=== PATIENT | female | born 1950 | race African-American/Black ===

== ENCOUNTER 2017-06-25 21:14 | Emergency (ER) | payer MEDICARE, MEDICAID ==
[~2017-06-25] VITALS: Ht 167.6 cm; Wt 72.6 kg
[~2017-06-25 21:14] MED LIST: ASPI-247 GT; BACL10TA OR; CELE200C OR; EZET10TA38 OR; FER325T OR; HYDR-1421 OR; LANS30CA63 OR; SERT-274 OR; TRAM50TA2 OR; TRIA25CA OR; ZOLP10TA6 OR
[2017-06-25] MEDS ORDERED: cloNIDine HCL 0.1 MG TAB PO ONE (21:30)
[2017-06-26] MEDS ORDERED: SODIUM CHLORIDE 0.9% 1,000 ML IV ONE (08:34)
[2017-06-26 09:45] LABS: Basophils # (auto) 0.1 uL; Basophils % (auto) 1.5 % (0.0-2.0); Eosinophils # (auto) 0.3 uL; Eosinophils % (auto) 6.4 % (0.0-7.0); Hematocrit 31.9 % (36.0-46.0); Hemoglobin 10.7 g/dL (12.2-16.2); Lymphocytes # (auto) 1.7 uL; Lymphocytes % (auto) 34.3 % (10.0-50.0); Mean Corpuscular Hemoglobin 27.4 pg (28.0-32.0); Mean Corpuscular Hgb Conc. 33.4 g/dL (32.0-36.0); Mean Corpuscular Volume 81.9 fL (80.0-100.0); Monocytes # (auto) 0.4 uL; Monocytes % (auto) 7.5 % (0.0-12.0); Neutrophils # (auto) 2.4 uL; Neutrophils % (auto) 50.3 % (37.0-80.0); Platelet Count (auto) 274 10^3/uL (140-450); Red Blood Cells 3.89 10^6/uL (4.0-5.20); Red Cell Distribution Width 14.5 % (11.8-14.3); White Blood Cell 4.8 10^3/uL (4.4-10.8)
[2017-06-26 10:04] LABS: Albumin 3.5 g/dL (3.4-5.0); BUN/Creatinine Ratio 14.1; Bilirubin, Total 0.8 mg/dL (0.2-1.0); Calcium 8.7 mg/dL (8.5-10.1); Magnesium 1.9 mg/dL (1.6-2.6); Potassium 4.3 mmol/L (3.5-5.1); Total Protein 6.8 g/dL (6.4-8.2)
[2017-06-26 10:15] VITALS: BP 151/77
[2017-06-26 10:35] LABS: Urine Bacteria FEW /hpf (None Seen); Urine Blood Negative /uL (Negative); Urine Specific Gravity 1.008 (1.001-1.035); Urine WBC <1 /hpf (0 - 5)
== END 2017-06-26 12:08 | disposition home or self-care (01) ==
LOC: EDBD 21:14 → ER 21:14
DX: I12.9 Hypertensive chronic kidney disease with stage 1 through stage 4 chronic kidney disease, or unspecified chronic kidney disease (principal); N18.9 Chronic kidney disease, unspecified; D63.8 Anemia in other chronic diseases classified elsewhere; Z85.038 Personal history of other malignant neoplasm of large intestine; Z79.899 Other long term (current) drug therapy
CPT/HCPCS: 36415; 71046; 80053; 81001; 83735; 84443; 85025; 93005; 99285; J7030

== ENCOUNTER 2024-12-06 23:02 | Inpatient (IN) | payer OTHER, MEDICAID ==
[~2024-12-06] VITALS: Ht 160 cm; Wt 60.0 kg
[~2024-12-06 23:02] MED LIST changes: +EZET10TA24 OR; -EZET10TA38 OR; +LANS30CA57 OR; -LANS30CA63 OR; +SERT-206 OR; -SERT-274 OR
[2024-12-07] VITALS (7 sets, daily range): BP systolic 96–150; BP diastolic 48–102; PULSE 18–99; RESP 16–18; TEMP 98.1–99.4; O2SAT 94–99
[2024-12-07] MEDS: DEXTROSE (50%) 50ML SYRG IV PRN (03:08)
--- NOTE | 2024-12-07 03:34 | DVHHPRES ---
History of Present Illness Resident Creating Document: ANIA FRIAS RESIDENT History of Present Illness This is a 74-year-old female with past medical history of hypertension, atrial fibrillation on Eliquis, ESRD on dialysis, diabetes mellitus, breast cancer, colon cancer, was referred from [facility] for altered mental status, no history could be obtained from patient at this time. According to the documentation from [facility], she was brought to the ER by daughter with 1 day history of altered mental status, daughter also reported abdominal pain, twitching that started with legs, progressively involving the whole-body. She received diphenhydramine, haloperidol, levetiracetam, midazolam in the [facility]. Daughter denied history of seizure in patient. Chest x-ray from outside facility showed cardiomegaly with central pulmonary vascular enlargement & CT head revealed no acute intracranial abnormality. PMHx: Hypertension, atrial fibrillation on Eliquis, ESRD on dialysis, diabetes mellitus, breast and colon cancer (unknown if patient had treatment or if there is recurrence) PSHx: Right knee replacement Social history: No history of smoking, alcohol, drug use. Next of kin daughter Home medication: Acetaminophen, benazepril, cephalexin, clonidine, Prempro, diphenhydramine, ferrous sulfate, folic acid, gabapentin, hydrochlorothiazide, hydroxychloroquine, ibuprofen, lansoprazole, metoprolol, naproxen, omeprazole, pravastatin, prednisolone, sertraline, trazodone Allergic history: No known allergies Patient was examined at bedside today. She is admitted for further evaluation and management. Review of Systems Review of Systems Review of system was not obtained due to altered mental status. Allergies: Coded Allergies: NO KNOWN ALLERGIES (Unverified , 09/25/09) Medications Current Medications Medications Dose Ordered Sig/Duncan Route Start Time Stop Time Status Last Admin Dose Admin Diagnostic Test (Pha) 1 strip ACHS 12/07/24 07:00 Insulin Human Regular ACHS SC 12/07/24 07:00 Dextrose 50 ml UD PRN IV 12/07/24 03:00 12/07/24 03:08 50 ML Exam Exam General: Patient somnolent, does not respond to commands, [place] score 10/15; orientation could not be established at this time Respiratory/pulmonary: Distant breath sounds Cardiovascular: Normal S1, S2. Abdomen: Abdomen nondistended Extremities: No peripheral edema noted Neurological: Altered mental status complete neurological examination could not be obtained at this time. Could not assess orientation. Combative Labs/Xrays Labs Test 12/07/24 02:29 Range/Units POC Glucose 52 L 70-106 mg/dl SEPSIS Sepsis Screen Physician Orders Glucose Blood (Accu-Chek Comfort Curve T (12/07/24 07:00) Insulin R (Human) (Insulin R) (12/07/24 07:00) Dextrose 50% Syringe (12/07/24 03:00) Medications Medications Dose Ordered Sig/Duncan Route Start Time Stop Time Status Last Admin Dose Admin Dextrose 50 ml UD PRN IV 12/07/24 03:00 12/07/24 03:08 50 ML Assessment/Plan Assessment/Plan Metabolic encephalopathy probably secondary to sepsis (UTI) Hypoglycemia on arrival Breakthrough seizure Diabetes mellitus type 2 Dextrose 5% administered, with regular blood glucose checks & sliding scale insulin Monitor blood glucose CBC, CMP, drug screen, urine analysis, A1c ordered Chest x-ray ordered to rule out aspiration pneumonia Patient monitored on telemetry Seizure precaution in place Hypertension Paroxysmal atrial fibrillation Cardiomegaly On Eliquis at home. Started on heparin 5000 units b.i.d. Ordered echocardiogram Probable UTI End-stage kidney disease on dialysis (T, T, S) Dialysis with [facility] Consulted nephrology Currently under empiric IV antibiotic (vancomycin and Zosyn). Patient should receive dose after hemodialysis session. Breast cancer, status unknown Colon cancer, status unknown Questionable brain Mets Continue clinical monitoring If deemed necessary, recommend ordering brain MRI to rule out brain metastasis. DIET: NPO DVT PROPHYLAXIS: Heparin GI PROPHYLAXIS: Protonix CODE STATUS: Documents reviewed and Goals of care discussed with nurses and daughter at bedside for more than 38 minutes. Full code DISPOSITION: Telemetry Patient's status and plan discussed with the patient. Case discussed with Dr. Villegas Plan discussed with: Patient, Other (Nurses) Date of Service: Dec 07, 2024 Billing Provider: CALEB VILLEGAS MD Common Visit Codes: [id number] INP/OBS CARE (HIGH) Secondary Visit Codes: [id number] CARE PLAN 30 MINUTES ANIA FRIAS RESIDENT Dec 07, 2024 03:34 CARMEN BARRETO RESIDENT Dec 07, 2024 06:36
[2024-12-07] MEDS ORDERED: MORPHINE SULFATE INJ 2 MG/ml SYRG IV PRN (04:00)
--- NOTE | 2024-12-07 05:26 | DVH ---
CHEST RADIOGRAPH Indication: Rule out aspiration pneumonia Technique: Single frontal view of the chest was obtained COMPARISON: XR CHEST 1 VIEW on DOS: 12/06/24, XR CHEST 1 VIEW on DOS: 04/22/24, XR CHEST 2 VIEW on DOS: 04/07/24 FINDINGS: Lines and Tubes: None Lungs: Clear Pleura: No effusion. No pneumothorax. Cardiomediastinal contours: Cardiomegaly. Bones: Unremarkable IMPRESSION: 1. Cardiomegaly.
[2024-12-07] MEDS ORDERED: VANCOMYCIN PER PHARMACY 0 MG IV SCH (05:45)
[2024-12-07 06:24] LABS: Albumin 3.7 g/dL (3.2-4.8); Alkaline Phosphatase 87 U/L (46-116); Anion Gap 17 (5-15); BUN/Creatinine Ratio 4.3 (10.0-20.0); Carbon Dioxide 26 mmol/L (20-31); Chloride 99 mmol/L (98-107); Magnesium 2.3 mg/dL (1.6-2.6); Potassium 4.6 mmol/L (3.5-5.1); Sodium 142 mmol/L (136-145); Total Protein 6.2 g/dL (5.7-8.2); Triglycerides 83 mg/dL (< 150)
[2024-12-07 06:25] LABS: Cholesterol 156 mg/dL (< 200)
[2024-12-07 06:26] LABS: Hematocrit 28.2 % (36.0-46.0); Hemoglobin 9.1 g/dL (12.2-16.2); Mean Corpuscular Hemoglobin 28.1 pg (28.0-32.0); Mean Corpuscular Volume 87.1 fL (80.0-100.0); Nucleated Red Blood Cells % 0.2 %
[2024-12-07 06:30] LABS: Alanine Aminotransferase < 9 U/L (7-40); Bilirubin, Total < 0.2 mg/dL (0.2-1.0); Blood Urea Nitrogen 23 mg/dL (9-23); Calcium 8.5 mg/dL (8.7-10.4); Glucose 63 mg/dL (74-106); HDL Cholesterol 91 mg/dL (40-59)
[2024-12-07 06:32] LABS: INR 1.14 (0.9-1.15); Partial Thromboplastin Time 22.7 SEC (24.5-34.5); Prothrombin Time 11.9 sec (9.3-11.8)
[2024-12-07 06:45] LABS: Lipase 20 U/L (12-53)
[2024-12-07] MEDS: InsuLIN REG 1unit/0.01ml Soln (100units/ml) SC SCH (07:00)
[2024-12-07] MEDS: ACCU-CHEK COMFORT CURVE STRIP VI SCH (07:00)
[2024-12-07] MEDS: SEVELAMER 800 MG TAB PO SCH (08:00)
[2024-12-07] MEDS: METOPROLOL TARTRATE 50 MG TAB PO SCH (10:00)
[2024-12-07] MEDS: SERTRALINE HCL 50 MG TAB PO SCH (10:00)
[2024-12-07] MEDS ORDERED: PANTOPRAZOLE 40 MG/10 ML VIAL INJ IV SCH (10:00)
[2024-12-07] MEDS: TRIAMTER PO SCH (10:00)
[2024-12-07] MEDS: HYDROCHLOROTHIAZIDE PO SCH (10:00)
[2024-12-07] MEDS: PIPERACILLIN-TAZOB 2.25GM 50 ML IV SCH (10:34)
[2024-12-07] MEDS: VANCOMYCIN 1.25GM/250ML 250 ML IV ONE (10:34)
[2024-12-07] MEDS: HEPARIN SODIUM (PORCINE) 5000 UNITS/ML 1ML VIAL SC SCH ×2 (10:34→23:28)
[2024-12-07] MEDS ORDERED: APIX5TAB PO (12:24)
[2024-12-07 12:53] LABS: Urine Budding Yeast OCCASIONAL /hpf (None Seen); Urine Protein, UAD 2+ (Negative)
[2024-12-07 13:12] LABS: Amphetamine Screen, Urine Neg (NEGATIVE); Barbiturate Scree,Urine Neg (NEGATIVE); Benzodiazephine Screen, Urine Pos (NEGATIVE); Cannabinoid Screen, Urine Neg (NEGATIVE); Cocaine Screen, Urine Neg (NEGATIVE); Opiate Scree,Urine Neg (NEGATIVE); Phencyclidine Screen, Urine Neg (NEGATIVE)
--- NOTE | 2024-12-07 17:18 | DVHPN2 ---
Subjective 74-year-old female who was transferred from [facility] with altered mental status from ER to ER. Family at bedside was updated regarding current plan of care Changes from previous H/P or p: No Changes Objective Vitals Vital Signs Date Time Temp Pulse Resp B/P (MAP) Pulse Ox O2 Delivery O2 Flow Rate FiO2 12/07/24 13:00 99.4 86 16 104/48 (66) 94 99.4 12/07/24 02:52 Room Air* 0 21 Intake/Output Intake and Output 12/07/24 07:00 Intake Total 0 ml Output Total 50 ml Balance -50 ml Intake Oral 0 ml Output Urine Total 50 ml Exam Patient is very agitated and could not be examined. We will place on aspiration precaution fall precautions and a sitter at bedside. Twelve lead EKG if there was no QT prolongation then we will start Haldol p.r.n.. Medications Current Medications Medications Dose Ordered Sig/Duncan Route Start Time Stop Time Status Last Admin Dose Admin Diagnostic Test (Pha) 1 strip ACHS 12/07/24 07:00 12/07/24 11:31 1 STRIP Insulin Human Regular ACHS SC 12/07/24 07:00 Dextrose 50 ml UD PRN IV 12/07/24 03:00 12/07/24 06:00 50 ML Morphine Sulfate 2 mg Q4HPRN PRN IV 12/07/24 04:00 Sertraline HCl 50 mg DAILY PO 12/07/24 10:00 Tramadol HCl 50 mg QID PO 12/07/24 06:00 12/07/24 12:14 50 MG Patient Own Medication 1 tab HS PO 12/07/24 22:00 Future Hold Patient Own Medication 1 cap DAILY PO 12/07/24 10:00 Heparin Sodium (Porcine) 5,000 units Q12HR SC 12/07/24 10:00 12/07/24 10:34 5,000 UNITS Pantoprazole Sodium 40 mg DAILY IV 12/07/24 10:00 Hold Metoprolol Tartrate 50 mg BID PO 12/07/24 10:00 Clonidine HCl 0.1 mg DAILY PO 12/07/24 10:00 Vancomycin HCl 0 ml @ 0 mls/hr UD IV 12/07/24 05:45 Piperacillin Sod/ Tazobactam Sod 50 ml @ 12.5 mls/hr Q12HR IV 10/9/25 10:00 12/07/24 10:34 12.5 MLS/HR Sevelamer HCl 800 mg TIDWM PO 12/07/24 08:00 Laboratory Results Laboratory Tests 12/07/24 05:48 Chemistry Test 12/07/24 05:48 Albumin 3.7 g/dL (3.2-4.8) Calcium Level 8.5 mg/dL (8.7-10.4) L Magnesium Level 2.3 mg/dL (1.6-2.6) Phosphorus Level 8.0 mg/dL (2.4-5.1) H Total Protein 6.2 g/dL (5.7-8.2) Coagulation Test 12/07/24 05:48 Prothrombin Time 11.9 sec (9.3-11.8) H Prothrombin Time INR 1.14 (0.9-1.15) Activated Partial Thromboplast Time 22.7 SEC (24.5-34.5) L Lipid panel Test 12/07/24 05:48 Cholesterol Level 156 mg/dL (< 200) HDL Cholesterol 91 mg/dL (40-59) H Lipase 20 U/L (12-53) Triglycerides Level 83 mg/dL (< 150) LFT Test 12/07/24 05:48 Alanine Aminotransferase (ALT) < 9 U/L (7-40) Alkaline Phosphatase 87 U/L (46-116) Aspartate Amino Transferase (AST) 13 U/L (13-40) Total Bilirubin < 0.2 mg/dL (0.2-1.0) L HgA1c, TSH Test 12/07/24 05:48 Hemoglobin A1c < 3.8 % A1C (<5.7) Thyroid Stimulating Hormone (TSH) 4.73 uIU/mL (0.55-4.78) Urinalysis Test 12/07/24 11:40 Urine Color Colorless (Yellow) Urine Clarity Turbid (Clear) H Urine pH 8.5 (5.0-9.0) Urine Specific [place] 1.024 (1.001-1.035) Urine Protein 2+ (Negative) H Urine Ketones Trace (Negative) Urine Blood 3+ /uL (Negative) H Urine Nitrite Negative (Negative) Urine Bilirubin Negative (Negative) Urine Urobilinogen Normal mg/dL (Negative) Urine Leukocyte Esterase 2+ /uL (Negative) Urine RBC 2606 /hpf (0 - 4) Urine Microscopic WBC 5 /HPF (0-5) Urine Squamous Epithelial Cells Few /hpf (<5) Urine Bacteria None seen /hpf (None Seen) Urine Yeast (Budding) Occasional /hpf (None Urine Glucose Normal mg/dL (Normal) Microbiology Microbiology Date/Time Source Procedure Growth Status 12/07/24 09:00 Nose MRSA Screen - Final Complete Assessment/Plan Assessment/Plan 74-year-old female with a known history of hypertension, chronic AFib on Eliquis, end-stage renal disease on hemodialysis, diabetes mellitus type 2, history of breast cancer and colon cancer who was transferred from [facility] with altered mental status found to have 1. Acute metabolic encephalopathy 2. End-stage renal disease on hemodialysis 3. Chronic AFib currently on Eliquis 4. Diabetes mellitus type 2 5. History of breast cancer and colon cancer -aspiration precaution, fall precautions, therapeutic Lovenox for chronic AFib for primary prevention of stroke. Sitter at bedside. Plan discussed with: Daughter My Orders Orders - CARLITOS CHACON MD Procedure Category Date Status Time Renal DIET 12/07/24 Transmitted Standard(2gna,3gk,Lopho) Lunch Date of Service: Dec 07, 2024 Billing Provider: CARLITOS CHACON MD Common Visit Codes: [id number] INP/OBS CARE(MOD) CARLITOS CHACON MD Dec 07, 2024 17:18
[2024-12-07] MEDS: D5W 5% 1,000 ML IV SCH (17:37)
[2024-12-07] MEDS ORDERED: EZETIMIBE SIMVASTATIN PO SCH (22:00)
--- NOTE | 2024-12-07 23:09 | DVHINCON2 ---
Date of service: Dec 07, [address] Betancourt Reason for Consultation ESRD and dialysis management History of Present Illness Marisa Nunez is a 74-year-old F with Past Medical History pertinent for Hypertension, Atrial fibrillation on Eliquis, ESRD on dialysis, Diabetes Mellit us, Breast cancer and Colon cancer who was referred from [facility] for altered mental status. [place] [facility] [place] with 1 day history of altered mental status. Patient's daughter also reported abdominal pain, twitching that started with legs, progressively involving the whole-body. Initial Chest x-ray from outside hospital showed card iomegaly with central pulmonary vascular enlargement. CT Head revealed no acute intracranial abnormality. Allergies: Coded Allergies: NO KNOWN ALLERGIES (Unverified , 09/25/09) Home Meds Reported Medications Apixaban Base (ELIQUIS) 5 Mg Tab, 5 MG PO BID, TAB 12/07/24 Hydrochlorothiazide W/Triamter (Hctz/Triamterene) 1 Cap Cap, 1 CAP OR DAILY 09/25/09 Celecoxib (Celebrex) 200 Mg Cap, 200 MG OR DAILY 09/25/09 Baclofen (Baclofen) 10 Mg Tab, 10 MG OR TID 09/25/09 Sertraline Hcl (Sertraline Hcl) 50 Mg Tab, 50 MG OR DAILY 09/25/09 Hydrocodone-Acetaminophen (Vicodin) 1 Tab Tab, 1 TAB OR TID 09/25/09 Aspirin (Asa) 325 Mg Tb, 325 MG GT DAILY 09/25/09 Ezetimibe-Simvastatin (Vytorin) 1 Tab Tab, 1 TAB OR HS 09/25/09 Lansoprazole (Lansoprazole) 30 Mg Cap, 30 MG OR DAILY 09/25/09 Tramadol Hcl (Tramadol Hcl) 50 Mg Tab, 50 MG OR QID 09/25/09 Ferrous Sulfate (Ferrous Sulfate) 325 Mg Tab, 325 MG OR DAILY 09/25/09 Zolpidem Tartrate (Zolpidem Tartrate) 10 Mg Tab, 10 MG OR HS 09/25/09 Current Medications Current Medications Medications (Trade) Dose Ordered Sig/Duncan Route PRN Reason Start Time Stop Time Status Last Admin Enoxaparin Sodium (Lovenox) 60 mg DAILY SC 12/08/24 10:00 Hold Dextrose 1,000 ml @ 50 mls/hr Q20H IV 12/07/24 23:00 12/08/24 19:59 Family History: Cancer of colon G8 MOTHER G8 FATHER Family history: Depression (situation) G8 MOTHER G8 FATHER Family history: Diabetes mellitus G8 MOTHER G8 FATHER Family history: Hypertension G8 MOTHER G8 FATHER Family history: Thyroid disorder G8 MOTHER G8 FATHER Stroke G8 MOTHER G8 FATHER Review of Systems Review of system was not obtained due to altered mental status. H&P Exam Vital Signs/I&O Vital Sign Date Time Temp Pulse Resp B/P (MAP) Pulse Ox O2 Delivery O2 Flow Rate FiO2 12/08/24 22:03 72 141/101 12/08/24 21:00 97.3 16 99 97.3 12/07/24 02:52 Room Air* 0 21 Intake and Output 12/07/24 12/08/24 19:00 07:00 Intake Total 120 ml 50 ml Output Total 171 ml 300 ml Balance -51 ml -250 ml Intake Oral 120 ml 0 ml IV Total 50 ml Output Urine Total 171 ml 300 ml Physical Exam Vitals and nursing notes reviewed. General: Patient somnolent, does not respond to commands. Respiratory/pulmonary: Distant breath sounds Cardiovascular: Normal S1, S2. Abdomen:Abdomen nondistended Extremities: No peripheral edema noted Neurological: Altered mental status complete neurological examination could not be obtained at this time. Labs/Diagnostic Data Labs/Diagnostic Data Laboratory Tests Test 12/08/24 16:43 12/08/24 11:31 12/08/24 05:49 12/08/24 05:15 Range/Units POC Glucose 91 82 61 L 70-106 mg/dl White Blood Count 6.5 4.4-10.8 10^3/uL Red Blood Count 2.85 L 4.0-5.20 10^6/uL Hemoglobin 8.0 L 12.2-16.2 g/dL Hematocrit 24.7 #L 36.0-46.0 % Mean Corpuscular Volume 86.7 80.0-100.0 fL Mean Corpuscular Hemoglobin 28.2 28.0-32.0 pg Mean Corpuscular Hemoglobin Concent 32.5 32.0-36.0 g/dL Red Cell Distribution Width 16.7 H 11.8-14.3 % Platelet Count 196 140-450 10^3/uL Mean Platelet Volume 6.2 L 6.9-10.8 fL Neutrophils (%) (Auto) 59.0 37.0-80.0 % Lymphocytes (%) (Auto) 31.3 10.0-50.0 % Monocytes (%) (Auto) 8.0 0.0-12.0 % Eosinophils (%) (Auto) 0.9 0.0-7.0 % Basophils (%) (Auto) 0.8 0.0-2.0 % Neutrophils # (Auto) 3.9 1.6-8.6 10 ^3/uL Lymphocytes # (Auto) 2.0 0.4-5.4 10 ^3/uL Monocytes # (Auto) 0.5 0-1.3 10 ^3/uL Eosinophils # (Auto) 0.1 0-0.8 10 ^3/uL Basophils # (Auto) 0.1 0-0.2 10 ^3/uL Nucleated Red Blood Cells 0.3 % Sodium Level 138 136-145 mmol/L Potassium Level 4.6 3.5-5.1 mmol/L Chloride Level 97 L 98-107 mmol/L Carbon Dioxide Level 25 20-31 mmol/L Anion Gap 16 H 5-15 Blood Urea Nitrogen 30 H 9-23 mg/dL Creatinine 6.66 H 0.550-1.02 mg/dL Glomerular Filtration Rate Calc 6 >90 mL/min BUN/Creatinine Ratio 4.5 L 10.0-20.0 Serum Glucose 101 74-106 mg/dL Calcium Level 8.5 L 8.7-10.4 mg/dL Total Bilirubin < 0.2 L 0.2-1.0 mg/dL Aspartate Amino Transferase (AST) 43 H 13-40 U/L Alanine Aminotransferase (ALT) 17 7-40 U/L Alkaline Phosphatase 81 46-116 U/L Total Protein 5.7 5.7-8.2 g/dL Albumin 3.3 3.2-4.8 g/dL Random Vancomycin Level 15.8 H 5-10 ug/mL Hepatitis B Surface Antigen Negative Negative Test 12/08/24 02:28 12/08/24 02:26 12/07/24 21:51 12/07/24 17:35 Range/Units POC Glucose 43 *L 42 *L 48 *L 61 L 70-106 mg/dl Test 12/07/24 11:40 12/07/24 11:30 12/07/24 11:29 12/07/24 07:21 Range/Units Urine Color Colorless Yellow Urine Clarity Turbid H Clear Urine pH 8.5 5.0-9.0 Urine Specific [place] 1.024 1.001-1.035 Urine Protein 2+ H Negative Urine Ketones Trace Negative Urine Blood 3+ H Negative /uL Urine Nitrite Negative Negative Urine Bilirubin Negative Negative Urine Urobilinogen Normal Negative mg/dL Urine Leukocyte Esterase 2+ Negative /uL Urine RBC 2606 0 - 4 /hpf Urine Microscopic WBC 5 0-5 /HPF Urine Squamous Epithelial Cells Few <5 /hpf Urine Bacteria None seen None Seen /hpf Urine Yeast (Budding) Occasional None Seen /hpf Urine Glucose Normal Normal mg/dL Urine Opiates Screen Neg NEGATIVE Urine Fentanyl Screen Neg NEGATIVE Urine Barbiturates Screen Neg NEGATIVE Urine Phencyclidine Screen Neg NEGATIVE Urine Amphetamines Screen Neg NEGATIVE Urine Benzodiazepines Screen Pos NEGATIVE Urine Cocaine Screen Neg NEGATIVE Urine Cannabinoids Screen Neg NEGATIVE POC Glucose 62 L 52 L 104 70-106 mg/dl Test 12/07/24 05:48 12/07/24 05:24 12/07/24 05:08 12/07/24 02:29 Range/Units White Blood Count 5.8 4.4-10.8 10^3/uL Red Blood Count 3.23 L 4.0-5.20 10^6/uL Hemoglobin 9.1 L 12.2-16.2 g/dL Hematocrit 28.2 L 36.0-46.0 % Mean Corpuscular Volume 87.1 80.0-100.0 fL Mean Corpuscular Hemoglobin 28.1 28.0-32.0 pg Mean Corpuscular Hemoglobin Concent 32.3 32.0-36.0 g/dL Red Cell Distribution Width 16.8 H 11.8-14.3 % Platelet Count 218 140-450 10^3/uL Mean Platelet Volume 6.1 L 6.9-10.8 fL Neutrophils (%) (Auto) 48.0 37.0-80.0 % Lymphocytes (%) (Auto) 37.4 10.0-50.0 % Monocytes (%) (Auto) 12.5 H 0.0-12.0 % Eosinophils (%) (Auto) 1.3 0.0-7.0 % Basophils (%) (Auto) 0.8 0.0-2.0 % Neutrophils # (Auto) 2.8 1.6-8.6 10 ^3/uL Lymphocytes # (Auto) 2.2 0.4-5.4 10 ^3/uL Monocytes # (Auto) 0.7 0-1.3 10 ^3/uL Eosinophils # (Auto) 0.1 0-0.8 10 ^3/uL Basophils # (Auto) 0 0-0.2 10 ^3/uL Nucleated Red Blood Cells 0.2 % Prothrombin Time 11.9 H 9.3-11.8 sec Prothrombin Time INR 1.14 0.9-1.15 Activated Partial Thromboplast Time 22.7 L 24.5-34.5 SEC Sodium Level 142 136-145 mmol/L Potassium Level 4.6 3.5-5.1 mmol/L Chloride Level 99 98-107 mmol/L Carbon Dioxide Level 26 20-31 mmol/L Anion Gap 17 H 5-15 Blood Urea Nitrogen 23 9-23 mg/dL Creatinine 5.31 H 0.550-1.02 mg/dL Glomerular Filtration Rate Calc 8 >90 mL/min BUN/Creatinine Ratio 4.3 L 10.0-20.0 Serum Glucose 63 L 74-106 mg/dL Hemoglobin A1c < 3.8 <5.7 % A1C Lactic Acid Level 0.9 0.4-2.0 mmol/L Calcium Level 8.5 L 8.7-10.4 mg/dL Phosphorus Level 8.0 H 2.4-5.1 mg/dL Magnesium Level 2.3 1.6-2.6 mg/dL Total Bilirubin < 0.2 L 0.2-1.0 mg/dL Aspartate Amino Transferase (AST) 13 13-40 U/L Alanine Aminotransferase (ALT) < 9 7-40 U/L Alkaline Phosphatase 87 46-116 U/L Ammonia < 10 L 11-32 umol/L C-Reactive Protein High Sensitivity 0.34 <1.0 mg/dL Total Protein 6.2 5.7-8.2 g/dL Albumin 3.7 3.2-4.8 g/dL Triglycerides Level 83 < 150 mg/dL Cholesterol Level 156 < 200 mg/dL LDL Cholesterol 51 < 100 mg/dL HDL Cholesterol 91 H 40-59 mg/dL Lipase 20 12-53 U/L Vitamin B12 Level 855 211-911 pg/mL Vitamin D 25-Hydroxy 75.6 30.0-100 ng/mL Thyroid Stimulating Hormone (TSH) 4.73 0.55-4.78 uIU/mL Plasma/Serum Blood Alcohol < 3.0 <10 mg/dL POC Glucose 68 L 52 L 70-106 mg/dl Influenza Type A Antigen Negative Negative Influenza Type B Antigen Negative Negative SARS-CoV-2 Antigen (Rapid) Negative NEGATIVE Microbiology Date/Time Source Procedure Growth Status 12/07/24 09:00 Nose MRSA Screen - Final Complete Assessment Acute metabolic encephalopathy End-stage renal disease on hemodialysis Chronic AFib currently on Eliquis Diabetes mellitus type 2 History of breast cancer and colon cancer Plan/Recommendation Agreement with your ongoing assessment and plan of care. Sitter 1:1 at bedside. Aspiration precaution, fall precautions. Neurology consulted. Schedule HD 12/08. Empiric IV antibiotics with Vancomycin and Zosyn. Heparin 5000 units b.i.d. Regular blood glucose checks & sliding scale insulin. Additional plan as per the hospital course. Plan discussed with: Other (RN) TATYANA CHARLES DO Dec 07, 2024 23:09
[2024-12-07] MEDS: DEXTROSE 10% 1,000 ML IV SCH (23:29)
[2024-12-08] VITALS (7 sets, daily range): BP systolic 127–162; BP diastolic 68–109; PULSE 67–77; RESP 16–18; TEMP 97.3–97.8; O2SAT 96–100
[2024-12-08 06:12] LABS: COVID19 ANTIGEN SOFIA FIA NEGATIVE (NEGATIVE)
[2024-12-08 06:23] LABS: Hematocrit 24.7 % (36.0-46.0); Mean Corpuscular Hemoglobin 28.2 pg (28.0-32.0); Mean Corpuscular Volume 86.7 fL (80.0-100.0)
[2024-12-08 06:26] LABS: Hemoglobin 8.0 g/dL (12.2-16.2); Nucleated Red Blood Cells % 0.3 %
[2024-12-08 06:42] LABS: Alanine Aminotransferase 17 U/L (7-40); Albumin 3.3 g/dL (3.2-4.8); Alkaline Phosphatase 81 U/L (46-116); Anion Gap 16 (5-15); BUN/Creatinine Ratio 4.5 (10.0-20.0); Carbon Dioxide 25 mmol/L (20-31); Glucose 101 mg/dL (74-106); Potassium 4.6 mmol/L (3.5-5.1); Sodium 138 mmol/L (136-145)
[2024-12-08 06:46] LABS: Bilirubin, Total < 0.2 mg/dL (0.2-1.0); Blood Urea Nitrogen 30 mg/dL (9-23); Calcium 8.5 mg/dL (8.7-10.4); Chloride 97 mmol/L (98-107); Total Protein 5.7 g/dL (5.7-8.2)
[2024-12-08] MEDS ORDERED: ENOXAPARIN SOD 60 MG/0.6 ML SYRINGE SC SCH (10:00)
[2024-12-08] MEDS: VANCOMYCIN 500mg/100mL 100 ML IV ONE (15:51)
--- NOTE | 2024-12-08 17:03 | DVHPN2 ---
Subjective Patient is less agitated today, tele neuro consult has been pending. Changes from previous H/P or p: No Changes Objective Vitals Vital Signs Date Time Temp Pulse Resp B/P (MAP) Pulse Ox O2 Delivery O2 Flow Rate FiO2 12/08/24 12:30 97.8 76 16 162/82 (108) 98 97.8 12/07/24 02:52 Room Air* 0 21 Intake/Output Intake and Output 12/08/24 07:00 Intake Total 170 ml Output Total 471 ml Balance -301 ml Intake Oral 120 ml IV Total 50 ml Output Urine Total 471 ml Exam Patient is more calm today no abuse motor deficit. Medications Current Medications Medications Dose Ordered Sig/Duncan Route Start Time Stop Time Status Last Admin Dose Admin Diagnostic Test (Pha) 1 strip ACHS 12/07/24 07:00 12/08/24 16:47 1 STRIP Insulin Human Regular ACHS SC 12/07/24 07:00 Dextrose 50 ml UD PRN IV 12/07/24 03:00 12/08/24 02:30 50 ML Morphine Sulfate 2 mg Q4HPRN PRN IV 12/07/24 04:00 Sertraline HCl 50 mg DAILY PO 12/07/24 10:00 Tramadol HCl 50 mg QID PO 12/07/24 06:00 12/07/24 12:14 50 MG Patient Own Medication 1 tab HS PO 12/07/24 22:00 Hold Patient Own Medication 1 cap DAILY PO 12/07/24 10:00 Pantoprazole Sodium 40 mg DAILY IV 12/07/24 10:00 Hold Metoprolol Tartrate 50 mg BID PO 12/07/24 10:00 Clonidine HCl 0.1 mg DAILY PO 12/07/24 10:00 Vancomycin HCl 0 ml @ 0 mls/hr UD IV 12/07/24 05:45 Piperacillin Sod/ Tazobactam Sod 50 ml @ 12.5 mls/hr Q12HR IV 12/07/24 10:00 12/07/24 23:28 12.5 MLS/HR Sevelamer HCl 800 mg TIDWM PO 12/07/24 08:00 Enoxaparin Sodium 60 mg DAILY SC 12/08/24 10:00 Hold Heparin Sodium (Porcine) 5,000 units Q12HR SC 12/07/24 22:00 12/08/24 15:55 5,000 UNITS Dextrose 1,000 ml @ 50 mls/hr Q20H IV 12/07/24 23:00 12/07/24 23:29 50 MLS/HR Laboratory Results Laboratory Tests 12/08/24 05:49 Chemistry Test 12/08/24 05:49 Albumin 3.3 g/dL (3.2-4.8) Calcium Level 8.5 mg/dL (8.7-10.4) L Total Protein 5.7 g/dL (5.7-8.2) LFT Test 12/08/24 05:49 Alanine Aminotransferase (ALT) 17 U/L (7-40) Alkaline Phosphatase 81 U/L (46-116) Aspartate Amino Transferase (AST) 43 U/L (13-40) H Total Bilirubin < 0.2 mg/dL (0.2-1.0) L Urinalysis Test 12/07/24 11:40 Urine Color Colorless (Yellow) Urine Clarity Turbid (Clear) H Urine pH 8.5 (5.0-9.0) Urine Specific [place] 1.024 (1.001-1.035) Urine Protein 2+ (Negative) H Urine Ketones Trace (Negative) Urine Blood 3+ /uL (Negative) H Urine Nitrite Negative (Negative) Urine Bilirubin Negative (Negative) Urine Urobilinogen Normal mg/dL (Negative) Urine Leukocyte Esterase 2+ /uL (Negative) Urine RBC 2606 /hpf (0 - 4) Urine Microscopic WBC 5 /HPF (0-5) Urine Squamous Epithelial Cells Few /hpf (<5) Urine Bacteria None seen /hpf (None Seen) Urine Yeast (Budding) Occasional /hpf (None Urine Glucose Normal mg/dL (Normal) Microbiology Microbiology Date/Time Source Procedure Growth Status 12/07/24 11:40 Voided Urine Urine Culture - Preliminary Resulted 12/07/24 09:00 Nose MRSA Screen - Final Complete 12/07/24 05:48 Blood Blood Culture - Preliminary NO GROWTH AFTER 24 HOURS OF INCUBATION. Resulted Assessment/Plan Assessment/Plan 74-year-old female with a known history of hypertension, chronic AFib on Eliquis, end-stage renal disease on hemodialysis, diabetes mellitus type 2, history of breast cancer and colon cancer who was transferred from [facility] with altered mental status found to have 1. Acute metabolic encephalopathy, CT head noncontrast from [facility] shows no evidence of acute infarct 2. End-stage renal disease on hemodialysis 3. Chronic AFib currently on Eliquis 4. Diabetes mellitus type 2 5. History of breast cancer and colon cancer -aspiration precaution, fall precautions, -pressure is a precautions Discontinue therapeutic Lovenox as patient is currently now eating, resume Eliquis Plan discussed with: Other My Orders Orders - CARLITOS CHACON MD Procedure Category Date Status Time Enoxaparin Sodium PHA 12/08/24 In Process (Lovenox) 10:00 Date of Service: Dec 09, 2024 Billing Provider: CARLITOS CHACON MD Common Visit Codes: [id number] INP/OBS CARE(HIGH) CARLITOS CHACON MD Dec 08, 2024 17:03
--- NOTE | 2024-12-08 21:46 | DVHPN2 ---
Progress Note - Dictate Date Seen: Dec 08, 2024 Has the PT tested + for MRSA If YES, has PT been informed?: No Medical Necessity Reason Pt with a Central, PICC or Fol: No Subjective Patient was seen and evaluated in follow up. No acute events overnight. Patient is awake and alert to self. Sitter at bedside. No pain or distress. Scheduled for dialysis. vital signs Vital Sign Date Time Temp Pulse Resp B/P (MAP) Pulse Ox O2 Delivery O2 Flow Rate FiO2 12/08/24 16:30 97.6 71 17 145/77 (99) 96 97.6 12/07/24 02:52 Room Air* 0 21 Total Intake and Output 12/07/24 12/07/24 12/08/24 15:00 23:00 07:00 Intake Total 0 ml 120 ml 50 ml Output Total 171 ml 300 ml Balance 0 ml -51 ml -250 ml medications Current Medications Medications Dose Ordered Sig/Duncan Route Start Time Stop Time Status Last Admin Dose Admin Diagnostic Test (Pha) 1 strip ACHS 12/07/24 07:00 12/08/24 16:47 1 STRIP Insulin Human Regular ACHS SC 12/07/24 07:00 Dextrose 50 ml UD PRN IV 12/07/24 03:00 12/08/24 02:30 50 ML Morphine Sulfate 2 mg Q4HPRN PRN IV 12/07/24 04:00 Sertraline HCl 50 mg DAILY PO 12/07/24 10:00 Tramadol HCl 50 mg QID PO 12/07/24 06:00 12/08/24 19:00 50 MG Patient Own Medication 1 tab HS PO 12/07/24 22:00 Hold Patient Own Medication 1 cap DAILY PO 12/07/24 10:00 Pantoprazole Sodium 40 mg DAILY IV 12/07/24 10:00 Hold Metoprolol Tartrate 50 mg BID PO 12/07/24 10:00 Clonidine HCl 0.1 mg DAILY PO 12/07/24 10:00 Vancomycin HCl 0 ml @ 0 mls/hr UD IV 12/07/24 05:45 Piperacillin Sod/ Tazobactam Sod 50 ml @ 12.5 mls/hr Q12HR IV 12/07/24 10:00 12/07/24 23:28 12.5 MLS/HR Sevelamer HCl 800 mg TIDWM PO 12/07/24 08:00 12/08/24 19:00 800 MG Enoxaparin Sodium 60 mg DAILY SC 12/08/24 10:00 Hold Heparin Sodium (Porcine) 5,000 units Q12HR SC 12/07/24 22:00 12/08/24 15:55 5,000 UNITS Dextrose 1,000 ml @ 50 mls/hr Q20H IV 12/07/24 23:00 12/08/24 19:59 50 MLS/HR objective Vitals and nursing notes reviewed. General: Patient somnolent, does not respond to commands. HENT: NC/AT. Respiratory/pulmonary: Distant breath sounds Cardiovascular: Normal S1, S2. Abdomen:Abdomen nondistended Extremities: No peripheral edema noted Neurological: Disoriented. A&Ox1. laboratory and microbiology Laboratory Tests 12/08/24 05:49 Test 12/08/24 05:49 Range/Units Serum Glucose 101 74-106 mg/dL Problem List Acute metabolic encephalopathy End-stage renal disease on hemodialysis Chronic AFib currently on Eliquis Diabetes mellitus type 2 History of breast cancer and colon cancer Assessment/Plan Agree with current supportive medical care. Sitter 1:1 at bedside. Aspiration precaution, seizure and fall precautions. HD- 12/08- UF 2-3L as tolerated. Empiric IV antibiotics with Vancomycin and Zosyn. Monitor cultures. Heparin 5000 units b.i.d. Regular blood glucose checks & sliding scale insulin. Nutritional support. Additional plan as per the hospital course. Plan discussed with: Patient, Other (RN) TATYANA CHARLES DO Dec 08, 2024 21:46
[2024-12-08] MEDS: EPOETIN ALFA-EPBX 10,000 UNIT/1ML VIAL SC ONE (21:51)
--- NOTE | 2024-12-09 00:54 | DVHSR ---
APPROVED REPORT EXAM: Two-dimensional and M-mode echocardiogram with Doppler and color Doppler. Blood Pressure: 133/68 mmHg INDICATION cardiomgaly RISK FACTORS Height: 5'3, Weight: 125 DIMENSIONS LVDd3.9 (3.8-5.7cm)LA (2D)4.0 (1.9-4.0cm)Aortic Root2.8 (2.0-3.7cm) LVDs2.8 (2.5-4.0cm)LA (MM) (1.9-4.0cm)Aortic Cusp Exc1.6 (1.5-2.0cm) EF (%) 60.0 (55-70%)Rt. Atrium3.2 (1.9-4.0cm)Asc. Aorta cm IVSd0.9 (0.7-1.1cm)RV (D) (1.8-2.4cm) PWd0.7 (0.7-1.1cm) Mitral Valve MitralMitral Stenosis E wave0.77m/sMV Mean GR.mmHg A wave1.03m/sMV Peak GR.67mmHg E/A ratio0.72D MVAcm2 DECEL [id number] 1/2 Timems Aortic Valve Aortic ValveAortic Stenosis V11.53m/Frances Mean GR.6mmHg V21.76m/Frances Peak GR.12mmHg LVOT Diameter2.0 (1.8-2.4cm)Doppler AVA2.73cm2 Pulmonic Valve V21.30m/s Tricuspid Valve TR Velocity2.85m/s [id number] Other Information Quality : Technically LimitedRhythm : Technically limited study due to pt aloc, laying flat Conclusion LV EF IS 70% AND IS NORMAL NORMAL VALVES NORMAL RV FUNCTION AND SIZE RVSP IS 36 MM OF HG AND IS BORDERLINE ELEVATED NO EFFUSION
[2024-12-09 05:00] VITALS: BP 134/93; PULSE 58; RESP 18; TEMP 97.4; O2SAT 99
[2024-12-09 08:00] VITALS: PULSE 53
[2024-12-09 09:00] VITALS: BP 114/66; PULSE 53; RESP 15; TEMP 97.3; O2SAT 95
[2024-12-09 16:49] VITALS: BP 168/88; PULSE 53; TEMP 97.5; O2SAT 96
--- NOTE | 2024-12-09 18:21 | DVHPN2 ---
Progress Note - Dictate Date Seen: Dec 09, 2024 Has the PT tested + for MRSA If YES, has PT been informed?: No Medical Necessity Reason Pt with a Central, PICC or Fol: No Subjective Patient was seen and evaluated in follow up. No acute events overnight. Patient is resting. Sitter at bedside. Dialyzed yesterday. vital signs Vital Sign Date Time Temp Pulse Resp B/P (MAP) Pulse Ox O2 Delivery O2 Flow Rate FiO2 12/09/24 16:49 97.5 53 168/88 (114) 96 97.5 12/09/24 09:00 15 12/08/24 20:00 Room Air* 0 21 Total Intake and Output 12/08/24 12/08/24 12/09/24 15:00 23:00 07:00 Intake Total 400 ml 600 ml 100 ml Output Total 200 ml 75 ml Balance 400 ml 400 ml 25 ml medications Current Medications Medications Dose Ordered Sig/Duncan Route Start Time Stop Time Status Last Admin Dose Admin Diagnostic Test (Pha) 1 strip ACHS 12/07/24 07:00 12/09/24 17:00 1 STRIP Insulin Human Regular ACHS SC 12/07/24 07:00 Dextrose 50 ml UD PRN IV 12/07/24 03:00 12/08/24 02:30 50 ML Morphine Sulfate 2 mg Q4HPRN PRN IV 12/07/24 04:00 Sertraline HCl 50 mg DAILY PO 12/07/24 10:00 12/09/24 08:49 50 MG Tramadol HCl 50 mg QID PO 12/07/24 06:00 12/09/24 18:09 50 MG Patient Own Medication 1 tab HS PO 12/07/24 22:00 Hold Patient Own Medication 1 cap DAILY PO 12/07/24 10:00 Pantoprazole Sodium 40 mg DAILY IV 12/07/24 10:00 Hold Metoprolol Tartrate 50 mg BID PO 12/07/24 10:00 12/08/24 22:03 50 MG Clonidine HCl 0.1 mg DAILY PO 12/07/24 10:00 Vancomycin HCl 0 ml @ 0 mls/hr UD IV 12/07/24 05:45 Piperacillin Sod/ Tazobactam Sod 50 ml @ 12.5 mls/hr Q12HR IV 12/07/24 10:00 12/09/24 08:43 12.5 MLS/HR Sevelamer HCl 800 mg TIDWM PO 12/07/24 08:00 12/09/24 18:09 800 MG Enoxaparin Sodium 60 mg DAILY SC 12/08/24 10:00 Hold Heparin Sodium (Porcine) 5,000 units Q12HR SC 12/07/24 22:00 12/08/24 21:40 5,000 UNITS Dextrose 1,000 ml @ 50 mls/hr Q20H IV 12/07/24 23:00 12/08/24 19:59 50 MLS/HR objective Vitals and nursing notes reviewed. General: Patient somnolent, does not respond to commands. HENT: NC/AT. Respiratory/pulmonary: Distant breath sounds Cardiovascular: Normal S1, S2. Abdomen:Abdomen nondistended Extremities: No peripheral edema noted Neurological: Disoriented. A&Ox1. laboratory and microbiology Laboratory Tests 12/09/24 10:35 12/08/24 05:49 Test 12/08/24 05:49 Range/Units Serum Glucose 101 74-106 mg/dL Problem List Acute metabolic encephalopathy End-stage renal disease on hemodialysis Chronic AFib currently on Eliquis Diabetes mellitus type 2 History of breast cancer and colon cancer Assessment/Plan Agree with current supportive medical care. Sitter 1:1 at bedside. Aspiration,seizure and fall precautions. CT Angio Chest ordered/pending. Dialyzed yesterday. No HD today. Empiric IV antibiotics with Vancomycin and Zosyn. Monitor cultures. Heparin 5000 units b.i.d. Regular blood glucose checks & sliding scale insulin. Nutritional support. Additional plan as per the hospital course. Plan discussed with: Other (RN) TATYANA CHARLES DO Dec 09, 2024 18:21
[2024-12-09] MEDS: APIXABAN 5 MG TAB PO SCH (18:39)
--- NOTE | 2024-12-09 19:08 | BSKYNEURO ---
[place] Neuro Note # Demographics Consult Type: General Neurology Patient Location: Inpatient First Name: Marisa Last Name: Enrique Date of : 1950 Age: 74 Gender: Female Facility: [facility] Time of Initial Page (): 12/09/2024 15:55 First Contact with Site (): 12/09/2024 15:55 # HPI History: LKN- 2 days ago (maybe longer) Patient is currently transferred from OSH for a fall; she was admitted at OSH for AMS after fall and was transferred to this facility for insurance reasons and was still having AMS. H/O HTN, DM, A-fib- on apixiban, ESRD on HD, h/o breast cancer and colon cancer. # Scores Time of exam and NIHSS (): 12/09/2024 16:08 Level of Consciousness 1a: [1] = Not alert; but arousable by minor stim LOC Questions 1b: [0] = Answers both questions correctly LOC Commands 1c: [0] = Performs both tasks correctly Best Gaze 2: [0] = Normal Visual 3: [0] = No visual loss Facial Palsy 4: [0] = Normal symmetrical movements Motor Arm Left 5a: [0] = No drift Motor Arm Right 5b: [1] = Drift Motor Leg Left 6a: [0] = No drift Motor Leg Right 6b: [2] = Some effort against gravity Limb Ataxia 7: [0] = Absent Sensory 8: [0] = Normal Best Language 9: [1] = [id number] aphasia Dysarthria 10: [1] = [id number] dysarthria Extinction and Inattention 11: [0] = No abnormality NIHSS Total: 6 # Assessment Impression: - Ischemic Stroke (Acute) Differential Diagnosis: - Seizure-like Activity - Altered Mental Status # Plan Thrombolytic/Intervention: NOT IV Thrombolysis or IA Intervention candidate Thrombolytic Exclusion: > 4.5 hours Intraarterial Exclusion: - other LKN more than 2 days ago Target Blood Pressure: - SBP < 180 - SBP > 140 Labs: - hemoglobin A1c - lipid panel - comprehensive metabolic panel - CBC Imaging: (urgency: STAT): - CT Angiogram Head and CT Angiogram Neck AND call back with results if abnormal Imaging: (urgency: routine): - MRI Brain without contrast Diagnostic Test: - echo without bubble study Therapy/Evaluation: - NPO until swallow evaluation - PT/OT evaluation Medication: - start statin with goal of LDL < 70 - aspirin 325 mg daily Other: - If patient has any neurological deterioration please call me back immediately - permissive hypertension - LDL < 70 - telemetry monitoring - neurology referral as outpatient - I have discussed my recommendations with the referring provider - would not pursue stroke work-up if MRI is negative Disposition: continue admission # Demographics First Name: Marisa Last Name: Enrique Facility: [facility] Yes CATHERINE SAINI MD Dec 09, 2024 19:08
[2024-12-09 20:00] VITALS: PULSE 55
[2024-12-09 21:00] VITALS: BP 153/64; PULSE 60; RESP 17; TEMP 98; O2SAT 100
[2024-12-10] VITALS (9 sets, daily range): BP systolic 114–164; BP diastolic 62–100; PULSE 46–56; RESP 12–18; TEMP 97.5–98; O2SAT 96–100
[2024-12-10] MEDS: METOPROLOL TARTRATE 25 MG TAB PO SCH (08:43)
[2024-12-10] MEDS: PIPERACILLIN-TAZOB 2.25GM 50 ML IV SCH (14:00)
--- NOTE | 2024-12-10 18:05 | DVHPN2 ---
Subjective Patient is less agitated today, tele neuro consult and recommendations appreciated Changes from previous H/P or p: No Changes Objective Vitals Vital Signs Date Time Temp Pulse Resp B/P (MAP) Pulse Ox O2 Delivery O2 Flow Rate FiO2 12/10/24 16:51 97.5 51 14 121/100 (107) 100 97.5 12/10/24 08:00 Nasal Cannula* 1 24 Intake/Output Intake and Output 12/10/24 07:00 Intake Total 250 ml Output Total 50 ml Balance 200 ml Intake Oral 200 ml IV Total 50 ml Output Urine Total 50 ml Exam Patient is following commands, does not appear to have any localizing motor deficit. Medications Current Medications Medications Dose Ordered Sig/Duncan Route Start Time Stop Time Status Last Admin Dose Admin Diagnostic Test (Pha) 1 strip ACHS 12/07/24 07:00 12/10/24 16:40 1 STRIP Insulin Human Regular ACHS SC 12/07/24 07:00 Dextrose 50 ml UD PRN IV 12/07/24 03:00 12/08/24 02:30 50 ML Morphine Sulfate 2 mg Q4HPRN PRN IV 12/07/24 04:00 Sertraline HCl 50 mg DAILY PO 12/07/24 10:00 12/10/24 08:39 50 MG Tramadol HCl 50 mg QID PO 12/07/24 06:00 12/10/24 17:34 50 MG Patient Own Medication 1 tab HS PO 12/07/24 22:00 Hold Patient Own Medication 1 cap DAILY PO 12/07/24 10:00 Pantoprazole Sodium 40 mg DAILY IV 12/07/24 10:00 Hold Clonidine HCl 0.1 mg DAILY PO 12/07/24 10:00 12/10/24 08:39 0.1 MG Vancomycin HCl 0 ml @ 0 mls/hr UD IV 12/07/24 05:45 Sevelamer HCl 800 mg TIDWM PO 12/07/24 08:00 12/10/24 17:34 800 MG Dextrose 1,000 ml @ 50 mls/hr Q20H IV 12/07/24 23:00 12/10/24 11:12 50 MLS/HR Metoprolol Tartrate 25 mg BID PO 12/10/24 10:00 12/10/24 08:43 25 MG Piperacillin Sod/ Tazobactam Sod 50 ml @ 12.5 mls/hr Q8HR IV 12/10/24 14:00 12/10/24 14:00 12.5 MLS/HR Aspirin 325 mg DAILY PO 12/11/24 10:00 Laboratory Results Laboratory Tests 12/08/24 05:49 12/09/24 10:35 12/10/24 06:38 Urinalysis Test 12/07/24 11:40 Urine Color Colorless (Yellow) Urine Clarity Turbid (Clear) H Urine pH 8.5 (5.0-9.0) Urine Specific Chrisman 1.024 (1.001-1.035) Urine Protein 2+ (Negative) H Urine Ketones Trace (Negative) Urine Blood 3+ /uL (Negative) H Urine Nitrite Negative (Negative) Urine Bilirubin Negative (Negative) Urine Urobilinogen Normal mg/dL (Negative) Urine Leukocyte Esterase 2+ /uL (Negative) Urine RBC 2606 /hpf (0 - 4) Urine Microscopic WBC 5 /HPF (0-5) Urine Squamous Epithelial Cells Few /hpf (<5) Urine Bacteria None seen /hpf (None Seen) Urine Yeast (Budding) Occasional /hpf (None Urine Glucose Normal mg/dL (Normal) Microbiology Microbiology Date/Time Source Procedure Growth Status 12/07/24 11:40 Voided Urine Urine Culture - Final Complete 12/07/24 09:00 Nose MRSA Screen - Final Complete 12/07/24 05:48 Blood Blood Culture - Preliminary NO GROWTH AFTER 72 HOURS OF INCUBATION. Resulted Assessment/Plan Assessment/Plan 74-year-old female with a known history of hypertension, chronic AFib on Eliquis, end-stage renal disease on hemodialysis, diabetes mellitus type 2, history of breast cancer and colon cancer who was transferred from [facility] with altered mental status found to have 1. Acute metabolic encephalopathy, slowly improving, CT head noncontrast from [facility] shows no evidence of acute infarct, pending CT angio head and neck 2. End-stage renal disease on hemodialysis 3. Chronic AFib was on Eliquis, once MRI brain is negative for any acute bleed, we will resume 4. Diabetes mellitus type 2 5. History of breast cancer and colon cancer --aspirin 325, we will resume Eliquis once MRI brain is negative, follow up CT angio chest, CT angio head and neck. -blue keisha tele neurologist recommendations appreciated. Plan discussed with: Patient My Orders Orders - CARLITOS CHACON MD Procedure Category Date Status Time * Wound Consult CONS 12/10/24 Transmitted Aspirin Tablet PHA 12/11/24 In Process 10:00 Ct Head Neck With Cont CT 12/11/24 Logged 12:00 Date of Service: Dec 10, 2024 Billing Provider: CARLITOS CHACON MD Common Visit Codes: [id number] INP/OBS CARE(HIGH) CARLITOS CHACON MD Dec 10, 2024 18:05
--- NOTE | 2024-12-10 20:17 | DVHPN2 ---
Progress Note - Dictate Date Seen: Dec 10, 2024 Has the PT tested + for MRSA If YES, has PT been informed?: No Medical Necessity Reason Pt with a Central, PICC or Fol: No Subjective Patient was seen and evaluated in follow up. No acute events overnight. Sitter at bedside. Patient is less agitated today, following commands. CT pending. vital signs Vital Sign Date Time Temp Pulse Resp B/P (MAP) Pulse Ox O2 Delivery O2 Flow Rate FiO2 12/10/24 16:51 97.5 51 14 121/100 (107) 100 97.5 12/10/24 08:00 Nasal Cannula* 1 24 Total Intake and Output 12/09/24 12/09/24 12/10/24 15:00 23:00 07:00 Intake Total 50 ml 100 ml 100 ml Output Total 50 ml Balance 50 ml 100 ml 50 ml medications Current Medications Medications Dose Ordered Sig/Duncan Route Start Time Stop Time Status Last Admin Dose Admin Diagnostic Test (Pha) 1 strip ACHS 12/07/24 07:00 12/10/24 16:40 1 STRIP Insulin Human Regular ACHS SC 12/07/24 07:00 Dextrose 50 ml UD PRN IV 12/07/24 03:00 12/08/24 02:30 50 ML Morphine Sulfate 2 mg Q4HPRN PRN IV 12/07/24 04:00 Sertraline HCl 50 mg DAILY PO 12/07/24 10:00 12/10/24 08:39 50 MG Tramadol HCl 50 mg QID PO 12/07/24 06:00 12/10/24 17:34 50 MG Patient Own Medication 1 tab HS PO 12/07/24 22:00 Hold Patient Own Medication 1 cap DAILY PO 12/07/24 10:00 Pantoprazole Sodium 40 mg DAILY IV 12/07/24 10:00 Hold Clonidine HCl 0.1 mg DAILY PO 12/07/24 10:00 12/10/24 08:39 0.1 MG Vancomycin HCl 0 ml @ 0 mls/hr UD IV 12/07/24 05:45 Sevelamer HCl 800 mg TIDWM PO 12/07/24 08:00 12/10/24 17:34 800 MG Dextrose 1,000 ml @ 50 mls/hr Q20H IV 12/07/24 23:00 12/10/24 11:12 50 MLS/HR Metoprolol Tartrate 25 mg BID PO 12/10/24 10:00 12/10/24 08:43 25 MG Piperacillin Sod/ Tazobactam Sod 50 ml @ 12.5 mls/hr Q8HR IV 12/10/24 14:00 12/10/24 14:00 12.5 MLS/HR Aspirin 325 mg DAILY PO 12/11/24 10:00 objective Vitals and nursing notes reviewed. General: In no acute distress. HENT: NC/AT. Respiratory/pulmonary: Distant breath sounds. Cardiovascular: Normal S1, S2. Abdomen:Abdomen nondistended. Extremities: No peripheral edema noted. No extremity deformity. Neurological: Following commands. Does not appear to have any localizing motor deficit. laboratory and microbiology Laboratory Tests 12/10/24 06:38 12/09/24 10:35 12/08/24 05:49 Test 12/08/24 05:49 Range/Units Serum Glucose 101 74-106 mg/dL Problem List Acute metabolic encephalopathy End-stage renal disease on hemodialysis Chronic AFib currently on Eliquis Diabetes mellitus type 2 History of breast cancer and colon cancer Assessment/Plan Agree with current supportive medical care. Sitter 1:1 at bedside. Aspiration,seizure and fall precautions. Tele-neurologist consulted. CT Head Neck ordered/pending. Started on ASA. Next HD 12/11. Empiric IV antibiotics with Vancomycin and Zosyn. Regular blood glucose checks & sliding scale insulin. Nutritional support. Additional plan as per the hospital course. Plan discussed with: Patient, Other (RN) TATYANA CHARLES DO Dec 10, 2024 20:17
[2024-12-11] VITALS (7 sets, daily range): BP systolic 129–172; BP diastolic 58–79; PULSE 58–93; RESP 18–20; TEMP 97.5–98.5; O2SAT 92–99
[2024-12-11] MEDS: IOHEXOL 350 MG/ML 100ML IJ ONE (11:55)
--- NOTE | 2024-12-11 13:32 | DVH ---
CLINICAL HISTORY: r/o stroke TECHNIQUE: CT angiogram of the head and neck was performed without and with intravenous contrast. 3D MIP reconstructed images were created and archived on the PACS system. This exam was performed accord ing to our departmental dose optimization program. Up-to-date CT equipment and radiation dose reducti on techniques are utilized as appropriate. CTDI 22.3 DLP 1334 COMPARISON: CT BRAIN on DOS: 12/06/24, CT BRAIN on DOS: 12/06/24, CT BRAIN on DOS: 04/21/24, CT MAXFACE on DOS: 05/03/19, CT BRAIN on DOS: 05/03/19 FINDINGS: CT HEAD: There is no evidence for acute intracranial hemorrhage, acute ischemic changes, mass, mass effect, or extra-axial fluid collection. There is no hydrocephalus or midline shift. There is no effacement of the cerebral sulci and basal subarachnoid cisterns. The calle-white matter differentiation is well hannah ntained. There is mild brain volume loss and chronic small vessel ischemic change. There is mild left inferior frontal scalp soft tissue swelling / hematoma formation. No underline fra cture is seen. CTA NECK: The common carotid, internal carotid, and vertebral arteries are patent with no evidence for occlusio n or dissection. There is extensive plaque of the right carotid bulb resulting in severe luminal narrowing with near c omplete occlusion. There is extensive plaque at the left carotid bulb resulting in grossly 50% luminal narrowing per RIKI CET criteria. There is a short segment of beading within the proximal/mid left internal carotid artery, best seen o n images 110 through 118 series 5 CTA HEAD: The anterior and posterior intracranial circulations are intact with no evidence for high grade narro wing, occlusion, or aneurysm. There are extensive atherosclerotic calcifications of the distal bilateral intracranial internal carrasquillo tid arteries which result in moderate luminal narrowing. IMPRESSION: Evaluation quantification of carotid narrowing slight difficult on this exam due to significant calci fications. Extensive right carotid bulb plaque resulting in severe luminal narrowing with near complete occlusio n. Extensive left carotid bulb plaque resulting in grossly 50% luminal narrowing per NASCET criteria. 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 Please note the accurate quantification of stenosis is difficult with CTA. If accurate assessment is warranted, catheter angiography is suggested.
[2024-12-11 14:23] LABS: Hematocrit 29.1 % (36.0-46.0); Hemoglobin 9.4 g/dL (12.2-16.2); Mean Corpuscular Hemoglobin 27.4 pg (28.0-32.0); Mean Corpuscular Volume 84.8 fL (80.0-100.0); Nucleated Red Blood Cells % 0.2 %
--- NOTE | 2024-12-11 14:53 | DVHINCON2 ---
Date of service: Dec 11, [address] Wynn Reason for Consultation ALOC History of Present Illness Ms. Nunez is a 74 years old right-handed female with a history of hypertension, diabetes, AFib on Eliquis 2.5 mg b.i.d., ES RD on hemodialysis, breast cancer, colon cancer, she was brought to the [facility] [place] on 12/07/2024 with a chief company of altered mental status, at this time, she is awake, but is only oriented to person place, the history is obtained from her daughter, chart review She developed confusion, and whole-body jerking movement on 12/06/24, the patient was seen in the [facility] 1st, but was discharged with a diagnosis of s ciatic. Because she is not improving, the family decided to send her to the [facility], but was transferred to [facility] without diagnosis Her daughter related for 2-3 years of time, the patient was occasionally got confused, but there was no muscle jerking/twitching previously [facility] [place] head, 12/06/2024: Unremarkable Blood culture, 12/07/2024 Urine culture, 12/07/2024: Negative UDS, 12/07/2024: Benzo Urinalysis, 12/07/2024: WBC: 5, urine leukocyte esterase: 2+ WBC/HB/PLT/MCV, 12/11/2024: 5.8/9.4/235/84.8 PT/INR/PTT, 12/07/2024: 11.10/1013/22.7 BUN/CR, 12/08/2024: 30/6.66 GFR, 12/08/24: 6 HGB A1c, 12/07/2024: 3.8 Liver function tests, 12/08/2024: Unremarkable TG/HDL/LDL/HDL, 12/07/2024: 83/156/51/91 Vitamin B12, 12/07/2024: 855 TSH, 12/07/24: 4.73 TTE, 12/09/2024: EF: 70% CT head, 12/11/2024: There is no evidence for acute intracranial hemorrhage, acute ischemic changes, mass, mass effect, or extra-axial fluid collection. There is no hydrocephalus or midline shift. There is no effacement of the cerebral sulci and basal subarachnoid cisterns. The calle-white matter differentiation is well maintained. CTA neck, head, 12/11/2024: Evaluation quantification of carotid narrowing slight difficult on this exam due to significant calcifications. Extensive right carotid bulb plaque resulting in severe luminal narrowing with near complete occlusion. Extensive left carotid bulb plaque resulting in grossly 50% luminal narrowing per NASCET criteria. Short segment of fibromuscular dysplasia involving the proximal/mid left extracranial internal carotid artery. Please note the accurate quantification of stenosis is difficult with CTA. If accurate assessment is warranted, catheter angiography is suggested. Past Medical History Hypertension, diabetes, end-stage renal failure on hemodialysis, AFib, breast cancer, colon cancer Past Surgical History Breast cancer removal, closer resection, right knee replacement, tubal ligation Family History: Cancer of colon G8 MOTHER G8 FATHER Family history: Depression (situation) G8 MOTHER G8 FATHER Family history: Diabetes mellitus G8 MOTHER G8 FATHER Family history: Hypertension G8 MOTHER G8 FATHER Family history: Thyroid disorder G8 MOTHER G8 FATHER Stroke G8 MOTHER G8 FATHER Family History Hypertension, diabetes, stroke, mother had brain aneurysm Social History She smokes, he drinks three tall cans of beer daily, denies a history of drug abuse Allergies: Coded Allergies: NO KNOWN ALLERGIES (Unverified , 09/25/09) Home Meds Reported Medications Apixaban Base (ELIQUIS) 5 Mg Tab, 5 MG PO BID, TAB 12/07/24 Hydrochlorothiazide W/Triamter (Hctz/Triamterene) 1 Cap Cap, 1 CAP OR DAILY 09/25/09 Celecoxib (Celebrex) 200 Mg Cap, 200 MG OR DAILY 09/25/09 Baclofen (Baclofen) 10 Mg Tab, 10 MG OR TID 09/25/09 Sertraline Hcl (Sertraline Hcl) 50 Mg Tab, 50 MG OR DAILY 09/25/09 Hydrocodone-Acetaminophen (Vicodin) 1 Tab Tab, 1 TAB OR TID 09/25/09 Aspirin (Asa) 325 Mg Tb, 325 MG GT DAILY 09/25/09 Ezetimibe-Simvastatin (Vytorin) 1 Tab Tab, 1 TAB OR HS 09/25/09 Lansoprazole (Lansoprazole) 30 Mg Cap, 30 MG OR DAILY 09/25/09 Tramadol Hcl (Tramadol Hcl) 50 Mg Tab, 50 MG OR QID 09/25/09 Ferrous Sulfate (Ferrous Sulfate) 325 Mg Tab, 325 MG OR DAILY 09/25/09 Zolpidem Tartrate (Zolpidem Tartrate) 10 Mg Tab, 10 MG OR HS 09/25/09 Current Medications Current Medications Medications (Trade) Dose Ordered Sig/Duncan Route PRN Reason Start Time Stop Time Status Last Admin Aspirin 325 mg DAILY PO 12/11/24 10:00 12/11/24 08:41 Review of Systems As above, the other systems are negative Vital Signs Vital Signs Date Time Temp Pulse Resp B/P (MAP) Pulse Ox O2 Delivery O2 Flow Rate FiO2 12/11/24 10:00 63 172/61 12/11/24 09:00 97.8 18 92 97.8 12/11/24 08:11 Nasal Cannula* 1 24 Physical Exam GENERAL EXAM: General: the patient is well developed and nourished. No acute distress. HEENT: Normocephalic, neck is supple, no carotid bruits. No mass. RESPIRATORY: Normal respiratory effort with symmetrical lung expansion. Lungs clear to auscultation. CARDIOVASCULAR: Regular rate and rhythm with no murmurs. S1, S2. ABDOMEN: Soft, nontender, normal bowel sound MUSCULOSKELETAL EXAM: Tenderness to palpation in the back NEUROLOGICAL: MENTAL STATUS: Awake and alert. Oriented to person, place, good social skills, but poor historian SPEECH, LANGUAGE, HIGHER CORTICAL FUNCTION: no aphasia or dysathria. CRANIAL NERVES: #2: Intact visual de la o to confrontation. The optic discs were sharp. #3,4,6: Pupils are equal, round and reactive. EOMs full and conjugate. No nystagmus. #5: Facial sensation intact in all three divisions bilaterally. Mandibular strength intact. #7: Facial muscles symmetrical and strength intact. #8: Hearing grossly normal to voice. #9,10: Uvula and soft palate rise in the midline. Swallow and voice are normal. #11: Trapezius and sternomastoid strength intact bilaterally. #12: Tongue midline. No fasciculations or atrophy. SENSATION: Sensation to touch and pinprick is normal. MOTOR: Normal tone in the upper and lower extremity. Normal muscle bulk. No fasciculations. Intermittent jerking in the right leg, and to less degree arm. Muscle strength of the major groups in the upper extremities is 4/5 (RN: right arm drift). Muscle strength of the major groups in the lower extremities is 4/5. REFLEXES: Deep tendon reflexes are symmetrical. No pathological reflexes. CEREBELLAR/COORDINATION: Finger to nose is unremarkable GAIT/STATION: deferred. Labs/Diagnostic Data Labs Test 12/11/24 14:02 12/11/24 10:54 12/08/24 05:49 12/07/24 11:40 Range/Units White Blood Count 5.8 4.4-10.8 10^3/uL Red Blood Count 3.43 L 4.0-5.20 10^6/uL Hemoglobin 9.4 #L 12.2-16.2 g/dL Hematocrit 29.1 L 36.0-46.0 % Mean Corpuscular Volume 84.8 80.0-100.0 fL Mean Corpuscular Hemoglobin 27.4 L 28.0-32.0 pg Mean Corpuscular Hemoglobin Concent 32.3 32.0-36.0 g/dL Red Cell Distribution Width 15.8 H 11.8-14.3 % Platelet Count 235 140-450 10^3/uL Mean Platelet Volume 6.8 L 6.9-10.8 fL Neutrophils (%) (Auto) 39.3 37.0-80.0 % Lymphocytes (%) (Auto) 41.9 10.0-50.0 % Monocytes (%) (Auto) 9.9 0.0-12.0 % Eosinophils (%) (Auto) 8.2 H 0.0-7.0 % Basophils (%) (Auto) 0.7 0.0-2.0 % Neutrophils # (Auto) 2.3 1.6-8.6 10 ^3/uL Lymphocytes # (Auto) 2.4 0.4-5.4 10 ^3/uL Monocytes # (Auto) 0.6 0-1.3 10 ^3/uL Eosinophils # (Auto) 0.5 0-0.8 10 ^3/uL Basophils # (Auto) 0 0-0.2 10 ^3/uL Nucleated Red Blood Cells 0.2 % Creatinine 7.28 H 0.550-1.02 mg/dL Glomerular Filtration Rate Calc 5 >90 mL/min Random Vancomycin Level 16.7 H 5-10 ug/mL POC Glucose 106 70-106 mg/dl Sodium Level 138 136-145 mmol/L Potassium Level 4.6 3.5-5.1 mmol/L Chloride Level 97 L 98-107 mmol/L Carbon Dioxide Level 25 20-31 mmol/L Anion Gap 16 H 5-15 Blood Urea Nitrogen 30 H 9-23 mg/dL BUN/Creatinine Ratio 4.5 L 10.0-20.0 Serum Glucose 101 74-106 mg/dL Calcium Level 8.5 L 8.7-10.4 mg/dL Total Bilirubin < 0.2 L 0.2-1.0 mg/dL Aspartate Amino Transferase (AST) 43 H 13-40 U/L Alanine Aminotransferase (ALT) 17 7-40 U/L Alkaline Phosphatase 81 46-116 U/L Total Protein 5.7 5.7-8.2 g/dL Albumin 3.3 3.2-4.8 g/dL Hepatitis B Surface Antigen Negative Negative Urine Color Colorless Yellow Urine Clarity Turbid H Clear Urine pH 8.5 5.0-9.0 Urine Specific [place] 1.024 1.001-1.035 Urine Protein 2+ H Negative Urine Ketones Trace Negative Urine Blood 3+ H Negative /uL Urine Nitrite Negative Negative Urine Bilirubin Negative Negative Urine Urobilinogen Normal Negative mg/dL Urine Leukocyte Esterase 2+ Negative /uL Urine RBC 2606 0 - 4 /hpf Urine Microscopic WBC 5 0-5 /HPF Urine Squamous Epithelial Cells Few <5 /hpf Urine Bacteria None seen None Seen /hpf Urine Yeast (Budding) Occasional None Seen /hpf Urine Glucose Normal Normal mg/dL Urine Opiates Screen Neg NEGATIVE Urine Fentanyl Screen Neg NEGATIVE Urine Barbiturates Screen Neg NEGATIVE Urine Phencyclidine Screen Neg NEGATIVE Urine Amphetamines Screen Neg NEGATIVE Urine Benzodiazepines Screen Pos NEGATIVE Urine Cocaine Screen Neg NEGATIVE Urine Cannabinoids Screen Neg NEGATIVE Test 12/07/24 05:48 12/07/24 05:08 Range/Units Prothrombin Time 11.9 H 9.3-11.8 sec Prothrombin Time INR 1.14 0.9-1.15 Activated Partial Thromboplast Time 22.7 L 24.5-34.5 SEC Hemoglobin A1c < 3.8 <5.7 % A1C Lactic Acid Level 0.9 0.4-2.0 mmol/L Phosphorus Level 8.0 H 2.4-5.1 mg/dL Magnesium Level 2.3 1.6-2.6 mg/dL Ammonia < 10 L 11-32 umol/L C-Reactive Protein High Sensitivity 0.34 <1.0 mg/dL Triglycerides Level 83 < 150 mg/dL Cholesterol Level 156 < 200 mg/dL LDL Cholesterol 51 < 100 mg/dL HDL Cholesterol 91 H 40-59 mg/dL Lipase 20 12-53 U/L Vitamin B12 Level 855 211-911 pg/mL Vitamin D 25-Hydroxy 75.6 30.0-100 ng/mL Thyroid Stimulating Hormone (TSH) 4.73 0.55-4.78 uIU/mL Plasma/Serum Blood Alcohol < 3.0 <10 mg/dL Influenza Type A Antigen Negative Negative Influenza Type B Antigen Negative Negative SARS-CoV-2 Antigen (Rapid) Negative NEGATIVE Microbiology Date/Time Source Procedure Growth Status 12/07/24 11:40 Voided Urine Urine Culture - Final Complete 12/07/24 09:00 Nose MRSA Screen - Final Complete 12/07/24 05:48 Blood Blood Culture - Preliminary NO GROWTH AFTER 72 HOURS OF INCUBATION. Resulted Assessment Altered mental status, myoclonus, likely secondary to metabolic encephalopathy Metabolic encephalopathy secondary to chronic kidney failure, UTI Chronic kidney failure on hemodialysis UTI Right upper extremity drift, to rule out acute stroke AFib Plan/Recommendation Monitoring Supportive treatment Telemetry MR head EEG IV antibiotics Eliquis 2.5 mg b.i.d. GI prophylaxis/Protonix More recommendation per clinical course Progress: Poor This medical document was created using an electronic medical record system with [employer] dictation system. Although this document has been carefully reviewed, there may still be some phonetic and typographical errors. These areas are purely typographical due to imperfections of the software programs, and do not reflect any compromise in the patient's medical care. Plan discussed with: Daughter, Other LOULOU PAGE MD Dec 11, 2024 14:53
--- NOTE | 2024-12-11 16:53 | DVHPN2 ---
Subjective Patient is less agitated today, tele neuro consult and recommendations appreciated Changes from previous H/P or p: No Changes Objective Vitals Vital Signs Date Time Temp Pulse Resp B/P (MAP) Pulse Ox O2 Delivery O2 Flow Rate FiO2 12/11/24 11:00 53 172/61 12/11/24 09:00 97.8 18 92 97.8 12/11/24 08:11 Nasal Cannula* 1 24 Intake/Output Intake and Output 12/11/24 07:00 Intake Total 640 ml Output Total 0 ml Balance 640 ml Intake Oral 640 ml Output Urine Total 0 ml Exam Patient is following commands, does not appear to have any localizing motor deficit. Medications Current Medications Medications Dose Ordered Sig/Duncan Route Start Time Stop Time Status Last Admin Dose Admin Diagnostic Test (Pha) 1 strip ACHS 12/07/24 07:00 12/11/24 11:16 1 STRIP Insulin Human Regular ACHS SC 12/07/24 07:00 Dextrose 50 ml UD PRN IV 12/07/24 03:00 12/08/24 02:30 50 ML Morphine Sulfate 2 mg Q4HPRN PRN IV 12/07/24 04:00 Sertraline HCl 50 mg DAILY PO 12/07/24 10:00 12/11/24 08:41 50 MG Tramadol HCl 50 mg QID PO 12/07/24 06:00 12/11/24 12:00 50 MG Patient Own Medication 1 tab HS PO 12/07/24 22:00 Hold Patient Own Medication 1 cap DAILY PO 12/07/24 10:00 Pantoprazole Sodium 40 mg DAILY IV 12/07/24 10:00 Hold Clonidine HCl 0.1 mg DAILY PO 12/07/24 10:00 12/11/24 10:00 0.1 MG Vancomycin HCl 0 ml @ 0 mls/hr UD IV 12/07/24 05:45 Sevelamer HCl 800 mg TIDWM PO 12/07/24 08:00 12/11/24 12:00 800 MG Dextrose 1,000 ml @ 50 mls/hr Q20H IV 12/07/24 23:00 12/11/24 07:00 50 MLS/HR Metoprolol Tartrate 25 mg BID PO 12/10/24 10:00 12/11/24 10:00 25 MG Piperacillin Sod/ Tazobactam Sod 50 ml @ 12.5 mls/hr Q8HR IV 12/10/24 14:00 12/11/24 13:47 12.5 MLS/HR Aspirin 325 mg DAILY PO 12/11/24 10:00 12/11/24 08:41 325 MG Laboratory Results Laboratory Tests 12/08/24 05:49 12/11/24 14:02 Urinalysis Test 12/07/24 11:40 Urine Color Colorless (Yellow) Urine Clarity Turbid (Clear) H Urine pH 8.5 (5.0-9.0) Urine Specific [place] 1.024 (1.001-1.035) Urine Protein 2+ (Negative) H Urine Ketones Trace (Negative) Urine Blood 3+ /uL (Negative) H Urine Nitrite Negative (Negative) Urine Bilirubin Negative (Negative) Urine Urobilinogen Normal mg/dL (Negative) Urine Leukocyte Esterase 2+ /uL (Negative) Urine RBC 2606 /hpf (0 - 4) Urine Microscopic WBC 5 /HPF (0-5) Urine Squamous Epithelial Cells Few /hpf (<5) Urine Bacteria None seen /hpf (None Seen) Urine Yeast (Budding) Occasional /hpf (None Urine Glucose Normal mg/dL (Normal) Microbiology Microbiology Date/Time Source Procedure Growth Status 12/07/24 11:40 Voided Urine Urine Culture - Final Complete 12/07/24 09:00 Nose MRSA Screen - Final Complete 12/07/24 05:48 Blood Blood Culture - Preliminary NO GROWTH AFTER 72 HOURS OF INCUBATION. Resulted Assessment/Plan Assessment/Plan 74-year-old female with a known history of hypertension, chronic AFib on Eliquis, end-stage renal disease on hemodialysis, diabetes mellitus type 2, history of breast cancer and colon cancer who was transferred from [facility] with altered mental status found to have 1. Acute metabolic encephalopathy, slowly improving, CT head noncontrast from [facility] shows no evidence of acute infarct, MRI brain is pending 2. End-stage renal disease on hemodialysis 3. Chronic AFib was on Eliquis, once MRI brain is negative for any acute bleed, we will resume 4. Diabetes mellitus type 2 5. History of breast cancer and colon cancer --aspirin 325, we will resume Eliquis once MRI brain is negative, -blue keisha tele neurologist recommendations appreciated. Plan discussed with: Patient, Other My Orders Orders - CARLITOS CHACON MD Procedure Category Date Status Time Consult CONS 12/11/24 Transmitted Vascular/Endovascular 15:19 Date of Service: Dec 11, 2024 Billing Provider: CARLITOS CHACON MD Common Visit Codes: [id number] INP/OBS CARE(HIGH) CARLITOS CHACON MD Dec 11, 2024 16:52
--- NOTE | 2024-12-11 19:42 | DVHPN2 ---
Progress Note - Dictate Date Seen: Dec 11, 2024 Has the PT tested + for MRSA If YES, has PT been informed?: No Medical Necessity Reason Pt with a Central, PICC or Fol: No Subjective Patient was seen and evaluated in follow up. No acute events overnight. Sitter at bedside. Awake, alert and oriented to person, place. No pain or distress. MRI Brain pending. Patient is scheduled for dialysis today. CT Head reported no evidence for acute intracranial hemorrhage, acute ischemic changes, mass, mass effect, or extra-axial fluid collection; there is no hydrocephalus or midline shift; there is no effacement of the cerebral sulci and basal subarachnoid cisterns; the calle-white matter differentiation is well maintained; there is mild brain volume loss and chronic small vessel ischemic change; there is mild left inferior frontal scalp soft tissue swelling / hematoma formation; no underline fracture is seen. CTA Head and Neck reported extensive right carotid bulb plaque resulting in severe luminal narrowing with near complete occlusion; extensive left carotid bulb plaque resulting in grossly 50% luminal narrowing per NASCET criteria; short segment of fibromuscular dysplasia involving the proximal/mid left extracranial internal carotid artery. vital signs Vital Sign Date Time Temp Pulse Resp B/P (MAP) Pulse Ox O2 Delivery O2 Flow Rate FiO2 12/11/24 17:00 98.5 78 18 144/79 (100) 98 98.5 12/11/24 08:11 Nasal Cannula* 1 24 Total Intake and Output 12/10/24 12/10/24 12/11/24 15:00 23:00 07:00 Intake Total 400 ml 240 ml Output Total 0 ml Balance 400 ml 240 ml medications Current Medications Medications Dose Ordered Sig/Duncan Route Start Time Stop Time Status Last Admin Dose Admin Diagnostic Test (Pha) 1 strip ACHS 12/07/24 07:00 12/11/24 17:13 1 STRIP Insulin Human Regular ACHS SC 12/07/24 07:00 Dextrose 50 ml UD PRN IV 12/07/24 03:00 12/08/24 02:30 50 ML Morphine Sulfate 2 mg Q4HPRN PRN IV 12/07/24 04:00 Sertraline HCl 50 mg DAILY PO 12/07/24 10:00 12/11/24 08:41 50 MG Tramadol HCl 50 mg QID PO 12/07/24 06:00 12/11/24 17:33 50 MG Patient Own Medication 1 tab HS PO 12/07/24 22:00 Hold Patient Own Medication 1 cap DAILY PO 12/07/24 10:00 Pantoprazole Sodium 40 mg DAILY IV 12/07/24 10:00 Hold Clonidine HCl 0.1 mg DAILY PO 12/07/24 10:00 12/11/24 10:00 0.1 MG Vancomycin HCl 0 ml @ 0 mls/hr UD IV 12/07/24 05:45 Sevelamer HCl 800 mg TIDWM PO 12/07/24 08:00 12/11/24 17:33 800 MG Dextrose 1,000 ml @ 50 mls/hr Q20H IV 12/07/24 23:00 12/11/24 07:00 50 MLS/HR Metoprolol Tartrate 25 mg BID PO 12/10/24 10:00 12/11/24 10:00 25 MG Piperacillin Sod/ Tazobactam Sod 50 ml @ 12.5 mls/hr Q8HR IV 12/10/24 14:00 12/11/24 13:47 12.5 MLS/HR Aspirin 325 mg DAILY PO 12/11/24 10:00 12/11/24 08:41 325 MG objective Vitals and nursing notes reviewed. General: In no acute distress. HENT: NC/AT. Respiratory/pulmonary: Distant breath sounds. Cardiovascular: Normal S1, S2. Abdomen:Abdomen nondistended. Extremities: No peripheral edema noted. No extremity deformity. Neurological: Following commands. Does not appear to have any localizing motor deficit. laboratory and microbiology Laboratory Tests 12/11/24 14:02 12/08/24 05:49 Test 12/08/24 05:49 Range/Units Serum Glucose 101 74-106 mg/dL Problem List Acute metabolic encephalopathy End-stage renal disease on hemodialysis Chronic AFib currently on Eliquis Diabetes mellitus type 2 History of breast cancer and colon cancer Assessment/Plan Agree with current supportive medical care. Sitter 1:1 at bedside. Aspiration,seizure and fall precautions. Neurology following. MRI Brain and EEG ordered/pending. HD 12/11- UF 2-3L as tolerated. Empiric IV antibiotics with Vancomycin and Zosyn. Regular blood glucose checks & sliding scale insulin. Renal diet. Additional plan as per the hospital course. Plan discussed with: Patient, Other (RN) TATYANA CHARLES DO Dec 11, 2024 19:42
[2024-12-12] VITALS (7 sets, daily range): BP systolic 119–176; BP diastolic 53–83; PULSE 43–68; RESP 14–17; TEMP 97.4–98; O2SAT 98–100
[2024-12-12] MEDS: OXYCODONE W/ ACETAMINOPHEN 5/325MG TABLET PO ONE
--- NOTE | 2024-12-12 08:55 | DVHPN2 ---
Progress Note - Dictate Date Seen: Dec 12, 2024 Has the PT tested + for MRSA If YES, has PT been informed?: No Medical Necessity Reason Pt with a Central, PICC or Fol: No Subjective Ms. Nunez is a 74 years old right-handed female with a history of hypertension, diabetes, AFib on Eliquis 2.5 mg b.i.d., ES RD on hemodialysis, breast cancer, colon cancer, she was brought to the [facility] on 12/07/2024 with a chief company of altered mental status I have seen and examined the patient, I have talked to her nurse, she is awake, oriented to person place, she follows verbal commands if she understands, but she is confused, she pulled one IV line out I see jerking movement in the right extremities, with the leg more affected [facility] CT head, 12/06/2024: Unremarkable Blood culture, 12/07/2024: No growth Urine culture, 12/07/2024: Negative UDS, 12/07/2024: Benzo Urinalysis, 12/07/2024: WBC: 5, urine leukocyte esterase: 2+ WBC/HB/PLT/MCV, 12/11/2024: 5.8/9.4/235/84.8 PT/INR/PTT, 12/07/2024: 11.10/1013/22.7 BUN/CR, 12/08/2024: 30/6.66 GFR, 12/08/24: 6 HGB A1c, 12/07/2024: 3.8 Liver function tests, 12/08/2024: Unremarkable TG/HDL/LDL/HDL, 12/07/2024: 83/156/51/91 Vitamin B12, 12/07/2024: 855 TSH, 12/07/24: 4.73 TTE, 12/09/2024: EF: 70% CT head, 12/11/2024: There is no evidence for acute intracranial hemorrhage, acute ischemic changes, mass, mass effect, or extra-axial fluid collection. There is no hydrocephalus or midline shift. There is no effacement of the cerebral sulci and basal subarachnoid cisterns. The calle-white matter differentiation is well maintained. CTA neck, head, 12/11/2024: Evaluation quantification of carotid narrowing slight difficult on this exam due to significant calcifications. Extensive right carotid bulb plaque resulting in severe luminal narrowing with near complete occlusion. Extensive left carotid bulb plaque resulting in grossly 50% luminal narrowing per NASCET criteria. Short segment of fibromuscular dysplasia involving the proximal/mid left extracranial internal carotid artery. Please note the accurate quantification of stenosis is difficult with CTA. If accurate assessment is warranted, catheter angiography is suggested vital signs Vital Sign Date Time Temp Pulse Resp B/P (MAP) Pulse Ox O2 Delivery O2 Flow Rate FiO2 12/12/24 05:00 57 14 148/67 (94) 99 12/11/24 21:00 97.5 97.5 12/11/24 20:00 Nasal Cannula* 1 24 Total Intake and Output 12/11/24 12/11/24 12/12/24 15:00 23:00 07:00 Intake Total 672 ml 850 ml Output Total 150 ml 150 ml Balance 522 ml 700 ml medications Current Medications Medications Dose Ordered Sig/Duncan Route Start Time Stop Time Status Last Admin Dose Admin Diagnostic Test (Pha) 1 strip ACHS 12/07/24 07:00 12/12/24 05:57 Insulin Human Regular ACHS SC 12/07/24 07:00 Dextrose 50 ml UD PRN IV 12/07/24 03:00 12/08/24 02:30 Morphine Sulfate 2 mg Q4HPRN PRN IV 12/07/24 04:00 Sertraline HCl 50 mg DAILY PO 12/07/24 10:00 12/11/24 08:41 Tramadol HCl 50 mg QID PO 12/07/24 06:00 12/12/24 05:58 Patient Own Medication 1 tab HS PO 12/07/24 22:00 Hold Patient Own Medication 1 cap DAILY PO 12/07/24 10:00 Pantoprazole Sodium 40 mg DAILY IV 12/07/24 10:00 Hold Clonidine HCl 0.1 mg DAILY PO 12/07/24 10:00 12/11/24 10:00 Vancomycin HCl 0 ml @ 0 mls/hr UD IV 12/07/24 05:45 Sevelamer HCl 800 mg TIDWM PO 12/07/24 08:00 12/11/24 17:33 Dextrose 1,000 ml @ 50 mls/hr Q20H IV 12/07/24 23:00 12/11/24 07:00 Metoprolol Tartrate 25 mg BID PO 12/10/24 10:00 12/12/24 01:11 Piperacillin Sod/ Tazobactam Sod 50 ml @ 12.5 mls/hr Q8HR IV 12/10/24 14:00 12/12/24 05:58 Aspirin 325 mg DAILY PO 12/11/24 10:00 12/11/24 08:41 objective General: the patient is well developed and nourished. No acute distress. MUSCULOSKELETAL EXAM: Tenderness to palpation in the back MENTAL STATUS: Subjective SPEECH, LANGUAGE, HIGHER CORTICAL FUNCTION: no aphasia or dysathria. CRANIAL NERVES: Pupils are equal, round and reactive. EOMs full and conjugate. No nystagmus. Facial sensation intact in all three divisions bilaterally. Mandibular strength intact. Facial muscles symmetrical and strength intact. Tongue midline. No fasciculations or atrophy. SENSATION: Sensation to touch and pinprick is normal. MOTOR: Normal tone in the upper and lower extremity. Normal muscle bulk. No fasciculations. Intermittent jerking in the right extremities with the leg more affected. Muscle strength of the major groups in the left extremities is 4/5. Muscle strength of the major groups in the right extremities is: arm: 4/5. Le-3/5 REFLEXES: Deep tendon reflexes are symmetrical. No pathological reflexes. CEREBELLAR/COORDINATION: Deferred GAIT/STATION: deferred laboratory and microbiology Laboratory Tests 12/11/24 14:02 12/08/24 05:49 Test 12/08/24 05:49 Range/Units Serum Glucose 101 74-106 mg/dL Problem List Altered mental status, myoclonus, likely secondary to metabolic encephalopathy Metabolic encephalopathy secondary to chronic kidney failure, UTI Chronic kidney failure on hemodialysis UTI Right upper extremity drift, to rule out acute stroke A Fib Assessment/Plan Monitoring Supportive treatment Telemetry MR head EEG IV antibiotics Eliquis 2.5 mg b.i.d. (on hold) GI prophylaxis/Protonix More recommendation per clinical course This medical document was created using an electronic medical record system with [employer] dictation system. Although this document has been carefully reviewed, there may still be some phonetic and typographical errors. These areas are purely typographical due to imperfections of the software programs, and do not reflect any compromise in the patient's medical care. Prognosis poor Plan discussed with: Other LOULOU PAGE MD Dec 12, 2024 08:55
[2024-12-12] MEDS: LORazepam 2MG/ML-1ML VIAL IV ONE (10:37)
[2024-12-12 10:53] LABS: Alanine Aminotransferase 21 U/L (7-40); Albumin 3.5 g/dL (3.2-4.8); Alkaline Phosphatase 78 U/L (46-116); Anion Gap 10 (5-15); BUN/Creatinine Ratio 2.1 (10.0-20.0); Carbon Dioxide 30 mmol/L (20-31); Glucose 85 mg/dL (74-106); Potassium 3.7 mmol/L (3.5-5.1); Total Protein 5.8 g/dL (5.7-8.2)
[2024-12-12 10:58] LABS: Bilirubin, Total 0.3 mg/dL (0.2-1.0); Blood Urea Nitrogen 8 mg/dL (9-23); Calcium 8.1 mg/dL (8.7-10.4); Chloride 95 mmol/L (98-107); Sodium 135 mmol/L (136-145)
--- NOTE | 2024-12-12 11:28 | DVH ---
CLINICAL HISTORY: cva, sTROKE TECHNIQUE: Routine multiplanar imaging of the brain was performed without gadolinium contrast. COMPARISON: CT ANGIO HEAD/NECK on DOS: 12/11/24, CT BRAIN on DOS: 12/06/24, CT BRAIN on DOS: 12/06/24, CT BRAIN on DOS: 04/21/24, CT BRAIN on DOS: 05/03/19 FINDINGS: There is no abnormal restricted diffusion to suggest acute infarction. There is mild brain volume there are scattered T2 hyperintense foci within the white matter both cere bral hemispheres, which are most compatible with a mild burden of nonspecific small-vessel ischemic c hange. There is no evidence for acute ischemic changes, mass, mass effect, or extra-axial fluid collection. There is no hydrocephalus or midline shift. The cerebral sulci and subarachnoid cisterns are not effa elizabeth. The imaged paranasal sinuses are clear. The globes are intact. The midline structures, including the corpus callosum, are unremarkable. The intracranial flow voids are maintained. There is mild left inferior frontal scalp subcutaneous so ft tissue swelling / hematoma IMPRESSION: No acute intracranial abnormality seen. No evidence for acute infarct. Mild brain volume loss and chronic small vessel ischemic change. Small left inferior frontal scalp soft tissue swelling/hematoma formation
--- NOTE | 2024-12-12 12:58 | DVH ---
CLINICAL INDICATION: Right thigh cellulitis. TECHNIQUE: Noncontrast CT of the right thigh was performed. Sagittal and coronal reformatted images a re provided. COMPARISON: CR HIP RIGHT 2-3 VIEW on DOS: 04/07/24 CT Dose: CTDI volume is 9.13 mGy. Dose-length product is 682.5 mGy*cm FINDINGS: No fracture or dislocation. No cortical erosion. There is right hip joint space narrowing. Medial an d lateral compartment narrowing and osteophytes. There are vascular calcifications. There soft tissue swelling in the right thigh. There is a fatty mass in the right quadriceps muscle consistent with a lipoma. IMPRESSION: 1. No acute osseous abnormality. 2. Soft tissue swelling in the right thigh which may represent cellulitis. No drainable fluid collect ion. All CT scans at this medical facility are performed using dose modulation techniques as appropriate t o a performed exam including the following: Automated exposure control was utilized; adjustment of th e MA and/or KV according to patient size; and use of iterative reconstruction technique.
[2024-12-12] MEDS: FLUMAZENIL 0.1 MG/ML INJ 10ML MDV IV ONE (16:32)
--- NOTE | 2024-12-12 18:58 | DVHPN2 ---
Subjective Patient is more awake alert and oriented today, MRI brain is negative we will resume Eliquis. 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 Medications Current Medications Medications Dose Ordered Sig/Duncan Route Start Time Stop Time Status Last Admin Dose Admin Diagnostic Test (Pha) 1 strip ACHS 12/07/24 07:00 12/12/24 17:00 1 STRIP Insulin Human Regular ACHS SC 12/07/24 07:00 Dextrose 50 ml UD PRN IV 12/07/24 03:00 12/08/24 02:30 50 ML Morphine Sulfate 2 mg Q4HPRN PRN IV 12/07/24 04:00 Sertraline HCl 50 mg DAILY PO 12/07/24 10:00 12/12/24 10:05 50 MG Tramadol HCl 50 mg QID PO 12/07/24 06:00 12/12/24 05:58 50 MG Patient Own Medication 1 tab HS PO 12/07/24 22:00 Hold Patient Own Medication 1 cap DAILY PO 12/07/24 10:00 Pantoprazole Sodium 40 mg DAILY IV 12/07/24 10:00 Hold Clonidine HCl 0.1 mg DAILY PO 12/07/24 10:00 12/12/24 10:04 0.1 MG Vancomycin HCl 0 ml @ 0 mls/hr UD IV 12/07/24 05:45 Sevelamer HCl 800 mg TIDWM PO 12/07/24 08:00 12/12/24 10:02 800 MG Dextrose 1,000 ml @ 50 mls/hr Q20H IV 12/07/24 23:00 12/11/24 07:00 50 MLS/HR Metoprolol Tartrate 25 mg BID PO 12/10/24 10:00 12/12/24 10:05 25 MG Piperacillin Sod/ Tazobactam Sod 50 ml @ 12.5 mls/hr Q8HR IV 12/10/24 14:00 12/12/24 05:58 12.5 MLS/HR Aspirin 325 mg DAILY PO 12/11/24 10:00 12/12/24 10:02 325 MG Laboratory Results Laboratory Tests 12/11/24 14:02 12/12/24 10:03 Chemistry Test 12/12/24 10:03 Albumin 3.5 g/dL (3.2-4.8) Calcium Level 8.1 mg/dL (8.7-10.4) L Total Protein 5.8 g/dL (5.7-8.2) LFT Test 12/12/24 10:03 Alanine Aminotransferase (ALT) 21 U/L (7-40) Alkaline Phosphatase 78 U/L (46-116) Aspartate Amino Transferase (AST) 19 U/L (13-40) Total Bilirubin 0.3 mg/dL (0.2-1.0) Urinalysis Test 12/07/24 11:40 Urine Color Colorless (Yellow) Urine Clarity Turbid (Clear) H Urine pH 8.5 (5.0-9.0) Urine Specific [place] 1.024 (1.001-1.035) Urine Protein 2+ (Negative) H Urine Ketones Trace (Negative) Urine Blood 3+ /uL (Negative) H Urine Nitrite Negative (Negative) Urine Bilirubin Negative (Negative) Urine Urobilinogen Normal mg/dL (Negative) Urine Leukocyte Esterase 2+ /uL (Negative) Urine RBC 2606 /hpf (0 - 4) Urine Microscopic WBC 5 /HPF (0-5) Urine Squamous Epithelial Cells Few /hpf (<5) Urine Bacteria None seen /hpf (None Seen) Urine Yeast (Budding) Occasional /hpf (None Urine Glucose Normal mg/dL (Normal) Microbiology Microbiology Date/Time Source Procedure Growth Status 12/07/24 11:40 Voided Urine Urine Culture - Final Complete 12/07/24 09:00 Nose MRSA Screen - Final Complete 12/07/24 05:48 Blood Blood Culture - Final NO GROWTH AFTER 5 DAYS OF INCUBATION. Complete Assessment/Plan Assessment/Plan 74-year-old female with a known history of hypertension, chronic AFib on Eliquis, end-stage renal disease on hemodialysis, diabetes mellitus type 2, history of breast cancer and colon cancer who was transferred from [facility] with altered mental status found to have 1. Acute metabolic encephalopathy, slowly improving, CT head noncontrast from [facility] shows no evidence of acute infarct, MRI brain is negative 2. End-stage renal disease on hemodialysis 3. Chronic AFib was on Eliquis, once MRI brain is negative for any acute bleed, we will resume 4. Diabetes mellitus type 2 5. History of breast cancer and colon cancer 6. Hypoglycemia, monitor closely -DC aspirin, start Eliquis as MRI brain is negative -blue keisha tele neurologist recommendations appreciated. -follow up Dr. Hill is recommendations -physical therapy evaluation and treatment Plan discussed with: Patient, Other My Orders Orders - CARLITOS CHACON MD Procedure Category Date Status Time (Nf) Amina [facility] 12/12/24 Logged 19:00 Date of Service: Dec 12, 2024 Billing Provider: CARLITOS CHACON MD Common Visit Codes: [id number] INP/OBS CARE(HIGH) CARLITOS CHACON MD Dec 12, 2024 18:58
--- NOTE | 2024-12-12 19:06 | DVHPN2 ---
Progress Note - Dictate Date Seen: Dec 12, 2024 Has the PT tested + for MRSA If YES, has PT been informed?: No Medical Necessity Reason Pt with a Central, PICC or Fol: No Subjective Patient was seen and evaluated in follow up. No acute events overnight. Patient is more awake, alert and oriented today. Dialyzed yesterday. MRI Brain was negative. Underwent dialysis again today with 2L removed. Noted with decreased HR to 42 during dialysis treatment. Asymptomatic. vital signs Vital Sign Date Time Temp Pulse Resp B/P (MAP) Pulse Ox O2 Delivery O2 Flow Rate FiO2 12/12/24 16:22 43 15 119/56 (77) 98 12/12/24 13:00 97.4 97.4 12/12/24 08:00 Nasal Cannula* 1 24 Total Intake and Output 12/11/24 12/11/24 12/12/24 15:00 23:00 07:00 Intake Total 672 ml 850 ml Output Total 150 ml 150 ml Balance 522 ml 700 ml medications Current Medications Medications Dose Ordered Sig/Duncan Route Start Time Stop Time Status Last Admin Dose Admin Diagnostic Test (Pha) 1 strip ACHS 12/07/24 07:00 12/12/24 17:00 1 STRIP Insulin Human Regular ACHS SC 12/07/24 07:00 Dextrose 50 ml UD PRN IV 12/07/24 03:00 12/08/24 02:30 50 ML Morphine Sulfate 2 mg Q4HPRN PRN IV 12/07/24 04:00 Sertraline HCl 50 mg DAILY PO 12/07/24 10:00 12/12/24 10:05 50 MG Tramadol HCl 50 mg QID PO 12/07/24 06:00 12/12/24 05:58 50 MG Patient Own Medication 1 tab HS PO 12/07/24 22:00 Hold Patient Own Medication 1 cap DAILY PO 12/07/24 10:00 Pantoprazole Sodium 40 mg DAILY IV 12/07/24 10:00 Hold Clonidine HCl 0.1 mg DAILY PO 12/07/24 10:00 12/12/24 10:04 0.1 MG Vancomycin HCl 0 ml @ 0 mls/hr UD IV 12/07/24 05:45 Sevelamer HCl 800 mg TIDWM PO 12/07/24 08:00 12/12/24 10:02 800 MG Dextrose 1,000 ml @ 50 mls/hr Q20H IV 12/07/24 23:00 12/11/24 07:00 50 MLS/HR Metoprolol Tartrate 25 mg BID PO 12/10/24 10:00 12/12/24 10:05 25 MG Piperacillin Sod/ Tazobactam Sod 50 ml @ 12.5 mls/hr Q8HR IV 12/10/24 14:00 12/12/24 05:58 12.5 MLS/HR Patient Own Medication 5 mg BIDPC PO 12/12/24 19:00 UNV objective Vitals and nursing notes reviewed. General: In no acute distress. HENT: NC/AT. Respiratory/pulmonary: Distant breath sounds. Cardiovascular: Normal S1, S2. Abdomen:Abdomen nondistended. Extremities: No peripheral edema noted. No extremity deformity. Neurological: No focal deficits. laboratory and microbiology Laboratory Tests 12/12/24 10:03 12/11/24 14:02 Test 12/12/24 10:03 Range/Units Serum Glucose 85 74-106 mg/dL Problem List Acute metabolic encephalopathy End-stage renal disease on hemodialysis Chronic AFib currently on Eliquis Diabetes mellitus type 2 History of breast cancer and colon cancer Assessment/Plan Agree with current supportive medical care. Cardiology consulted for bradycardia. Neurology following. Eliquis resumed. HD 12/12- UF 2L. Empiric IV antibiotics with Vancomycin and Zosyn. Regular blood glucose checks & sliding scale insulin. Renal diet. Home medications as ordered. Additional plan as per the hospital course. Dietary Evaluation Review Comments: Nutrition Recommendation 1) Nepro Carbsteady 240ml BID 2) Monitor PO intake, lab values, weight trend, and I/O Expected Outcomes/Goals: Intake to meet >75% estimated needs Lab values to improve Fu 3-5 days Plan discussed with: Patient, Other TATYANA CHARLES DO Dec 12, 2024 19:06
[2024-12-12] MEDS: VANCOMYCIN 500mg/100mL 100 ML IV ONE (19:55)
[2024-12-13] VITALS (7 sets, daily range): BP systolic 127–163; BP diastolic 48–81; PULSE 48–54; RESP 16–18; TEMP 97.8–98.6; O2SAT 96–100
--- NOTE | 2024-12-13 07:39 | ECG ---
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
[2024-12-13] MEDS: APIXABAN 5 MG TAB PO SCH (09:08)
--- NOTE | 2024-12-13 09:18 | DVHPN2 ---
Progress Note - Dictate Date Seen: Dec 13, 2024 Has the PT tested + for MRSA If YES, has PT been informed?: No Medical Necessity Reason Pt with a Central, PICC or Fol: No Subjective Ms. Nunez is a 74 years old right-handed female with a history of hypertension, diabetes, AFib on Eliquis 2.5 mg b.i.d., ES RD on hemodialysis, breast cancer, colon cancer, she was brought to the [facility] on 12/07/2024 with a chief company of altered mental status I have seen and examined the patient, I have talked to her nurse, she is awake, oriented to person , place she knows year, she follows verbal commands, better verbal communication, overall she is mentally and physically better I see jerking movement in the right extremities, with the leg more affected, obvious as yesterday CT dated 12/12/2024 showed evidence of right-sided cellulitis, but she reports no pain and there was no obvious tenderness to palpation VVC CT head, 12/06/2024: Unremarkable Blood culture, 12/07/2024: No growth Urine culture, 12/07/2024: Negative UDS, 12/07/2024: Benzo Urinalysis, 12/07/2024: WBC: 5, urine leukocyte esterase: 2+ WBC/HB/PLT/MCV, 12/11/2024: 5.8/9.4/235/84.8 PT/INR/PTT, 12/07/2024: 11.10/1013/22.7 BUN/CR, 12/08/2024: 30/6.66 GFR, 12/08/24: 6 Glucose, 12/07/2024: 52, 68, 104, 61, 48, 12/08/2024: 42, 43, 12/12/24: 80, 10, < 10, 74, 12/13/2024: 90 HGB A1c, 12/07/2024: 3.8 Liver function tests, 12/08/2024: Unremarkable TG/HDL/LDL/HDL, 12/07/2024: 83/156/51/91 Vitamin B12, 12/07/2024: 855 TSH, 12/07/24: 4.73 TTE, 12/09/2024: EF: 70% CT head, 12/11/2024: There is no evidence for acute intracranial hemorrhage, acute ischemic changes, mass, mass effect, or extra-axial fluid collection. There is no hydrocephalus or midline shift. There is no effacement of the cerebral sulci and basal subarachnoid cisterns. The calle-white matter differentiation is well maintained. CT, right thigh, 12/12/2024: 1. No acute osseous abnormality. 2. Soft tissue swelling in the right thigh which may represent cellulitis. No drainable fluid collection CTA neck, head, 12/11/2024: Evaluation quantification of carotid narrowing slight difficult on this exam due to significant calcifications. Extensive right carotid bulb plaque resulting in severe luminal narrowing with near complete occlusion. Extensive left carotid bulb plaque resulting in grossly 50% luminal narrowing per NASCET criteria. Short segment of fibromuscular dysplasia involving the proximal/mid left extracranial internal carotid artery. Please note the accurate quantification of stenosis is difficult with CTA. If accurate assessment is warranted, catheter angiography is suggested MR head, 12/12/2024: No acute intracranial abnormality seen. No evidence for acute infarct. Mild brain volume loss and chronic small vessel ischemic change. Small left inferior frontal scalp soft tissue swelling/hematoma formation vital signs Vital Sign Date Time Temp Pulse Resp B/P (MAP) Pulse Ox O2 Delivery O2 Flow Rate FiO2 12/13/24 05:00 53 17 134/48 (76) 100 12/12/24 20:00 Nasal Cannula* 1 24 12/12/24 13:00 97.4 97.4 Total Intake and Output 12/12/24 12/12/24 12/13/24 15:00 23:00 07:00 Intake Total 650 ml 600 ml 800 ml Output Total 380 ml 100 ml Balance 650 ml 220 ml 700 ml medications Current Medications Medications Dose Ordered Sig/Duncan Route Start Time Stop Time Status Last Admin Dose Admin Diagnostic Test (Pha) 1 strip ACHS 12/07/24 07:00 12/13/24 06:22 1 STRIP Insulin Human Regular ACHS SC 12/07/24 07:00 Dextrose 50 ml UD PRN IV 12/07/24 03:00 12/08/24 02:30 50 ML Morphine Sulfate 2 mg Q4HPRN PRN IV 12/07/24 04:00 Sertraline HCl 50 mg DAILY PO 12/07/24 10:00 12/13/24 09:08 50 MG Tramadol HCl 50 mg QID PO 12/07/24 06:00 12/13/24 06:21 50 MG Patient Own Medication 1 tab HS PO 12/07/24 22:00 Hold Patient Own Medication 1 cap DAILY PO 12/07/24 10:00 Pantoprazole Sodium 40 mg DAILY IV 12/07/24 10:00 Hold Clonidine HCl 0.1 mg DAILY PO 12/07/24 10:00 12/12/24 10:04 0.1 MG Vancomycin HCl 0 ml @ 0 mls/hr UD IV 12/07/24 05:45 Sevelamer HCl 800 mg TIDWM PO 12/07/24 08:00 12/13/24 08:00 800 MG Dextrose 1,000 ml @ 50 mls/hr Q20H IV 12/07/24 23:00 12/12/24 23:00 50 MLS/HR Metoprolol Tartrate 25 mg BID PO 12/10/24 10:00 12/12/24 21:21 25 MG Piperacillin Sod/ Tazobactam Sod 50 ml @ 12.5 mls/hr Q8HR IV 12/10/24 14:00 12/13/24 06:22 12.5 MLS/HR Apixaban 5 mg BIDPC PO 12/13/24 09:00 12/13/24 09:08 5 MG objective General: the patient is well developed and nourished. No acute distress. MUSCULOSKELETAL EXAM: Tenderness to palpation in the back MENTAL STATUS: Subjective SPEECH, LANGUAGE, HIGHER CORTICAL FUNCTION: no aphasia or dysathria. CRANIAL NERVES: Pupils are equal, round and reactive. EOMs full and conjugate. No nystagmus. Facial sensation intact in all three divisions bilaterally. Mandibular strength intact. Facial muscles symmetrical and strength intact. Tongue midline. No fasciculations or atrophy. SENSATION: Sensation to touch and pinprick is normal. MOTOR: Normal tone in the upper and lower extremity. Normal muscle bulk. No fasciculations. Intermittent jerking in the right extremities with the leg more affected. Muscle strength of the major groups in the extremities is 4/5. Muscle strength of the major groups in the right extremities is: arm: 4/5. Le-3/5 REFLEXES: Deep tendon reflexes are symmetrical. No pathological reflexes. CEREBELLAR/COORDINATION: Deferred GAIT/STATION: deferred laboratory and microbiology Laboratory Tests 12/12/24 10:03 12/11/24 14:02 Test 12/12/24 10:03 Range/Units Serum Glucose 85 74-106 mg/dL Problem List Altered mental status, myoclonus, likely secondary to metabolic encephalopathy Metabolic encephalopathy secondary to chronic kidney failure, UTI Chronic kidney failure on hemodialysis UTI Right leg weakness, A Fib Right thigh cellulitis per CT scan Assessment/Plan Monitoring Supportive treatment Telemetry EEG IV antibiotics Eliquis 2.5 mg b.i.d. GI prophylaxis/Protonix More recommendation per clinical course This medical document was created using an electronic medical record system with [employer] dictation system. Although this document has been carefully reviewed, there may still be some phonetic and typographical errors. These areas are purely typographical due to imperfections of the software programs, and do not reflect any compromise in the patient's medical care. Prognosis poor Dietary Evaluation Review Comments: Nutrition Recommendation 1) Nepro Carbsteady 240ml BID 2) Monitor PO intake, lab values, weight trend, and I/O Expected Outcomes/Goals: Intake to meet >75% estimated needs Lab values to improve Fu 3-5 days Plan discussed with: Other LOULOU PAGE MD Dec 13, 2024 09:18
--- NOTE | 2024-12-13 15:17 | DVH ---
CLINICAL INFORMATION: Right hip pain. TECHNIQUE: Axial CT images of the right hip were obtained without IV contrast. Coronal and sagittal r eformatted images were obtained, reviewed, and stored. All CT scans at this medical facility are per formed using dose modulation techniques as appropriate to a performed exam including the following: A utomated exposure control was utilized; adjustment of the MA and/or KV according to patient size; and use of iterative reconstruction technique. CTDIvol = 9.13 mGy DLP = 251.42 mGy-cm COMPARISON: CT CT R FEMUR WO CONTRAST on DOS: 12/12/24, CR HIP RIGHT 2-3 VIEW on DOS: 04/07/24 FINDINGS: No evidence of acute fracture. Moderate joint space narrowing in the right hip with associa víctor mild subchondral cystic change. No acute soft tissue abnormality identified. Fatty mass in the ri ght vastus lateralis muscle measures up to 14.6 cm in greatest dimension. Dense arterial calcificatio n. Moderate fatty changes within the visualized right hip and proximal thigh musculature. Galindo liset ter extends into the bladder. Calcifications in the uterus, likely associated with fibroids. IMPRESSION: 1. No evidence of acute bony abnormality. 2. Arthritic changes in the right hip as described above. 3. Fatty mass in the right hip / proximal thigh consistent with a benign lipoma.
--- NOTE | 2024-12-13 16:20 | DVHINCON2 ---
Date of service: Dec 13, [address] Chacon Reason for Consultation leg cellulitis History of Present Illness Patient is a 74-year-old female with past medical history of hypertension, atrial fibrillation on Eliquis, ESRD on dialysis, diabetes mellitus, breast cancer, colon cancer, was referred from [facility] for altered mental status, no history could be obtained from patient at this time. According to the documentation from [facility], she was brought to the ER by daughter with 1 day history of altered mental status, daughter also reported abdominal pain, twitching that started with legs, progre ssively involving the whole-body. She received diphenhydramine, haloperidol, levetiracetam, midazolam in the [facility]. Daughter denied history of seizure in patient. Chest x-ray from outside facility showed cardiomegaly with central pulmonary vascular enlargement & CT head revealed no acute intracranial abnormality. Today patient is awake, oriented to person/place/year. With better verbal communication. Denies any pain. Discharge planning in progress for home with home health. Past Medical History Patient's Past Medical history is significant for Hypertension, atrial fibrillation on Eliquis, ESRD on dialysis, diabetes mellitus, breast and colon cancer (unknown if patient had treatment or if there is recurrence) Past Surgical History PSHx: Right knee replacement Family History: Cancer of colon G8 MOTHER G8 FATHER Family history: Depression (situation) G8 MOTHER G8 FATHER Family history: Diabetes mellitus G8 MOTHER G8 FATHER Family history: Hypertension G8 MOTHER G8 FATHER Family history: Thyroid disorder G8 MOTHER G8 FATHER Stroke G8 MOTHER G8 FATHER Social History Social history: No history of smoking, alcohol, drug use. Allergies: Coded Allergies: NO KNOWN ALLERGIES (Unverified , 09/25/09) Home Meds Active Scripts Metoprolol Tartrate (Lopressor) 25 Mg Tb, 25 MG PO BID for 30 Days, #60 TAB Prov:CARLITOS CHACON MD 12/13/24 Apixaban Base (ELIQUIS) 2.5 Mg Tab, 2.5 MG PO BIDPC for 30 Days, #60 TAB Prov:CARLITOS CHACON MD 12/13/24 Reported Medications Hydrochlorothiazide W/Triamter (Hctz/Triamterene) 1 Cap Cap, 1 CAP OR DAILY 09/25/09 Celecoxib (Celebrex) 200 Mg Cap, 200 MG OR DAILY 09/25/09 Baclofen (Baclofen) 10 Mg Tab, 10 MG OR TID 09/25/09 Sertraline Hcl (Sertraline Hcl) 50 Mg Tab, 50 MG OR DAILY 09/25/09 Hydrocodone-Acetaminophen (Vicodin) 1 Tab Tab, 1 TAB OR TID 09/25/09 Ezetimibe-Simvastatin (Vytorin) 1 Tab Tab, 1 TAB OR HS 09/25/09 Lansoprazole (Lansoprazole) 30 Mg Cap, 30 MG OR DAILY 09/25/09 Tramadol Hcl (Tramadol Hcl) 50 Mg Tab, 50 MG OR QID 09/25/09 Ferrous Sulfate (Ferrous Sulfate) 325 Mg Tab, 325 MG OR DAILY 09/25/09 Zolpidem Tartrate (Zolpidem Tartrate) 10 Mg Tab, 10 MG OR HS 09/25/09 Discontinued Reported Medications Apixaban Base (ELIQUIS) 5 Mg Tab, 5 MG PO BID, TAB 12/07/24 Aspirin (Asa) 325 Mg Tb, 325 MG GT DAILY 09/25/09 Current Medications Current Medications Medications (Trade) Dose Ordered Sig/Duncan Route PRN Reason Start Time Stop Time Status Last Admin Apixaban (Eliquis) 5 mg BIDPC PO 12/13/24 09:00 12/13/24 11:53 DC 12/13/24 09:08 Apixaban (Eliquis) 2.5 mg BIDPC PO 12/13/24 19:00 Review of Systems Review of system was not obtained due to altered mental status. Vital Signs Vital Signs Date Time Temp Pulse Resp B/P (MAP) Pulse Ox O2 Delivery O2 Flow Rate FiO2 12/13/24 13:00 97.8 53 18 158/70 (99) 96 97.8 12/13/24 08:00 Nasal Cannula* 1 24 Physical Exam Vitals and nursing notes reviewed. General: In no acute distress. HENT: NC/AT. Respiratory/pulmonary: Clear breath sounds. Normal effort. Cardiovascular: Normal S1, S2. Abdomen:Abdomen non-distended. Extremities: No peripheral edema noted. No extremity deformity. Neurological: A&Ox3. No focal deficits. Jerking movement in the right extremities Labs/Diagnostic Data Labs Test 12/13/24 10:55 12/12/24 10:03 12/11/24 14:02 12/08/24 05:49 Range/Units POC Glucose 91 70-106 mg/dl Sodium Level 135 L 136-145 mmol/L Potassium Level 3.7 3.5-5.1 mmol/L Chloride Level 95 L 98-107 mmol/L Carbon Dioxide Level 30 20-31 mmol/L Anion Gap 10 5-15 Blood Urea Nitrogen 8 L 9-23 mg/dL Creatinine 3.80 #H 0.550-1.02 mg/dL Glomerular Filtration Rate Calc 12 >90 mL/min BUN/Creatinine Ratio 2.1 L 10.0-20.0 Serum Glucose 85 74-106 mg/dL Calcium Level 8.1 L 8.7-10.4 mg/dL Total Bilirubin 0.3 0.2-1.0 mg/dL Aspartate Amino Transferase (AST) 19 13-40 U/L Alanine Aminotransferase (ALT) 21 7-40 U/L Alkaline Phosphatase 78 46-116 U/L Total Protein 5.8 5.7-8.2 g/dL Albumin 3.5 3.2-4.8 g/dL White Blood Count 5.8 4.4-10.8 10^3/uL Red Blood Count 3.43 L 4.0-5.20 10^6/uL Hemoglobin 9.4 #L 12.2-16.2 g/dL Hematocrit 29.1 L 36.0-46.0 % Mean Corpuscular Volume 84.8 80.0-100.0 fL Mean Corpuscular Hemoglobin 27.4 L 28.0-32.0 pg Mean Corpuscular Hemoglobin Concent 32.3 32.0-36.0 g/dL Red Cell Distribution Width 15.8 H 11.8-14.3 % Platelet Count 235 140-450 10^3/uL Mean Platelet Volume 6.8 L 6.9-10.8 fL Neutrophils (%) (Auto) 39.3 37.0-80.0 % Lymphocytes (%) (Auto) 41.9 10.0-50.0 % Monocytes (%) (Auto) 9.9 0.0-12.0 % Eosinophils (%) (Auto) 8.2 H 0.0-7.0 % Basophils (%) (Auto) 0.7 0.0-2.0 % Neutrophils # (Auto) 2.3 1.6-8.6 10 ^3/uL Lymphocytes # (Auto) 2.4 0.4-5.4 10 ^3/uL Monocytes # (Auto) 0.6 0-1.3 10 ^3/uL Eosinophils # (Auto) 0.5 0-0.8 10 ^3/uL Basophils # (Auto) 0 0-0.2 10 ^3/uL Nucleated Red Blood Cells 0.2 % Random Vancomycin Level 16.7 H 5-10 ug/mL Hepatitis B Surface Antigen Negative Negative Test 12/07/24 11:40 12/07/24 05:48 12/07/24 05:08 Range/Units Urine Color Colorless Yellow Urine Clarity Turbid H Clear Urine pH 8.5 5.0-9.0 Urine Specific [place] 1.024 1.001-1.035 Urine Protein 2+ H Negative Urine Ketones Trace Negative Urine Blood 3+ H Negative /uL Urine Nitrite Negative Negative Urine Bilirubin Negative Negative Urine Urobilinogen Normal Negative mg/dL Urine Leukocyte Esterase 2+ Negative /uL Urine RBC 2606 0 - 4 /hpf Urine Microscopic WBC 5 0-5 /HPF Urine Squamous Epithelial Cells Few <5 /hpf Urine Bacteria None seen None Seen /hpf Urine Yeast (Budding) Occasional None Seen /hpf Urine Glucose Normal Normal mg/dL Urine Opiates Screen Neg NEGATIVE Urine Fentanyl Screen Neg NEGATIVE Urine Barbiturates Screen Neg NEGATIVE Urine Phencyclidine Screen Neg NEGATIVE Urine Amphetamines Screen Neg NEGATIVE Urine Benzodiazepines Screen Pos NEGATIVE Urine Cocaine Screen Neg NEGATIVE Urine Cannabinoids Screen Neg NEGATIVE Prothrombin Time 11.9 H 9.3-11.8 sec Prothrombin Time INR 1.14 0.9-1.15 Activated Partial Thromboplast Time 22.7 L 24.5-34.5 SEC Hemoglobin A1c < 3.8 <5.7 % A1C Lactic Acid Level 0.9 0.4-2.0 mmol/L Phosphorus Level 8.0 H 2.4-5.1 mg/dL Magnesium Level 2.3 1.6-2.6 mg/dL Ammonia < 10 L 11-32 umol/L C-Reactive Protein High Sensitivity 0.34 <1.0 mg/dL Triglycerides Level 83 < 150 mg/dL Cholesterol Level 156 < 200 mg/dL LDL Cholesterol 51 < 100 mg/dL HDL Cholesterol 91 H 40-59 mg/dL Lipase 20 12-53 U/L Vitamin B12 Level 855 211-911 pg/mL Vitamin D 25-Hydroxy 75.6 30.0-100 ng/mL Thyroid Stimulating Hormone (TSH) 4.73 0.55-4.78 uIU/mL Plasma/Serum Blood Alcohol < 3.0 <10 mg/dL Influenza Type A Antigen Negative Negative Influenza Type B Antigen Negative Negative SARS-CoV-2 Antigen (Rapid) Negative NEGATIVE Microbiology Date/Time Source Procedure Growth Status 12/07/24 11:40 Voided Urine Urine Culture - Final Complete 12/07/24 09:00 Nose MRSA Screen - Final Complete 12/07/24 05:48 Blood Blood Culture - Final NO GROWTH AFTER 5 DAYS OF INCUBATION. Complete Assessment Patient is a 74-year-old female presents to the hospital with: Leg cellulitis Metabolic encephalopathy probably secondary to sepsis (UTI) End-stage renal disease on hemodialysis Chronic AFib Diabetes mellitus type 2 Hypoglycemia on arrival Breakthrough seizure Recommendations: Discharge planning in progress for home with home health. Antibiotic status: Zosyn IV [12/10 - 12/13] Vancomycin IV [12/10 - 12/13] Review of culture: 12/07, Blood culture showed no growth 12/07, MRSA screening negative 12/07, Urine culture showed <10,000 CFU/mL Hip CT showed No evidence of acute bony abnormality. Arthritic changes in the right hip as described above. Fatty mass in the right hip / proximal thigh consistent with a benign lipoma. Brain MRI showed No acute intracranial abnormality seen. No evidence for acute infarct. Mild brain volume loss and chronic small vessel ischemic change. Small left inferior frontal scalp soft tissue swelling/hematoma formation. Thank you for consult. GABINO WOODRUFF MD Dec 13, 2024 16:20
[2024-12-13] MEDS ORDERED: APIX2.5T PO (16:30)
[2024-12-13] MEDS ORDERED: MET25T PO (16:30)
--- NOTE | 2024-12-13 16:33 | DVHDS2 ---
Discharge Summary Date of Admission Dec 07, 2024 at 01:30 Date of Discharge: Dec 13, 2024 Labs/Diagnostic Data: Laboratory Results Test 12/13/24 10:55 12/12/24 10:03 12/11/24 14:02 12/08/24 05:49 POC Glucose 91 mg/dl (70-106) Sodium Level 135 mmol/L (136-145) Potassium Level 3.7 mmol/L (3.5-5.1) Chloride Level 95 mmol/L (98-107) Carbon Dioxide Level 30 mmol/L (20-31) Anion Gap 10 (5-15) Blood Urea Nitrogen 8 mg/dL (9-23) Creatinine 3.80 mg/dL (0.550-1.02) Glomerular Filtration Rate Calc 12 mL/min (>90) BUN/Creatinine Ratio 2.1 (10.0-20.0) Serum Glucose 85 mg/dL (74-106) Calcium Level 8.1 mg/dL (8.7-10.4) Total Bilirubin 0.3 mg/dL (0.2-1.0) Aspartate Amino Transferase (AST) 19 U/L (13-40) Alanine Aminotransferase (ALT) 21 U/L (7-40) Alkaline Phosphatase 78 U/L (46-116) Total Protein 5.8 g/dL (5.7-8.2) Albumin 3.5 g/dL (3.2-4.8) White Blood Count 5.8 10^3/uL (4.4-10.8) Red Blood Count 3.43 10^6/uL (4.0-5.20) Hemoglobin 9.4 g/dL (12.2-16.2) Hematocrit 29.1 % (36.0-46.0) Mean Corpuscular Volume 84.8 fL (80.0-100.0) Mean Corpuscular Hemoglobin 27.4 pg (28.0-32.0) Mean Corpuscular Hemoglobin Concent 32.3 g/dL (32.0-36.0) Red Cell Distribution Width 15.8 % (11.8-14.3) Platelet Count 235 10^3/uL (140-450) Mean Platelet Volume 6.8 fL (6.9-10.8) Neutrophils (%) (Auto) 39.3 % (37.0-80.0) Lymphocytes (%) (Auto) 41.9 % (10.0-50.0) Monocytes (%) (Auto) 9.9 % (0.0-12.0) Eosinophils (%) (Auto) 8.2 % (0.0-7.0) Basophils (%) (Auto) 0.7 % (0.0-2.0) Neutrophils # (Auto) 2.3 10 ^3/uL (1.6-8.6) Lymphocytes # (Auto) 2.4 10 ^3/uL (0.4-5.4) Monocytes # (Auto) 0.6 10 ^3/uL (0-1.3) Eosinophils # (Auto) 0.5 10 ^3/uL (0-0.8) Basophils # (Auto) 0 10 ^3/uL (0-0.2) Nucleated Red Blood Cells 0.2 % Random Vancomycin Level 16.7 ug/mL (5-10) Hepatitis B Surface Antigen Negative (Negative) Test 12/07/24 11:40 12/07/24 05:48 12/07/24 05:08 Urine Color Colorless (Yellow) Urine Clarity Turbid (Clear) Urine pH 8.5 (5.0-9.0) Urine Specific [place] 1.024 (1.001-1.035) Urine Protein 2+ (Negative) Urine Ketones Trace (Negative) Urine Blood 3+ /uL (Negative) Urine Nitrite Negative (Negative) Urine Bilirubin Negative (Negative) Urine Urobilinogen Normal mg/dL (Negative) Urine Leukocyte Esterase 2+ /uL (Negative) Urine RBC 2606 /hpf (0 - 4) Urine Microscopic WBC 5 /HPF (0-5) Urine Squamous Epithelial Cells Few /hpf (<5) Urine Bacteria None seen /hpf (None Seen) Urine Yeast (Budding) Occasional /hpf (None Urine Glucose Normal mg/dL (Normal) Urine Opiates Screen Neg (NEGATIVE) Urine Fentanyl Screen Neg (NEGATIVE) Urine Barbiturates Screen Neg (NEGATIVE) Urine Phencyclidine Screen Neg (NEGATIVE) Urine Amphetamines Screen Neg (NEGATIVE) Urine Benzodiazepines Screen Pos (NEGATIVE) Urine Cocaine Screen Neg (NEGATIVE) Urine Cannabinoids Screen Neg (NEGATIVE) Prothrombin Time 11.9 sec (9.3-11.8) Prothrombin Time INR 1.14 (0.9-1.15) Activated Partial Thromboplast Time 22.7 SEC (24.5-34.5) Hemoglobin A1c < 3.8 % A1C (<5.7) Lactic Acid Level 0.9 mmol/L (0.4-2.0) Phosphorus Level 8.0 mg/dL (2.4-5.1) Magnesium Level 2.3 mg/dL (1.6-2.6) Ammonia < 10 umol/L (11-32) C-Reactive Protein High Sensitivity 0.34 mg/dL (<1.0) Triglycerides Level 83 mg/dL (< 150) Cholesterol Level 156 mg/dL (< 200) LDL Cholesterol 51 mg/dL (< 100) HDL Cholesterol 91 mg/dL (40-59) Lipase 20 U/L (12-53) Vitamin B12 Level 855 pg/mL (211-911) Vitamin D 25-Hydroxy 75.6 ng/mL (30.0-100) Thyroid Stimulating Hormone (TSH) 4.73 uIU/mL (0.55-4.78) Plasma/Serum Blood Alcohol < 3.0 mg/dL (<10) Influenza Type A Antigen Negative (Negative) Influenza Type B Antigen Negative (Negative) SARS-CoV-2 Antigen (Rapid) Negative (NEGATIVE) Other Laboratory Tests 12/12/24 10:03 12/11/24 14:02 Brief Hx & Hospital Course: 74-year-old female with a known history of hypertension, chronic AFib on Eliquis, end-stage renal disease on hemodialysis, diabetes mellitus type 2, history of breast cancer and colon cancer who was transferred from [facility] with altered mental status found to have acute metabolic encephalopathy. Patient was eventually admitted. Neurology was consulted. Patient's CT head shows no evidence of acute infarct from [facility] MRI brain is negative. Patient was resumed on Eliquis. Patient also complaining of right hip pain CT of the right hip was done which shows no evidence of acute fracture. Patient does have known history of end-stage renal disease on hemodialysis also chronic AFib currently on Eliquis 2.5 mg p.o. twice a day. Patient is being discharged under stable condition with the home health home safety evaluation and home PT and outpatient follow up with the PCP as well as Nephrology. Condition at Discharge: Stable Final Diagnosis/Problems List 74-year-old female with a known history of hypertension, chronic AFib on Eliquis, end-stage renal disease on hemodialysis, diabetes mellitus type 2, history of breast cancer and colon cancer who was transferred from [facility] with altered mental status found to have 1. Acute metabolic encephalopathy, slowly improving, CT head noncontrast from [facility] shows no evidence of acute infarct, MRI brain is negative 2. End-stage renal disease on hemodialysis 3. Chronic AFib was on Eliquis, once MRI brain is negative for any acute bleed, we will resume 4. Diabetes mellitus type 2 5. History of breast cancer and colon cancer 6. Hypoglycemia, monitor closely -DC aspirin, start Eliquis as MRI brain is negative Discharge Disposition: Home with Health Services SNF Discharge Will this Physician continue t: No Discharge Instruct/Medications Diet: Cardiac 2g Na,low cholest Activity: See Comment Activity comment: No driving, no signing of legal documents, no planning on machinery while on narcotics Follow Up/Referral: Please follow up with the PCP in 1-2 weeks Medications: As prescribed and reconciled. Please do not take any oral hypoglycemic medications including glyburide glimepiride and glipizide. New Medications: Apixaban Base (Eliquis) 2.5 Mg Tab 2.5 MG PO BIDPC for 30 Days, #60 TAB Metoprolol Tartrate (Lopressor) 25 Mg Tb 25 MG PO BID for 30 Days, #60 TAB Continued Medications: Baclofen (Baclofen) 10 Mg Tab 10 MG OR TID Celecoxib (Celebrex) 200 Mg Cap 200 MG OR DAILY Ezetimibe-Simvastatin (Vytorin) 1 Tab Tab 1 TAB OR HS Ferrous Sulfate (Ferrous Sulfate) 325 Mg Tab 325 MG OR DAILY Hydrochlorothiazide W/Triamter (Hctz/Triamterene) 1 Cap Cap 1 CAP OR DAILY Hydrocodone-Acetaminophen (Vicodin) 1 Tab Tab 1 TAB OR TID Lansoprazole (Lansoprazole) 30 Mg Cap 30 MG OR DAILY Sertraline Hcl (Sertraline Hcl) 50 Mg Tab 50 MG OR DAILY Tramadol Hcl (Tramadol Hcl) 50 Mg Tab 50 MG OR QID Zolpidem Tartrate (Zolpidem Tartrate) 10 Mg Tab 10 MG OR HS Discontinued Medications: Apixaban Base (Eliquis) 5 Mg Tab 5 MG PO BID, TAB Aspirin (Asa) 325 Mg Tb 325 MG GT DAILY Scheduled Apixaban Base (Eliquis), 2.5 MG PO BIDPC Baclofen (Baclofen), 10 MG OR TID, (Reported) Celecoxib (Celebrex), 200 MG OR DAILY, (Reported) Ezetimibe-Simvastatin (Vytorin), 1 TAB OR HS, (Reported) Ferrous Sulfate (Ferrous Sulfate), 325 MG OR DAILY, (Reported) Hydrochlorothiazide W/Triamter (Hctz/Triamterene), 1 CAP OR DAILY, (Reported) Hydrocodone-Acetaminophen (Vicodin), 1 TAB OR TID, (Reported) Lansoprazole (Lansoprazole), 30 MG OR DAILY, (Reported) Metoprolol Tartrate (Lopressor), 25 MG PO BID Sertraline Hcl (Sertraline Hcl), 50 MG OR DAILY, (Reported) Tramadol Hcl (Tramadol Hcl), 50 MG OR QID, (Reported) Zolpidem Tartrate (Zolpidem Tartrate), 10 MG OR HS, (Reported) Discontinued Medications Apixaban Base (Eliquis), 5 MG PO BID, (Reported) Aspirin (Asa), 325 MG GT DAILY, (Reported) Discharge Statement: "Patient was advised to return to the ER or call 911 if any headaches, dizziness, shortness of breath, chest pain, abdominal pain, bleeding, fevers, or worsening of medical condition. Patient was counseled about treatment plan, medications, possible side effects, patientverbalized understanding. All questions were answered to the best of my ability. This discharge took greater then 30 minutes in planning, reviewing documentation, counseling the patient, and discussing with other team members." ASSESSMENT ASSESSMENT Assessment 74-year-old female with a known history of hypertension, chronic AFib on Eliquis, end-stage renal disease on hemodialysis, diabetes mellitus type 2, history of breast cancer and colon cancer who was transferred from [facility] with altered mental status found to have 1. Acute metabolic encephalopathy, slowly improving, CT head noncontrast from [facility] shows no evidence of acute infarct, MRI brain is negative 2. End-stage renal disease on hemodialysis 3. Chronic AFib was on Eliquis, once MRI brain is negative for any acute bleed, we will resume 4. Diabetes mellitus type 2 5. History of breast cancer and colon cancer 6. Hypoglycemia, monitor closely -DC aspirin, start Eliquis as MRI brain is negative Date of Service: Dec 13, 2024 Billing Provider: CARLITOS CHACON MD Common Visit Codes: 06214-VIL/OBS DISCH DAY >30min CARLITOS CHACON MD Dec 13, 2024 16:33
[2024-12-13] MEDS: APIXABAN 2.5 MG TAB PO SCH (17:45)
--- NOTE | 2024-12-13 19:16 | DVHPN2 ---
Progress Note - Dictate Date Seen: Dec 13, 2024 Has the PT tested + for MRSA If YES, has PT been informed?: No Medical Necessity Reason Pt with a Central, PICC or Fol: No Subjective Patient was seen and evaluated in follow up. No acute events overnight. Patient is awake, oriented to person/place/year. With better verbal communication. Denies any pain. Discharge planning in progress for home with home health. vital signs Vital Sign Date Time Temp Pulse Resp B/P (MAP) Pulse Ox O2 Delivery O2 Flow Rate FiO2 12/13/24 18:19 98.6 54 16 98 12/13/24 17:00 163/81 12/13/24 08:00 Nasal Cannula* 1 24 Total Intake and Output 12/12/24 12/12/24 12/13/24 15:00 23:00 07:00 Intake Total 650 ml 600 ml 800 ml Output Total 380 ml 100 ml Balance 650 ml 220 ml 700 ml medications Current Medications Medications Dose Ordered Sig/Duncan Route Start Time Stop Time Status Last Admin Dose Admin Diagnostic Test (Pha) 1 strip ACHS 12/07/24 07:00 12/13/24 17:00 1 STRIP Insulin Human Regular ACHS SC 12/07/24 07:00 Dextrose 50 ml UD PRN IV 12/07/24 03:00 12/08/24 02:30 50 ML Morphine Sulfate 2 mg Q4HPRN PRN IV 12/07/24 04:00 Sertraline HCl 50 mg DAILY PO 12/07/24 10:00 12/13/24 09:08 50 MG Tramadol HCl 50 mg QID PO 12/07/24 06:00 12/13/24 17:45 50 MG Patient Own Medication 1 tab HS PO 12/07/24 22:00 Hold Patient Own Medication 1 cap DAILY PO 12/07/24 10:00 Pantoprazole Sodium 40 mg DAILY IV 12/07/24 10:00 Hold Clonidine HCl 0.1 mg DAILY PO 12/07/24 10:00 12/13/24 10:01 0.1 MG Vancomycin HCl 0 ml @ 0 mls/hr UD IV 12/07/24 05:45 Sevelamer HCl 800 mg TIDWM PO 12/07/24 08:00 12/13/24 17:45 800 MG Dextrose 1,000 ml @ 50 mls/hr Q20H IV 12/07/24 23:00 12/12/24 23:00 50 MLS/HR Metoprolol Tartrate 25 mg BID PO 12/10/24 10:00 12/12/24 21:21 25 MG Piperacillin Sod/ Tazobactam Sod 50 ml @ 12.5 mls/hr Q8HR IV 12/10/24 14:00 12/13/24 14:16 12.5 MLS/HR Apixaban 2.5 mg BIDPC PO 12/13/24 19:00 12/13/24 17:45 2.5 MG objective Vitals and nursing notes reviewed. General: In no acute distress. HENT: NC/AT. Respiratory/pulmonary: Clear breath sounds. Normal effort. Cardiovascular: Normal S1, S2. Abdomen:Abdomen non-distended. Extremities: No peripheral edema noted. No extremity deformity. Neurological: A&Ox3. No focal deficits. Jerking movement in the right extremities laboratory and microbiology Laboratory Tests 12/12/24 10:03 12/11/24 14:02 Test 12/12/24 10:03 Range/Units Serum Glucose 85 74-106 mg/dL Problem List Acute metabolic encephalopathy End-stage renal disease on hemodialysis Chronic AFib currently on Eliquis Diabetes mellitus type 2 History of breast cancer and colon cancer Assessment/Plan Agree with current supportive medical care. DC planning. Home with [facility]. Neurology following. MRI Brain negative. Eliquis resumed. Dialyzed yesterday. Next HD 12/14 if still admitted. Empiric IV antibiotics with Vancomycin and Zosyn. Regular blood glucose checks & sliding scale insulin. Renal diet. Home medications as ordered. Additional plan as per the hospital course. Dietary Evaluation Review Comments: Nutrition Recommendation 1) Nepro Carbsteady 240ml BID 2) Monitor PO intake, lab values, weight trend, and I/O Expected Outcomes/Goals: Intake to meet >75% estimated needs Lab values to improve Fu 3-5 days Plan discussed with: Patient, Other (RN) TATYANA CHARLES DO Dec 13, 2024 19:16
== END 2024-12-13 21:51 | disposition home health service (06) | DRG 682 ==
LOC: TELE-EAST 12-07 01:30
PROVIDERS: ADMIT Internal Medicine; ATTEND Internal Medicine
PROC: 5A1D70Z Performance of Urinary Filtration, Intermittent, Less than 6 Hours Per Day (ICD-10-PCS; principal; 2024-12-08)
PROC: 5A1D70Z Performance of Urinary Filtration, Intermittent, Less than 6 Hours Per Day (ICD-10-PCS; 2024-12-11)
PROC: 5A1D70Z Performance of Urinary Filtration, Intermittent, Less than 6 Hours Per Day (ICD-10-PCS; 2024-12-12)
DX: I12.0 Hypertensive chronic kidney disease with stage 5 chronic kidney disease or end stage renal disease (principal); G93.41 Metabolic encephalopathy; N18.6 End stage renal disease; I48.20 Chronic atrial fibrillation, unspecified; N39.0 Urinary tract infection, site not specified; L03.115 Cellulitis of right lower limb; Z20.822 Contact with and (suspected) exposure to COVID-19; E11.22 Type 2 diabetes mellitus with diabetic chronic kidney disease; I48.0 Paroxysmal atrial fibrillation; F17.200 Nicotine dependence, unspecified, uncomplicated; E11.649 Type 2 diabetes mellitus with hypoglycemia without coma; G40.909 Epilepsy, unspecified, not intractable, without status epilepticus; Z85.038 Personal history of other malignant neoplasm of large intestine; Z85.3 Personal history of malignant neoplasm of breast; Z96.651 Presence of right artificial knee joint; Z99.2 Dependence on renal dialysis; Z83.3 Family history of diabetes mellitus; Z82.49 Family history of ischemic heart disease and other diseases of the circulatory system; Z82.3 Family history of stroke; Z81.8 Family history of other mental and behavioral disorders; Z80.0 Family history of malignant neoplasm of digestive organs; Z79.01 Long term (current) use of anticoagulants
CPT/HCPCS: 36415; 70496; 70498; 70551; 71045; 73700; 80053; 80061; 80202; 80307; 80320; 81001; 82140; 82306; 82565; 82607; 82962; 83036; 83605; 83690; 83735; 84100; 84443; 85014; 85025; 85610; 85730; 86141; 87040; 87081; 87086; 87340; 87426; 87804; 90935; 93005; 93306; 97163; A4565; G0378; J2543

== ENCOUNTER 2024-12-15 13:44 | Inpatient (IN) | payer OTHER, MEDICAID ==
[~2024-12-15] VITALS: Ht 162.6 cm; Wt 74.6 kg
[~2024-12-15 13:44] MED LIST changes: +APIX2.5T PO; -ASPI-247 GT; +MET25T PO
[2024-12-15 16:58] VITALS: BP 169/65; PULSE 89; PULSE 96; RESP 16; RESP 18; TEMP 97.7; O2SAT 94; O2SAT 96
[2024-12-15] MEDS ORDERED: NITROGLYCERIN 0.4 MG SL TAB SL PRN (17:00)
[2024-12-15] MEDS ORDERED: MORPHINE SULFATE INJ 2 MG/ml SYRG IV PRN (17:00)
[2024-12-15] MEDS ORDERED: DOCUSATE SOD 100 MG CAP PO PRN (17:00)
[2024-12-15] MEDS ORDERED: ONDANSETRON HCL 4 MG/2 ML VIAL IV PRN (17:00)
[2024-12-15 17:23] VITALS: BP 169/65; PULSE 89; RESP 16; TEMP 97.7; O2SAT 94
--- NOTE | 2024-12-15 17:46 | DVHHP2 ---
History of Present Illness Reason for Visit: Generalized weakness History of Present Illness Marisa Nunez is a 74-year-old female with past medical history of hypertension, atrial fibrillation on Eliquis, ESRD on HD T,,WED, breast cancer, and colon cancer, who was transferred from [facility] due to ALOC, and needing dialysis. Patient went to the hospital yesterday due to not being able to stand of walk. Patient was recently admitted here and worked up for a stroke due to new onset right sided weakness and difficulty walking. She states she usually uses a walker to ambulate, but has not been able to ambulate since yesterday. Cardiovascular: AFIB, HTN Heme/Onc: Cancer (breast and colon) Renal/: Chronic renal failure (ESRD on HD) Past Surgical History: (x 2), Other (right mastectomy), Total knee replacement (left) Smoke: <1 pack per day ALCOHOL: heavy (1-2 beer/day) Lives: with Family Domestic Violence: Neg Review of Systems Constitutional: Yes: Weakness, Malaise; No: Fever, Chills, Sweats, Other Eyes: No: Pain, Vision change, Conjunctivae inflammation, Eyelid inflammation, Other, Redness ENT: No: Ear pain, Ear discharge, Nose pain, Nose discharge, Nose congestion, Mouth pain, Mouth swelling, Throat pain, Throat swelling, Other Respiratory: No: Cough, Dry, Shortness of breath, SOB with excertion, Wheezing, Hemoptysis, Pleuritic Pain, Sputum, Wheezing, Other Cardiovascular: No: Chest Pain, Palpitations, Orthopnea, Paroxysmal Noc. Dyspnea, Edema, Lt Headedness, Other Gastrointestinal: No: Nausea, Vomiting, Abdominal Pain, Diarrhea, Constipation, Melena, Hematochezia, Other Genitourinary: No Dysuria, No Frequency, No Incontinence, No Hematuria, No Retention, No Other Musculoskeletal: No: other, neck pain, shoulder pain, arm pain, back pain, hand pain, leg pain, foot pain Skin: No: Rash, Lesions, Jaundice, Bruising, Other Neurological: Weakness, Confusion; No: Numbness, Incoordination, Change in speech, Seizures, Other Allergies: Coded Allergies: NO KNOWN ALLERGIES (Unverified , 09/25/09) Medications Current Medications Medications Dose Ordered Sig/Duncan Route Start Time Stop Time Status Last Admin Dose Admin Sodium Chloride 10 ml Q8HR IV 12/15/24 22:00 UNV Acetaminophen/ Hydrocodone Bitart 1 tab Q4HP PRN PO 12/15/24 17:00 UNV Ondansetron HCl 4 mg Q4HP PRN IV 12/15/24 17:00 UNV Docusate Sodium 100 mg BIDPRN PRN PO 12/15/24 17:00 UNV Acetaminophen 650 mg Q6HP PRN PO 12/15/24 17:00 UNV Nitroglycerin 0.4 mg Q5MINP PRN SL 12/15/24 17:00 UNV Morphine Sulfate 2 mg Q30M PRN IV 12/15/24 17:00 UNV Baclofen 10 mg TID PO 12/15/24 22:00 UNV Ferrous Sulfate 325 mg DAILY PO 12/16/24 10:00 UNV Sertraline HCl 50 mg DAILY PO 12/16/24 10:00 UNV Patient Own Medication 200 mg DAILY OR 12/16/24 10:00 UNV Patient Own Medication 1 tab HS OR 12/15/24 22:00 UNV Patient Own Medication 1 cap DAILY OR 12/16/24 10:00 UNV Patient Own Medication 30 mg DAILY OR 12/16/24 10:00 UNV Patient Own Medication 10 mg HS OR 12/15/24 22:00 UNV Apixaban 2.5 mg BIDPC PO 12/15/24 19:00 UNV Exam Vital Signs Vital Signs Date Time Temp Pulse Resp B/P (MAP) Pulse Ox O2 Delivery O2 Flow Rate FiO2 12/15/24 17:23 97.7 89 16 169/65 (99 94 97.7 General Appearance: Alert, Oriented X3, mild distress, Other (forgetful and easily agitated) HEENT: Atraumatic, PERRLA, Mucous membr. moist/pink Respiratory: Clear to auscultation, Normal air movement Cardiovascular: Normal S1, Normal S2, No murmurs Abdominal: Normal bowel sounds, Soft, No tenderness, No hepatospenomegaly Extremities: No clubbing, No cyanosis Skin: No rashes, No breakdown Neuro: Other (Patient unable to stand of walk. States it started yesterday and the reason she came to the hospital) Psych/Mental Status: Mental status NL, Mood NL Labs/Xrays CBC and BMP ordered and pending, Chest X-ray ordered and pending, EKG ordered and pending, SEPSIS Sepsis Screen Physician Orders Admit (12/15/24 16:58) Code Status (12/15/24 16:58) Renal Standard(2gna,3gk,Lopho) (12/15/24 Dinner) Sodium Chloride Lock (Saline Lock Ns) (12/15/24 22:00) Hydrocodone-Acet 5/325mg Tab ([place] 5/32 (12/15/24 17:00) Ondansetron Hcl (Zofran) (12/15/24 17:00) Docusate Sodium Capsule (Colace Capsule) (12/15/24 17:00) Complete Blood Count (12/16/24 04:00) Comprehensive Metabolic Panel (12/16/24 04:00) Pt Request For Service (12/15/24 16:58) Condition: Serious (12/15/24 16:58) Acetaminophen Tablet (Tylenol Tablet) (12/15/24 17:00) Nitroglycerin Sublingual (Ntrostat Subli (12/15/24 17:00) Morphine Sulfate Injection (12/15/24 17:00) Stat Ekg For Chest Pain (12/15/24 16:58) Notify Md Of Changes From Base (12/15/24 16:58) Cigarette Tester For 24 Hours (12/15/24 16:58) Emergency Dysrhythmia Protocol (12/15/24 16:58) Rhythm Strips Once Every Shift (12/15/24 16:58) Oxygen By Nasal Cannula (12/15/24 16:58) Complete Blood Count (12/15/24 16:58) Basic Metabolic Panel (12/15/24 16:58) Chest Portable (12/15/24 17:01) Electrocardigram (12/15/24 17:01) Daily Weight (12/15/24 17:01) Strict I&O (12/15/24 ) Baclofen Tablet (Liorisal Tablet) (12/15/24 22:00) Ferrous Sulfate Tablet (12/16/24 10:00) (Nf) Celecoxib (Celebrex) (12/16/24 10:00) (Nf) Ezetimibe-Simvastatin (Vytorin) (12/15/24 22:00) (Nf) Hydrochlorothiazide W/Triamter (Hct (12/16/24 10:00) (Nf) Lansoprazole (12/16/24 10:00) (Nf) Zolpidem Tartrate (12/15/24 22:00) Sertraline Hcl (Zoloft) (12/16/24 10:00) *Dr. Joan Wynn (12/15/24 17:05) Apixaban (Eliquis) (12/15/24 19:00) Vital Signs Date Time Temp Pulse Resp B/P (MAP) Pulse Ox O2 Delivery O2 Flow Rate FiO2 12/15/24 17:23 97.7 89 16 169/65 (99) 94 97.7 12/15/24 16:58 97.7 89 16 169/65 (99) 94 97.7 Assessment/Plan Assessment/Plan Assessment: Metabolic encephalopathy, ESRD on HD, Hypertension, Atrial fibrillation, Right hemiparalysis, Plan: Admit to Tele, Nephrology consult, Strict I&O's, Daily weight, Fluid restriction, Consider CT of head, Fall risk, Physical therapy evaluation, Plan discussed with: Patient My Orders Orders - STEWART [employer]EN [employer] Procedure Category Date Status Time Admit ADMIT 12/15/24 Transmitted 16:58 Code Status CODE 12/15/24 Transmitted 16:58 Renal DIET 12/15/24 Transmitted Standard(2gna,3gk,Lopho) Dinner Sodium Chloride Lock PHA 12/15/24 Logged (Saline Lock Ns) 22:00 Hydrocodone-Acet PHA 12/15/24 Logged 5/325mg Tab ([place] 17:00 Ondansetron Hcl PHA 12/15/24 Logged (Zofran) 17:00 Docusate Sodium PHA 12/15/24 Logged Capsule (Colace 17:00 Complete Blood Count LAB 12/16/24 Verified 04:00 Comprehensive LAB 12/16/24 Verified Metabolic Panel 04:00 Pt Request For Service PT 12/15/24 Logged 16:58 Condition: Serious ALAN 12/15/24 In Process 16:58 Acetaminophen Tablet PHA 12/15/24 Logged (Tylenol Tablet) 17:00 Nitroglycerin PHA 12/15/24 Logged Sublingual (Ntrostat 17:00 Morphine Sulfate PHA 12/15/24 Logged Injection 17:00 Stat Ekg For Chest ALAN 12/15/24 In Process Pain 16:58 Notify Md Of Changes ALAN 12/15/24 In Process From Base 16:58 Cigarette Tester For ALAN 12/15/24 In Process 24 Hours 16:58 Emergency Dysrhythmia ALAN 12/15/24 In Process Protocol 16:58 Rhythm Strips Once ALAN 12/15/24 In Process Every Shift 16:58 Oxygen By Nasal RT 12/15/24 Transmitted Cannula 16:58 Complete Blood Count LAB 12/15/24 Logged 16:58 Basic Metabolic Panel LAB 12/15/24 Logged 16:58 Chest Portable XY 12/15/24 Logged 17:01 Electrocardigram EKG 12/15/24 Logged 17:01 Daily Weight ALAN 12/15/24 In Process 17:01 Strict I&O ED NURSING 12/15/24 Transmitted Baclofen Tablet PHA 12/15/24 Logged (Liorisal Tablet) 22:00 Ferrous Sulfate Tablet PHA 12/16/24 Logged 10:00 (Nf) Celecoxib PHA 12/16/24 Logged (Celebrex) 10:00 (NF) PHA 12/15/24 Logged Ezetimibe-Simvastatin 22:00 (NF) PHA 12/16/24 Logged Hydrochlorothiazide 10:00 (Nf) Lansoprazole PHA 12/16/24 Logged 10:00 (Nf) Zolpidem Tartrate PHA 12/15/24 Logged 22:00 Sertraline Hcl PHA 12/16/24 Logged (Zoloft) 10:00 *Dr. Joan Wynn CONS 12/15/24 Transmitted 17:05 Apixaban (Eliquis) PHA 12/15/24 Logged 19:00 Date of Service: Dec 15, 2024 Billing Provider: STEWART HARDEN Common Visit Codes: [id number] INP/OBS CARE (HIGH) STEWART HARDEN Dec 15, 2024 17:46
[2024-12-15 18:55] LABS: Anion Gap 13 (5-15); Carbon Dioxide 24 mmol/L (20-31); Hemoglobin 10.4 g/dL (12.2-16.2); Potassium 4.7 mmol/L (3.5-5.1)
[2024-12-15 18:56] LABS: Calcium 9.3 mg/dL (8.7-10.4); Hematocrit 32.2 % (36.0-46.0); Mean Corpuscular Hemoglobin 27.1 pg (28.0-32.0); Mean Corpuscular Volume 83.9 fL (80.0-100.0); Nucleated Red Blood Cells % 0.1 %
[2024-12-15 19:01] LABS: BUN/Creatinine Ratio 3.6 (10.0-20.0); Blood Urea Nitrogen 21 mg/dL (9-23); Glucose 90 mg/dL (74-106)
[2024-12-15 19:19] LABS: Chloride 95 mmol/L (98-107); Sodium 132 mmol/L (136-145)
[2024-12-15 20:00] VITALS: PULSE 86
[2024-12-15] MEDS: BACLOFEN 10 MG TAB PO SCH (20:57)
[2024-12-15] MEDS: APIXABAN 2.5 MG TAB PO SCH (20:58)
[2024-12-15] MEDS: ZOLPIDEM TARTRATE 5 MG TAB PO SCH (20:58)
[2024-12-15] MEDS: SODIUM CHLOR 0.9% PF (SALINE LOCK) 10ML VIAL/SYR IV SCH (20:58)
[2024-12-15] MEDS: HYDROcodone-ACET 5/325MG TAB PO PRN (20:59)
[2024-12-15 21:00] VITALS: BP 126/59; PULSE 84; RESP 17; TEMP 98.7; O2SAT 96
[2024-12-15] MEDS: EZETIMIBE SIMVASTATIN PO SCH (22:00)
[2024-12-16] VITALS (8 sets, daily range): BP systolic 115–179; BP diastolic 55–99; PULSE 66–109; RESP 17–19; TEMP 97.4–98.7; O2SAT 94–99
--- NOTE | 2024-12-16 05:57 | DVH ---
CHEST RADIOGRAPH Indication: SOB Technique: Single frontal view of the chest was obtained COMPARISON: XY CHEST XRAY 1 VIEW on DOS: 12/07/24, XR CHEST 1 VIEW on DOS: 12/06/24, XR CHEST 1 VIEW on DOS: 04/22/24, XR CHEST 2 VIEW on DOS: 04/07/24 FINDINGS: Lines and Tubes: None Lungs: Clear Pleura: No effusion. No pneumothorax. Cardiomediastinal contours: Cardiomegaly. Bones: Unremarkable IMPRESSION: 1. Cardiomegaly.
[2024-12-16 06:01] LABS: Alanine Aminotransferase 13 U/L (7-40); Alkaline Phosphatase 71 U/L (46-116); Anion Gap 8 (5-15); BUN/Creatinine Ratio 5.0 (10.0-20.0); Carbon Dioxide 27 mmol/L (20-31); Glucose 86 mg/dL (74-106); Potassium 4.8 mmol/L (3.5-5.1)
[2024-12-16 06:03] LABS: Albumin 3.2 g/dL (3.2-4.8); Bilirubin, Total 0.2 mg/dL (0.2-1.0); Blood Urea Nitrogen 32 mg/dL (9-23); Calcium 8.6 mg/dL (8.7-10.4); Chloride 97 mmol/L (98-107); Sodium 132 mmol/L (136-145); Total Protein 5.6 g/dL (5.7-8.2)
[2024-12-16 07:42] LABS: Hematocrit 28.7 % (36.0-46.0); Hemoglobin 9.5 g/dL (12.2-16.2); Mean Corpuscular Hemoglobin 27.3 pg (28.0-32.0); Mean Corpuscular Volume 82.5 fL (80.0-100.0); Nucleated Red Blood Cells % 0.4 %
[2024-12-16 08:04] LABS: RBC Morphology Normal
--- NOTE | 2024-12-16 09:21 | DVHINCON2 ---
Date of service: Dec 16, [address] Khanna Reason for Consultation ESRD and dialysis management. History of Present Illness Marisa Nunez is a 74-year-old F with a Past Medical History pertinent for Hypertension, Atrial fibrillation on Eliquis, ESRD on HD (), Breast cancer and Colon cancer who was transferred from [facility] due to ALOC and needing dialysis. Patient initially went to the hospital due to not being able to stand or walk. She was recently admitted here and worked up for a stroke due to new onset right sided weakness and difficulty walking. Patient usually uses a walker to ambulate, but has not been able to ambulate. Chest x- ray showed Cardiomegaly. Allergies: Coded Allergies: NO KNOWN ALLERGIES (Unverified , 09/25/09) Home Meds Active Scripts Apixaban Base (ELIQUIS) 2.5 Mg Tab, 2.5 MG PO BIDPC for 30 Days, #60 TAB Prov:CARLITOS CHACON MD 12/13/24 Reported Medications Sertraline Hcl (Sertraline Hcl) 50 Mg Tab, 50 MG OR DAILY 09/25/09 Ezetimibe-Simvastatin (Vytorin) 1 Tab Tab, 1 TAB OR HS 09/25/09 Lansoprazole (Lansoprazole) 30 Mg Cap, 30 MG OR DAILY 09/25/09 Ferrous Sulfate (Ferrous Sulfate) 325 Mg Tab, 325 MG OR DAILY 09/25/09 Discontinued Reported Medications Hydrochlorothiazide W/Triamter (Hctz/Triamterene) 1 Cap Cap, 1 CAP OR DAILY 09/25/09 Celecoxib (Celebrex) 200 Mg Cap, 200 MG OR DAILY 09/25/09 Baclofen (Baclofen) 10 Mg Tab, 10 MG OR TID 09/25/09 Hydrocodone-Acetaminophen (Vicodin) 1 Tab Tab, 1 TAB OR TID 09/25/09 Tramadol Hcl (Tramadol Hcl) 50 Mg Tab, 50 MG OR QID 09/25/09 Zolpidem Tartrate (Zolpidem Tartrate) 10 Mg Tab, 10 MG OR HS 09/25/09 Apixaban Base (ELIQUIS) 5 Mg Tab, 5 MG PO BID, TAB 12/07/24 Aspirin (Asa) 325 Mg Tb, 325 MG GT DAILY 09/25/09 Discontinued Scripts Metoprolol Tartrate (Lopressor) 25 Mg Tb, 25 MG PO BID for 30 Days, #60 TAB Prov:CARLITOS CHACON MD 12/13/24 Current Medications Current Medications Medications (Trade) Dose Ordered Sig/Duncan Route PRN Reason Start Time Stop Time Status Last Admin Metoprolol Tartrate (Lopressor Tablet) 25 mg BID PO 12/16/24 22:00 12/17/24 09:49 DC 12/16/24 21:18 Amlodipine Besylate (Norvasc Tablet) 10 mg DAILY PO 12/16/24 20:45 12/16/24 21:23 Clonidine HCl (Catapres Tablet) 0.2 mg Q6HP PRN PO SBP>160 12/16/24 20:45 Enteral Nutritional Formula (Nepro With Carb Steady) 1,000 ml 40ML/HR NG 12/17/24 13:45 Family History: Cancer of colon G8 MOTHER, G8 FATHER, Family history: Depression (situation) G8 MOTHER, G8 FATHER, Family history: Diabetes mellitus G8 MOTHER, G8 FATHER, Family history: Hypertension G8 MOTHER, G8 FATHER, Family history: Thyroid disorder G8 MOTHER, G8 FATHER, Stroke G8 MOTHER, G8 FATHER, Review of Systems Constitutional: Yes: Weakness, Malaise; No: Fever, Chills, Sweats, Other Eyes: No: Pain, Vision change, Conjunctivae inflammation, Eyelid inflammation, Other, Redness Respiratory: No: Cough, Dry, Shortness of breath, SOB with exertion, Wheezing, Hemoptysis, Pleuritic Pain, Sputum, Wheezing, Other Cardiovascular: No: Chest Pain, Palpitations, Orthopnea, Paroxysmal Noc. Dyspnea, Edema, Lt Headedness, Other Gastrointestinal: No: Nausea, Vomiting, Abdominal Pain, Diarrhea, Constipation, Melena, Hematochezia, Other Musculoskeletal: No: other, neck pain, shoulder pain, arm pain, back pain, hand pain, leg pain, foot pain Skin: No: Rash, Lesions, Jaundice, Bruising, Other Neurological: Weakness, Confusion; No: Numbness, Incoordination, Change in speech, Seizures, Other All other systems reviewed and negative unless otherwise noted in HPI. H&P Exam Vital Signs/I&O Vital Sign Date Time Temp Pulse Resp B/P (MAP) Pulse Ox O2 Delivery O2 Flow Rate FiO2 12/17/24 14:13 97.9 55 18 120/57 (78) 100 97.9 12/17/24 08:00 Room Air* 0 21 Intake and Output 12/16/24 12/17/24 18:59 06:59 Intake Total 325 ml 200 ml Balance 325 ml 200 ml Intake Oral 325 ml 200 ml # Voids 1 Physical Exam Vitals and nursing notes reviewed General Appearance: In no acute distress. HEENT: Atraumatic, PERRLA, Mucous membr. moist/pink Respiratory: Clear to auscultation, Normal air movement Cardiovascular: Normal S1, Normal S2, No murmurs Abdominal: Normal bowel sounds, Soft, No tenderness, No hepatospenomegaly Extremities: No clubbing, No cyanosis Skin: No rashes, No breakdown Neuro: Patient unable to stand of walk. Alert, Oriented X3, mild distress, Other (forgetful and easily agitated) Psych/Mental Status: Mental status NL, Mood NL Labs/Diagnostic Data Labs/Diagnostic Data Laboratory Tests Test 12/17/24 08:45 12/17/24 08:42 12/17/24 08:38 12/17/24 07:32 Range/Units White Blood Count 5.1 # 4.4-10.8 10^3/uL Red Blood Count 3.16 L 4.0-5.20 10^6/uL Hemoglobin 8.6 L 12.2-16.2 g/dL Hematocrit 26.4 L 36.0-46.0 % Mean Corpuscular Volume 83.5 80.0-100.0 fL Mean Corpuscular Hemoglobin 27.1 L 28.0-32.0 pg Mean Corpuscular Hemoglobin Concent 32.5 32.0-36.0 g/dL Red Cell Distribution Width 15.9 H 11.8-14.3 % Platelet Count 233 140-450 10^3/uL Mean Platelet Volume 7.1 6.9-10.8 fL Neutrophils (%) (Auto) 32.6 L 37.0-80.0 % Lymphocytes (%) (Auto) 49.3 10.0-50.0 % Monocytes (%) (Auto) 13.3 H 0.0-12.0 % Eosinophils (%) (Auto) 3.5 0.0-7.0 % Basophils (%) (Auto) 1.3 0.0-2.0 % Neutrophils # (Auto) 1.7 1.6-8.6 10 ^3/uL Lymphocytes # (Auto) 2.5 0.4-5.4 10 ^3/uL Monocytes # (Auto) 0.7 0-1.3 10 ^3/uL Eosinophils # (Auto) 0.2 0-0.8 10 ^3/uL Basophils # (Auto) 0.1 0-0.2 10 ^3/uL Nucleated Red Blood Cells 0.1 % Sodium Level 137 136-145 mmol/L Potassium Level 3.9 3.5-5.1 mmol/L Chloride Level 97 L 98-107 mmol/L Carbon Dioxide Level 28 20-31 mmol/L Anion Gap 12 5-15 Blood Urea Nitrogen 13 9-23 mg/dL Creatinine 4.38 H 0.550-1.02 mg/dL Glomerular Filtration Rate Calc 10 >90 mL/min BUN/Creatinine Ratio 3.0 L 10.0-20.0 Serum Glucose 111 H 74-106 mg/dL Lactic Acid Level 1.3 0.4-2.0 mmol/L Calcium Level 8.9 8.7-10.4 mg/dL Magnesium Level 2.2 1.6-2.6 mg/dL Total Bilirubin 0.3 0.2-1.0 mg/dL Aspartate Amino Transferase (AST) 13 13-40 U/L Alanine Aminotransferase (ALT) 12 7-40 U/L Alkaline Phosphatase 70 46-116 U/L Ammonia < 10 L 11-32 umol/L Total Protein 5.7 5.7-8.2 g/dL Albumin 3.4 3.2-4.8 g/dL Blood Gas Specimen Type Venous Blood Gas Sample Site Vbg - n/a Blood Gas Patient Temperature 37.0 Arterial Blood Date Drawn [id number] Manuel Test N/a Venous Blood pH 7.412 7.320-7.430 Venous Blood pCO2 at Patient Temp 42.1 38.0-54.0 mmHg Venous Blood pO2 at Patient Temp 61.4 H 23.0-48.0 mmHg Venous Blood HCO3 26.2 22.0-29.0 mmol/L Venous Blood Base Excess 1.4 -2.0-3.0 mmol/L Blood Gas Modality Vbg - n/a FiO2 % 28.0 Specimen Drawn By andres Hitchcock lab POC Glucose 119 H 102 70-106 mg/dl Test 12/17/24 05:05 12/17/24 03:30 12/16/24 05:15 12/15/24 18:31 Range/Units White Blood Count 3.6 L 4.6 # 6.7 4.4-10.8 10^3/uL Red Blood Count 3.12 L 3.48 L 3.83 L 4.0-5.20 10^6/uL Hemoglobin 8.3 L 9.5 L 10.4 L 12.2-16.2 g/dL Hematocrit 25.5 #L 28.7 #L 32.2 #L 36.0-46.0 % Mean Corpuscular Volume 82.0 82.5 83.9 80.0-100.0 fL Mean Corpuscular Hemoglobin 26.8 L 27.3 L 27.1 L 28.0-32.0 pg Mean Corpuscular Hemoglobin Concent 32.7 33.1 32.3 32.0-36.0 g/dL Red Cell Distribution Width 15.8 H 15.7 H 16.2 H 11.8-14.3 % Platelet Count 197 201 283 140-450 10^3/uL Mean Platelet Volume 7.1 7.4 6.9 6.9-10.8 fL Neutrophils (%) (Auto) 44.1 60.8 37.0-80.0 % Lymphocytes (%) (Auto) 35.7 23.8 10.0-50.0 % Monocytes (%) (Auto) 13.7 H 11.1 0.0-12.0 % Basophils (%) (Auto) 0.8 0.6 0.0-2.0 % Neutrophils # (Auto) 2.0 4.1 1.6-8.6 10 ^3/uL Lymphocytes # (Auto) 1.6 1.6 0.4-5.4 10 ^3/uL Monocytes # (Auto) 0.6 0.7 0-1.3 10 ^3/uL Differential Total Cells Counted 100.0 100 Neutrophils % (Manual) 33 L 37.0-80.0 Band Neutrophils % (Manual) 1 Lymphocytes % (Manual) 44 10.0-50.0 Monocytes % (Manual) 16 H 0-12 Eosinophils % (Manual) 6 0-7 Basophils % (Manual) 0 0.0-2.0 Metamyelocytes % (manual) 0 Myelocytes % (Manual) 0 Promyelocytes % (Manual) 0 Blast Cells % (Manual) 0 Reactive Lymphocytes 0 Platelet Estimate Adequate Adequate Sodium Level 136 132 L 132 L 136-145 mmol/L Potassium Level 3.7 4.8 4.7 3.5-5.1 mmol/L Chloride Level 96 L 97 L 95 L 98-107 mmol/L Carbon Dioxide Level 28 27 24 20-31 mmol/L Anion Gap 12 8 13 5-15 Blood Urea Nitrogen 12 # 32 #H 21 9-23 mg/dL Creatinine 4.09 #H 6.35 H 5.82 #H 0.550-1.02 mg/dL Glomerular Filtration Rate Calc 11 6 7 >90 mL/min BUN/Creatinine Ratio 2.9 L 5.0 L 3.6 L 10.0-20.0 Serum Glucose 80 86 90 74-106 mg/dL Calcium Level 9.2 8.6 L 9.3 8.7-10.4 mg/dL POC Glucose 96 70-106 mg/dl Eosinophils (%) (Auto) 5.7 3.7 0.0-7.0 % Eosinophils # (Auto) 0.3 0.2 0-0.8 10 ^3/uL Basophils # (Auto) 0 0 0-0.2 10 ^3/uL Nucleated Red Blood Cells 0.4 0.1 % Red Blood Cell Morphology Normal Total Bilirubin 0.2 0.2-1.0 mg/dL Aspartate Amino Transferase (AST) 13 13-40 U/L Alanine Aminotransferase (ALT) 13 7-40 U/L Alkaline Phosphatase 71 46-116 U/L Total Protein 5.6 L 5.7-8.2 g/dL Albumin 3.2 3.2-4.8 g/dL Assessment Metabolic encephalopathy ESRD on HD Hypertension Atrial fibrillation Right hemiparalysis Plan/Recommendation Agreement with your ongoing assessment and plan of care. Schedule HD today. UF 1.5L. Strict Intake/Output monitoring. Daily weight. Fluid restriction. Physical therapy evaluation. Home medications resumed as tolerated. Renal diet. Additional plan as per the hospital course. Plan discussed with: Patient, Other (RN) TATYANA CHARLES DO Dec 16, 2024 09:21
[2024-12-16] MEDS: ALBUMIN 25% 100 ML IV STA (09:40)
--- NOTE | 2024-12-16 09:49 | ECG ---
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
[2024-12-16] MEDS: CELECOXIB 100 MG CAP PO SCH (12:27)
[2024-12-16] MEDS: PANTOPRAZOLE 40 MG TAB PO SCH (12:28)
[2024-12-16] MEDS: FERROUS SULFATE 325mg EC TAB PO SCH (12:28)
[2024-12-16] MEDS: SERTRALINE HCL 50 MG TAB PO SCH (12:28)
[2024-12-16] MEDS: ALBUMIN 25% 100 ML IV ONE (12:40)
[2024-12-16] MEDS: TRIAMTERENE/HCTZ 37.5/25 MG CAP/TAB PO SCH (13:00)
[2024-12-16] MEDS: SODIUM CHL 0.9% 1000 ML BAG XX ONE (13:01)
--- NOTE | 2024-12-16 18:51 | DVHPN2 ---
Subjective rested/but confused-per nursing she saw her last week and this is her baseline status./cannot remember her date of /home address-answers simple questions- recent mri head no new changes Changes from previous H/P or p: No Changes Eyes: No Pain, No Vision change, No Conjunctivae inflammation, No Eyelid inflammation, No Other, No Redness ENT: No Ear pain, No Ear discharge, No Nose pain, No Nose discharge, No Nose congestion, No Mouth pain, No Mouth swelling, No Throat pain, No Throat swelling, No Other Cardiovascular: No Chest Pain, No Palpitations, No Orthopnea, No Paroxysmal Noc. Dyspnea, No Edema, No Lt Headedness, No Other Respiratory: No Cough, No Dry, No Shortness of breath, No SOB with excertion, No Wheezing, No Hemoptysis, No Pleuritic Pain, No Sputum, No Other Gastrointestinal: No Nausea, No Vomiting, No Abdominal Pain, No Diarrhea, No Constipation, No Melena, No Hematochezia, No Other Genitourinary: No Dysuria, No Frequency, No Incontinence, No Hematuria, No Retention, No Other Musculoskeletal: No other, No neck pain, No shoulder pain, No arm pain, No back pain, No hand pain, No leg pain, No foot pain Skin: No Rash, No Lesions, No Jaundice, No Bruising, No Other Objective Vitals Vital Signs Date Time Temp Pulse Resp B/P (MAP) Pulse Ox O2 Delivery O2 Flow Rate FiO2 12/16/24 17:14 97.5 75 19 169/78 (108) 99 97.5 12/16/24 08:15 Room Air* 0 21 Intake/Output Intake and Output 12/16/24 07:00 Intake Total 100 ml Balance 100 ml Intake Oral 100 ml # Voids 1 # Bowel Movements 2 General Appearance: Alert, Cooperative, No acute distress, Other (oriented times one) HEENT: Other (bruising around left eye- chronic since last admission) Lungs: Clear to auscultation Cardiovascular: Regular rate, Normal S1, Normal S2 Abdomen: Normal bowel sounds, Soft, No tenderness, No hepatospenomegaly Musculoskeletal: Normal sensory function, Normal motor function Extremities: No edema Neuro: Normal speech (but confused), Strength at 5/5 X4 ext, Normal tone, S ensation intact, Cranial nerves 3-12 NL, Other Psych/Mental Status: Mood NL, Other (alert but confused) Medications Current Medications Medications Dose Ordered Sig/Duncan Route Start Time Stop Time Status Last Admin Dose Admin Sodium Chloride 10 ml Q8HR IV 12/15/24 22:00 12/15/24 20:58 10 ML Acetaminophen/ Hydrocodone Bitart 1 tab Q4HP PRN PO 12/15/24 17:00 12/15/24 20:59 1 TAB Ondansetron HCl 4 mg Q4HP PRN IV 12/15/24 17:00 Docusate Sodium 100 mg BIDPRN PRN PO 12/15/24 17:00 Acetaminophen 650 mg Q6HP PRN PO 12/15/24 17:00 Nitroglycerin 0.4 mg Q5MINP PRN SL 12/15/24 17:00 Morphine Sulfate 2 mg Q30M PRN IV 12/15/24 17:00 Baclofen 10 mg TID PO 12/15/24 22:00 12/16/24 14:00 10 MG Ferrous Sulfate 325 mg DAILY PO 12/16/24 10:00 12/16/24 12:28 325 MG Sertraline HCl 50 mg DAILY PO 12/16/24 10:00 12/16/24 12:28 50 MG Celecoxib 200 mg DAILY PO 12/16/24 10:00 12/16/24 12:27 200 MG Patient Own Medication 1 tab HS PO 12/15/24 22:00 Triamterene/HCTZ 1 cap DAILY PO 12/16/24 10:00 Pantoprazole Sodium 40 mg DAILY PO 12/16/24 10:00 12/16/24 12:28 40 MG Zolpidem Tartrate 10 mg HS PO 12/15/24 22:00 12/15/24 20:58 10 MG Apixaban 2.5 mg BIDPC PO 12/15/24 19:00 12/16/24 18:37 2.5 MG Laboratory Results Laboratory Tests 12/16/24 05:15 Chemistry Test 12/16/24 05:15 Albumin 3.2 g/dL (3.2-4.8) Calcium Level 8.6 mg/dL (8.7-10.4) L Total Protein 5.6 g/dL (5.7-8.2) L LFT Test 12/16/24 05:15 Alanine Aminotransferase (ALT) 13 U/L (7-40) Alkaline Phosphatase 71 U/L (46-116) Aspartate Amino Transferase (AST) 13 U/L (13-40) Total Bilirubin 0.2 mg/dL (0.2-1.0) Assessment/Plan Assessment/Plan dialysis delirium- /doubt this is accute- this is chronic/looked at old records and d/w nursing esrd- on dialysis atrial fibrillation- stable/will d/w daughter in am about risks/benefits given recent fall before last admission h/o breast and colon cancer htn stable Plan discussed with: Other (RN PT PRIMARY BEDSIDE NURSE) Date of Service: Dec 16, 2024 Billing Provider: SHERLEY CHI MD Common Visit Codes: [id number] INP/OBS CARE(MOD) SHERLEY CHI MD Dec 16, 2024 18:51
[2024-12-16] MEDS: METOPROLOL TARTRATE 25 MG TAB PO SCH (21:18)
[2024-12-16] MEDS: EPOETIN ALFA-EPBX 4,000 UNIT/ML VIAL SC ONE (21:24)
[2024-12-17] VITALS (8 sets, daily range): BP systolic 120–151; BP diastolic 56–81; PULSE 51–70; RESP 16–19; TEMP 97.4–98.9; O2SAT 94–100
[2024-12-17 05:42] LABS: Hemoglobin 8.3 g/dL (12.2-16.2); Mean Corpuscular Hemoglobin 26.8 pg (28.0-32.0); Mean Corpuscular Volume 82.0 fL (80.0-100.0)
[2024-12-17 05:45] LABS: Hematocrit 25.5 % (36.0-46.0)
[2024-12-17 05:54] LABS: Anion Gap 12 (5-15); Carbon Dioxide 28 mmol/L (20-31); Potassium 3.7 mmol/L (3.5-5.1); Sodium 136 mmol/L (136-145)
[2024-12-17 05:55] LABS: Calcium 9.2 mg/dL (8.7-10.4)
[2024-12-17 05:58] LABS: Chloride 96 mmol/L (98-107)
[2024-12-17 06:00] LABS: BUN/Creatinine Ratio 2.9 (10.0-20.0); Blood Urea Nitrogen 12 mg/dL (9-23); Glucose 80 mg/dL (74-106)
[2024-12-17 08:10] LABS: Total Cells Counted 100.0 (100)
[2024-12-17] MEDS: hydrALAZINE HCL 20 MG/ML VL IV ONE (08:45)
[2024-12-17] MEDS: hydrALAZINE HCL 20 MG/ML VL ONE (08:47)
--- NOTE | 2024-12-17 08:57 | ECG ---
[facility] Test Date: 2024-12-17 Test Time: 08:55:31 Pat Name: RON PATTERSON Department: Room: 0217T A Gender: F Inspector Technician: mohan rankin : 1950 Requested By: ELVIN BALLESTEROS Order Number: [id number] Reading MD: Alfonso Mcintyre Measurements Intervals [place] Rate: 54 P: 47 [place]: 190 QRS: 18 QRSD: 106 T: 69 QT: 465 QTc: 441 Interpretive Statements Sinus rhythm Left ventricular hypertrophy Electronically Signed On 12-17-2024 17:00:24 PDT by Alfonso Mcintyre Please click the below link to view image of tracing.
[2024-12-17 09:23] LABS: Hematocrit 26.4 % (36.0-46.0); Hemoglobin 8.6 g/dL (12.2-16.2); Mean Corpuscular Hemoglobin 27.1 pg (28.0-32.0); Mean Corpuscular Volume 83.5 fL (80.0-100.0); Nucleated Red Blood Cells % 0.1 %
--- NOTE | 2024-12-17 09:34 | DVH ---
CT STROKE CTH INDICATION: Stroke EXAM DATE: 12/17/2024 08:59 AM COMPARISON: MRI BRAIN HEAD WO CONTRAST on DOS: 12/12/24, CT ANGIO HEAD/NECK on DOS: 12/11/24, CT BRAI N on DOS: 12/06/24 RADIATION DOSE: CTDIvol: 55 mGy, DLP: 1084 mGy*cm PROCEDURE: CT scans of the head were obtained from the vertex to the skull base. Sagittal and coronal reconstructions were provided. All CT scans at this medical facility are performed using dose modulation techniques as appropriate t o a performed exam including the following: Automated exposure control was utilized; adjustment of th e MA and/or KV according to patient size; and use of iterative reconstruction technique. FINDINGS: There is sulcal and ventricular prominence. The brainshows normal morphology and calle-whi te matter differentiation, without intracranial hemorrhage, extra-axial fluid collection, mass effect or acute large vessel infarct. The ventricles are normal in size. The basal cisterns are patent. The skull and visible facial bones are intact. The paranasal sinuses, mastoid air cells and middle ear c avities are well-aerated. Small left frontal scalp hematoma. IMPRESSION: No acute intracranial abnormality.
--- NOTE | 2024-12-17 09:39 | RESUS ---
CODE ASSIST ASSESSSMENT Initial Information Code Assist Date: Dec 17, 2024 Code Assist Time: 08:33 Location of Arrest: [facility] Room # 217A Provider Name DR BALLESTEROS Time Notified: 08:33 Crash Cart Opened and Supplies: Yes Situation Staff concerned/worried, speci: HR <40, Change LOC Situation comment: PER PRIMARY RN, PATIENT HAD SUDDEN ONSET ALOC. BILATERAL EYES OPEN, NO TRACKING WITH VERBAL STIMULI. DOES NOT FOLLOW SIMPLE COMMANDS. PER PRIMARY RN, PATIENT WAS ALSO NOTED TO BE HYPOTENSIVE WITH SYSTOLIC BP IN 200S, AND BRADYCARDIC WITH HR LOW 32. Background Background: ADMITTED TO [facility] FOR STROKE R/U RECENT FALLS PRIOR TO ADMISSION DIALYSIS PATIENT Assessment Temperature (Fahrenheit): 98.8 Blood Pressure Systolic: 173 Blood Pressure Diastolic: 87 Respiratory Rate: 14 O2 Sat by Pulse Oximetry: 100 Bedside Blood Glucose: 119 Assessment comment: UPON CODE ASSIST TEAM ARRIVAL, PATIENT APPEARED ALTERED, NOT FOLLOWING SIMPLE COMMANDS. INITIAL VITALS: 206/104, HR 71, SPO2 100% 2LPM NC,RR 14. PATIENT DIAPHORETIC. AFTER APPROXIMATELY 5 MINUTES PATIENT BEGAN TO BECOME MORE ALERT. SPEECH REMAINED DELAYED. FOLLOWING SIMPLE COMMANDS SUCH ANSWERING TO HER NAME APPROPRIATELY. UPDATED VITALS: 173/87, RR 14, SPO2 100% 2LPM NC, HR 71 Recommendations/Interventions Procedures: Accu check, ABG, CXR Portable, CMP, CBC, EKG, Cardiac Monitoring Other Interventions HEAD CT CONTINUED MONITORING Outcome Outcome: Andie Webber Dec 17, 2024 09:39
[2024-12-17 09:45] LABS: Alanine Aminotransferase 12 U/L (7-40); Alkaline Phosphatase 70 U/L (46-116); Calcium 8.9 mg/dL (8.7-10.4)
[2024-12-17 09:46] LABS: Albumin 3.4 g/dL (3.2-4.8); Anion Gap 12 (5-15); BUN/Creatinine Ratio 3.0 (10.0-20.0); Bilirubin, Total 0.3 mg/dL (0.2-1.0); Blood Urea Nitrogen 13 mg/dL (9-23); Carbon Dioxide 28 mmol/L (20-31); Magnesium 2.2 mg/dL (1.6-2.6); Potassium 3.9 mmol/L (3.5-5.1); Sodium 137 mmol/L (136-145); Total Protein 5.7 g/dL (5.7-8.2)
[2024-12-17 09:49] LABS: Chloride 97 mmol/L (98-107); Glucose 111 mg/dL (74-106)
--- NOTE | 2024-12-17 09:58 | DVH ---
CHEST RADIOGRAPH Indication: sob Technique: Single frontal view of the chest was obtained Comparison: XY CHEST PORTABLE on DOS: 12/16/24, XY CHEST XRAY 1 VIEW on DOS: 12/07/24, XR CHEST 1 VIEW on DOS: 12/06/24 FINDINGS: Lines and Tubes: AED pad over the left lower lobe. External cardiac monitoring leads of the anterior chest. Lungs: No focal consolidation. Pleura: No effusion. No pneumothorax. Cardiomediastinal contours: Unremarkable Bones: No acute osseous abnormality. IMPRESSION: 1. No acute cardiopulmonary disease. 2. No significant change in the cardiopulmonary findings compared 2024.
--- NOTE | 2024-12-17 10:31 | DVHPN2 ---
Subjective WAS deep asleep/then woke up and moved both upper extremities/does not move rt lower extremity since old stroke- per daughter/ per daughter last time patient was alert and oriented was 12/07/24-has been incoherent since then- no falls after recent dc on 12/13/24 was taken to er- at her md [facility] instructions [facility] for 24 hrs and transferred here- last MRI 12/12/[address] HEAD THIS MORNING ALSO NORMAL//was seen and cleared by neuro last admission-reconsult Changes from previous H/P or p: No Changes Eyes: No Pain, No Vision change, No Conjunctivae inflammation, No Eyelid inflammation, No Other, No Redness ENT: No Ear pain, No Ear discharge, No Nose pain, No Nose discharge, No Nose congestion, No Mouth pain, No Mouth swelling, No Throat pain, No Throat swelling, No Other Cardiovascular: No Chest Pain, No Palpitations, No Orthopnea, No Paroxysmal Noc. Dyspnea, No Edema, No Lt Headedness, No Other Respiratory: No Cough, No Dry, No Shortness of breath, No SOB with excertion, No Wheezing, No Hemoptysis, No Pleuritic Pain, No Sputum, No Other Gastrointestinal: No Nausea, No Vomiting, No Abdominal Pain, No Diarrhea, No Constipation, No Melena, No Hematochezia, No Other Genitourinary: No Dysuria, No Frequency, No Incontinence, No Hematuria, No Retention, No Other Musculoskeletal: No other, No neck pain, No shoulder pain, No arm pain, No back pain, No hand pain, No leg pain, No foot pain Skin: No Rash, No Lesions, No Jaundice, No Bruising, No Other Objective Vitals Vital Signs Date Time Temp Pulse Resp B/P (MAP) Pulse Ox O2 Delivery O2 Flow Rate FiO2 12/17/24 09:39 14 12/17/24 05:00 98.8 70 142/81 (101) 100 98.8 12/16/24 20:00 Room Air* 0 21 Intake/Output Intake and Output 12/17/24 07:00 Intake Total 525 ml Balance 525 ml Intake Oral 525 ml # Voids 1 General Appearance: Alert, Cooperative, No acute distress, Other (oriented times one/ ) HEENT: Other (bruising around left eye- chronic since last admission) Neck: Other (no neck stiffness/pupils pin point lt > rt) Lungs: Clear to auscultation Cardiovascular: Regular rate, Normal S1, Normal S2 Abdomen: Normal bowel sounds, Soft, No tenderness, No hepatospenomegaly Musculoskeletal: Normal sensory function, Other (power rt ue 5/5/lt ue3-4/5/le unable to asses does not comprehend) Extremities: No edema Neuro: Normal tone, Sensation intact, Cranial nerves 3-12 NL, Other (strength rt ue5/5/lt ue 3/5/lower extremities unable to asses le-is not comprehending//talks but not coherent) Psych/Mental Status: Mood NL, Other (alert but confused) Medications Current Medications Medications Dose Ordered Sig/Duncan Route Start Time Stop Time Status Last Admin Dose Admin Sodium Chloride 10 ml Q8HR IV 12/15/24 22:00 12/17/24 00:43 10 ML Acetaminophen/ Hydrocodone Bitart 1 tab Q4HP PRN PO 12/15/24 17:00 12/15/24 20:59 1 TAB Ondansetron HCl 4 mg Q4HP PRN IV 12/15/24 17:00 Docusate Sodium 100 mg BIDPRN PRN PO 12/15/24 17:00 Acetaminophen 650 mg Q6HP PRN PO 12/15/24 17:00 Nitroglycerin 0.4 mg Q5MINP PRN SL 12/15/24 17:00 Morphine Sulfate 2 mg Q30M PRN IV 12/15/24 17:00 Baclofen 10 mg TID PO 12/15/24 22:00 12/16/24 21:19 10 MG Ferrous Sulfate 325 mg DAILY PO 12/16/24 10:00 12/16/24 12:28 325 MG Sertraline HCl 50 mg DAILY PO 12/16/24 10:00 12/16/24 12:28 50 MG Celecoxib 200 mg DAILY PO 12/16/24 10:00 12/16/24 12:27 200 MG Patient Own Medication 1 tab HS PO 12/15/24 22:00 Triamterene/HCTZ 1 cap DAILY PO 12/16/24 10:00 Pantoprazole Sodium 40 mg DAILY PO 12/16/24 10:00 12/16/24 12:28 40 MG Zolpidem Tartrate 10 mg HS PO 12/15/24 22:00 12/15/24 20:58 10 MG Apixaban 2.5 mg BIDPC PO 12/15/24 19:00 12/16/24 21:20 2.5 MG Metoprolol Tartrate 25 mg BID PO 12/16/24 22:00 12/16/24 21:18 25 MG Amlodipine Besylate 10 mg DAILY PO 12/16/24 20:45 12/16/24 21:23 10 MG Clonidine HCl 0.2 mg Q6HP PRN PO 12/16/24 20:45 Laboratory Results Laboratory Tests 12/17/24 08:45 Chemistry Test 12/17/24 05:05 12/17/24 08:45 Calcium Level 9.2 mg/dL (8.7-10.4) Pending Albumin Pending Magnesium Level Pending Total Protein Pending LFT Test 12/17/24 08:45 Alanine Aminotransferase (ALT) Pending Alkaline Phosphatase Pending Aspartate Amino Transferase (AST) Pending Total Bilirubin Pending Blood Gas Results Test 12/17/24 08:42 FiO2 % 28.0 Labs and/or images reviewed: Labs reviewed by me, Image(s) reviewed by me Assessment/Plan Assessment/Plan dialysis delirium- /doubt this is acute- this is chronic/looked at old records and d/w nursing/AGAIN LAST MRI 12/12/[address] NORMAL- REPEAT MRI-r/o brain stem cva/bleed CONSULT NEURO/ esrd- on dialysis atrial fibrillation- stable/will d/w daughter in am about risks/benefits given recent fall before last admission-hold eliquis untill repeat mri h/o breast and colon cancer htn stable-now sinus bradycardia- hold betablocker meds rereviwed- - daughter states did not give any meds from recent dc instructions//all sedatives pain meds dc- both from in pt and reconcile list- d/w nurse last night also about this per daughter full code tube feeds gi prophylaxis prognosis- poor both short and intermediate Plan discussed with: Daughter My Orders Orders - SHERLEY CHI MD Procedure Category Date Status Time Ok For Iv In Lower ORDERS 12/16/24 Transmitted Extremity 18:59 Date of Service: Dec 17, 2024 Billing Provider: SHERLEY CHI MD Common Visit Codes: [id number] INP/OBS CARE(HIGH) SHERLEY CHI MD Dec 17, 2024 10:31
--- NOTE | 2024-12-17 13:05 | DVHINCON2 ---
Date Seen: Dec 17, 2024 Referring Physician Khang Reason for Consultation Bradycardia History of Present Illness 74-year-old female with PMH for HTN, ESRD on HD, DVT, HLD, PAF, on Eliquis presents to the hospital due to altered mental status. Patient was recently worked up for right-sided weakness possible rule out stroke at [facility] [place] with negative CT head though CT angio showing 50% diameter stenosis of the origin of right internal carotid in 26% diameter stenosis of left internal carotid. Patient admitted for further evaluation and treatment. Early this morning patient ended up being more unresponsive apparently responding to pain stimuli mainly, change in mental status rapid response was called. Patient found to have episode of AFib with RVR then has significant bradycardia possible pause on tele, cardiology consulted. Of note patient had coronary angiogram 09/14/2024 due to abnormal dobutamine stress test at [place] for workup for possible transplant showing no significant coronary artery stenosis disease. Past Medical History As stated above Past Surgical History Coronary angiogram 09/14/2024 at [facility] negative for significant angiographic evidence of CAD. Family History: Cancer of colon G8 MOTHER, G8 FATHER, Family history: Depression (situation) G8 MOTHER, G8 FATHER, Family history: Diabetes mellitus G8 MOTHER, G8 FATHER, Family history: Hypertension G8 MOTHER, G8 FATHER, Family history: Thyroid disorder G8 MOTHER, G8 FATHER, Stroke G8 MOTHER, G8 FATHER, Allergies: Coded Allergies: NO KNOWN ALLERGIES (Unverified , 09/25/09) Home Meds Active Scripts Apixaban Base (ELIQUIS) 2.5 Mg Tab, 2.5 MG PO BIDPC for 30 Days, #60 TAB Prov:CARLITOS CHACON MD 12/13/24 Reported Medications Sertraline Hcl (Sertraline Hcl) 50 Mg Tab, 50 MG OR DAILY 09/25/09 Ezetimibe-Simvastatin (Vytorin) 1 Tab Tab, 1 TAB OR HS 09/25/09 Lansoprazole (Lansoprazole) 30 Mg Cap, 30 MG OR DAILY 09/25/09 Ferrous Sulfate (Ferrous Sulfate) 325 Mg Tab, 325 MG OR DAILY 09/25/09 Discontinued Reported Medications Hydrochlorothiazide W/Triamter (Hctz/Triamterene) 1 Cap Cap, 1 CAP OR DAILY 09/25/09 Celecoxib (Celebrex) 200 Mg Cap, 200 MG OR DAILY 09/25/09 Baclofen (Baclofen) 10 Mg Tab, 10 MG OR TID 09/25/09 Hydrocodone-Acetaminophen (Vicodin) 1 Tab Tab, 1 TAB OR TID 09/25/09 Tramadol Hcl (Tramadol Hcl) 50 Mg Tab, 50 MG OR QID 09/25/09 Zolpidem Tartrate (Zolpidem Tartrate) 10 Mg Tab, 10 MG OR HS 09/25/09 Apixaban Base (ELIQUIS) 5 Mg Tab, 5 MG PO BID, TAB 12/07/24 Aspirin (Asa) 325 Mg Tb, 325 MG GT DAILY 09/25/09 Discontinued Scripts Metoprolol Tartrate (Lopressor) 25 Mg Tb, 25 MG PO BID for 30 Days, #60 TAB Prov:CARLITOS CHACON MD 12/13/24 Current Medications Current Medications Medications (Trade) Dose Ordered Sig/Duncan Route PRN Reason Start Time Stop Time Status Last Admin Metoprolol Tartrate (Lopressor Tablet) 25 mg BID PO 12/16/24 22:00 12/17/24 09:49 DC 12/16/24 21:18 Amlodipine Besylate (Norvasc Tablet) 10 mg DAILY PO 12/16/24 20:45 12/16/24 21:23 Clonidine HCl (Catapres Tablet) 0.2 mg Q6HP PRN PO SBP>160 12/16/24 20:45 Review of Systems Deferred, altered Vital Signs Vital Signs Date Time Temp Pulse Resp B/P (MAP) Pulse Ox O2 Delivery O2 Flow Rate FiO2 12/17/24 09:49 97.4 61 19 139/63 (88) 99 97.4 12/17/24 08:00 Room Air* 0 21 Physical Exam General appearance: Ill-appearing, in no acute distress. HEENT: Exam shows: Normocephalic, atraumatic, PERRLA, EOMI Neck: Supple, no bruits Chest: Equal chest excursion bilaterally. Breath sounds coarse rhonchi. Heart: Rhythm: Regular, irregular rate; no murmur or gallop Abdomen: Exam shows: Soft, nontender, nondistended Musculoskeletal: No clubbing, no cyanosis, no lower extremity edema Dermatology: Skin warm, moist. Neurological: Exam shows: Lethargic/obtunded Available prior records, labs, EKG, rhythm strips reviewed and interpreted Labs/Diagnostic Data Labs Test 12/17/24 08:45 12/17/24 08:42 12/17/24 08:38 12/17/24 05:05 Range/Units White Blood Count 5.1 # 4.4-10.8 10^3/uL Red Blood Count 3.16 L 4.0-5.20 10^6/uL Hemoglobin 8.6 L 12.2-16.2 g/dL Hematocrit 26.4 L 36.0-46.0 % Mean Corpuscular Volume 83.5 80.0-100.0 fL Mean Corpuscular Hemoglobin 27.1 L 28.0-32.0 pg Mean Corpuscular Hemoglobin Concent 32.5 32.0-36.0 g/dL Red Cell Distribution Width 15.9 H 11.8-14.3 % Platelet Count 233 140-450 10^3/uL Mean Platelet Volume 7.1 6.9-10.8 fL Neutrophils (%) (Auto) 32.6 L 37.0-80.0 % Lymphocytes (%) (Auto) 49.3 10.0-50.0 % Monocytes (%) (Auto) 13.3 H 0.0-12.0 % Eosinophils (%) (Auto) 3.5 0.0-7.0 % Basophils (%) (Auto) 1.3 0.0-2.0 % Neutrophils # (Auto) 1.7 1.6-8.6 10 ^3/uL Lymphocytes # (Auto) 2.5 0.4-5.4 10 ^3/uL Monocytes # (Auto) 0.7 0-1.3 10 ^3/uL Eosinophils # (Auto) 0.2 0-0.8 10 ^3/uL Basophils # (Auto) 0.1 0-0.2 10 ^3/uL Nucleated Red Blood Cells 0.1 % Sodium Level 137 136-145 mmol/L Potassium Level 3.9 3.5-5.1 mmol/L Chloride Level 97 L 98-107 mmol/L Carbon Dioxide Level 28 20-31 mmol/L Anion Gap 12 5-15 Blood Urea Nitrogen 13 9-23 mg/dL Creatinine 4.38 H 0.550-1.02 mg/dL Glomerular Filtration Rate Calc 10 >90 mL/min BUN/Creatinine Ratio 3.0 L 10.0-20.0 Serum Glucose 111 H 74-106 mg/dL Lactic Acid Level 1.3 0.4-2.0 mmol/L Calcium Level 8.9 8.7-10.4 mg/dL Magnesium Level 2.2 1.6-2.6 mg/dL Total Bilirubin 0.3 0.2-1.0 mg/dL Aspartate Amino Transferase (AST) 13 13-40 U/L Alanine Aminotransferase (ALT) 12 7-40 U/L Alkaline Phosphatase 70 46-116 U/L Ammonia < 10 L 11-32 umol/L Total Protein 5.7 5.7-8.2 g/dL Albumin 3.4 3.2-4.8 g/dL Blood Gas Specimen Type Venous Blood Gas Sample Site Vbg - n/a Blood Gas Patient Temperature 37.0 Arterial Blood Date Drawn [id number] Manuel Test N/a Venous Blood pH 7.412 7.320-7.430 Venous Blood pCO2 at Patient Temp 42.1 38.0-54.0 mmHg Venous Blood pO2 at Patient Temp 61.4 H 23.0-48.0 mmHg Venous Blood HCO3 26.2 22.0-29.0 mmol/L Venous Blood Base Excess 1.4 -2.0-3.0 mmol/L Blood Gas Modality Vbg - n/a FiO2 % 28.0 Specimen Drawn By andres Hitchcock lab POC Glucose 119 H 70-106 mg/dl Differential Total Cells Counted 100.0 100 Neutrophils % (Manual) 33 L 37.0-80.0 Band Neutrophils % (Manual) 1 Lymphocytes % (Manual) 44 10.0-50.0 Monocytes % (Manual) 16 H 0-12 Eosinophils % (Manual) 6 0-7 Basophils % (Manual) 0 0.0-2.0 Metamyelocytes % (manual) 0 Myelocytes % (Manual) 0 Promyelocytes % (Manual) 0 Blast Cells % (Manual) 0 Reactive Lymphocytes 0 Platelet Estimate Adequate Test 12/16/24 05:15 Range/Units Red Blood Cell Morphology Normal Assessment * Sinus bradycardia, suspected pauses - during rapid patient had episode of hypertensive urgency and atrial fibrillation with RVR converted back to sinus rhythm on own. Patient with multiple PACs. On tele review pause looks more like nonconducted PAC. Continue telemetry monitoring. Hold AV phuc blockers for now. Recent echo on 12/09/2024 showing normal LVEF 60%, no valvular structural abnormalities. * Altered mental status, suspect this stroke versus encephalopathy - repeat CT head negative for acute pathology. Likely metabolic encephalopathy. Man agement per primary team. * Paroxysmal atrial fibrillation - currently sinus rhythm. Continue Eliquis for stroke prophylaxis. * ESRD on HD- management per primary team. Case Discussed with Dr Mcintyre. Hold AV phuc blockers for now. Continue telemetry monitoring. Critical care, time spent: 40 minutes This medical document was created using an electronic medical record system with voice recognition software and computerized dictation system. Although this document has been carefully reviewed, there might still be some phonetic and typographical errors. Occasional wrong-word or ``sound-alike substitutions may have occurred due to the inherent limitations of voice recognition software. These areas are purely typographical due to imperfections of the software programs and do not reflect any compromise in the patient's medical care. Please read the chart carefully and recognize, using context, where these substitutions have occurred. Thank you for allowing me to participate in the management of this patient. The treatment plan was discussed with and agreed upon by patient/family including requesting consultants and ordering of imaging/procedures. Plan discussed with: Other (Bedside RN) NYHA Physical activity limitations: Class2(Slight)fatigue,sob Date of Service: Dec 17, 2024 Billing Provider: CRYSTAL JOSHI Cardiology Common Codes: [id number] INP/OBS CARE (High), [id number] CARE 30-74 MIN CRYSTAL JOSHI Dec 17, 2024 13:05
[2024-12-17] MEDS ORDERED: Nepro With Carb Steady 1 Liter Bottle NG SCH (13:45)
--- NOTE | 2024-12-17 14:46 | DVHPN2 ---
Progress Note - Dictate Date Seen: Dec 17, 2024 Has the PT tested + for MRSA If YES, has PT been informed?: No Medical Necessity Reason Pt with a Central, PICC or Fol: No Subjective Patient was seen and evaluated in follow up. Chart/events reviewed. Early this morning, patient was found more unresponsive apparently responding to pain stimuli mainly with change in mental status. Rapid response was called. Patient was also found to have episode of AFib with RVR then had significant bradycardia possible pause on tele, cardiology consulted. vital signs Vital Sign Date Time Temp Pulse Resp B/P (MAP) Pulse Ox O2 Delivery O2 Flow Rate FiO2 12/17/24 14:13 97.9 55 18 120/57 (78) 100 97.9 12/17/24 08:00 Room Air* 0 21 Total Intake and Output 12/16/24 12/16/24 12/17/24 14:59 22:59 06:59 Intake Total 325 ml 200 ml Balance 325 ml 200 ml medications Current Medications Medications Dose Ordered Sig/Duncan Route Start Time Stop Time Status Last Admin Dose Admin Sodium Chloride 10 ml Q8HR IV 12/15/24 22:00 12/17/24 00:43 Docusate Sodium 100 mg BIDPRN PRN PO 12/15/24 17:00 Acetaminophen 650 mg Q6HP PRN PO 12/15/24 17:00 Ferrous Sulfate 325 mg DAILY PO 12/16/24 10:00 12/16/24 12:28 Sertraline HCl 50 mg DAILY PO 12/16/24 10:00 12/16/24 12:28 Patient Own Medication 1 tab HS PO 12/15/24 22:00 Pantoprazole Sodium 40 mg DAILY PO 12/16/24 10:00 12/16/24 12:28 Apixaban 2.5 mg BIDPC PO 12/15/24 19:00 12/16/24 21:20 Amlodipine Besylate 10 mg DAILY PO 12/16/24 20:45 12/16/24 21:23 Clonidine HCl 0.2 mg Q6HP PRN PO 12/16/24 20:45 Enteral Nutritional Formula 1,000 ml 40ML/HR NG 12/17/24 13:45 objective Vitals and nursing notes reviewed General Appearance: In no acute distress. HEENT: Atraumatic, PERRLA, Mucous membr. moist/pink Respiratory: Clear to auscultation, Normal air movement Cardiovascular: Normal S1, Normal S2, No murmurs Abdominal: Normal bowel sounds, Soft, No tenderness, No hepatospenomegaly Extremities: No clubbing, No cyanosis Skin: No rashes, No breakdown Neuro: She does not vocalize. laboratory and microbiology Laboratory Tests 12/17/24 08:45 Test 12/17/24 08:45 Range/Units Serum Glucose 111 H 74-106 mg/dL Problem List Metabolic encephalopathy ESRD on HD Hypertension Atrial fibrillation Right hemiparalysis Assessment/Plan Agree with current supportive medical care. Cardiology and Neurology care management deferred. Dialyzed yesterday. No HD today. Straight cath patient. Strict Intake/Output monitoring. Check UA w/cultures. Daily weight. Fluid restriction. NPO. Additional plan as per the hospital course. Plan discussed with: Patient, Other (RN) TATYANA CHARLES DO Dec 17, 2024 14:46
--- NOTE | 2024-12-17 14:53 | DVH ---
MRI BRAIN HEAD WO CONTRAST INDICATION: intermittent confusion since 12/07/24-subacute EXAM DATE: 12/17/2024 01:48 PM COMPARISON: MRI BRAIN HEAD WO CONTRAST on DOS: 12/12/24, CT ANGIO HEAD/NECK on DOS: 12/11/24, CT BRAI N on DOS: 12/06/24 PROCEDURE: Using a 1.5 Zenobia scanner, multisequence multiplanar imaging of the brain was obtained. FINDINGS: The brainshows normal morphology and signal characteristics. No abnormal T2 hyperintensity, diffusion restriction, or susceptibility hypointensity is present. The ventricles are normal in size . The midline structures are intact. The major intracranial flow voids are present. The aerated space s are normal. The orbital contents appear normal. Similar small left frontal scalp hematoma. IMPRESSION: No acute MRI findings of the brain.
[2024-12-17] MEDS ORDERED: CLINIMIX PER PHARMACY 0 ML IV SCH (15:45)
[2024-12-17] MEDS ORDERED: DEXTROSE (50%) 50ML SYRG IV SCH (16:00)
[2024-12-17 16:30] LABS: Triglycerides 120.0 mg/dL (< 150)
--- NOTE | 2024-12-17 17:31 | DVHINCON2 ---
Date of service: Dec 17, [address] Pringle Reason for Consultation Intermittent confusion/lethargy History of Present Illness Ms. Nunez is a 74 years old right-handed female with a history of hypertension, diabetes, AFib on Eliquis 2.5 mg b.i.d., ESRD on hemodialysis, breast cancer, colon cancer, she was transferred from the [facility] to the [facility] on 12/15/2024 with a chief company of altered mental status, at this time, her eyes are open, but she is nonresponsive to verbal stimuli, she does not track, she has intermittent generalized jerking, but no spontaneous extremity movement The history is obtained from her daughter, I have talked to her nurse, reviewed chart I saw on 12/28/2024 for ALOC (She also had right myoclonus jerk, she was mentally better on discharge) She was of her baseline health status until she developed confusion, and whole- body jerking movement, confusion, nonresponsive to her surroundings on 12/07/24, she was seen in the [facility] ER on 12/07/24, but was discharged hours later with a d iagnosis of sciatic. Because she was not improving, the family decided to send her to the [facility] soon after she was discharged from the [facility], where she was said to have seizure and stroke, ,she was transferred to [facility] late afternoon on 12/07/24. In the [facility], per my observation, the patient was oriented x2, confused, she had myoclonic jerks in the right extremities with the leg more affected, she also had weakness in the right leg. With appropriate treatment, her mental status improved, he was able to talk properly, making phone call, and follow verbal commands though she is only oriented times 2-3, her myoclonus was better but still persisted, she was discharged on 12/13/2024 I have discharging, the patient was doing fine at home, the muscle jerking persisted on the right side, she was able to talk to the family, she had weakness especially the right leg and was not able to walk On 12/14/2024, the patient was admitted to the [facility] by Dr. Fiordaliza Wynn because she needed hemodialysis. On 12/15/2024, she was transferred to [facility]. After he was transferred to the [facility], the patient was able to communicate, she knows her name, date of , she followed verbal commands, able to enjoy TV. But since 12/17/2024, she has been very sleepy, she is nonresponsive to her family on waking up. Her daughter related for 2-3 years of time, the patient was occasionally got confused mildly, but there was no muscle jerking/twitching previously On 12/17/2024, the patient was coded for further change in her mental status and heart rate less than 40 Blood culture, 12/07/2024: No growth Urine culture, 12/07/2024: Negative UDS, 12/07/2024: Benzo Urinalysis, 12/07/2024: WBC: 5, urine leukocyte esterase: 2+ WBC/HB/PLT/MCV, 12/11/2024: 5.8/9.4/235/84.8, 12/17/2024: 5.1/8.6/233/83.5 PT/INR/PTT, 12/07/2024: 11.9/1.14/22.7 BUN/CR, 12/08/2024: 30/6.66, 12/17/2024: 13/4.38 GFR, 12/08/24: 6 Glucose, 12/07/2024: 52, 68, 104, 61, 48, 12/08/2024: 42, 43, 12/12/24: 80, 10, < 10, 74, 12/13/2024: 90 HGB A1c, 12/07/2024: 3.8 Liver function tests, 12/08/2024: Unremarkable TG/HDL/LDL/HDL, 12/07/2024: 83/156/51/91 Vitamin B12, 12/07/2024: 855 TSH, 12/07/24: 4.73 TTE, 12/09/2024: EF: 70% CT head, 12/11/2024: There is no evidence for acute intracranial hemorrhage, acute ischemic changes, mass, mass effect, or extra-axial fluid collection. There is no hydrocephalus or midline shift. There is no effacement of the cerebral sulci and basal subarachnoid cisterns. The calle-white matter differentiation is well maintained. CTA neck, head, 12/11/2024: Evaluation quantification of carotid narrowing slight difficult on this exam due to significant calcifications. Extensive right carotid bulb plaque resulting in severe luminal narrowing with near complete occlusion. Extensive left carotid bulb plaque resulting in grossly 50% luminal narrowing per NASCET criteria. Short segment of fibromuscular dysplasia involving the proximal/mid left extracranial internal carotid artery. Please note the accurate quantification of stenosis is difficult with CTA. If accurate assessment is warranted, catheter angiography is suggested MRI head, 12/12/2024: No acute intracranial abnormality seen. No evidence for acute infarct. Mild brain volume loss and chronic small vessel ischemic change. Small left inferior frontal scalp soft tissue swelling/hematoma formation MRI head, 12/17/2024: No acute MRI findings of the brain Past Medical History Hypertension, diabetes, end-stage renal failure on hemodialysis, A Fib, breast cancer, colon cancer. She has no history of stroke, seizure Past Surgical History Breast cancer removal, closer resection, right knee replacement, tubal ligation Family History: Cancer of colon G8 MOTHER, G8 FATHER, Family history: Depression (situation) G8 MOTHER, G8 FATHER, Family history: Diabetes mellitus G8 MOTHER, G8 FATHER, Family history: Hypertension G8 MOTHER, G8 FATHER, Family history: Thyroid disorder G8 MOTHER, G8 FATHER, Stroke G8 MOTHER, G8 FATHER, Family History Hypertension, diabetes, stroke, mother had brain aneurysm, depression, thyroid disorder Social History She smokes, he drinks three tall cans of beer daily, denies a history of drug abuse Allergies: Coded Allergies: NO KNOWN ALLERGIES (Unverified , 09/25/09) Home Meds Active Scripts Apixaban Base (ELIQUIS) 2.5 Mg Tab, 2.5 MG PO BIDPC for 30 Days, #60 TAB Prov:CARLITOS CHACON MD 12/13/24 Reported Medications Sertraline Hcl (Sertraline Hcl) 50 Mg Tab, 50 MG OR DAILY 09/25/09 Ezetimibe-Simvastatin (Vytorin) 1 Tab Tab, 1 TAB OR HS 09/25/09 Lansoprazole (Lansoprazole) 30 Mg Cap, 30 MG OR DAILY 09/25/09 Ferrous Sulfate (Ferrous Sulfate) 325 Mg Tab, 325 MG OR DAILY 09/25/09 Discontinued Reported Medications Hydrochlorothiazide W/Triamter (Hctz/Triamterene) 1 Cap Cap, 1 CAP OR DAILY 09/25/09 Celecoxib (Celebrex) 200 Mg Cap, 200 MG OR DAILY 09/25/09 Baclofen (Baclofen) 10 Mg Tab, 10 MG OR TID 09/25/09 Hydrocodone-Acetaminophen (Vicodin) 1 Tab Tab, 1 TAB OR TID 09/25/09 Tramadol Hcl (Tramadol Hcl) 50 Mg Tab, 50 MG OR QID 09/25/09 Zolpidem Tartrate (Zolpidem Tartrate) 10 Mg Tab, 10 MG OR HS 09/25/09 Apixaban Base (ELIQUIS) 5 Mg Tab, 5 MG PO BID, TAB 12/07/24 Aspirin (Asa) 325 Mg Tb, 325 MG GT DAILY 09/25/09 Discontinued Scripts Metoprolol Tartrate (Lopressor) 25 Mg Tb, 25 MG PO BID for 30 Days, #60 TAB Prov:CARLITOS CHACON MD 12/13/24 Current Medications Current Medications Medications (Trade) Dose Ordered Sig/Duncan Route PRN Reason Start Time Stop Time Status Last Admin Metoprolol Tartrate (Lopressor Tablet) 25 mg BID PO 12/16/24 22:00 12/17/24 09:49 DC 12/16/24 21:18 Amlodipine Besylate (Norvasc Tablet) 10 mg DAILY PO 12/16/24 20:45 12/16/24 21:23 Clonidine HCl (Catapres Tablet) 0.2 mg Q6HP PRN PO SBP>160 12/16/24 20:45 Enteral Nutritional Formula (Nepro With Carb Steady) 1,000 ml 40ML/HR NG 12/17/24 13:45 Amino Acids 0 ml @ 0 mls/hr PER PHARMACY IV 12/17/24 15:45 Diagnostic Test (Pha) (Accu-Chek Comfort Curve T) 1 strip Q6HR 12/17/24 18:00 Insulin Human Regular (InsuLIN R) FOLLOW SLIDING SCALE Q6HR SC 12/17/24 18:00 Dextrose 50 ml UD IV 12/17/24 16:00 Amino Acids/ Electrolytes/ Dextrose 1,000 ml @ 41 mls/hr DAILY@2200 IV 12/17/24 22:00 Review of Systems As above, the other systems are negative Vital Signs Vital Signs Date Time Temp Pulse Resp B/P (MAP) Pulse Ox O2 Delivery O2 Flow Rate FiO2 12/17/24 17:15 97.8 55 18 124/61 (82) 95 97.8 12/17/24 08:00 Room Air* 0 21 Physical Exam GENERAL EXAM: General: the patient is well developed and nourished. No acute distress. HEENT: Normocephalic, neck is supple, no carotid bruits. No mass. RESPIRATORY: Normal respiratory effort with symmetrical lung expansion. Lungs clear to auscultation. CARDIOVASCULAR: Regular rate and rhythm with no murmurs. S1, S2. ABDOMEN: Soft, nontender, normal bowel sound NEUROLOGICAL: MENTAL STATUS: HPI SPEECH, LANGUAGE, HIGHER CORTICAL FUNCTION: She does not vocalize CRANIAL NERVES: #2: Intact visual de la o to confrontation. #3,4,6: Pupils are equal, round and reactive. EOMs full and conjugate. No nystagmus. #5: Facial sensation intact in all three divisions bilaterally. Mandibular strength intact. #7: Facial muscles symmetrical and strength intact. #8: Hearing grossly normal to voice. #9,10: Uvula and soft palate rise in the midline. Swallow and voice are normal. #11: Trapezius and sternomastoid strength intact bilaterally. #12: Tongue midline. No fasciculations or atrophy. SENSATION: Sensation to touch and pinprick is normal. MOTOR: Normal tone in the upper and lower extremity. Normal muscle bulk. No fasciculations. Intermittent jerking in the specially in all her extremities, torso. No spontaneous extremity movement REFLEXES: Deep tendon reflexes are symmetrical. No pathological reflexes. CEREBELLAR/COORDINATION: Deferred GAIT/STATION: deferred Labs/Diagnostic Data Labs Test 12/17/24 08:45 12/17/24 08:42 12/17/24 08:38 12/17/24 05:05 Range/Units White Blood Count 5.1 # 4.4-10.8 10^3/uL Red Blood Count 3.16 L 4.0-5.20 10^6/uL Hemoglobin 8.6 L 12.2-16.2 g/dL Hematocrit 26.4 L 36.0-46.0 % Mean Corpuscular Volume 83.5 80.0-100.0 fL Mean Corpuscular Hemoglobin 27.1 L 28.0-32.0 pg Mean Corpuscular Hemoglobin Concent 32.5 32.0-36.0 g/dL Red Cell Distribution Width 15.9 H 11.8-14.3 % Platelet Count 233 140-450 10^3/uL Mean Platelet Volume 7.1 6.9-10.8 fL Neutrophils (%) (Auto) 32.6 L 37.0-80.0 % Lymphocytes (%) (Auto) 49.3 10.0-50.0 % Monocytes (%) (Auto) 13.3 H 0.0-12.0 % Eosinophils (%) (Auto) 3.5 0.0-7.0 % Basophils (%) (Auto) 1.3 0.0-2.0 % Neutrophils # (Auto) 1.7 1.6-8.6 10 ^3/uL Lymphocytes # (Auto) 2.5 0.4-5.4 10 ^3/uL Monocytes # (Auto) 0.7 0-1.3 10 ^3/uL Eosinophils # (Auto) 0.2 0-0.8 10 ^3/uL Basophils # (Auto) 0.1 0-0.2 10 ^3/uL Nucleated Red Blood Cells 0.1 % Sodium Level 137 136-145 mmol/L Potassium Level 3.9 3.5-5.1 mmol/L Chloride Level 97 L 98-107 mmol/L Carbon Dioxide Level 28 20-31 mmol/L Anion Gap 12 5-15 Blood Urea Nitrogen 13 9-23 mg/dL Creatinine 4.38 H 0.550-1.02 mg/dL Glomerular Filtration Rate Calc 10 >90 mL/min BUN/Creatinine Ratio 3.0 L 10.0-20.0 Serum Glucose 111 H 74-106 mg/dL Lactic Acid Level 1.3 0.4-2.0 mmol/L Calcium Level 8.9 8.7-10.4 mg/dL Phosphorus Level 3.6 2.4-5.1 mg/dL Magnesium Level 2.2 1.6-2.6 mg/dL Total Bilirubin 0.3 0.2-1.0 mg/dL Aspartate Amino Transferase (AST) 13 13-40 U/L Alanine Aminotransferase (ALT) 12 7-40 U/L Alkaline Phosphatase 70 46-116 U/L Ammonia < 10 L 11-32 umol/L Total Protein 5.7 5.7-8.2 g/dL Albumin 3.4 3.2-4.8 g/dL Triglycerides Level 120 < 150 mg/dL Blood Gas Specimen Type Venous Blood Gas Sample Site Vbg - n/a Blood Gas Patient Temperature 37.0 Arterial Blood Date Drawn [id number] Manuel Test N/a Venous Blood pH 7.412 7.320-7.430 Venous Blood pCO2 at Patient Temp 42.1 38.0-54.0 mmHg Venous Blood pO2 at Patient Temp 61.4 H 23.0-48.0 mmHg Venous Blood HCO3 26.2 22.0-29.0 mmol/L Venous Blood Base Excess 1.4 -2.0-3.0 mmol/L Blood Gas Modality Vbg - n/a FiO2 % 28.0 Specimen Drawn By andres Hitchcock lab POC Glucose 119 H 70-106 mg/dl Differential Total Cells Counted 100.0 100 Neutrophils % (Manual) 33 L 37.0-80.0 Band Neutrophils % (Manual) 1 Lymphocytes % (Manual) 44 10.0-50.0 Monocytes % (Manual) 16 H 0-12 Eosinophils % (Manual) 6 0-7 Basophils % (Manual) 0 0.0-2.0 Metamyelocytes % (manual) 0 Myelocytes % (Manual) 0 Promyelocytes % (Manual) 0 Blast Cells % (Manual) 0 Reactive Lymphocytes 0 Platelet Estimate Adequate Test 12/16/24 05:15 Range/Units Red Blood Cell Morphology Normal Assessment Altered mental status, myoclonus, likely secondary to metabolic encephalopathy Metabolic encephalopathy secondary to chronic kidney failure, UTI Chronic kidney failure on hemodialysis Recently UTI AFib Plan/Recommendation Monitoring Supportive treatment Telemetry EEG Eliquis 2.5 mg b.i.d. GI prophylaxis/Protonix Nephrology/hemodialysis More recommendation per clinical course Progress: Poor This medical document was created using an electronic medical record system with [employer] dictation system. Although this document has been carefully reviewed, there may still be some phonetic and typographical errors. These areas are purely typographical due to imperfections of the software programs, and do not reflect any compromise in the patient's medical care. Plan discussed with: Daughter, Other LOULOU PAGE MD Dec 17, 2024 17:31
[2024-12-17] MEDS: InsuLIN REG 1unit/0.01ml Soln (100units/ml) SC SCH (18:00)
[2024-12-17] MEDS: ACCU-CHEK COMFORT CURVE STRIP VI SCH (18:39)
[2024-12-17] MEDS: AMINO ACID INFUSION IN D10W 1,000 ML IV SCH (22:15)
[2024-12-18] VITALS (28 sets, daily range): BP systolic 72–246; BP diastolic 25–114; PULSE 57–114; RESP 7–21; TEMP 97.7–98.6; O2SAT 93–100
--- NOTE | 2024-12-18 09:07 | DVHPN2 ---
Progress Note - Dictate Date Seen: Dec 18, 2024 Has the PT tested + for MRSA If YES, has PT been informed?: No Medical Necessity Reason Pt with a Central, PICC or Fol: No Subjective Ms. Nunez is a 74 years old right-handed female with a history of hypertension, diabetes, AFib on Eliquis 2.5 mg b.i.d., ESRD on hemodialysis, breast cancer, colon cancer, she was transferred from the [facility] to the [facility] on 12/15/2024 with a chief complaint of altered mental status I saw on 12/28/2024 for ALOC (She also had right myoclonus jerk, she was mentally better on discharge) I have seen and examined the patient, I have talked to her nurse, three nieces are in the room with her She is awake, eyes open looking around, but we nonresponsive to verbal stimuli, she does not move the extremities, I do not see myoclonus today Blood culture, 12/07/2024: No growth Urine culture, 12/07/2024: Negative UDS, 12/07/2024: Benzo Urinalysis, 12/07/2024: WBC: 5, urine leukocyte esterase: 2+ WBC/HB/PLT/MCV, 12/11/2024: 5.8/9.4/235/84.8, 12/17/2024: 5.1/8.6/233/83.5 PT/INR/PTT, 12/07/2024: 11.9/1.14/22.7 BUN/CR, 12/08/2024: 30/6.66, 12/17/2024: 13/4.38 GFR, 12/08/24: 6 Glucose, 12/07/2024: 52, 68, 104, 61, 48, 12/08/2024: 42, 43, 12/12/24: 80, 10, < 10, 74, 12/13/2024: 90 HGB A1c, 12/07/2024: 3.8 Liver function tests, 12/08/2024: Unremarkable NH3 12/17/2024: < 10 TG/HDL/LDL/HDL, 12/07/2024: 83/156/51/91 Vitamin B12, 12/07/2024: 855 TSH, 12/07/24: 4.73 TTE, 12/09/2024: EF: 70% CT head, 12/11/2024: There is no evidence for acute intracranial hemorrhage, acute ischemic changes, mass, mass effect, or extra-axial fluid collection. There is no hydrocephalus or midline shift. There is no effacement of the cerebral sulci and basal subarachnoid cisterns. The calle-white matter differentiation is well maintained. CTA neck, head, 12/11/2024: Evaluation quantification of carotid narrowing slight difficult on this exam due to significant calcifications. Extensive right carotid bulb plaque resulting in severe luminal narrowing with near complete occlusion. Extensive left carotid bulb plaque resulting in grossly 50% luminal narrowing per NASCET criteria. Short segment of fibromuscular dysplasia involving the proximal/mid left extracranial internal carotid artery. Please note the accurate quantification of stenosis is difficult with CTA. If accurate assessment is warranted, catheter angiography is suggested MRI head, 12/12/2024: No acute intracranial abnormality seen. No evidence for acute infarct. Mild brain volume loss and chronic small vessel ischemic change. Small left inferior frontal scalp soft tissue swelling/hematoma formation MRI head, 12/17/2024: No acute MRI findings of the brain vital signs Vital Sign Date Time Temp Pulse Resp B/P (MAP) Pulse Ox O2 Delivery O2 Flow Rate FiO2 12/18/24 08:45 97.7 75 18 164/74 (104) 100 97.7 12/18/24 08:15 Nasal Cannula* 3 32 Total Intake and Output 12/17/24 12/17/24 12/18/24 15:00 23:00 07:00 Intake Total 0 ml 0 ml Balance 0 ml 0 ml medications Current Medications Medications Dose Ordered Sig/Duncan Route Start Time Stop Time Status Last Admin Dose Admin Sodium Chloride 10 ml Q8HR IV 12/15/24 22:00 12/17/24 22:16 10 ML Docusate Sodium 100 mg BIDPRN PRN PO 12/15/24 17:00 Acetaminophen 650 mg Q6HP PRN PO 12/15/24 17:00 Ferrous Sulfate 325 mg DAILY PO 12/16/24 10:00 12/16/24 12:28 325 MG Sertraline HCl 50 mg DAILY PO 12/16/24 10:00 12/16/24 12:28 50 MG Patient Own Medication 1 tab HS PO 12/15/24 22:00 Pantoprazole Sodium 40 mg DAILY PO 12/16/24 10:00 12/16/24 12:28 40 MG Apixaban 2.5 mg BIDPC PO 12/15/24 19:00 12/16/24 21:20 2.5 MG Amlodipine Besylate 10 mg DAILY PO 12/16/24 20:45 12/16/24 21:23 10 MG Clonidine HCl 0.2 mg Q6HP PRN PO 12/16/24 20:45 Enteral Nutritional Formula 1,000 ml 40ML/HR NG 12/17/24 13:45 Amino Acids 0 ml @ 0 mls/hr PER PHARMACY IV 12/17/24 15:45 Diagnostic Test (Pha) 1 strip Q6HR 12/17/24 18:00 12/18/24 05:45 1 STRIP Insulin Human Regular FOLLOW SLIDING SCALE Q6HR SC 12/17/24 18:00 Dextrose 50 ml UD IV 12/17/24 16:00 Amino Acids/ Electrolytes/ Dextrose 1,000 ml @ 41 mls/hr DAILY@2200 IV 12/17/24 22:00 12/17/24 22:15 41 MLS/HR objective General: the patient is well developed and nourished. No acute distress. MENTAL STATUS: Subjective SPEECH, LANGUAGE, HIGHER CORTICAL FUNCTION: She does not vocalize CRANIAL NERVES: Pupils are equal, round and reactive. EOMs full and conjugate. No nystagmus. Facial sensation intact in all three divisions bilaterally. Mandibular strength intact. Facial muscles symmetrical and strength intact. Tongue midline. No fasciculations or atrophy. SENSATION: Sensation to touch and pinprick is normal. MOTOR: Normal tone in the upper and lower extremity. Normal muscle bulk. No fasciculations. No spontaneous extremity movement REFLEXES: Deep tendon reflexes are symmetrical. No pathological reflexes. CEREBELLAR/COORDINATION: Deferred GAIT/STATION: deferred laboratory and microbiology Laboratory Tests 12/17/24 08:45 Test 12/17/24 08:45 Range/Units Serum Glucose 111 H 74-106 mg/dL Problem List Altered mental status, myoclonus, likely secondary to metabolic encephalopathy Metabolic encephalopathy secondary to chronic kidney failure, UTI Chronic kidney failure on hemodialysis Recently UTI A Fib Assessment/Plan Monitoring Supportive treatment Telemetry EEG Eliquis 2.5 mg b.i.d. GI prophylaxis/Protonix Nephrology/hemodialysis More recommendation per clinical course This medical document was created using an electronic medical record system with [employer] dictation system. Although this document has been carefully reviewed, there may still be some phonetic and typographical errors. These areas are purely typographical due to imperfections of the software programs, and do not reflect any compromise in the patient's medical care. Prognosis poor Plan discussed with: Other LOULOU PAGE MD Dec 18, 2024 09:07
[2024-12-18 11:41] LABS: Hematocrit 28.0 % (36.0-46.0); Hemoglobin 9.0 g/dL (12.2-16.2); Mean Corpuscular Hemoglobin 26.8 pg (28.0-32.0); Mean Corpuscular Volume 82.9 fL (80.0-100.0); Nucleated Red Blood Cells % 0.1 %
[2024-12-18 12:13] LABS: Albumin 3.4 g/dL (3.2-4.8); Alkaline Phosphatase 72 U/L (46-116); Anion Gap 10 (5-15); BUN/Creatinine Ratio 4.1 (10.0-20.0); Calcium 9.2 mg/dL (8.7-10.4); Carbon Dioxide 29 mmol/L (20-31); Magnesium 2.0 mg/dL (1.6-2.6); Potassium 3.7 mmol/L (3.5-5.1); Total Protein 5.9 g/dL (5.7-8.2)
[2024-12-18 12:14] LABS: Alanine Aminotransferase < 9 U/L (7-40); Bilirubin, Total 0.3 mg/dL (0.2-1.0); Blood Urea Nitrogen 25 mg/dL (9-23); Chloride 97 mmol/L (98-107); Glucose 147 mg/dL (74-106); Sodium 136 mmol/L (136-145)
--- NOTE | 2024-12-18 15:19 | DVHPN2 ---
Assessment/Plan Assessment/Plan progress note 74 F with afib on Eliquis, HTN, NIDDM, breast cancer and colon cancer, ESRD on HD TTS admitted for ALOC seen today, difficult to arouse, pinpoint pupil, open eyes to sternal rub, follows command, EEG looks normal, seen by neuro physical exam difficult to arouse open eyes to sternal rub pinpoint pupil follows command clear breath sounds s1 s2 humphrey abdomen soft lE edema labs ekg imaging reviewed Assessment and plan acute metabolic encephalopathy UTI? ESRD on HD afib on Eliquis sinus humphrey HD per renal hold all meds clinimix straight cath for UDS hydralazine scheduled for bp if nonresponsive again can give narcan 0.04 once diet NPO on clinimix dvt ppx therapeutic lovenox poor prognosis full code crit care time 35 minutes Plan discussed with: Patient, Other My Orders Orders - CALEB VILLEGAS MD Procedure Category Date Status Time * Swallow Request ST 12/18/24 Transmitted 13:24 Enoxaparin Sodium PHA 12/19/24 Logged (Lovenox) 10:00 Hydralazine Injection PHA 12/18/24 Logged (Apresoline Inject 18:00 Basic Metabolic Panel LAB 12/19/24 Verified 04:00 Complete Blood Count LAB 12/19/24 Verified 04:00 Magnesium LAB 12/19/24 Verified 04:00 Phosphorus LAB 12/19/24 Verified 04:00 Lactic Acid W/ Reflex LAB 12/19/24 Verified Order 04:00 Venous Blood Gas RT 12/19/24 Logged 04:00 Drug Screen LAB 12/18/24 Logged 15:13 Communication Order ORDERS 12/18/24 Transmitted 15:13 Date of Service: Dec 18, 2024 Billing Provider: CALEB VILLEGAS MD Common Visit Codes: 29664-KASSDAFS CARE 30-74 MIN CALEB VILLEGAS MD Dec 18, 2024 15:19
[2024-12-18] MEDS ORDERED: NALOXONE HCL 0.4 MG/ML VIAL IV PRN (15:30)
--- NOTE | 2024-12-18 15:33 | DVHPN2 ---
Consult Progress Note Subjective Other Systems: Patient in sinus bradycardia at time of assessment Objective vital signs Vital Sign Date Time Temp Pulse Resp B/P (MAP) Pulse Ox O2 Delivery O2 Flow Rate FiO2 12/18/24 12:21 98.6 91 18 214/114 (147) 96 98.6 12/18/24 08:15 Nasal Cannula* 3 32 Total Intake and Output 12/17/24 12/17/24 12/18/24 15:00 23:00 07:00 Intake Total 0 ml 0 ml Balance 0 ml 0 ml medications Current Medications Medications Dose Ordered Sig/Duncan Route Start Time Stop Time Status Last Admin Dose Admin Acetaminophen 650 mg Q6HP PRN PO 12/15/24 17:00 Amino Acids 0 ml @ 0 mls/hr PER PHARMACY IV 12/17/24 15:45 Diagnostic Test (Pha) 1 strip Q6HR 12/17/24 18:00 12/18/24 11:40 1 STRIP Insulin Human Regular FOLLOW SLIDING SCALE Q6HR SC 12/17/24 18:00 12/18/24 11:45 2 UNITS Amino Acids/ Electrolytes/ Dextrose 1,000 ml @ 41 mls/hr DAILY@2200 IV 12/17/24 22:00 12/17/24 22:15 41 MLS/HR Enoxaparin Sodium 60 mg DAILY SC 12/19/24 10:00 UNV Hydralazine HCl 10 mg Q6HR IV 12/18/24 18:00 Naloxone HCl 0.04 mg PRN PRN IV 12/18/24 15:30 UNV Examination: GENERAL:Abnormal, LUNGS:Normal, CVS:Normal, NEURO:Abnormal (opens eyes, does not answer questions ) laboratory and microbiology Laboratory Tests 12/18/24 11:22 Test 12/18/24 11:22 Range/Units Serum Glucose 147 H 74-106 mg/dL Problem List/Assessment/Plan Problem List/Assessment/Plan Sinus bradycardia Paroxysmal atrial fibrillation, Stage 3A (on Eliquis) Hypertension Hyperlipidemia Metabolic encephalopathy End-stage renal disease on hemodialysis Plan/recommendations (Dr. Mcintyre): A transthoracic echocardiogram from 12/08/2024 reveals an EF of 70%. The patient was initially seen by Cardiology for bradycardia. satellite project site monitor reviewed, patient is in sinus bradycardia at time of assessment with occasional PACs. No pauses or significant atrioventricular blocks noted. Continue holding all AV phuc blocking agents. Continue with therapeutic Lovenox while inpatient, transition back to DOAC therapy prior to discharge. Continue with close cardiac surveillance. Notify cardiology team immediately for any ECG changes. This medical document was created using an electronic medical record system with voice recognition software and computerized dictation system. Although this document has been carefully reviewed, there might still be some phonetic and typographical errors. Occasional wrong-word or ``sound-alike substitutions may have occurred due to the inherent limitations of voice recognition software. These areas are purely typographical due to imperfections of the software programs and do not reflect any compromise in the patient's medical care. Please read the chart carefully and recognize, using context, where these substitutions have occurred. Plan discussed with: Patient Dietary Evaluation Review Comments: Nutrition Recommendation 1) Advance PN/TPN to meet >75% estimated needs 2) If feeding tube is placed. consider nepro carbstaedy @ 35ml/hr x 24hr. water flush 50ml Q6H. TF at goal volum provides 1512 kcal (100% energy needs), 68gm protein (100% protein needs), and free water 811 ml (including flush) 3) Advance to renal standard diet as medically feasible 4) Monitor NPO status, lab values, weight trend, and I/O Expected Outcomes/Goals: Intake to meet >75% estimated needs Lab values to improve Fu 2-3 days Date of Service: Dec 18, 2024 Billing Provider: REA DUNBAR Common Visit Codes: [id number] INP/OBS CARE(HIGH) REA DUNBAR Dec 18, 2024 15:33
[2024-12-18] MEDS: hydrALAZINE HCL 20 MG/ML VL IV SCH (17:43)
[2024-12-18 18:09] LABS: Base Excess 5.0 mmol/L (-2.0-3.0)
[2024-12-18 18:27] LABS: Potassium 3.9 mmol/L (3.5-5.1)
[2024-12-18 18:28] LABS: Anion Gap 10 (5-15); Calcium 9.8 mg/dL (8.7-10.4); Carbon Dioxide 29 mmol/L (20-31)
[2024-12-18 18:33] LABS: BUN/Creatinine Ratio 4.4 (10.0-20.0); Blood Urea Nitrogen 29 mg/dL (9-23); Chloride 96 mmol/L (98-107); Glucose 148 mg/dL (74-106); Sodium 135 mmol/L (136-145)
[2024-12-18 18:35] LABS: Hematocrit 29.2 % (36.0-46.0); Hemoglobin 9.5 g/dL (12.2-16.2); Mean Corpuscular Hemoglobin 26.5 pg (28.0-32.0); Mean Corpuscular Volume 81.7 fL (80.0-100.0); Nucleated Red Blood Cells % 0.0 %
[2024-12-18] MEDS: LORazepam 2MG/ML-1ML VIAL IV ONE (18:35)
[2024-12-18] MEDS: LORazepam 2MG/ML-1ML VIAL ONE (18:47)
[2024-12-18] MEDS: NOREPINEPHRINE 8 MG/250ML KIT 250 ML IV SCH (19:50)
[2024-12-18] MEDS: NOREPINEPHRINE 8 MG/250ML KIT 250 ML IV ONE (19:53)
[2024-12-18 20:41] LABS: Base Excess 0.4 mmol/L (-2.0-3.0)
[2024-12-18] MEDS: EPOETIN ALFA-EPBX 10,000 UNIT/1ML VIAL SC ONE (21:00)
[2024-12-19] VITALS (97 sets, daily range): BP systolic 83–209; BP diastolic 24–144; PULSE 63–124; RESP 0–25; TEMP 97.5–98.9; O2SAT 96–100
[2024-12-19 03:59] LABS: Hematocrit 29.0 % (36.0-46.0); Hemoglobin 9.3 g/dL (12.2-16.2); Mean Corpuscular Hemoglobin 26.3 pg (28.0-32.0); Mean Corpuscular Volume 82.0 fL (80.0-100.0); Nucleated Red Blood Cells % 0.0 %
[2024-12-19 04:16] LABS: Anion Gap 13 (5-15); Carbon Dioxide 27 mmol/L (20-31); Potassium 3.6 mmol/L (3.5-5.1)
[2024-12-19 04:18] LABS: Calcium 10.0 mg/dL (8.7-10.4)
[2024-12-19 04:22] LABS: BUN/Creatinine Ratio 4.7 (10.0-20.0)
[2024-12-19 04:23] LABS: Magnesium 2.2 mg/dL (1.6-2.6)
[2024-12-19 04:30] LABS: Blood Urea Nitrogen 33 mg/dL (9-23); Chloride 95 mmol/L (98-107); Glucose 153 mg/dL (74-106); Sodium 135 mmol/L (136-145)
[2024-12-19] MEDS: LORazepam 2MG/ML-1ML VIAL IV PRN (06:16)
[2024-12-19] MEDS: ALBUMIN 25% 100 ML IV PRN (07:00)
[2024-12-19] MEDS: SODIUM CHL 0.9% 1000 ML BAG XX ONE ×2 (07:30→11:40)
--- NOTE | 2024-12-19 09:22 | DVHPN2 ---
Progress Note - Dictate Date Seen: Dec 19, 2024 Has the PT tested + for MRSA If YES, has PT been informed?: No Medical Necessity Reason Pt with a Central, PICC or Fol: No Subjective Ms. Nunez is a 74 years old right-handed female with a history of hypertension, diabetes, AFib on Eliquis 2.5 mg b.i.d., ESRD on hemodialysis, breast cancer, colon cancer, she was transferred from the [facility] to the [facility] on 12/15/2024 with a chief complaint of altered mental status I saw on 12/28/2024 for ALOC (She also had right myoclonus jerk, she was mentally better on discharge) She was transferred to the ICU on 12/18/2024 because of altered mental status (nonresponsive) frequent move with arms feeling into the air, meanwhile the patient's pupils were small Per my observation on 12/19/2024, her eyes are closed, nonresponsive to verbal or painful stimuli, but she has intermittent relatively frequent very brief movement with the spine extension, jerking in the arms Blood culture, 12/07/2024: No growth Urine culture, 12/07/2024: Negative UDS, 12/07/2024: Benzo Urinalysis, 12/07/2024: WBC: 5, urine leukocyte esterase: 2+ WBC/HB/PLT/MCV, 12/11/2024: 5.8/9.4/235/84.8, 12/17/2024: 5.1/8.6/233/83.5 PT/INR/PTT, 12/07/2024: 11.9/1.14/22.7 BUN/CR, 12/08/2024: 30/6.66, 12/17/2024: 13/4.38, 12/20/2019 5:30 a.m. 3/6.99 GFR, 12/08/24: 6 Glucose, 12/07/2024: 52, 68, 104, 61, 48, 12/08/2024: 42, 43, 12/12/24: 80, 10, < 10, 74, 12/13/2024: 90 HGB A1c, 12/07/2024: 3.8 Liver function tests, 12/08/2024: Unremarkable NH3 12/17/2024: < 10 ammonia, 12/18/2024: <10 TG/HDL/LDL/HDL, 12/07/2024: 83/156/51/91 Vitamin B12, 12/07/2024: 855 TSH, 12/07/24: 4.73 TTE, 12/09/2024: EF: 70% CT head, 12/11/2024: There is no evidence for acute intracranial hemorrhage, acute ischemic changes, mass, mass effect, or extra-axial fluid collection. There is no hydrocephalus or midline shift. There is no effacement of the cerebral sulci and basal subarachnoid cisterns. The calle-white matter differentiation is well maintained. CTA neck, head, 12/11/2024: Evaluation quantification of carotid narrowing slight difficult on this exam due to significant calcifications. Extensive right carotid bulb plaque resulting in severe luminal narrowing with near complete occlusion. Extensive left carotid bulb plaque resulting in grossly 50% luminal narrowing per NASCET criteria. Short segment of fibromuscular dysplasia involving the proximal/mid left extracranial internal carotid artery. Please note the accurate quantification of stenosis is difficult with CTA. If accurate assessment is warranted, catheter angiography is suggested MRI head, 12/12/2024: No acute intracranial abnormality seen. No evidence for acute infarct. Mild brain volume loss and chronic small vessel ischemic change. Small left inferior frontal scalp soft tissue swelling/hematoma formation MRI head, 12/17/2024: No acute MRI findings of the brain vital signs Vital Sign Date Time Temp Pulse Resp B/P (MAP) Pulse Ox O2 Delivery O2 Flow Rate FiO2 12/19/24 08:54 213/65 12/19/24 08:00 15 100 Nasal Cannula* 3 32 12/19/24 07:45 68 12/19/24 06:00 97.8 97.8 Total Intake and Output 12/18/24 12/18/24 12/19/24 15:00 23:00 07:00 Intake Total 257.25 ml 328 ml Balance 257.25 ml 328 ml medications Current Medications Medications Dose Ordered Sig/Duncan Route Start Time Stop Time Status Last Admin Dose Admin Acetaminophen 650 mg Q6HP PRN PO 12/15/24 17:00 Amino Acids 0 ml @ 0 mls/hr PER PHARMACY IV 12/17/24 15:45 Diagnostic Test (Pha) 1 strip Q6HR 12/17/24 18:00 12/19/24 06:07 1 STRIP Insulin Human Regular FOLLOW SLIDING SCALE Q6HR SC 12/17/24 18:00 12/19/24 06:03 3 UNITS Amino Acids/ Electrolytes/ Dextrose 1,000 ml @ 41 mls/hr DAILY@2200 IV 12/17/24 22:00 12/18/24 22:26 41 MLS/HR Enoxaparin Sodium 60 mg DAILY SC 12/19/24 10:00 Hydralazine HCl 10 mg Q6HR IV 12/18/24 18:00 12/19/24 08:54 10 MG Naloxone HCl 0.04 mg PRN PRN IV 12/18/24 15:30 Norepinephrine Bitartrate 250 ml @ 3.75 mls/hr Q24H IV 12/18/24 20:30 12/18/24 19:50 3.75 MLS/HR Lorazepam 1 mg Q5MINP PRN IV 12/18/24 20:30 12/19/24 06:16 1 MG Albumin Human 100 ml @ 100 mls/hr PRN PRN IV 12/19/24 07:00 objective General: the patient is well developed and nourished. No acute distress. MENTAL STATUS: Subjective SPEECH, LANGUAGE, HIGHER CORTICAL FUNCTION: She does not vocalize CRANIAL NERVES: Pupils are equal, round and with sluggish light reaction, 2 mm. She has corneal reflexes and doll's eye. No son facial weakness. SENSATION: Positive responsive to painful stimuli MOTOR: Normal tone in the upper and lower extremity. Normal muscle bulk. No fasciculations. No spontaneous extremity movement except for above described abnormal movement REFLEXES: Deep tendon reflexes are symmetrical. No pathological reflexes. CEREBELLAR/COORDINATION: Deferred GAIT/STATION: deferred laboratory and microbiology Laboratory Tests 12/19/24 03:00 Test 12/19/24 03:00 Range/Units Serum Glucose 153 H 74-106 mg/dL Problem List Altered mental status, abnormal movement Seizure versus myoclonus Metabolic encephalopathy secondary to chronic kidney failure, UTI Chronic kidney failure on hemodialysis Recently UTI A Fib Assessment/Plan Monitoring Supportive treatment ICU care EEG status Eliquis 2.5 mg b.i.d. Keppra 500 mg IV b.i.d. GI prophylaxis/Protonix Nephrology/hemodialysis More recommendation per clinical course This medical document was created using an electronic medical record system with Dragon computerized dictation system. Although this document has been carefully reviewed, there may still be some phonetic and typographical errors. These areas are purely typographical due to imperfections of the software programs, and do not reflect any compromise in the patient's medical care. Prognosis Guarded Dietary Evaluation Review Comments: Nutrition Recommendation 1) Advance PN/TPN to meet >75% estimated needs 2) If feeding tube is placed. consider nepro carbstaedy @ 35ml/hr x 24hr. water flush 50ml Q6H. TF at goal volum provides 1512 kcal (100% energy needs), 68gm protein (100% protein needs), and free water 811 ml (including flush) 3) Advance to renal standard diet as medically feasible 4) Monitor NPO status, lab values, weight trend, and I/O Expected Outcomes/Goals: Intake to meet >75% estimated needs Lab values to improve Fu 2-3 days Plan discussed with: Other Critical Care Time(min): 40 LOULOU PAGE MD Dec 19, 2024 09:22
[2024-12-19] MEDS: ENOXAPARIN SOD 60 MG/0.6 ML SYRINGE SC SCH (11:41)
[2024-12-19 12:03] LABS: INR 1.05 (0.9-1.15); Partial Thromboplastin Time 27.4 SEC (24.5-34.5); Prothrombin Time 11.1 sec (9.3-11.8)
--- NOTE | 2024-12-19 12:32 | DVHPN2 ---
Consult Progress Note Subjective Other Systems: Patient in normal sinus rhythm on filtering machine tender at time of assessment. No bradycardia events overnight seen on monitor. Patient was upgraded to ICU status yesterday evening after possible seizure-like event Objective vital signs Vital Sign Date Time Temp Pulse Resp B/P (MAP) Pulse Ox O2 Delivery O2 Flow Rate FiO2 12/19/24 10:00 8 100 Nasal Cannula* 3 32 12/19/24 08:54 213/65 12/19/24 08:00 65 12/19/24 06:00 97.8 97.8 Total Intake and Output 12/18/24 12/18/24 12/19/24 15:00 23:00 07:00 Intake Total 257.25 ml 328 ml Balance 257.25 ml 328 ml medications Current Medications Medications Dose Ordered Sig/Duncan Route Start Time Stop Time Status Last Admin Dose Admin Acetaminophen 650 mg Q6HP PRN PO 12/15/24 17:00 Amino Acids 0 ml @ 0 mls/hr PER PHARMACY IV 12/17/24 15:45 Diagnostic Test (Pha) 1 strip Q6HR 12/17/24 18:00 12/19/24 06:07 1 STRIP Insulin Human Regular FOLLOW SLIDING SCALE Q6HR SC 12/17/24 18:00 12/19/24 06:03 3 UNITS Amino Acids/ Electrolytes/ Dextrose 1,000 ml @ 41 mls/hr DAILY@2200 IV 12/17/24 22:00 12/18/24 22:26 41 MLS/HR Enoxaparin Sodium 60 mg DAILY SC 12/19/24 10:00 12/19/24 11:41 60 MG Hydralazine HCl 10 mg Q6HR IV 12/18/24 18:00 12/19/24 08:54 10 MG Naloxone HCl 0.04 mg PRN PRN IV 12/18/24 15:30 Norepinephrine Bitartrate 250 ml @ 3.75 mls/hr Q24H IV 12/18/24 20:30 12/18/24 19:50 3.75 MLS/HR Lorazepam 1 mg Q5MINP PRN IV 12/18/24 20:30 12/19/24 09:24 1 MG Albumin Human 100 ml @ 100 mls/hr PRN PRN IV 12/19/24 07:00 12/19/24 07:00 100 MLS/HR Levetiracetam 200 mg/Sodium Chloride 52 ml @ 208 mls/hr Q12HR IV 12/19/24 22:00 Examination: GENERAL:Abnormal, LUNGS:Normal, CVS:Normal, NEURO:Abnormal laboratory and microbiology Laboratory Tests 12/19/24 03:00 Test 12/19/24 03:00 Range/Units Serum Glucose 153 H 74-106 mg/dL Problem List/Assessment/Plan Problem List/Assessment/Plan Sinus bradycardia, now normal sinus rhythm Paroxysmal atrial fibrillation, Stage 3A (on Eliquis) Hypertension Hyperlipidemia Metabolic encephalopathy ?New onset seizures Acute on chronic anemia End-stage renal disease on hemodialysis History of breast and colon cancer Plan/recommendations (Dr. Mcintyre): A transthoracic echocardiogram from 12/08/2024 reveals an EF of 70%. The patient was initially seen by Cardiology for bradycardia. circulator reviewed, no overnight events of bradycardia noted. No pauses or significant atrioventricular blocks noted. At time of assessment, the patient is in normal sinus rhythm. circulator reveals episodes of sinus tachycardia. No significant arrhythmias noted. Continue with blood pressure control. Continue with therapeutic Lovenox while inpatient, transition back to DOAC therapy prior to discharge. Continue with close cardiac surveillance. Notify cardiology team immediately for any ECG changes. There is no further inpatient cardiac workup indicated at this time. Please reconsult if needed. Critical care time spent: 36 minutes. This medical document was created using an electronic medical record system with voice recognition software and computerized dictation system. Although this document has been carefully reviewed, there might still be some phonetic and typographical errors. Occasional wrong-word or ``sound-alike substitutions may have occurred due to the inherent limitations of voice recognition software. These areas are purely typographical due to imperfections of the software programs and do not reflect any compromise in the patient's medical care. Please read the chart carefully and recognize, using context, where these substitutions have occurred. Plan discussed with: Other (Bedside RN) Dietary Evaluation Review Comments: Nutrition Recommendation 1) Advance PN/TPN to meet >75% estimated needs 2) If feeding tube is placed. consider nepro carbstaedy @ 35ml/hr x 24hr. water flush 50ml Q6H. TF at goal volum provides 1512 kcal (100% energy needs), 68gm protein (100% protein needs), and free water 811 ml (including flush) 3) Advance to renal standard diet as medically feasible 4) Monitor NPO status, lab values, weight trend, and I/O Expected Outcomes/Goals: Intake to meet >75% estimated needs Lab values to improve Fu 2-3 days Date of Service: Dec 19, 2024 Billing Provider: REA DUNBAR Common Visit Codes: [id number] CARE 30-74 MIN REA DUNBAR Dec 19, 2024 12:32
--- NOTE | 2024-12-19 13:14 | DVH ---
INDICATION: CENTRAL LINE PLACEMENT TECHNIQUE: Frontal view of the chest. COMPARISON: XY CHEST PORTABLE on DOS: 12/17/24, XY CHEST PORTABLE on DOS: 12/16/24, XY CHEST XRAY 1 V IEW on DOS: 12/07/24, XR CHEST 1 VIEW on DOS: 12/06/24, XR CHEST 1 VIEW on DOS: 04/22/24 FINDINGS: Right central venous catheter tip in the SVC.. The heart and mediastinal contours are grossly unremar kable. There is no evidence of pleural disease. The lungs are clear. The bony structures of the c hest are intact without fracture. IMPRESSION: 1. No evidence of acute disease.
--- NOTE | 2024-12-19 16:00 | DVHNC2 ---
Central Line Recorder of insertion practice: Beater Machine Operator Occupation of sidehand: Attending Physician Indication: Inability to obtain IV Room prepared for procedure: Yes Beater Machine Operator performed hand hygien: Yes Maximal sterile barrier precau: Mask/Eye shield, Sterile gown, Cap, Sterlie gloves, Large sterlie drape Skin Preparation: Chlorhexidine gluconate Skin preparation completely dr: Yes Insertion site: Right, Internal jugular Central line catheter type: [id number] dialysis Number of lumens: 3 Post Assessment: Chest X-Ray, Proper placement, No Pneumothorax Date of Service: Dec 19, 2024 Billing Provider: CALEB VILLEGAS MD Common Visit Codes: PROCEDURE ONLY Procedure Codes: [id number] NON-TUNNEL CV CATH CALEB VILLEGAS MD Dec 19, 2024 16:00
[2024-12-19] MEDS: HYDROmorphone HCL 2 MG/ML VL/or syr IV ONE (16:30)
--- NOTE | 2024-12-19 17:54 | DVH ---
CHEST RADIOGRAPH Indication: central line placewment Technique: XY CHEST PORTABLE COMPARISON: None FINDINGS: The right IJ catheter tip projects over the peripheral SVC. The cardiac silhouette is borderline enlarged. The lungs demonstrate no airspace consolidation. The p ulmonary vasculature is prominent. There is no pleural effusion. There is no pneumothorax. IMPRESSION: As above
--- NOTE | 2024-12-19 19:14 | DVHPN2 ---
Assessment/Plan Assessment/Plan progress note 74 F with afib on Eliquis, HTN, NIDDM, breast cancer and colon cancer, ESRD on HD TTS admitted for ALOC seen today, still pinpoint pupil, hypotensive, was on pressor, placed TLC. patient was seen with myoclonus. EEG done, plenty of artifact, does not look like seizure activity, pending official read. later was awake, asking for water and shouting in pain. HLOC transfer for cEEG per neuro physical exam difficult to arouse open eyes to sternal rub pinpoint pupil follows command clear breath sounds s1 s2 humphrey abdomen soft lE edema labs ekg imaging reviewed Assessment and plan acute metabolic encephalopathy UTI? ESRD on HD afib on Eliquis sinus humphrey low susp of meningoencephalitis nonepileptic seizure? myoclonus HD per renal hold all meds clinimix blood drug screen hydralazine scheduled for bp if nonresponsive again can give narcan 0.04 once diet NPO on clinimix dvt ppx therapeutic lovenox poor prognosis full code crit care time 75 minutes Plan discussed with: Other My Orders Orders - CALEB VILLEGAS MD Procedure Category Date Status Time Chest Portable XY 12/19/24 Resulted 12:37 Nicardipine 20 Mg/200 PHA 12/19/24 In Process Ml (Cardene Iv) 12:45 Ok To Use Central Line ORDERS 12/19/24 Transmitted 14:00 Chest Portable XY 12/19/24 Resulted 17:09 Date of Service: Dec 19, 2024 Billing Provider: CALEB VILLEGAS MD Common Visit Codes: [id number] CARE 30-74 MIN, 59921-[id number] CARE-EACH +30MIN CALEB VILLEGAS MD Dec 19, 2024 19:14
[2024-12-19] MEDS: EPOETIN ALFA-EPBX 10,000 UNIT/1ML VIAL SC ONE (21:00)
--- NOTE | 2024-12-19 21:04 | DVHPN2 ---
Progress Note - Dictate Date Seen: Dec 18, 2024 Has the PT tested + for MRSA If YES, has PT been informed?: No Medical Necessity Reason Pt with a Central, PICC or Fol: No Subjective Patient was seen and evaluated in follow up. Chart/events reviewed. Patient is difficult to arouse, opens eyes to sternal rub. No distress noted. Scheduled for dialysis. vital signs Vital Sign Date Time Temp Pulse Resp B/P (MAP) Pulse Ox O2 Delivery O2 Flow Rate FiO2 12/19/24 19:30 114 14 174/68 (103) 99 12/19/24 18:00 Room Air* 0 21 12/19/24 16:00 98.0 98.0 Total Intake and Output 12/18/24 12/18/24 12/19/24 15:00 23:00 07:00 Intake Total 257.25 ml 328 ml Balance 257.25 ml 328 ml medications Current Medications Medications Dose Ordered Sig/Duncan Route Start Time Stop Time Status Last Admin Dose Admin Acetaminophen 650 mg Q6HP PRN PO 12/15/24 17:00 Amino Acids 0 ml @ 0 mls/hr PER PHARMACY IV 12/17/24 15:45 Diagnostic Test (Pha) 1 strip Q6HR 12/17/24 18:00 12/19/24 18:26 1 STRIP Insulin Human Regular FOLLOW SLIDING SCALE Q6HR SC 12/17/24 18:00 12/19/24 06:03 3 UNITS Amino Acids/ Electrolytes/ Dextrose 1,000 ml @ 41 mls/hr DAILY@2200 IV 12/17/24 22:00 12/18/24 22:26 41 MLS/HR Enoxaparin Sodium 60 mg DAILY SC 12/19/24 10:00 12/19/24 11:41 60 MG Hydralazine HCl 10 mg Q6HR IV 12/18/24 18:00 12/19/24 13:14 10 MG Naloxone HCl 0.04 mg PRN PRN IV 12/18/24 15:30 Norepinephrine Bitartrate 250 ml @ 3.75 mls/hr Q24H IV 12/18/24 20:30 12/18/24 19:50 3.75 MLS/HR Lorazepam 1 mg Q5MINP PRN IV 12/18/24 20:30 12/19/24 14:07 1 MG Albumin Human 100 ml @ 100 mls/hr PRN PRN IV 12/19/24 07:00 12/19/24 23:59 12/19/24 07:00 100 MLS/HR Levetiracetam 200 mg/Sodium Chloride 52 ml @ 208 mls/hr Q12HR IV 12/19/24 22:00 Nicardipine/ Sodium Chloride 200 ml @ 50 mls/hr Q4H IV 12/19/24 12:45 12/19/24 15:24 50 MLS/HR objective Vitals and nursing notes reviewed General Appearance: In no acute distress. HEENT: Atraumatic,Mucous membr. moist/pink. Pinpoint pupil Respiratory: Clear to auscultation, Normal air movement Cardiovascular: Normal S1, Normal S2, No murmurs Abdominal: Normal bowel sounds, Soft, No tenderness, No hepatospenomegaly Extremities: No clubbing, No cyanosis Skin: No rashes, No breakdown Neuro: She does not vocalize. Opens eyes to sternal rub laboratory and microbiology Laboratory Tests 12/19/24 03:00 Test 12/19/24 03:00 Range/Units Serum Glucose 153 H 74-106 mg/dL Problem List Metabolic encephalopathy ESRD on HD Hypertension Atrial fibrillation Right hemiparalysis Assessment/Plan Agree with current supportive medical care. Cardiology and Neurology care management deferred. HD 12/18- UF 2L as tolerated. Strict Intake/Output monitoring. Daily weight. Fluid restriction. NPO. Nutritional support with Clinimix. DVT prophylaxis with Lovenox. Additional plan as per the hospital course. Dietary Evaluation Review Comments: Nutrition Recommendation 1) Advance PN/TPN to meet >75% estimated needs 2) If feeding tube is placed. consider nepro carbstaedy @ 35ml/hr x 24hr. water flush 50ml Q6H. TF at goal volum provides 1512 kcal (100% energy needs), 68gm protein (100% protein needs), and free water 811 ml (including flush) 3) Advance to renal standard diet as medically feasible 4) Monitor NPO status, lab values, weight trend, and I/O Expected Outcomes/Goals: Intake to meet >75% estimated needs Lab values to improve Fu 2-3 days Plan discussed with: Patient, Other (RN) TATYANA CHARLES DO Dec 19, 2024 21:04
--- NOTE | 2024-12-19 21:11 | DVHPN2 ---
Progress Note - Dictate Date Seen: Dec 19, 2024 Has the PT tested + for MRSA If YES, has PT been informed?: No Medical Necessity Reason Pt with a Central, PICC or Fol: No Subjective Patient was seen and evaluated in follow up in ICU. Chart/events reviewed. Patient is on pressor support. TLC placed. No pain or distress. Still noted with pinpoint pupils. She has been recommended for higher level of care transfer for continuous EEG per neurologist. Accepted to [facility]. vital signs Vital Sign Date Time Temp Pulse Resp B/P (MAP) Pulse Ox O2 Delivery O2 Flow Rate FiO2 12/19/24 19:30 114 14 174/68 (103) 99 12/19/24 18:00 Room Air* 0 21 12/19/24 16:00 98.0 98.0 Total Intake and Output 12/18/24 12/18/24 12/19/24 15:00 23:00 07:00 Intake Total 257.25 ml 328 ml Balance 257.25 ml 328 ml medications Current Medications Medications Dose Ordered Sig/Duncan Route Start Time Stop Time Status Last Admin Dose Admin Acetaminophen 650 mg Q6HP PRN PO 12/15/24 17:00 Amino Acids 0 ml @ 0 mls/hr PER PHARMACY IV 12/17/24 15:45 Diagnostic Test (Pha) 1 strip Q6HR 12/17/24 18:00 12/19/24 18:26 1 STRIP Insulin Human Regular FOLLOW SLIDING SCALE Q6HR SC 12/17/24 18:00 12/19/24 06:03 3 UNITS Amino Acids/ Electrolytes/ Dextrose 1,000 ml @ 41 mls/hr DAILY@2200 IV 12/17/24 22:00 12/18/24 22:26 41 MLS/HR Enoxaparin Sodium 60 mg DAILY SC 12/19/24 10:00 12/19/24 11:41 60 MG Hydralazine HCl 10 mg Q6HR IV 12/18/24 18:00 12/19/24 13:14 10 MG Naloxone HCl 0.04 mg PRN PRN IV 12/18/24 15:30 Norepinephrine Bitartrate 250 ml @ 3.75 mls/hr Q24H IV 12/18/24 20:30 12/18/24 19:50 3.75 MLS/HR Lorazepam 1 mg Q5MINP PRN IV 12/18/24 20:30 12/19/24 14:07 1 MG Albumin Human 100 ml @ 100 mls/hr PRN PRN IV 12/19/24 07:00 12/19/24 23:59 12/19/24 07:00 100 MLS/HR Levetiracetam 200 mg/Sodium Chloride 52 ml @ 208 mls/hr Q12HR IV 12/19/24 22:00 Nicardipine/ Sodium Chloride 200 ml @ 50 mls/hr Q4H IV 12/19/24 12:45 12/19/24 15:24 50 MLS/HR objective Vitals and nursing notes reviewed General Appearance: In no acute distress. HEENT: Atraumatic,Mucous membr. moist/pink. Pinpoint pupil Respiratory: Clear to auscultation, Normal air movement Cardiovascular: Normal S1, Normal S2, No murmurs Abdominal: Normal bowel sounds, Soft, No tenderness, No hepatospenomegaly Extremities: No clubbing, No cyanosis Skin: No rashes, No breakdown Neuro: She does not vocalize. Opens eyes to sternal rub laboratory and microbiology Laboratory Tests 12/19/24 03:00 Test 12/19/24 03:00 Range/Units Serum Glucose 153 H 74-106 mg/dL Problem List Metabolic encephalopathy ESRD on HD Hypertension Atrial fibrillation Right hemiparalysis Assessment/Plan Agree with current supportive medical care. Cardiology and Neurology following. Pending transfer for higher level of care for neuro ICU/continuous EEG. Continued on Keppra 500 mg IV b.i.d. HD 12/19- no UF. Strict Intake/Output monitoring. Daily weight. Fluid restriction. NPO. Nutritional support with Clinimix. DVT prophylaxis with Lovenox. Additional plan as per the hospital course. Dietary Evaluation Review Comments: Nutrition Recommendation 1) Advance PN/TPN to meet >75% estimated needs 2) If feeding tube is placed. consider nepro carbstaedy @ 35ml/hr x 24hr. water flush 50ml Q6H. TF at goal volum provides 1512 kcal (100% energy needs), 68gm protein (100% protein needs), and free water 811 ml (including flush) 3) Advance to renal standard diet as medically feasible 4) Monitor NPO status, lab values, weight trend, and I/O Expected Outcomes/Goals: Intake to meet >75% estimated needs Lab values to improve Fu 2-3 days Plan discussed with: Patient, Other (RN) TATYANA CHARLES DO Dec 19, 2024 21:11
--- NOTE | 2024-12-19 21:24 | DVH ---
CHEST RADIOGRAPH Indication: CENTRAL LINE INSERTION Technique: Single frontal view of the chest was obtained Comparison: XY CHEST PORTABLE on DOS: 12/19/24, XY CHEST PORTABLE on DOS: 12/19/24, XY CHEST PORTABLE on DOS: 12/17/24 FINDINGS: Lines and Tubes: Right internal jugular catheter in place with the tip in the superior vena cava. Lungs: No focal consolidation. Pleura: No effusion. No pneumothorax. No pneumothorax on the right Cardiomediastinal contours: Unremarkable Bones: No acute osseous abnormality. IMPRESSION: 1. No acute cardiopulmonary disease. 2. Right internal jugular catheter in place with the tip in the superior vena cava above the right at rium. 3. There is no pneumothorax on the right.
[2024-12-20] VITALS (90 sets, daily range): BP systolic 90–243; BP diastolic 39–124; PULSE 75–161; RESP 10–32; TEMP 97.7–98.6; O2SAT 97–100
[2024-12-20] MEDS: AMIODARONE BOLUS KIT 100 ML IV ONE ×2 (01:15→01:19)
[2024-12-20] MEDS ORDERED: AMIODARONE 360mg/200mL PREMIX 200 ML IV ONE (01:15)
[2024-12-20] MEDS: D5W 5% IV ONE (03:45)
[2024-12-20] MEDS: AMIODARONE HCL IV ONE (03:45)
[2024-12-20 04:05] LABS: Alanine Aminotransferase 10 U/L (7-40); Albumin 3.7 g/dL (3.2-4.8); Alkaline Phosphatase 72 U/L (46-116); Anion Gap 11 (5-15); BUN/Creatinine Ratio 4.7 (10.0-20.0); Blood Urea Nitrogen 19 mg/dL (9-23); Calcium 9.9 mg/dL (8.7-10.4); Carbon Dioxide 30 mmol/L (20-31); Chloride 102 mmol/L (98-107); Glucose 90 mg/dL (74-106); Magnesium 2.0 mg/dL (1.6-2.6); Potassium 3.6 mmol/L (3.5-5.1); Sodium 143 mmol/L (136-145); Total Protein 6.1 g/dL (5.7-8.2)
[2024-12-20 04:08] LABS: Bilirubin, Total 0.3 mg/dL (0.2-1.0)
[2024-12-20] MEDS: AMIODARONE 360mg/200mL PREMIX 200 ML IV ONE (05:43)
[2024-12-20] MEDS ORDERED: AMIODARONE 360mg/200mL PREMIX 200 ML IV SCH (07:15)
--- NOTE | 2024-12-20 09:46 | DVHPN2 ---
Progress Note - Dictate Date Seen: Dec 20, 2024 Has the PT tested + for MRSA If YES, has PT been informed?: No Medical Necessity Reason Pt with a Central, PICC or Fol: No Subjective Ms. Nunez is a 74 years old right-handed female with a history of hypertension, diabetes, AFib on Eliquis 2.5 mg b.i.d., ESRD on hemodialysis, breast cancer, colon cancer, she was transferred from the [facility] to the [facility] on 12/15/2024 with a chief complaint of altered mental status I saw on 12/28/2024 for ALOC (She also had right myoclonus jerk, she was mentally better on discharge) She was transferred to the ICU on 12/18/2024 because of altered mental status (nonresponsive) frequent move with arms feeling into the air, meanwhile the patient's pupils were small I have seen and examined the patient along with her nurse, she is awake, he keeps moving the arms and legs, questionably weaker in the left arm. She talks, she answer questions, but not always follows verbal commands, she is oriented to herself I do not see myoclonus today Blood culture, 12/07/2024: No growth Urine culture, 12/07/2024: Negative UDS, 12/07/2024: Benzo Blood drug screening, 12/19/2024: Urinalysis, 12/07/2024: WBC: 5, urine leukocyte esterase: 2+ WBC/HB/PLT/MCV, 12/11/2024: 5.8/9.4/235/84.8, 12/17/2024: 5.1/8.6/233/83.5 PT/INR/PTT, 12/07/2024: 11.9/1.14/22.7 BUN/CR, 12/08/2024: 30/6.66, 12/17/2024: 13/4.38, 12/20/2019 5:30 a.m. 3/6.99 GFR, 12/08/24: 6 Glucose, 12/07/2024: 52, 68, 104, 61, 48, 12/08/2024: 42, 43, 12/12/24: 80, 10, < 10, 74, 12/13/2024: 90 HGB A1c, 12/07/2024: 3.8 Liver function tests, 12/08/2024: Unremarkable NH3 12/17/2024: < 10 ammonia, 12/18/2024: <10 TG/HDL/LDL/HDL, 12/07/2024: 83/156/51/91 Vitamin B12, 12/07/2024: 855 TSH, 12/07/24: 4.73 TTE, 12/09/2024: EF: 70% CT head, 12/11/2024: There is no evidence for acute intracranial hemorrhage, acute ischemic changes, mass, mass effect, or extra-axial fluid collection. There is no hydrocephalus or midline shift. There is no effacement of the cerebral sulci and basal subarachnoid cisterns. The calle-white matter differentiation is well maintained. CTA neck, head, 12/11/2024: Evaluation quantification of carotid narrowing slight difficult on this exam due to significant calcifications. Extensive right carotid bulb plaque resulting in severe luminal narrowing with near complete occlusion. Extensive left carotid bulb plaque resulting in grossly 50% luminal narrowing per NASCET criteria. Short segment of fibromuscular dysplasia involving the proximal/mid left extracranial internal carotid artery. Please note the accurate quantification of stenosis is difficult with CTA. If accurate assessment is warranted, catheter angiography is suggested MRI head, 12/12/2024: No acute intracranial abnormality seen. No evidence for acute infarct. Mild brain volume loss and chronic small vessel ischemic change. Small left inferior frontal scalp soft tissue swelling/hematoma formation MRI head, 12/17/2024: No acute MRI findings of the brain vital signs Vital Sign Date Time Temp Pulse Resp B/P (MAP) Pulse Ox O2 Delivery O2 Flow Rate FiO2 12/20/24 09:02 152/47 12/20/24 08:02 102 23 99 12/20/24 06:00 Nasal Cannula* 3 32 12/20/24 04:00 98.6 98.6 Total Intake and Output 12/19/24 12/19/24 12/20/24 15:00 23:00 07:00 Intake Total 328 ml 339 ml 458.66 ml Balance 328 ml 339 ml 458.66 ml medications Current Medications Medications Dose Ordered Sig/Duncan Route Start Time Stop Time Status Last Admin Dose Admin Acetaminophen 650 mg Q6HP PRN PO 12/15/24 17:00 Amino Acids 0 ml @ 0 mls/hr PER PHARMACY IV 12/17/24 15:45 Diagnostic Test (Pha) 1 strip Q6HR 12/17/24 18:00 12/20/24 06:00 1 STRIP Insulin Human Regular FOLLOW SLIDING SCALE Q6HR SC 12/17/24 18:00 12/19/24 06:03 3 UNITS Amino Acids/ Electrolytes/ Dextrose 1,000 ml @ 41 mls/hr DAILY@2200 IV 12/17/24 22:00 12/19/24 23:23 41 MLS/HR Enoxaparin Sodium 60 mg DAILY SC 12/19/24 10:00 12/19/24 11:41 60 MG Hydralazine HCl 10 mg Q6HR IV 12/18/24 18:00 12/19/24 13:14 10 MG Naloxone HCl 0.04 mg PRN PRN IV 12/18/24 15:30 Norepinephrine Bitartrate 250 ml @ 3.75 mls/hr Q24H IV 12/18/24 20:30 12/18/24 19:50 3.75 MLS/HR Lorazepam 1 mg Q5MINP PRN IV 12/18/24 20:30 12/19/24 20:58 1 MG Levetiracetam 200 mg/Sodium Chloride 52 ml @ 208 mls/hr Q12HR IV 12/19/24 22:00 12/19/24 22:30 208 MLS/HR Nicardipine/ Sodium Chloride 200 ml @ 50 mls/hr Q4H IV 12/19/24 12:45 12/20/24 09:02 50 MLS/HR Amiodarone HCl 250 ml @ 16.667 mls/ hr Q12H IV 12/20/24 08:00 12/20/24 09:06 16.667 MLS/HR objective General: the patient is well developed and nourished. No acute distress. MENTAL STATUS: Subjective SPEECH, LANGUAGE, HIGHER CORTICAL FUNCTION: No aphasia dysarthria CRANIAL NERVES: Pupils are equal, round and with sluggish light reaction. She has corneal reflexes and doll's eye. No son facial weakness. SENSATION: Okay to light touch in the pinprick MOTOR: Normal tone in the upper and lower extremity. Normal muscle bulk. No fasciculations. He moves the arms and legs,? Weaker in the left arm REFLEXES: Deep tendon reflexes are symmetrical. No pathological reflexes. CEREBELLAR/COORDINATION: Deferred GAIT/STATION: deferred laboratory and microbiology Laboratory Tests 12/20/24 03:10 12/19/24 03:00 Test 12/20/24 03:10 Range/Units Serum Glucose 90 74-106 mg/dL Problem List Altered mental status, abnormal movement Likely metabolic encephalopathy with myoclonus Rule out seizure Metabolic encephalopathy secondary to chronic kidney failure, UTI Chronic kidney failure on hemodialysis Recently UTI A Fib Assessment/Plan Monitoring Supportive treatment ICU care EEG Eliquis 2.5 mg b.i.d. Keppra 500 mg IV b.i.d. GI prophylaxis/Protonix Nephrology/hemodialysis More recommendation per clinical course This medical document was created using an electronic medical record system with [employer] dictation system. Although this document has been carefully reviewed, there may still be some phonetic and typographical errors. These areas are purely typographical due to imperfections of the software programs, and do not reflect any compromise in the patient's medical care. Prognosis Poor Dietary Evaluation Review Comments: Nutrition Recommendation 1) Advance PN/TPN to meet >75% estimated needs 2) If feeding tube is placed. consider nepro carbstaedy @ 35ml/hr x 24hr. water flush 50ml Q6H. TF at goal volum provides 1512 kcal (100% energy needs), 68gm protein (100% protein needs), and free water 811 ml (including flush) 3) Advance to renal standard diet as medically feasible 4) Monitor NPO status, lab values, weight trend, and I/O Expected Outcomes/Goals: Intake to meet >75% estimated needs Lab values to improve Fu 2-3 days Plan discussed with: Other LOULOU PAGE MD Dec 20, 2024 09:46
[2024-12-20] MEDS: KETOROLAC TROMETH 30 MG/ML 1ML VIAL IV ONE (10:35)
[2024-12-20] MEDS: HEPARIN SODIUM (PORCINE) 5000 UNITS/ML 1ML VIAL SC SCH (10:56)
[2024-12-20] MEDS: LORazepam 2MG/ML-1ML VIAL IV ONE (11:29)
--- NOTE | 2024-12-20 14:27 | DVHPN2 ---
Assessment/Plan Assessment/Plan progress note 74 F with afib on Eliquis, HTN, NIDDM, breast cancer and colon cancer, ESRD on HD TTS admitted for ALOC seen today, 2mm pupil, now aox4, awake, uncomfortable. d/w family bedside, she had similar issue with restless leg in the past. will try ativan. bedside swallow. if passed will start po emds to take off nicardipine physical exam aox3 PERLLA 2mm follows command clear breath sounds s1 s2 humphrey abdomen soft lE edema labs ekg imaging reviewed Assessment and plan acute metabolic encephalopathy UTI? ESRD on HD afib on Eliquis sinus humphrey low susp of meningoencephalitis nonepileptic seizure? myoclonus HD per renal hold all meds clinimix blood drug screen hydralazine scheduled for bp bedside swallow diet NPO on clinimix dvt ppx therapeutic lovenox poor prognosis full code crit care time 35 minutes Plan discussed with: Patient, Daughter My Orders Orders - CALEB VILLEGAS MD Procedure Category Date Status Time Ok To Use Central Line ORDERS 12/19/24 Transmitted 14:00 Chest Portable XY 12/19/24 Resulted 17:09 Drug Screen LAB 12/19/24 Logged 19:09 Drug Profile Blood (6 LAB 12/19/24 In Process Drugs) 19:09 Communication Order ORDERS 12/19/24 Transmitted 19:11 Communication Order ORDERS 12/19/24 Transmitted 19:11 Heparin Sodium PHA 12/20/24 In Process (Porcine) 10:00 Date of Service: Dec 20, 2024 Billing Provider: CALEB VILLEGAS MD Common Visit Codes: [id number] CARE 30-74 MIN CALEB VILLEGAS MD Dec 20, 2024 14:27
--- NOTE | 2024-12-20 18:41 | DVHPN2 ---
Progress Note - Dictate Date Seen: Dec 20, 2024 Has the PT tested + for MRSA If YES, has PT been informed?: No Medical Necessity Reason Pt with a Central, PICC or Fol: No Subjective Patient was seen and evaluated in follow up in ICU. Chart/events reviewed. Patient is awake, uncomfortable. She is oriented to herself. Awaiting swallow eval. vital signs Vital Sign Date Time Temp Pulse Resp B/P (MAP) Pulse Ox O2 Delivery O2 Flow Rate FiO2 12/20/24 18:00 99 12/20/24 18:00 19 164/53 (90) 12/20/24 18:00 99 Nasal Cannula* 3 32 12/20/24 08:15 97.7 97.7 Total Intake and Output 12/19/24 12/19/24 12/20/24 15:00 23:00 07:00 Intake Total 328 ml 339 ml 666.31 ml Balance 328 ml 339 ml 666.31 ml medications Current Medications Medications Dose Ordered Sig/Duncan Route Start Time Stop Time Status Last Admin Dose Admin Acetaminophen 650 mg Q6HP PRN PO 12/15/24 17:00 Amino Acids 0 ml @ 0 mls/hr PER PHARMACY IV 12/17/24 15:45 Diagnostic Test (Pha) 1 strip Q6HR 12/17/24 18:00 12/20/24 17:56 1 STRIP Insulin Human Regular FOLLOW SLIDING SCALE Q6HR SC 12/17/24 18:00 12/19/24 06:03 3 UNITS Amino Acids/ Electrolytes/ Dextrose 1,000 ml @ 41 mls/hr DAILY@2200 IV 12/17/24 22:00 12/19/24 23:23 41 MLS/HR Hydralazine HCl 10 mg Q6HR IV 12/18/24 18:00 12/20/24 17:56 10 MG Levetiracetam 200 mg/Sodium Chloride 52 ml @ 208 mls/hr Q12HR IV 12/19/24 22:00 12/20/24 11:41 208 MLS/HR Nicardipine/ Sodium Chloride 200 ml @ 50 mls/hr Q4H IV 12/19/24 12:45 12/20/24 17:30 50 MLS/HR Amiodarone HCl 250 ml @ 16.667 mls/ hr Q12H IV 12/20/24 08:00 12/20/24 09:06 16.667 MLS/HR Heparin Sodium (Porcine) 5,000 units Q12HR SC 12/20/24 10:00 12/20/24 10:56 5,000 UNITS objective Vitals and nursing notes reviewed General Appearance: In no acute distress. HEENT: Atraumatic,Mucous membr. moist/pink. Respiratory: Clear to auscultation, Normal air movement Cardiovascular: Normal S1, Normal S2, No murmurs Abdominal: Normal bowel sounds, Soft, No tenderness, No hepatospenomegaly Extremities: No clubbing, No cyanosis Skin: No rashes, No breakdown Neuro: Awake. Oriented to self laboratory and microbiology Laboratory Tests 12/20/24 03:10 12/19/24 03:00 Test 12/20/24 03:10 Range/Units Serum Glucose 90 74-106 mg/dL Problem List Metabolic encephalopathy ESRD on HD Hypertension Atrial fibrillation Right hemiparalysis Assessment/Plan Agree with current supportive medical care. Neurology consulted; care management deferred. Dialyzed 12/19. No dialysis today. Strict Intake/Output monitoring. Daily weight. Fluid restriction. Optimization of BP. Nutritional support with Clinimix. Pending swallow eval. DVT prophylaxis with Heparin. Additional plan as per the hospital course. Dietary Evaluation Review Comments: Nutrition Recommendation 1) Advance PN/TPN to meet >75% estimated needs 2) If feeding tube is placed. consider nepro carbstaedy @ 35ml/hr x 24hr. water flush 50ml Q6H. TF at goal volum provides 1512 kcal (100% energy needs), 68gm protein (100% protein needs), and free water 811 ml (including flush) 3) Advance to renal standard diet as medically feasible 4) Monitor NPO status, lab values, weight trend, and I/O Expected Outcomes/Goals: Intake to meet >75% estimated needs Lab values to improve Fu 2-3 days Plan discussed with: Patient, Other (RN) TATYANA CHARLES DO Dec 20, 2024 18:41
[2024-12-20] MEDS: HALOPERIDOL LACTATE 5 MG/ML INJ VIAL IM ONE (21:41)
[2024-12-21] VITALS (62 sets, daily range): BP systolic 126–179; BP diastolic 46–82; PULSE 67–91; RESP 12–22; TEMP 96.7–98.4; O2SAT 97–100
--- NOTE | 2024-12-21 00:51 | DVHEEG2 ---
Neurology EEG Procedural Note Procedural Note EXAM DATE: 12/18/24 REFERRING DOCTOR: Dr. Page TECHNIQUE: Eighteen channels of EEG, 2 channels of EOG, and 1 channel of EKG were recorded using the International 10/20 system. CLINICAL DATA: The patient was referred for an EEG evaluation for the evidence of seizure disorder. MEDICATIONS: See the chart BACKGROUND ACTIVITY: The record showed diffuse low to medium amplitude mixed delta and theta refill over both hemispheres, including frequent triphasic waveforms, that was reactive to external stimuli ACTIVATION: Hyperventilation: Not done Photic Stimulation: Not done Sleep: Unresponsiveness IMPRESSION: This is a remarkably abnormal EEG, this EEG is seen in severe cerebral dysfunction due to metabolic/hypoxic encephalopathy or medication effect, please correlate clinically The EKG channel showed a regular heart rate of 54 per minute [place] [address] LOULOU PAGE MD Dec 21, 2024 00:51
--- NOTE | 2024-12-21 00:54 | DVHEEG2 ---
Neurology EEG Procedural Note Procedural Note EXAM DATE: 12/19/24 REFERRING DOCTOR: Dr. Page TECHNIQUE: Eighteen channels of EEG, 2 channels of EOG, and 1 channel of EKG were recorded using the International 10/20 system. CLINICAL DATA: The patient was referred for an EEG evaluation for the evidence of seizure disorder. MEDICATIONS: See the chart BACKGROUND ACTIVITY: The record showed moderate amount of diffuse low to medium amplitude mixed delta and theta refill over both hemispheres, including infrequent triphasic waveforms, that was reactive to external stimuli ACTIVATION: Hyperventilation: Not done Photic Stimulation: Not done Sleep: Unresponsiveness IMPRESSION: This is a moderately abnormal EEG, this EEG is seen in moderate cerebral dysfunction due to metabolic/hypoxic encephalopathy or medication effect, please correlate clinically Compared to the EEG obtained on 12/18/2024, this is a better EEG with less triphasic waveforms The EKG channel showed a regular heart rate of 78 per minute [place] [address] LOULOU PAGE MD Dec 21, 2024 00:54
[2024-12-21 03:59] LABS: Hemoglobin 7.6 g/dL (12.2-16.2); Nucleated Red Blood Cells % 0.1 %
[2024-12-21 04:01] LABS: Hematocrit 23.2 % (36.0-46.0); Mean Corpuscular Hemoglobin 27.1 pg (28.0-32.0); Mean Corpuscular Volume 82.3 fL (80.0-100.0)
[2024-12-21 04:07] LABS: Alanine Aminotransferase 19 U/L (7-40); Alkaline Phosphatase 72 U/L (46-116); Anion Gap 12 (5-15); BUN/Creatinine Ratio 6.8 (10.0-20.0); Calcium 9.5 mg/dL (8.7-10.4); Carbon Dioxide 25 mmol/L (20-31); Chloride 99 mmol/L (98-107); Glucose 88 mg/dL (74-106); Magnesium 1.9 mg/dL (1.6-2.6); Potassium 3.6 mmol/L (3.5-5.1); Sodium 136 mmol/L (136-145); Total Protein 6.0 g/dL (5.7-8.2)
[2024-12-21 04:08] LABS: Albumin 3.6 g/dL (3.2-4.8); Bilirubin, Total 0.4 mg/dL (0.2-1.0)
[2024-12-21 04:14] LABS: Blood Urea Nitrogen 31 mg/dL (9-23)
[2024-12-21] MEDS: ACETAMINOPHEN 325 MG TAB PO PRN (05:18)
--- NOTE | 2024-12-21 09:25 | DVHPN2 ---
Progress Note - Dictate Date Seen: Dec 21, 2024 Has the PT tested + for MRSA If YES, has PT been informed?: No Medical Necessity Reason Pt with a Central, PICC or Fol: No Subjective Ms. Nunez is a 74 years old right-handed female with a history of hypertension, diabetes, AFib on Eliquis 2.5 mg b.i.d., ESRD on hemodialysis, breast cancer, colon cancer, she was transferred from the [facility] to the [facility] on 12/15/2024 with a chief complaint of altered mental status I saw on 12/28/2024 for ALOC (She also had right myoclonus jerk, she was mentally better on discharge) I have seen and examined the patient, I have talked to her nurse, and other medical staff, she is going through hemodialysis She is awake, oriented to person, place, she knows year, she follows verbal commands, but is confused, she speak with strong voice, I do not see myoclonus today Blood culture, 12/07/2024: No growth Urine culture, 12/07/2024: Negative UDS, 12/07/2024: Benzo Blood drug screening, 12/19/2024: Urinalysis, 12/07/2024: WBC: 5, urine leukocyte esterase: 2+ WBC/HB/PLT/MCV, 12/11/2024: 5.8/9.4/235/84.8, 12/17/2024: 5.1/8.6/233/83.5 PT/INR/PTT, 12/07/2024: 11.9/1.14/22.7 BUN/CR, 12/08/2024: 30/6.66, 12/17/2024: 13/4.38, 12/20/2019 5:30 a.m. 3/6.99 GFR, 12/08/24: 6 Glucose, 12/07/2024: 52, 68, 104, 61, 48, 12/08/2024: 42, 43, 12/12/24: 80, 10, < 10, 74, 12/13/2024: 90 HGB A1c, 12/07/2024: 3.8 Liver function tests, 12/08/2024: Unremarkable NH3 12/17/2024: < 10 ammonia, 12/18/2024: <10 TG/HDL/LDL/HDL, 12/07/2024: 83/156/51/91 Vitamin B12, 12/07/2024: 855 TSH, 12/07/24: 4.73 EEG, 12/18/2024: A remarkably abnormal EEG, with frequent triphasic waveforms EEG, 12/19/2024: A moderately abnormal EEG with her face waveforms. compared to the EEG obtained on 12/18/2024, this is a better EEG with less triphasic waveforms TTE, 12/09/2024: EF: 70% CT head, 12/11/2024: There is no evidence for acute intracranial hemorrhage, acute ischemic changes, mass, mass effect, or extra-axial fluid collection. There is no hydrocephalus or midline shift. There is no effacement of the cerebral sulci and basal subarachnoid cisterns. The calle-white matter differentiation is well maintained. CTA neck, head, 12/11/2024: Evaluation quantification of carotid narrowing slight difficult on this exam due to significant calcifications. Extensive right carotid bulb plaque resulting in severe luminal narrowing with near complete occlusion. Extensive left carotid bulb plaque resulting in grossly 50% luminal narrowing per NASCET criteria. Short segment of fibromuscular dysplasia involving the proximal/mid left extracranial internal carotid artery. Please note the accurate quantification of stenosis is difficult with CTA. If accurate assessment is warranted, catheter angiography is suggested MRI head, 12/12/2024: No acute intracranial abnormality seen. No evidence for acute infarct. Mild brain volume loss and chronic small vessel ischemic change. Small left inferior frontal scalp soft tissue swelling/hematoma formation MRI head, 12/17/2024: No acute MRI findings of the brain vital signs Vital Sign Date Time Temp Pulse Resp B/P (MAP) Pulse Ox O2 Delivery O2 Flow Rate FiO2 12/21/24 08:00 76 15 100 Nasal Cannula* 2 28 12/21/24 07:01 144/55 (84) 12/21/24 04:00 98.0 98.0 Total Intake and Output 12/20/24 12/20/24 12/21/24 15:00 23:00 07:00 Intake Total 611.336 ml 663.336 ml 941.336 ml Output Total 0 ml Balance 611.336 ml 663.336 ml 941.336 ml medications Current Medications Medications Dose Ordered Sig/Duncan Route Start Time Stop Time Status Last Admin Dose Admin Acetaminophen 650 mg Q6HP PRN PO 12/15/24 17:00 12/21/24 05:18 650 MG Diagnostic Test (Pha) 1 strip Q6HR 12/17/24 18:00 12/21/24 05:22 1 STRIP Insulin Human Regular FOLLOW SLIDING SCALE Q6HR SC 12/17/24 18:00 12/19/24 06:03 3 UNITS Amino Acids/ Electrolytes/ Dextrose 1,000 ml @ 41 mls/hr DAILY@2200 IV 12/17/24 22:00 12/20/24 21:49 41 MLS/HR Levetiracetam 200 mg/Sodium Chloride 52 ml @ 208 mls/hr Q12HR IV 12/19/24 22:00 12/20/24 22:05 208 MLS/HR Nicardipine/ Sodium Chloride 200 ml @ 50 mls/hr Q4H IV 12/19/24 12:45 12/20/24 22:54 50 MLS/HR Amiodarone HCl 250 ml @ 16.667 mls/ hr Q12H IV 12/20/24 08:00 12/20/24 22:54 16.667 MLS/HR Heparin Sodium (Porcine) 5,000 units Q12HR SC 12/20/24 10:00 12/20/24 21:40 5,000 UNITS Amiodarone HCl 200 mg Q12HR PO 12/21/24 10:00 UNV Hydralazine HCl 10 mg Q8HR PO 12/21/24 14:00 UNV Isosorbide Dinitrate 10 mg Q8HR PO 12/21/24 14:00 UNV Quetiapine Fumarate 25 mg TID PO 12/21/24 14:00 UNV objective General: the patient is well developed and nourished. No acute distress. MENTAL STATUS: Subjective SPEECH, LANGUAGE, HIGHER CORTICAL FUNCTION: No aphasia dysarthria CRANIAL NERVES: Pupils are equal, round and with sluggish light reaction. She has corneal reflexes and doll's eye. No son facial weakness. SENSATION: Okay to light touch in the pinprick MOTOR: Normal tone in the upper and lower extremity. Normal muscle bulk. No fasciculations. He moves the arms and legs, no obvious [id number] differences REFLEXES: Deep tendon reflexes are symmetrical. No pathological reflexes. CEREBELLAR/COORDINATION: Deferred GAIT/STATION: deferred laboratory and microbiology Laboratory Tests 12/21/24 03:15 Test 12/21/24 03:15 Range/Units Serum Glucose 88 74-106 mg/dL Problem List Altered mental status, abnormal movement Likely metabolic encephalopathy with myoclonus Rule out seizure Metabolic encephalopathy secondary to chronic kidney failure, UTI Chronic kidney failure on hemodialysis Recently UTI A Fib Assessment/Plan Monitoring Supportive treatment ICU care EEG Eliquis 2.5 mg b.i.d. Cut down Keppra to 200 mg IV b.i.d. GI prophylaxis/Protonix Nephrology/hemodialysis More recommendation per clinical course This medical document was created using an electronic medical record system with [employer] dictation system. Although this document has been carefully reviewed, there may still be some phonetic and typographical errors. These areas are purely typographical due to imperfections of the software programs, and do not reflect any compromise in the patient's medical care. Prognosis poor Dietary Evaluation Review Comments: Nutrition Recommendation 1) Advance PN/TPN to meet >75% estimated needs 2) If feeding tube is placed. consider nepro carbstaedy @ 35ml/hr x 24hr. water flush 50ml Q6H. TF at goal volum provides 1512 kcal (100% energy needs), 68gm protein (100% protein needs), and free water 811 ml (including flush) 3) Advance to renal standard diet as medically feasible 4) Monitor NPO status, lab values, weight trend, and I/O Expected Outcomes/Goals: Intake to meet >75% estimated needs Lab values to improve Fu 2-3 days Plan discussed with: Other LOULOU PAGE MD Dec 21, 2024 09:25
[2024-12-21] MEDS: AMIODARONE HCL 200 MG TAB PO SCH (11:04)
--- OUTSIDE RECORDS SUMMARY | 2024-12-21 14:39 | XMS REPORT ---
Author Author Marisa Islas [email or web address] Organization Unknown Address Unknown Phone Unavailable Care Team Providers [facility] [place] Name Role Phone Rome Nath MD Unavailable Unavailable Procedures Procedure Date CRITICAL CARE FIRST HOUR INSERT NON-TUNNEL CV CATH CRITICAL CARE ADDL 30 MIN CRITICAL CARE FIRST HOUR CRITICAL CARE FIRST HOUR SUBSEQUENT HOSPITAL CARE HOSPITAL DISCHARGE DAY SUBSEQUENT HOSPITAL CARE SUBSEQUENT HOSPITAL CARE Shared Visit INITIAL HOSPITAL CARE SUBSEQUENT HOSPITAL CARE PreHyper Hyper BP Rdng & F/u ELECTROCARDIOGRAM REPORT EMERGENCY DEPT VISIT INPATIENT CONSULTATION INITIAL HOSPITAL CARE ELECTROCARDIOGRAM REPORT EMERGENCY DEPT VISIT Advance Directives Directive Yes / No Effective Date File Name No Information Encounters Encounter Description Practice Location Reason(s) For Visit Diagnoses Date Provider Providers Copied on Encounter CRITICAL CARE FIRST HOUR [facility], [address] [facility] [place] [place] [id number] , [place] tel: [phone] [facility] In Patient MyoclonusOther seizuresBacterial meningoencephalitis and meningomyelitis, not elsewhere classifiedBradycardi a, unspecifiedUnspecifi ed atrial fibrillationEnd stage renal diseaseUrinary tract infection, site not specifiedMetabolic encephalopathy 5 Portillo Peter. [address] [facility], [address], [place]. [phone] CRITICAL CARE FIRST HOUR [facility], [address] [facility] [place], [id number] , [place] tel: [phone] [facility] In Patient MyoclonusBacterial meningoencephalitis and meningomyelitis, not elsewhere classifiedOther seizuresBradycardia, unspecifiedUnspecifi ed atrial fibrillationEnd stage renal diseaseUrinary tract infection, site not specifiedMetabolic encephalopathy [address] Port[address]. [address], [place], [address], [place]. tel: [phone] CRITICAL CARE FIRST HOUR [facility], [address], [place], [place], [id number] , [place] tel: [phone] [facility] In Patient Bradycardia, unspecifiedUnspecifi ed atrial fibrillationEnd stage renal diseaseUrinary tract infection, site not specifiedMetabolic encephalopathy 5 Portillo Peter. [address], [place], [address], [place]. tel: [phone] SUBSEQUENT HOSPITAL CARE [facility], [address], [place], [place], [id number] , [place] tel: [phone] [facility] In Patient Type 2 diabetes mellitus without complicationsUnspeci fied atrial fibrillationEnd stage renal diseaseMetabolic encephalopathy 5 Sesar Dominguez. [address], [place], [place], [id number] , [place]. tel: [phone] HOSPITAL DISCHARGE DAY [facility], [address], [place], [place], [id number] , [place] tel: [phone] [facility] In Patient Type 2 diabetes mellitus without complicationsUnspeci fied atrial fibrillationEnd stage renal diseaseMetabolic encephalopathy [address]. [address], [place], [place], [id number] , [place]. tel: [phone] SUBSEQUENT HOSPITAL CARE [facility], [address], [place], [place], [id number] , [place] tel: [phone] [facility] In Patient Type 2 diabetes mellitus without complicationsUnspeci fied atrial fibrillationEnd stage renal diseaseMetabolic encephalopathy [address] Sesar Dominguez. [address], [place], [place], [id number] , [place]. tel: [phone] SUBSEQUENT HOSPITAL CARE [facility], [address], [place], [place], [id number] , [place] tel: [phone] [facility] In Patient Unspecified atrial fibrillationType 2 diabetes mellitus without complicationsEnd stage renal diseaseMetabolic encephalopathy [address] Sesar Dominguez. [address], [place], [place], [id number] , [place]. tel: [phone] Shared Visit [facility], [address], [place], [id number] , [place] tel: [phone] [facility] In Patient Type 2 diabetes mellitus without complicationsUnspeci fied atrial fibrillationEnd stage renal diseaseMetabolic encephalopathy [address] Sesar Dominguez. [address], [place], [place], [id number] , [place]. tel: [phone] SUBSEQUENT HOSPITAL CARE [facility], [address], [place], [id number] , [place] tel: [phone] [facility] In Patient Type 2 diabetes mellitus without complicationsUnspeci fied atrial fibrillationEnd stage renal diseaseMetabolic encephalopathy [address] Sesar Dominguez. [address], [place], [place], [id number] , [place]. tel: [phone] EMERGENCY DEPT VISIT [facility], [address], [place], [place], [id number] , [place] tel: [phone] [facility] ER No Information 8 Boston Cuadra. [address], [place], [id number] , [place]. tel: [phone] Referring Provider: Khalif Mead, [address], [place], [address] . tel:[phone] INPATIENT CONSULTATION [facility], [address], [place], [place], [id number] , [place] [phone] [facility] In Patient No Information 5 Patricia López. [address], [place], [id number] , [place]. [phone] Referring Provider: Alejandro Foreman, [address], [place], [address] . tel:[phone] INITIAL HOSPITAL CARE [facility], [address], [place], [id number] , [place] tel:[phone] [facility] In Patient No Information 5 Brian Alarcon. [address], [place], [place], [id number] , [place]. [phone] EMERGENCY DEPT VISIT [facility], [address], [place], [place], [id number] , [place] tel:[phone] [facility] ER No Information 5 Gabriela Sterling . [address], [place], [place], [id number] , [place]. [phone] Referring Provider: Asher Ochoa, [address], [place], [address] . tel:[phone] Family History Family Member Type Diagnosis Age At Onset No Information Payers Payer name Insurance type Covered alliance party ID Authoriza tijenifer(s) [facility] CI [id number] IE MediCal Direct CI [id number] [employer] [place] [id number] Social History Type Description Quantity Date Captured Comments Sex Female Smoking Status No Information Chief Complaint And Reason For Visit No Information Reason For Referral Reason For Referral Direct Message [employer] History Of Present Illness Encounter Date Complaint History Of Prese nt Illness No Information Functional Status Date Functional Assessmen t No Information Instructions Date Instruction Additional Infor mation No Information Assessments Type Assessment Date No Information Patient Care Teams Name Effective Dates (start - stop) Status Members No Information
--- NOTE | 2024-12-21 14:48 | DVHPN2 ---
Assessment/Plan Assessment/Plan progress note 74 F with afib on Eliquis, HTN, NIDDM, breast cancer and colon cancer, ESRD on HD TTS admitted for ALOC seen today, off nicardipine, fluctuating BP. will start PO meds, bridge with iv hydral, upping dose scheduled. c/w hd per renal. transfer to tele. start po feeding physical exam aox3 PERLLA 2mm follows command clear breath sounds s1 s2 humphrey abdomen soft lE edema labs ekg imaging reviewed Assessment and plan acute metabolic encephalopathy UTI? ESRD on HD afib on Eliquis sinus humphrey low susp of meningoencephalitis nonepileptic seizure? myoclonus HD per renal hold all meds clinimix blood drug screen hydralazine scheduled for bp bedside swallow diet puree dvt ppx therapeutic lovenox poor prognosis full code crit care time 35 minutes Plan discussed with: Patient My Orders Orders - CALEB VILLEGAS MD Procedure Category Date Status Time Amiodarone Tablet PHA 12/21/24 In Process (Cordarone Tablet) 10:00 Isosorbide Dinitrate PHA 12/21/24 In Process Tablet (Isordil Tab 14:00 Pureed DIET 12/21/24 Transmitted Breakfast Quetiapine Fumarate PHA 12/21/24 In Process Tablet (Seroquel Tab 14:00 Basic Metabolic Panel LAB 12/22/24 Verified 04:00 Complete Blood Count LAB 12/22/24 Verified 04:00 Hydralazine Injection PHA 12/21/24 Transmitted (Apresoline Inject 18:00 Transfer Orders XFER 12/21/24 Verified 14:47 Date of Service: Dec 21, 2024 Billing Provider: CALEB VILLEGAS MD Common Visit Codes: [id number] CARE 30-74 MIN CALEB VILLEGAS MD Dec 21, 2024 14:48
[2024-12-21] MEDS: ISOSORBIDE DINITRATE 10 MG TAB PO SCH (15:03)
[2024-12-21] MEDS: hydrALAZINE HCL 20 MG/ML VL IV SCH (17:47)
--- NOTE | 2024-12-21 20:27 | DVHPN2 ---
Progress Note - Dictate Date Seen: Dec 21, 2024 Has the PT tested + for MRSA If YES, has PT been informed?: No Medical Necessity Reason Pt with a Central, PICC or Fol: No Subjective Patient was seen and evaluated in follow up in ICU. Chart/events reviewed.Patient is stable off nicardipine drip. She is oriented to person, place, year. Able to follow verbal commands but is confused. Received dialysis today. vital signs Vital Sign Date Time Temp Pulse Resp B/P (MAP) Pulse Ox O2 Delivery O2 Flow Rate FiO2 12/21/24 17:47 154/60 12/21/24 16:56 Room Air* 0 21 12/21/24 16:30 98.4 77 16 100 98.4 Total Intake and Output 12/20/24 12/20/24 12/21/24 15:00 23:00 07:00 Intake Total 611.336 ml 663.336 ml 941.336 ml Output Total 0 ml Balance 611.336 ml 663.336 ml 941.336 ml medications Current Medications Medications Dose Ordered Sig/Duncan Route Start Time Stop Time Status Last Admin Dose Admin Acetaminophen 650 mg Q6HP PRN PO 12/15/24 17:00 12/21/24 15:00 650 MG Diagnostic Test (Pha) 1 strip Q6HR 12/17/24 18:00 12/21/24 17:50 1 STRIP Insulin Human Regular FOLLOW SLIDING SCALE Q6HR SC 12/17/24 18:00 12/19/24 06:03 3 UNITS Heparin Sodium (Porcine) 5,000 units Q12HR SC 12/20/24 10:00 12/21/24 11:08 5,000 UNITS Amiodarone HCl 200 mg Q12HR PO 12/21/24 10:00 12/21/24 11:04 200 MG Isosorbide Dinitrate 10 mg Q8HR PO 12/21/24 14:00 12/21/24 15:03 10 MG Quetiapine Fumarate 25 mg TID PO 12/21/24 14:00 12/21/24 15:04 25 MG Hydralazine HCl 20 mg Q6HR IV 12/21/24 18:00 12/21/24 17:47 20 MG Levetiracetam 150 mg/Sodium Chloride 51.5 ml @ 206 mls/hr QAM IV 12/22/24 07:00 objective Vitals and nursing notes reviewed General Appearance: In no acute distress. HEENT: Atraumatic,Mucous membr. moist/pink. Respiratory: Clear to auscultation, Normal air movement Cardiovascular: Normal S1, Normal S2, No murmurs Abdominal: Normal bowel sounds, Soft, No tenderness, No hepatospenomegaly Extremities: No clubbing, No cyanosis Skin: No rashes, No breakdown Neuro: Awake, oriented to person, place, year. Able to follow verbal commands, confused. laboratory and microbiology Laboratory Tests 12/21/24 03:15 Test 12/21/24 03:15 Range/Units Serum Glucose 88 74-106 mg/dL Problem List Metabolic encephalopathy ESRD on HD Hypertension Atrial fibrillation Right hemiparalysis Assessment/Plan Agree with current supportive medical care. Awaiting transfer to telemetry floor. Neurology consulted; care management deferred. HD- 12/21- UF 1.5L as tolerated. Epogen 10,000 u IV x once. Strict Intake/Output monitoring. Daily weight. Fluid restriction. Optimization of BP. Off nicardipine drip. Starting PO medications. IV Hydralazine prn. DVT prophylaxis with Heparin. Additional plan as per the hospital course. Dietary Evaluation Review Comments: Nutrition Recommendation 1) Advance PN/TPN to meet >75% estimated needs 2) If feeding tube is placed. consider nepro carbstaedy @ 35ml/hr x 24hr. water flush 50ml Q6H. TF at goal volum provides 1512 kcal (100% energy needs), 68gm protein (100% protein needs), and free water 811 ml (including flush) 3) Advance to renal standard diet as medically feasible 4) Monitor NPO status, lab values, weight trend, and I/O Expected Outcomes/Goals: Intake to meet >75% estimated needs Lab values to improve Fu 2-3 days Plan discussed with: Patient, Other (RN) TATYANA CHARLES DO Dec 21, 2024 20:26
[2024-12-21] MEDS: EPOETIN ALFA-EPBX 10,000 UNIT/1ML VIAL SC ONE (21:12)
[2024-12-22] VITALS (8 sets, daily range): BP systolic 129–147; BP diastolic 56–67; PULSE 68–86; RESP 17–19; TEMP 96.9–98.2; O2SAT 96–100
[2024-12-22 07:02] LABS: Hematocrit 23.1 % (36.0-46.0); Hemoglobin 7.8 g/dL (12.2-16.2); Mean Corpuscular Hemoglobin 27.3 pg (28.0-32.0); Mean Corpuscular Volume 81.3 fL (80.0-100.0); Nucleated Red Blood Cells % 0.1 %
[2024-12-22 07:15] LABS: Anion Gap 9 (5-15); Calcium 8.9 mg/dL (8.7-10.4); Carbon Dioxide 26 mmol/L (20-31); Potassium 4.4 mmol/L (3.5-5.1)
[2024-12-22 07:21] LABS: BUN/Creatinine Ratio 5.4 (10.0-20.0); Blood Urea Nitrogen 21 mg/dL (9-23); Glucose 75 mg/dL (74-106)
[2024-12-22 07:22] LABS: Chloride 93 mmol/L (98-107); Sodium 128 mmol/L (136-145)
[2024-12-22] MEDS: PANTOPRAZOLE 40 MG/10 ML VIAL INJ IV SCH (10:02)
[2024-12-22] MEDS: SODIUM CHL 0.9% IV SCH (10:02)
[2024-12-22] MEDS: LEVETIRACETAM IV SCH (10:02)
[2024-12-22] MEDS: MAALOX PLUS or MAALOX 30 ML PO SCH (12:18)
--- NOTE | 2024-12-22 19:10 | DVHPN2 ---
Progress Note - Dictate Date Seen: Dec 22, 2024 Has the PT tested + for MRSA If YES, has PT been informed?: No Medical Necessity Reason Pt with a Central, PICC or Fol: No Subjective Patient was seen and evaluated in follow up. No acute events overnight. No new complaints. Sitter at bedside. Patient is confused but cooperative with cares. vital signs Vital Sign Date Time Temp Pulse Resp B/P (MAP) Pulse Ox O2 Delivery O2 Flow Rate FiO2 12/22/24 18:14 131/62 12/22/24 16:39 98.2 77 18 99 98.2 12/22/24 08:00 Room Air* 0 21 Total Intake and Output 12/21/24 12/21/24 12/22/24 15:00 23:00 07:00 Intake Total 288.335 ml 1200 ml 705 ml Balance 288.335 ml 1200 ml 705 ml medications Current Medications Medications Dose Ordered Sig/Duncan Route Start Time Stop Time Status Last Admin Dose Admin Acetaminophen 650 mg Q6HP PRN PO 12/15/24 17:00 12/21/24 15:00 650 MG Diagnostic Test (Pha) 1 strip Q6HR 12/17/24 18:00 12/22/24 18:18 1 STRIP Insulin Human Regular FOLLOW SLIDING SCALE Q6HR SC 12/17/24 18:00 12/19/24 06:03 3 UNITS Heparin Sodium (Porcine) 5,000 units Q12HR SC 12/20/24 10:00 12/22/24 10:13 5,000 UNITS Amiodarone HCl 200 mg Q12HR PO 12/21/24 10:00 12/22/24 10:03 200 MG Isosorbide Dinitrate 10 mg Q8HR PO 12/21/24 14:00 12/22/24 06:18 10 MG Quetiapine Fumarate 25 mg TID PO 12/21/24 14:00 12/22/24 14:19 25 MG Hydralazine HCl 20 mg Q6HR IV 12/21/24 18:00 12/22/24 18:14 20 MG Levetiracetam 150 mg/Sodium Chloride 51.5 ml @ 206 mls/hr QAM IV 12/22/24 07:00 12/22/24 10:02 206 MLS/HR Pantoprazole Sodium 40 mg DAILY IV 12/22/24 10:00 12/22/24 10:02 40 MG Al Hydrox/Mg Hydrox/Simethicone 30 ml Q6HR PO 12/22/24 12:00 12/22/24 18:14 30 ML objective Vitals and nursing notes reviewed General Appearance: In no acute distress. HEENT: Atraumatic,Mucous membr. moist/pink. Respiratory: Clear to auscultation, Normal air movement Cardiovascular: Normal S1, Normal S2, No murmurs Abdominal: Normal bowel sounds, Soft, No tenderness, No hepatospenomegaly Extremities: No clubbing, No cyanosis Skin: No rashes, No breakdown Neuro: Awake, oriented to person, place, year. Able to follow verbal commands, confused. laboratory and microbiology Laboratory Tests 12/22/24 06:18 Test 12/22/24 06:18 Range/Units Serum Glucose 75 74-106 mg/dL Problem List Metabolic encephalopathy ESRD on HD Hypertension Atrial fibrillation Right hemiparalysis Assessment/Plan Agree with current supportive medical care. Neurology consulted. Keppra reduced to 150 mg IV qAM. No dialysis today. Next HD 12/23. Strict Intake/Output monitoring. Daily weight. Fluid restriction. Home medications resumed. DVT prophylaxis with Heparin. Additional plan as per the hospital course. Dietary Evaluation Review Comments: Nutrition Recommendation 1) Advance PN/TPN to meet >75% estimated needs 2) If feeding tube is placed. consider nepro carbstaedy @ 35ml/hr x 24hr. water flush 50ml Q6H. TF at goal volum provides 1512 kcal (100% energy needs), 68gm protein (100% protein needs), and free water 811 ml (including flush) 3) Advance to renal standard diet as medically feasible 4) Monitor NPO status, lab values, weight trend, and I/O Expected Outcomes/Goals: Intake to meet >75% estimated needs Lab values to improve Fu 2-3 days Plan discussed with: Patient, Other (RN) TATYANA CHARLES DO Dec 22, 2024 19:10
--- NOTE | 2024-12-22 19:45 | DVHPN2 ---
Assessment/Plan Assessment/Plan progress note 74 F with afib on Eliquis, HTN, NIDDM, breast cancer and colon cancer, ESRD on HD TTS admitted for ALOC. htn on nicardipine, now off nicardipine, fluctuating BP. started on PO meds, bridge with iv hydral, upping dose scheduled. start po feeding seen today, mental status baseline, started on seroquel. titrate antihtn, pt physical exam aox3 PERLLA 2mm follows command clear breath sounds s1 s2 humphrey abdomen soft lE edema labs ekg imaging reviewed Assessment and plan acute metabolic encephalopathy UTI? ESRD on HD afib on Eliquis sinus humphrey low susp of meningoencephalitis nonepileptic seizure? myoclonus HD per renal hold all meds clinimix dc blood drug screen hydralazine scheduled for bp, titrating down titrating up po bp meds bedside swallow diet puree dvt ppx therapeutic lovenox poor prognosis full code Plan discussed with: Patient, Daughter My Orders Orders - CALEB VILLEGAS MD Procedure Category Date Status Time Pantoprazole PHA 12/22/24 In Process (Protonix) 10:00 Alum & Mag PHA 12/22/24 In Process Hydrox-Simethicone 12:00 * Wound Consult CONS 12/22/24 Transmitted * Dietary Consult CONS 12/22/24 Transmitted 13:48 Date of Service: Dec 22, 2024 Billing Provider: CALEB VILLEGAS MD Common Visit Codes: [id number] INP/OBS CARE(HIGH) CALEB VILLEGAS MD Dec 22, 2024 19:45
[2024-12-23] VITALS (8 sets, daily range): BP systolic 128–161; BP diastolic 54–76; PULSE 72–88; RESP 16–18; TEMP 97.9–98.6; O2SAT 96–100
[2024-12-23 07:20] LABS: Hematocrit 23.2 % (36.0-46.0); Hemoglobin 7.5 g/dL (12.2-16.2); Mean Corpuscular Hemoglobin 26.3 pg (28.0-32.0); Mean Corpuscular Volume 81.1 fL (80.0-100.0); Nucleated Red Blood Cells % 0.3 %
[2024-12-23 07:35] LABS: Potassium 4.8 mmol/L (3.5-5.1)
[2024-12-23 07:36] LABS: Anion Gap 9 (5-15); Carbon Dioxide 27 mmol/L (20-31)
[2024-12-23 07:37] LABS: Calcium 8.8 mg/dL (8.7-10.4)
[2024-12-23 07:42] LABS: BUN/Creatinine Ratio 5.5 (10.0-20.0)
[2024-12-23 07:45] LABS: Blood Urea Nitrogen 27 mg/dL (9-23); Chloride 96 mmol/L (98-107); Glucose 71 mg/dL (74-106); Sodium 132 mmol/L (136-145)
--- NOTE | 2024-12-23 12:43 | DVHPN2 ---
Subjective Patient denies any symptoms Reviewed: Care Plan, H&P, Labs Changes from previous H/P or p: No Changes Eyes: No Pain, No Vision change, No Conjunctivae inflammation, No Eyelid inflammation, No Other, No Redness ENT: No Ear pain, No Ear discharge, No Nose pain, No Nose discharge, No Nose congestion, No Mouth pain, No Mouth swelling, No Throat pain, No Throat swelling, No Other Cardiovascular: No Chest Pain, No Palpitations, No Orthopnea, No Paroxysmal Noc. Dyspnea, No Edema, No Lt Headedness, No Other Respiratory: No Cough, No Dry, No Shortness of breath, No SOB with excertion, No Wheezing, No Hemoptysis, No Pleuritic Pain, No Sputum, No Other Gastrointestinal: No Nausea, No Vomiting, No Abdominal Pain, No Diarrhea, No Constipation, No Melena, No Hematochezia, No Other Genitourinary: No Dysuria, No Frequency, No Incontinence, No Hematuria, No Retention, No Other Musculoskeletal: No other, No neck pain, No shoulder pain, No arm pain, No back pain, No hand pain, No leg pain, No foot pain Skin: No Rash, No Lesions, No Jaundice, No Bruising, No Other Objective Vitals Vital Signs Date Time Temp Pulse Resp B/P (MAP) Pulse Ox O2 Delivery O2 Flow Rate FiO2 12/23/24 09:00 97.9 77 18 128/63 (84) 100 97.9 12/23/24 08:00 Room Air* 0 21 Intake/Output Intake and Output 12/23/24 07:00 Intake Total 706.5 ml Output Total 1 ml Balance 705.5 ml Intake Oral 655 ml IV Total 51.5 ml Output Urine Total 1 ml # Voids 1 # Bowel Movements 3 General Appearance: Alert, Oriented X3, Cooperative, No acute distress, Other (oriented times one/ ) HEENT: Other (bruising around left eye- chronic since last admission) Neck: Other (no neck stiffness/pupils pin point lt > rt) Lungs: Clear to auscultation Cardiovascular: Regular rate, Normal S1, Normal S2 Abdomen: Normal bowel sounds, Soft, No tenderness, No hepatospenomegaly Musculoskeletal: Normal sensory function, Other (power rt ue 5/5/lt ue3-4/5/le unable to asses does not comprehend) Extremities: No edema Neuro: Normal tone, Sensation intact, Cranial nerves 3-12 NL, Other (strength rt ue5/5/lt ue 3/5/lower extremities unable to asses le-is not comprehending//talks but not coherent) Skin: Dry, Intact Psych/Mental Status: Mood NL, Other (alert but confused) Medications Current Medications Medications Dose Ordered Sig/Duncan Route Start Time Stop Time Status Last Admin Dose Admin Acetaminophen 650 mg Q6HP PRN PO 12/15/24 17:00 12/23/24 12:10 650 MG Diagnostic Test (Pha) 1 strip Q6HR 12/17/24 18:00 12/23/24 10:50 1 STRIP Insulin Human Regular FOLLOW SLIDING SCALE Q6HR SC 12/17/24 18:00 12/19/24 06:03 3 UNITS Heparin Sodium (Porcine) 5,000 units Q12HR SC 12/20/24 10:00 12/23/24 08:54 5,000 UNITS Amiodarone HCl 200 mg Q12HR PO 12/21/24 10:00 12/23/24 08:51 200 MG Isosorbide Dinitrate 10 mg Q8HR PO 12/21/24 14:00 12/23/24 05:13 10 MG Quetiapine Fumarate 25 mg TID PO 12/21/24 14:00 12/23/24 05:14 25 MG Levetiracetam 150 mg/Sodium Chloride 51.5 ml @ 206 mls/hr QAM IV 12/22/24 07:00 12/23/24 08:36 206 MLS/HR Pantoprazole Sodium 40 mg DAILY IV 12/22/24 10:00 12/23/24 08:49 40 MG Al Hydrox/Mg Hydrox/Simethicone 30 ml Q6HR PO 12/22/24 12:00 12/23/24 11:00 30 ML Hydralazine HCl 25 mg Q8HR PO 12/22/24 22:00 12/23/24 05:14 25 MG Laboratory Results Laboratory Tests 12/23/24 05:45 Chemistry Test 12/23/24 05:45 Calcium Level 8.8 mg/dL (8.7-10.4) Labs and/or images reviewed: Labs reviewed by me, Image(s) reviewed by me Assessment/Plan Assessment/Plan Impression: -acute metabolic encephalopathy -? UTI -ESRD with hemodialysis -atrial fibrillation -? Nonepileptic seizures -myoclonus Plan: -continue hemodialysis -MRI CT of the brain negative -physical therapy -nephrology consultation -social service consultation for DC planning -physical therapy Total time spent with patient discussing and formulating plan of care: 35 minutes. This medical document was created using an electronic medical record system with [employer] dictation system. Although this document has been carefully reviewed, there may still be some phonetic and typographical errors. These areas are purely typographical due to imperfections of the software programs, and do not reflect any compromise in the patient's medical care. Plan discussed with: Patient, Other (RN) Date of Service: Dec 23, 2024 Billing Provider: REX MEIER NP Common Visit Codes: [id number] INP/OBS CARE(HIGH) REX MEIER NP Dec 23, 2024 12:43
--- NOTE | 2024-12-23 16:59 | DVHPN2 ---
Progress Note - Dictate Date Seen: Dec 23, 2024 Has the PT tested + for MRSA If YES, has PT been informed?: No Medical Necessity Reason Pt with a Central, PICC or Fol: No Subjective Patient was seen and evaluated in follow up. No acute events overnight. Patient is A&Ox4. No new complaints. Hemodialysis scheduled. vital signs Vital Sign Date Time Temp Pulse Resp B/P (MAP) Pulse Ox O2 Delivery O2 Flow Rate FiO2 12/23/24 14:00 163/54 12/23/24 13:50 98.0 83 16 100 98.0 12/23/24 08:00 Room Air* 0 21 Total Intake and Output 12/22/24 12/22/24 12/23/24 15:00 23:00 07:00 Intake Total 51.5 ml 505 ml 150 ml Output Total 1 ml Balance 51.5 ml 505 ml 149 ml medications Current Medications Medications Dose Ordered Sig/Duncan Route Start Time Stop Time Status Last Admin Dose Admin Acetaminophen 650 mg Q6HP PRN PO 12/15/24 17:00 12/23/24 12:10 650 MG Diagnostic Test (Pha) 1 strip Q6HR 12/17/24 18:00 12/23/24 10:50 1 STRIP Insulin Human Regular FOLLOW SLIDING SCALE Q6HR SC 12/17/24 18:00 12/19/24 06:03 3 UNITS Heparin Sodium (Porcine) 5,000 units Q12HR SC 12/20/24 10:00 12/23/24 08:54 5,000 UNITS Amiodarone HCl 200 mg Q12HR PO 12/21/24 10:00 12/23/24 08:51 200 MG Isosorbide Dinitrate 10 mg Q8HR PO 12/21/24 14:00 12/23/24 14:00 10 MG Quetiapine Fumarate 25 mg TID PO 12/21/24 14:00 12/23/24 14:00 25 MG Levetiracetam 150 mg/Sodium Chloride 51.5 ml @ 206 mls/hr QAM IV 12/22/24 07:00 12/23/24 08:36 206 MLS/HR Pantoprazole Sodium 40 mg DAILY IV 12/22/24 10:00 12/23/24 08:49 40 MG Al Hydrox/Mg Hydrox/Simethicone 30 ml Q6HR PO 12/22/24 12:00 12/23/24 11:00 30 ML Hydralazine HCl 25 mg Q8HR PO 12/22/24 22:00 12/23/24 14:00 25 MG objective Vitals and nursing notes reviewed General Appearance: In no acute distress. HEENT: Atraumatic,Mucous membr. moist/pink. Respiratory: Clear to auscultation, Normal air movement Cardiovascular: Normal S1, Normal S2, No murmurs Abdominal: Normal bowel sounds, Soft, No tenderness, No hepatospenomegaly Extremities: No clubbing, No cyanosis Skin: No rashes, No breakdown Neuro: A&Ox4. No focal deficits. laboratory and microbiology Laboratory Tests 12/23/24 05:45 Test 12/23/24 05:45 Range/Units Serum Glucose 71 L 74-106 mg/dL Problem List Metabolic encephalopathy ESRD on HD Hypertension Atrial fibrillation Right hemiparalysis Assessment/Plan Agree with all current supportive medical care. Social service consultation for DC planning. Possible SNF placement. PT eval pending. HD- 12/23- UF 1.5L as tolerated. Epogen 10,000 u IV x once. Strict Intake/Output monitoring. Daily weight. Fluid restriction. Home medications resumed. Keppra per Neurology. DVT prophylaxis with Heparin. Additional plan as per the hospital course. Dietary Evaluation Review Comments: Nutrition Recommendation 1) Advance PN/TPN to meet >75% estimated needs 2) If feeding tube is placed. consider nepro carbstaedy @ 35ml/hr x 24hr. water flush 50ml Q6H. TF at goal volum provides 1512 kcal (100% energy needs), 68gm protein (100% protein needs), and free water 811 ml (including flush) 3) Advance to renal standard diet as medically feasible 4) Monitor NPO status, lab values, weight trend, and I/O Expected Outcomes/Goals: Intake to meet >75% estimated needs Lab values to improve Fu 2-3 days Plan discussed with: Patient, Other (RN) TATYANA CHARLES DO Dec 23, 2024 16:59
[2024-12-24] VITALS (7 sets, daily range): BP systolic 157–185; BP diastolic 56–78; PULSE 83–98; RESP 13–18; TEMP 98–98.7; O2SAT 96–100
[2024-12-24] MEDS: LIDOCAINE HCL 5 % TOP OINT 35 GM TOP ONE (08:06)
[2024-12-24] MEDS ORDERED: LABETALOL HCL 20 MG/4 ML VL IV PRN (13:15)
--- NOTE | 2024-12-24 13:37 | DVHPN2 ---
Subjective Patient denies any symptoms Reviewed: Care Plan, H&P, Labs Changes from previous H/P or p: No Changes Eyes: No Pain, No Vision change, No Conjunctivae inflammation, No Eyelid inflammation, No Other, No Redness ENT: No Ear pain, No Ear discharge, No Nose pain, No Nose discharge, No Nose congestion, No Mouth pain, No Mouth swelling, No Throat pain, No Throat swelling, No Other Cardiovascular: No Chest Pain, No Palpitations, No Orthopnea, No Paroxysmal Noc. Dyspnea, No Edema, No Lt Headedness, No Other Respiratory: No Cough, No Dry, No Shortness of breath, No SOB with excertion, No Wheezing, No Hemoptysis, No Pleuritic Pain, No Sputum, No Other Gastrointestinal: No Nausea, No Vomiting, No Abdominal Pain, No Diarrhea, No Constipation, No Melena, No Hematochezia, No Other Genitourinary: No Dysuria, No Frequency, No Incontinence, No Hematuria, No Retention, No Other Musculoskeletal: No other, No neck pain, No shoulder pain, No arm pain, No back pain, No hand pain, No leg pain, No foot pain Skin: No Rash, No Lesions, No Jaundice, No Bruising, No Other Objective Vitals Vital Signs Date Time Temp Pulse Resp B/P (MAP) Pulse Ox O2 Delivery O2 Flow Rate FiO2 12/24/24 08:49 98.0 84 18 157/64 (95) 98 98.0 12/23/24 20:00 Room Air* 0 21 Intake/Output Intake and Output 12/24/24 07:00 Intake Total 851.5 ml Balance 851.5 ml Intake Oral 800 ml IV Total 51.5 ml # Voids 4 # Bowel Movements 2 General Appearance: Alert, Oriented X3, Cooperative, No acute distress, Other (oriented times one/ ) HEENT: Atraumatic, PERRLA, Other (bruising around left eye- chronic since last admission) Neck: Other (no neck stiffness/pupils pin point lt > rt) Lungs: Clear to auscultation Cardiovascular: Regular rate, Normal S1, Normal S2 Abdomen: Normal bowel sounds, Soft, No tenderness, No hepatospenomegaly Musculoskeletal: Normal sensory function, Other (power rt ue 5/5/lt ue3-4/5/le unable to asses does not comprehend) Extremities: No edema Neuro: Normal tone, Sensation intact, Cranial nerves 3-12 NL, Other (strength rt ue5/5/lt ue 3/5/lower extremities unable to asses le-is not comprehending//talks but not coherent) Skin: Dry, Intact Psych/Mental Status: Mental status NL, Mood NL, Other (alert but confused) Medications Current Medications Medications Dose Ordered Sig/Duncan Route Start Time Stop Time Status Last Admin Dose Admin Acetaminophen 650 mg Q6HP PRN PO 12/15/24 17:00 12/23/24 21:20 650 MG Diagnostic Test (Pha) 1 strip Q6HR 12/17/24 18:00 12/24/24 12:00 1 STRIP Insulin Human Regular FOLLOW SLIDING SCALE Q6HR SC 12/17/24 18:00 12/19/24 06:03 3 UNITS Heparin Sodium (Porcine) 5,000 units Q12HR SC 12/20/24 10:00 12/24/24 13:07 5,000 UNITS Amiodarone HCl 200 mg Q12HR PO 12/21/24 10:00 12/24/24 12:43 200 MG Isosorbide Dinitrate 10 mg Q8HR PO 12/21/24 14:00 12/24/24 05:54 10 MG Quetiapine Fumarate 25 mg TID PO 12/21/24 14:00 12/24/24 05:53 25 MG Levetiracetam 150 mg/Sodium Chloride 51.5 ml @ 206 mls/hr QAM IV 12/22/24 07:00 12/23/24 08:36 206 MLS/HR Pantoprazole Sodium 40 mg DAILY IV 12/22/24 10:00 12/24/24 12:43 40 MG Al Hydrox/Mg Hydrox/Simethicone 30 ml Q6HR PO 12/22/24 12:00 12/23/24 23:27 30 ML Hydralazine HCl 50 mg Q8HR PO 12/24/24 14:00 Labetalol HCl 10 mg Q2HPRN PRN IV 12/24/24 13:15 Laboratory Results Laboratory Tests 12/23/24 05:45 Labs and/or images reviewed: Labs reviewed by me, Image(s) reviewed by me Assessment/Plan Assessment/Plan Impression: -acute metabolic encephalopathy -? UTI -ESRD with hemodialysis -atrial fibrillation -? Nonepileptic seizures -myoclonus Plan: -continue hemodialysis -MRI CT of the brain negative -physical therapy -nephrology consultation -social service consultation for DC planning -physical therapy -discharge to nursing home facility. With the patient and daughters are agreeable. Total time spent with patient discussing and formulating plan of care: 35 minutes. This medical document was created using an electronic medical record system with [employer] dictation system. Although this document has been carefully reviewed, there may still be some phonetic and typographical errors. These areas are purely typographical due to imperfections of the software programs, and do not reflect any compromise in the patient's medical care. Plan discussed with: Patient, Other (RN) My Orders Orders - REX MEIER NP Procedure Category Date Status Time Hydralazine Hcl PHA 12/24/24 In Process Tablet (Apresoline 14:00 Labetalol Hcl PHA 12/24/24 In Process (Labetalol Hcl) 13:15 Date of Service: Dec 24, 2024 Billing Provider: REX MEIER NP Common Visit Codes: [id number] INP/OBS CARE(HIGH) REX MEIER NP Dec 24, 2024 13:37
--- NOTE | 2024-12-24 18:44 | DVHPN2 ---
Progress Note - Dictate Date Seen: Dec 24, 2024 Has the PT tested + for MRSA If YES, has PT been informed?: No Medical Necessity Reason Pt with a Central, PICC or Fol: No Subjective Patient was seen and evaluated in follow up. No acute events overnight. Patient is awake, alert. No complaints. Planned for discharge to SNF. vital signs Vital Sign Date Time Temp Pulse Resp B/P (MAP) Pulse Ox O2 Delivery O2 Flow Rate FiO2 12/24/24 17:06 98.7 85 18 160/56 (90) 98 98.7 12/24/24 08:00 Room Air* 0 21 Total Intake and Output 12/23/24 12/23/24 12/24/24 15:00 23:00 07:00 Intake Total 51.5 ml 500 ml 300 ml Balance 51.5 ml 500 ml 300 ml medications Current Medications Medications Dose Ordered Sig/Duncan Route Start Time Stop Time Status Last Admin Dose Admin Acetaminophen 650 mg Q6HP PRN PO 12/15/24 17:00 12/23/24 21:20 650 MG Diagnostic Test (Pha) 1 strip Q6HR 12/17/24 18:00 12/24/24 18:15 1 STRIP Insulin Human Regular FOLLOW SLIDING SCALE Q6HR SC 12/17/24 18:00 12/19/24 06:03 3 UNITS Heparin Sodium (Porcine) 5,000 units Q12HR SC 12/20/24 10:00 12/24/24 13:07 5,000 UNITS Amiodarone HCl 200 mg Q12HR PO 12/21/24 10:00 12/24/24 12:43 200 MG Isosorbide Dinitrate 10 mg Q8HR PO 12/21/24 14:00 12/24/24 15:08 10 MG Quetiapine Fumarate 25 mg TID PO 12/21/24 14:00 12/24/24 15:08 25 MG Levetiracetam 150 mg/Sodium Chloride 51.5 ml @ 206 mls/hr QAM IV 12/22/24 07:00 12/23/24 08:36 206 MLS/HR Pantoprazole Sodium 40 mg DAILY IV 12/22/24 10:00 12/24/24 12:43 40 MG Al Hydrox/Mg Hydrox/Simethicone 30 ml Q6HR PO 12/22/24 12:00 12/24/24 18:15 30 ML Hydralazine HCl 50 mg Q8HR PO 12/24/24 14:00 12/24/24 15:08 50 MG Labetalol HCl 10 mg Q2HPRN PRN IV 12/24/24 13:15 objective Vitals and nursing notes reviewed General Appearance: In no acute distress. HEENT: Atraumatic,Mucous membr. moist/pink. Respiratory: Clear to auscultation, Normal air movement Cardiovascular: Normal S1, Normal S2, No murmurs Abdominal: Normal bowel sounds, Soft, No tenderness, No hepatospenomegaly Extremities: No clubbing, No cyanosis Skin: No rashes, No breakdown Neuro: A&Ox4. No focal deficits. laboratory and microbiology Laboratory Tests 12/23/24 05:45 Test 12/23/24 05:45 Range/Units Serum Glucose 71 L 74-106 mg/dL Problem List Metabolic encephalopathy ESRD on HD Hypertension Atrial fibrillation Right hemiparalysis Assessment/Plan Agree with all current supportive medical care. Awaiting SNF placement. PT as recommended. Dialyzed 12/23. No HD today. Strict Intake/Output monitoring. Daily weight. Fluid restriction. Home medications resumed. Keppra per Neurology. DVT prophylaxis with Heparin. Additional plan as per the hospital course. Dietary Evaluation Review Comments: Nutrition Recommendation 1) Advance PN/TPN to meet >75% estimated needs 2) If feeding tube is placed. consider nepro carbstaedy @ 35ml/hr x 24hr. water flush 50ml Q6H. TF at goal volum provides 1512 kcal (100% energy needs), 68gm protein (100% protein needs), and free water 811 ml (including flush) 3) Advance to renal standard diet as medically feasible 4) Monitor NPO status, lab values, weight trend, and I/O Expected Outcomes/Goals: Intake to meet >75% estimated needs Lab values to improve Fu 2-3 days Plan discussed with: Patient, Other (RN) TATYANA CHARLES DO Dec 24, 2024 18:44
--- NOTE | 2024-12-24 23:44 | DVHPN2 ---
Progress Note - Dictate Date Seen: Dec 24, 2024 Has the PT tested + for MRSA If YES, has PT been informed?: No Medical Necessity Reason Pt with a Central, PICC or Fol: No Subjective Ms. Nunez is a 74 years old right-handed female with a history of hypertension, diabetes, AFib on Eliquis 2.5 mg b.i.d., ESRD on hemodialysis, breast cancer, colon cancer, she was transferred from the [facility] to the [facility] on 12/15/2024 with a chief complaint of altered mental status I saw on 12/28/2024 for ALOC (She also had right myoclonus jerk, she was mentally better on discharge) I have seen and examined the patient, I have talked to her nurse, and sitter, she keeps improving, she is awake, oriented to person, place, she knows year, month, but he is confused from time to time during our conversation Again she company of pain in the right hip, and he said the pain is bad, which caused weakness in the right leg I do not see myoclonus today Blood culture, 12/07/2024: No growth Urine culture, 12/07/2024: Negative UDS, 12/07/2024: Benzo Blood drug screening, 12/19/2024: Urinalysis, 12/07/2024: WBC: 5, urine leukocyte esterase: 2+ WBC/HB/PLT/MCV, 12/11/2024: 5.8/9.4/235/84.8, 12/17/2024: 5.1/8.6/233/83.5 PT/INR/PTT, 12/07/2024: 11.9/1.14/22.7 BUN/CR, 12/08/2024: 30/6.66, 12/17/2024: 13/4.38, 12/20/2019 5:30 a.m. 3/6.99 GFR, 12/08/24: 6 Glucose, 12/07/2024: 52, 68, 104, 61, 48, 12/08/2024: 42, 43, 12/12/24: 80, 10, < 10, 74, 12/13/2024: 90 HGB A1c, 12/07/2024: 3.8 Liver function tests, 12/08/2024: Unremarkable NH3 12/17/2024: < 10 ammonia, 12/18/2024: <10 TG/HDL/LDL/HDL, 12/07/2024: 83/156/51/91 Vitamin B12, 12/07/2024: 855 TSH, 12/07/24: 4.73 EEG, 12/18/2024: A remarkably abnormal EEG, with frequent triphasic waveforms EEG, 12/19/2024: A moderately abnormal EEG with her face waveforms. compared to the EEG obtained on 12/18/2024, this is a better EEG with less triphasic waveforms TTE, 12/09/2024: EF: 70% CT head, 12/11/2024: There is no evidence for acute intracranial hemorrhage, acute ischemic changes, mass, mass effect, or extra-axial fluid collection. There is no hydrocephalus or midline shift. There is no effacement of the cerebral sulci and basal subarachnoid cisterns. The calle-white matter differentiation is well maintained. CT, right hip, 12/13/2024: 1. No evidence of acute bony abnormality. 2. Arthritic changes in the right hip as described above. 3. Fatty mass in the right hip / proximal thigh consistent with a benign lipoma. CTA neck, head, 12/11/2024: Evaluation quantification of carotid narrowing slight difficult on this exam due to significant calcifications. Extensive right carotid bulb plaque resulting in severe luminal narrowing with near complete occlusion. Extensive left carotid bulb plaque resulting in grossly 50% luminal narrowing per NASCET criteria. Short segment of fibromuscular dysplasia involving the proximal/mid left extracranial internal carotid artery. Please note the accurate quantification of stenosis is difficult with CTA. If accurate assessment is warranted, catheter angiography is suggested MRI head, 12/12/2024: No acute intracranial abnormality seen. No evidence for acute infarct. Mild brain volume loss and chronic small vessel ischemic change. Small left inferior frontal scalp soft tissue swelling/hematoma formation MRI head, 12/17/2024: No acute MRI findings of the brain vital signs Vital Sign Date Time Temp Pulse Resp B/P (MAP) Pulse Ox O2 Delivery O2 Flow Rate FiO2 12/24/24 21:40 166/88 12/24/24 21:00 98.5 83 18 98 98.5 12/24/24 20:00 Room Air* 0 21 Total Intake and Output 12/23/24 12/23/24 12/24/24 15:00 23:00 07:00 Intake Total 51.5 ml 500 ml 300 ml Balance 51.5 ml 500 ml 300 ml medications Current Medications Medications Dose Ordered Sig/Duncan Route Start Time Stop Time Status Last Admin Dose Admin Acetaminophen 650 mg Q6HP PRN PO 12/15/24 17:00 12/23/24 21:20 650 MG Diagnostic Test (Pha) 1 strip Q6HR 12/17/24 18:00 12/24/24 18:15 1 STRIP Insulin Human Regular FOLLOW SLIDING SCALE Q6HR SC 12/17/24 18:00 12/19/24 06:03 3 UNITS Heparin Sodium (Porcine) 5,000 units Q12HR SC 12/20/24 10:00 12/24/24 21:39 5,000 UNITS Amiodarone HCl 200 mg Q12HR PO 12/21/24 10:00 12/24/24 21:39 200 MG Isosorbide Dinitrate 10 mg Q8HR PO 12/21/24 14:00 12/24/24 21:40 10 MG Quetiapine Fumarate 25 mg TID PO 12/21/24 14:00 12/24/24 21:39 25 MG Levetiracetam 150 mg/Sodium Chloride 51.5 ml @ 206 mls/hr QAM IV 12/22/24 07:00 12/23/24 08:36 206 MLS/HR Pantoprazole Sodium 40 mg DAILY IV 12/22/24 10:00 12/24/24 12:43 40 MG Al Hydrox/Mg Hydrox/Simethicone 30 ml Q6HR PO 12/22/24 12:00 12/24/24 18:15 30 ML Hydralazine HCl 50 mg Q8HR PO 12/24/24 14:00 12/24/24 21:40 50 MG Labetalol HCl 10 mg Q2HPRN PRN IV 12/24/24 13:15 objective General: the patient is well developed and nourished. No acute distress. MENTAL STATUS: Subjective SPEECH, LANGUAGE, HIGHER CORTICAL FUNCTION: No aphasia dysarthria CRANIAL NERVES: Pupils are equal, round and with sluggish light reaction. She has corneal reflexes and doll's eye. No son facial weakness. SENSATION: Okay to light touch in the pinprick MOTOR: Normal tone in the upper and lower extremity. Normal muscle bulk. No fasciculations. He moves the arms and legs, with the right leg weaker REFLEXES: Deep tendon reflexes are symmetrical. No pathological reflexes. CEREBELLAR/COORDINATION: Deferred GAIT/STATION: deferred laboratory and microbiology Laboratory Tests 12/23/24 05:45 Test 12/23/24 05:45 Range/Units Serum Glucose 71 L 74-106 mg/dL Problem List Altered mental status, abnormal movement Likely metabolic encephalopathy with myoclonus Seizure, less likely Metabolic encephalopathy secondary to chronic kidney failure, UTI Chronic kidney failure on hemodialysis Recently UTI A Fib Right hip pain Assessment/Plan Monitoring Supportive treatment ICU care Eliquis 2.5 mg b.i.d. D/C Keppra to 150 mg IV QAM GI prophylaxis/Protonix Up to chair Physical therapy Nephrology/hemodialysis More recommendation per clinical course This medical document was created using an electronic medical record system with [employer] dictation system. Although this document has been carefully reviewed, there may still be some phonetic and typographical errors. These areas are purely typographical due to imperfections of the software programs, and do not reflect any compromise in the patient's medical care. Prognosis poor Dietary Evaluation Review Comments: Nutrition Recommendation 1) Advance PN/TPN to meet >75% estimated needs 2) If feeding tube is placed. consider nepro carbstaedy @ 35ml/hr x 24hr. water flush 50ml Q6H. TF at goal volum provides 1512 kcal (100% energy needs), 68gm protein (100% protein needs), and free water 811 ml (including flush) 3) Advance to renal standard diet as medically feasible 4) Monitor NPO status, lab values, weight trend, and I/O Expected Outcomes/Goals: Intake to meet >75% estimated needs Lab values to improve Fu 2-3 days Plan discussed with: Other LOULOU PAGE MD Dec 24, 2024 23:44
[2024-12-25] VITALS (7 sets, daily range): BP systolic 138–170; BP diastolic 60–111; PULSE 68–89; RESP 18–19; TEMP 97–99.4; O2SAT 93–100
[2024-12-25] MEDS ORDERED: EPOETIN ALFA-EPBX 10,000 UNIT/1ML VIAL IV ONE ×2 (07:30→21:00)
--- NOTE | 2024-12-25 10:20 | DVHPN2 ---
Progress Note - Dictate Date Seen: Dec 25, 2024 Has the PT tested + for MRSA If YES, has PT been informed?: No Medical Necessity Reason Pt with a Central, PICC or Fol: No Subjective Ms. Nunez is a 74 years old right-handed female with a history of hypertension, diabetes, AFib on Eliquis 2.5 mg b.i.d., ESRD on hemodialysis, breast cancer, colon cancer, she was transferred from the [facility] to the [facility] on 12/15/2024 with a chief complaint of altered mental status I saw on 12/28/2024 for ALOC (She also had right myoclonus jerk, she was mentally better on discharge) I have seen and examined the patient, I have talked to her nurse, and sitter, she keeps improving, she is awake, oriented to person, place, she knows year, month, date, but he is confused from time to time during our conversation I do not see myoclonus today She is going through hemodialysis Blood culture, 12/07/2024: No growth Urine culture, 12/07/2024: Negative UDS, 12/07/2024: Benzo Blood drug screening, 12/19/2024: Urinalysis, 12/07/2024: WBC: 5, urine leukocyte esterase: 2+ WBC/HB/PLT/MCV, 12/11/2024: 5.8/9.4/235/84.8, 12/17/2024: 5.1/8.6/233/83.5 PT/INR/PTT, 12/07/2024: 11.9/1.14/22.7 BUN/CR, 12/08/2024: 30/6.66, 12/17/2024: 13/4.38, 12/20/2019 5:30 a.m. 3/6.99 GFR, 12/08/24: 6 Glucose, 12/07/2024: 52, 68, 104, 61, 48, 12/08/2024: 42, 43, 12/12/24: 80, 10, < 10, 74, 12/13/2024: 90 HGB A1c, 12/07/2024: 3.8 Liver function tests, 12/08/2024: Unremarkable NH3 12/17/2024: < 10 ammonia, 12/18/2024: <10 TG/HDL/LDL/HDL, 12/07/2024: 83/156/51/91 Vitamin B12, 12/07/2024: 855 TSH, 12/07/24: 4.73 EEG, 12/18/2024: A remarkably abnormal EEG, with frequent triphasic waveforms EEG, 12/19/2024: A moderately abnormal EEG with her face waveforms. compared to the EEG obtained on 12/18/2024, this is a better EEG with less triphasic waveforms TTE, 12/09/2024: EF: 70% CT head, 12/11/2024: There is no evidence for acute intracranial hemorrhage, acute ischemic changes, mass, mass effect, or extra-axial fluid collection. There is no hydrocephalus or midline shift. There is no effacement of the cerebral sulci and basal subarachnoid cisterns. The calle-white matter differentiation is well maintained. CT, right hip, 12/13/2024: 1. No evidence of acute bony abnormality. 2. Arthritic changes in the right hip as described above. 3. Fatty mass in the right hip / proximal thigh consistent with a benign lipoma. CTA neck, head, 12/11/2024: Evaluation quantification of carotid narrowing slight difficult on this exam due to significant calcifications. Extensive right carotid bulb plaque resulting in severe luminal narrowing with near complete occlusion. Extensive left carotid bulb plaque resulting in grossly 50% luminal narrowing per NASCET criteria. Short segment of fibromuscular dysplasia involving the proximal/mid left extracranial internal carotid artery. Please note the accurate quantification of stenosis is difficult with CTA. If accurate assessment is warranted, catheter angiography is suggested MRI head, 12/12/2024: No acute intracranial abnormality seen. No evidence for acute infarct. Mild brain volume loss and chronic small vessel ischemic change. Small left inferior frontal scalp soft tissue swelling/hematoma formation MRI head, 12/17/2024: No acute MRI findings of the brain vital signs Vital Sign Date Time Temp Pulse Resp B/P (MAP) Pulse Ox O2 Delivery O2 Flow Rate FiO2 12/25/24 05:11 151/60 12/25/24 05:00 98.6 82 18 96 98.6 12/24/24 20:00 Room Air* 0 21 Total Intake and Output 12/24/24 12/24/24 12/25/24 15:00 23:00 07:00 Intake Total 3560 ml 200 ml Balance 3560 ml 200 ml medications Current Medications Medications Dose Ordered Sig/Duncan Route Start Time Stop Time Status Last Admin Dose Admin Acetaminophen 650 mg Q6HP PRN PO 12/15/24 17:00 12/23/24 21:20 650 MG Diagnostic Test (Pha) 1 strip Q6HR 12/17/24 18:00 12/25/24 00:03 1 STRIP Insulin Human Regular FOLLOW SLIDING SCALE Q6HR SC 12/17/24 18:00 12/19/24 06:03 3 UNITS Heparin Sodium (Porcine) 5,000 units Q12HR SC 12/20/24 10:00 12/24/24 21:39 5,000 UNITS Amiodarone HCl 200 mg Q12HR PO 12/21/24 10:00 12/24/24 21:39 200 MG Isosorbide Dinitrate 10 mg Q8HR PO 12/21/24 14:00 12/25/24 05:11 10 MG Quetiapine Fumarate 25 mg TID PO 12/21/24 14:00 12/25/24 05:11 25 MG Pantoprazole Sodium 40 mg DAILY IV 12/22/24 10:00 12/24/24 12:43 40 MG Al Hydrox/Mg Hydrox/Simethicone 30 ml Q6HR PO 12/22/24 12:00 12/24/24 18:15 30 ML Hydralazine HCl 50 mg Q8HR PO 12/24/24 14:00 12/25/24 05:11 50 MG Labetalol HCl 10 mg Q2HPRN PRN IV 12/24/24 13:15 objective General: the patient is well developed and nourished. No acute distress. MENTAL STATUS: Subjective SPEECH, LANGUAGE, HIGHER CORTICAL FUNCTION: No aphasia dysarthria CRANIAL NERVES: Pupils are equal, round and with sluggish light reaction. She has corneal reflexes and doll's eye. No son facial weakness. SENSATION: Okay to light touch in the pinprick MOTOR: Normal tone in the upper and lower extremity. Normal muscle bulk. No fasciculations. He moves the arms and legs, with the right leg weaker REFLEXES: Deep tendon reflexes are symmetrical. No pathological reflexes. CEREBELLAR/COORDINATION: Deferred GAIT/STATION: deferred laboratory and microbiology Laboratory Tests 12/23/24 05:45 Test 12/23/24 05:45 Range/Units Serum Glucose 71 L 74-106 mg/dL Problem List Altered mental status, abnormal movement Likely metabolic encephalopathy with myoclonus Seizure, less likely Metabolic encephalopathy secondary to chronic kidney failure, UTI Chronic kidney failure on hemodialysis Recently UTI A Fib Right hip pain Assessment/Plan Monitoring Supportive treatment Telemetry Eliquis 2.5 mg b.i.d. GI prophylaxis/Protonix Up to chair Physical therapy Nephrology/hemodialysis More recommendation per clinical course This medical document was created using an electronic medical record system with [email or web address] dictation system. Although this document has been carefully reviewed, there may still be some phonetic and typographical errors. These areas are purely typographical due to imperfections of the software programs, and do not reflect any compromise in the patient's medical care. Prognosis poor Dietary Evaluation Review Comments: Nutrition Recommendation 1) Advance PN/TPN to meet >75% estimated needs 2) If feeding tube is placed. consider nepro carbstaedy @ 35ml/hr x 24hr. water flush 50ml Q6H. TF at goal volum provides 1512 kcal (100% energy needs), 68gm protein (100% protein needs), and free water 811 ml (including flush) 3) Advance to renal standard diet as medically feasible 4) Monitor NPO status, lab values, weight trend, and I/O Expected Outcomes/Goals: Intake to meet >75% estimated needs Lab values to improve Fu 2-3 days Plan discussed with: Other LOULOU PAGE MD Dec 25, 2024 10:20
[2024-12-25] MEDS: EPOETIN ALFA-EPBX 10,000 UNIT/1ML VIAL IV ONE (11:26)
[2024-12-25] MEDS: SODIUM CHL 0.9% 1000 ML BAG XX ONE (11:29)
--- NOTE | 2024-12-25 14:41 | DVHDS2 ---
Discharge Summary Date of Admission Dec 15, 2024 at 16:28 Date of Discharge: Dec 24, 2024 Labs/Diagnostic Data: Laboratory Results Test 12/25/24 11:34 12/25/24 09:07 12/23/24 05:45 12/21/24 14:46 POC Glucose 81 mg/dl (70-106) Hepatitis B Surface Antigen Negative (Negative) White Blood Count 6.8 10^3/uL (4.4-10.8) Red Blood Count 2.86 10^6/uL (4.0-5.20) Hemoglobin 7.5 g/dL (12.2-16.2) Hematocrit 23.2 % (36.0-46.0) Mean Corpuscular Volume 81.1 fL (80.0-100.0) Mean Corpuscular Hemoglobin 26.3 pg (28.0-32.0) Mean Corpuscular Hemoglobin Concent 32.4 g/dL (32.0-36.0) Red Cell Distribution Width 17.1 % (11.8-14.3) Platelet Count 319 10^3/uL (140-450) Mean Platelet Volume 7.2 fL (6.9-10.8) Neutrophils (%) (Auto) 57.3 % (37.0-80.0) Lymphocytes (%) (Auto) 27.3 % (10.0-50.0) Monocytes (%) (Auto) 11.4 % (0.0-12.0) Eosinophils (%) (Auto) 3.4 % (0.0-7.0) Basophils (%) (Auto) 0.6 % (0.0-2.0) Neutrophils # (Auto) 3.9 10 ^3/uL (1.6-8.6) Lymphocytes # (Auto) 1.8 10 ^3/uL (0.4-5.4) Monocytes # (Auto) 0.8 10 ^3/uL (0-1.3) Eosinophils # (Auto) 0.2 10 ^3/uL (0-0.8) Basophils # (Auto) 0 10 ^3/uL (0-0.2) Nucleated Red Blood Cells 0.3 % Sodium Level 132 mmol/L (136-145) Potassium Level 4.8 mmol/L (3.5-5.1) Chloride Level 96 mmol/L (98-107) Carbon Dioxide Level 27 mmol/L (20-31) Anion Gap 9 (5-15) Blood Urea Nitrogen 27 mg/dL (9-23) Creatinine 4.87 mg/dL (0.550-1.02) Glomerular Filtration Rate Calc 9 mL/min (>90) BUN/Creatinine Ratio 5.5 (10.0-20.0) Serum Glucose 71 mg/dL (74-106) Calcium Level 8.8 mg/dL (8.7-10.4) Stool Occult Blood Positive (Negative) Stool Occult Blood Sample #3 (Negative) Test 12/21/24 03:15 12/19/24 19:43 12/19/24 16:52 12/19/24 11:20 Phosphorus Level 2.5 mg/dL (2.4-5.1) Magnesium Level 1.9 mg/dL (1.6-2.6) Total Bilirubin 0.4 mg/dL (0.2-1.0) Aspartate Amino Transferase (AST) 40 U/L (13-40) Alanine Aminotransferase (ALT) 19 U/L (7-40) Alkaline Phosphatase 72 U/L (46-116) Total Protein 6.0 g/dL (5.7-8.2) Albumin 3.6 g/dL (3.2-4.8) Plasma/Serum Blood Alcohol < 3.0 mg/dL (<10) Prothrombin Time 11.1 sec (9.3-11.8) Prothrombin Time INR 1.05 (0.9-1.15) Activated Partial Thromboplast Time 27.4 SEC (24.5-34.5) Test 12/19/24 03:00 12/18/24 20:27 12/18/24 19:37 12/18/24 18:06 Lactic Acid Level 1.3 mmol/L (0.4-2.0) Blood Gas Specimen Type Arterial Blood Gas Sample Site Right radial Blood Gas Patient Temperature 37.0 Arterial Blood Date Drawn Arterial Blood pH 7.433 (7.350-7.450) Arterial Blood Partial Pressure CO2 37.5 mmHg (32.0-45.0) Arterial Blood Partial Pressure O2 129.2 mmHg (83.0-108.0) Arterial Blood HCO3 24.5 mmol/L (21.0-28.0) Arterial Blood Oxygen Saturation 98.4 % (94.0-98.0) Arterial Blood Base Excess 0.4 mmol/L (-2.0-3.0) Arterial Blood Oxyhemoglobin 98.1 % (94.0-98.0) Arterial Blood Carboxyhemoglobin 0.2 % (0.5-1.5) Arterial Blood Methemoglobin 0.1 % (0.0-1.5) Manuel Test Modified Blood Gas Total Hemoglobin 10.20 g/dL (12.0-16.0) Blood Gas Liter Flow 3.00 Blood Gas Modality Nasal cannula FiO2 % 32.0 Ammonia < 10 umol/L (11-32) Prolactin 20.30 ng/mL (2.8-29.2) Test 12/18/24 18:00 12/17/24 08:45 12/17/24 08:42 12/17/24 05:05 Blood Gas Spontaneous Rate 22 Triglycerides Level 120 mg/dL (< 150) Venous Blood pH 7.412 (7.320-7.430) Venous Blood pCO2 at Patient Temp 42.1 mmHg (38.0-54.0) Venous Blood pO2 at Patient Temp 61.4 mmHg (23.0-48.0) Venous Blood HCO3 26.2 mmol/L (22.0-29.0) Venous Blood Base Excess 1.4 mmol/L (-2.0-3.0) Specimen Drawn By andres Hitchcock lab Differential Total Cells Counted 100.0 (100) Neutrophils % (Manual) 33 (37.0-80.0) Band Neutrophils % (Manual) 1 Lymphocytes % (Manual) 44 (10.0-50.0) Monocytes % (Manual) 16 (0-12) Eosinophils % (Manual) 6 (0-7) Basophils % (Manual) 0 (0.0-2.0) Metamyelocytes % (manual) 0 Myelocytes % (Manual) 0 Promyelocytes % (Manual) 0 Blast Cells % (Manual) 0 Reactive Lymphocytes 0 Platelet Estimate Adequate Test 12/16/24 05:15 Red Blood Cell Morphology Normal Other Laboratory Tests 12/23/24 05:45 Brief Hx & Hospital Course: 74 F with afib on Eliquis, HTN, NIDDM, breast cancer and colon cancer, ESRD on HD TTS admitted for ALOC. Started on HD initially no improvement, was evaluated for stroke due to difficulty walking. with worsening mentation and was difficult to arouse, only opening eyes with sternal rub. patient was transfered to ICU, was persistently hypertensive, with ongoing difficulty following commands, placed on NPO and started on nicardipine, workup has been negative, was later improved after multiple HD, back to baseline. restarted and optimized on PO meds, able to pass swallow and now eating and taking meds. stable to dc to SNF Condition at Discharge: Stable Final Diagnosis/Problems List Metabolic encephalopathy Discharge Disposition: Assisted Facility Discharge Instruct/Medications Diet: Renal Activity: No Restrictions, As Tolerated Follow Up/Referral: Per accepting provider Medications: Refer to medication reconciliation form Scheduled Alum & Mag Hydrox-Simethicone (Gi Cocktail), 30 ML PO Q6HR Amiodarone HCl (Amiodarone HCl), 200 MG PO Q12HR Apixaban Base (Eliquis), 2.5 MG PO BIDPC Ezetimibe-Simvastatin (Vytorin), 1 TAB OR HS, (Reported) Ferrous Sulfate (Ferrous Sulfate), 325 MG OR DAILY, (Reported) Hydralazine HCl (Hydralazine HCl), 50 MG PO Q8HR Isosorbide Dinitrate (Isosorbide Dinitrate), 10 MG PO Q8HR Lansoprazole (Lansoprazole), 30 MG OR DAILY, (Reported) Quetiapine Fumerate (Quetiapine Fumarate), 25 MG PO TID Sertraline Hcl (Sertraline Hcl), 50 MG OR DAILY, (Reported) Discharge Statement: "Patient was advised to return to the ER or call 911 if any headaches, dizziness, shortness of breath, chest pain, abdominal pain, bleeding, fevers, or worsening of medical condition. Patient was counseled about treatment plan, medications, possible side effects, patientverbalized understanding. All questions were answered to the best of my ability. This discharge took greater then 30 minutes in planning, reviewing documentation, counseling the patient, and discussing with other team members." ASSESSMENT ASSESSMENT Assessment Metabolic encephalopathy Date of Service: Dec 25, 2024 Billing Provider: CALEB VILLEGAS MD Common Visit Codes: 88694-PKS/OBS DISCH DAY >30min CALEB VILLEGAS MD Dec 25, 2024 14:41
--- NOTE | 2024-12-25 20:17 | DVHPN2 ---
Progress Note - Dictate Date Seen: Dec 25, 2024 Has the PT tested + for MRSA If YES, has PT been informed?: No Medical Necessity Reason Pt with a Central, PICC or Fol: No Subjective Patient was seen and evaluated in follow up. No acute events overnight. Patient is improving. Alert and oriented but is confused at times. Dialyzed today. vital signs Vital Sign Date Time Temp Pulse Resp B/P (MAP) Pulse Ox O2 Delivery O2 Flow Rate FiO2 12/25/24 17:00 98.0 82 19 157/71 (99) 95 98.0 12/25/24 08:00 Room Air* 0 21 Total Intake and Output 12/24/24 12/24/24 12/25/24 15:00 23:00 07:00 Intake Total 3560 ml 200 ml Balance 3560 ml 200 ml medications Current Medications Medications Dose Ordered Sig/Duncan Route Start Time Stop Time Status Last Admin Dose Admin Acetaminophen 650 mg Q6HP PRN PO 12/15/24 17:00 12/25/24 14:16 650 MG Diagnostic Test (Pha) 1 strip Q6HR 12/17/24 18:00 12/25/24 17:56 1 STRIP Insulin Human Regular FOLLOW SLIDING SCALE Q6HR SC 12/17/24 18:00 12/19/24 06:03 3 UNITS Heparin Sodium (Porcine) 5,000 units Q12HR SC 12/20/24 10:00 12/24/24 21:39 5,000 UNITS Amiodarone HCl 200 mg Q12HR PO 12/21/24 10:00 12/24/24 21:39 200 MG Isosorbide Dinitrate 10 mg Q8HR PO 12/21/24 14:00 12/25/24 14:15 10 MG Quetiapine Fumarate 25 mg TID PO 12/21/24 14:00 12/25/24 14:15 25 MG Pantoprazole Sodium 40 mg DAILY IV 12/22/24 10:00 12/24/24 12:43 40 MG Al Hydrox/Mg Hydrox/Simethicone 30 ml Q6HR PO 12/22/24 12:00 12/25/24 17:56 30 ML Hydralazine HCl 50 mg Q8HR PO 12/24/24 14:00 12/25/24 14:15 50 MG Labetalol HCl 10 mg Q2HPRN PRN IV 12/24/24 13:15 objective Vitals and nursing notes reviewed General Appearance: In no acute distress. HEENT: Atraumatic,Mucous membr. moist/pink. Respiratory: Clear to auscultation, Normal air movement Cardiovascular: Normal S1, Normal S2, No murmurs Abdominal: Normal bowel sounds, Soft, No tenderness, No hepatospenomegaly Extremities: No clubbing, No cyanosis Skin: No rashes, No breakdown Neuro: A&Ox4. No focal deficits. laboratory and microbiology Laboratory Tests 12/23/24 05:45 Test 12/23/24 05:45 Range/Units Serum Glucose 71 L 74-106 mg/dL Problem List Metabolic encephalopathy ESRD on HD Hypertension Atrial fibrillation Right hemiparalysis Assessment/Plan Agree with all current supportive medical care. SNF placement; pending bed availability. PT as recommended. HD- 12/25- UF 2L as tolerated. Strict Intake/Output monitoring. Daily weight. Fluid restriction. Home medications resumed. DVT prophylaxis with Heparin. Additional plan as per the hospital course. Dietary Evaluation Review Comments: Nutrition Recommendation 1) Advance PN/TPN to meet >75% estimated needs 2) If feeding tube is placed. consider nepro carbstaedy @ 35ml/hr x 24hr. water flush 50ml Q6H. TF at goal volum provides 1512 kcal (100% energy needs), 68gm protein (100% protein needs), and free water 811 ml (including flush) 3) Advance to renal standard diet as medically feasible 4) Monitor NPO status, lab values, weight trend, and I/O Expected Outcomes/Goals: Intake to meet >75% estimated needs Lab values to improve Fu 2-3 days Plan discussed with: Patient, Other (RN) TATYANA CHARLES DO Dec 25, 2024 20:17
[2024-12-26 01:00] VITALS: BP 156/74; PULSE 92; RESP 18; TEMP 99.1; O2SAT 98
[2024-12-26 05:07] VITALS: BP 156/74; PULSE 79; RESP 18; TEMP 99.1; O2SAT 98
[2024-12-26 08:00] VITALS: PULSE 84; RESP 16
[2024-12-26] MEDS ORDERED: AMIO200T13 PO (13:28)
[2024-12-26] MEDS ORDERED: ISOS10TA2 PO (13:28)
[2024-12-26] MEDS ORDERED: QUET1TAB11 PO (13:28)
[2024-12-26] MEDS ORDERED: GICOCKTAIL PO (13:28)
[2024-12-26] MEDS ORDERED: HYDR25TA87 PO (13:28)
[2024-12-26 13:30] VITALS: BP 146/76; PULSE 89; RESP 20; TEMP 98.8; O2SAT 98
--- NOTE | 2024-12-26 13:30 | DVHPN2 ---
Assessment/Plan Assessment/Plan progress note 74 F with afib on Eliquis, HTN, NIDDM, breast cancer and colon cancer, ESRD on HD TTS admitted for ALOC. htn on nicardipine, now off nicardipine, fluctuating BP. started on PO meds, bridge with iv hydral, upping dose scheduled. start po feeding seen today,pending dc to snif physical exam aox3 PERLLA 2mm follows command clear breath sounds s1 s2 humphrey abdomen soft lE edema labs ekg imaging reviewed Assessment and plan acute metabolic encephalopathy UTI? ESRD on HD afib on Eliquis sinus humphrey low susp of meningoencephalitis nonepileptic seizure? myoclonus HD per renal hold all meds clinimix dc blood drug screen hydralazine scheduled for bp, titrating down titrating up po bp meds bedside swallow diet puree dvt ppx therapeutic lovenox poor prognosis full code Plan discussed with: Patient My Orders Orders - CALEB VILLEGAS MD Procedure Category Date Status Time Mrsa Screen LEXII 12/26/24 Uncollected 08:48 * Sheet Tailer CONS 12/26/24 Transmitted Consult Transfer Orders XFER 12/26/24 Transmitted 10:40 Discontinue Tele ALAN 12/26/24 In Process 10:40 Date of Service: Dec 26, 2024 Billing Provider: CALEB VILLEGAS MD Common Visit Codes: 67075-RXN/OBS DISCH DAY >30min CALEB VILLEGAS MD Dec 26, 2024 13:30
[2024-12-26 14:52] LABS: Hemoglobin 7.4 g/dL (12.2-16.2)
[2024-12-26 14:53] LABS: Hematocrit 23.0 % (36.0-46.0); Mean Corpuscular Hemoglobin 26.3 pg (28.0-32.0); Mean Corpuscular Volume 82.0 fL (80.0-100.0)
[2024-12-26 15:00] LABS: Chloride 102 mmol/L (98-107); Potassium 4.1 mmol/L (3.5-5.1); Sodium 140 mmol/L (136-145)
[2024-12-26 15:01] LABS: Anion Gap 7 (5-15)
[2024-12-26 15:02] LABS: Calcium 9.1 mg/dL (8.7-10.4)
[2024-12-26 15:04] LABS: INR 1.03 (0.9-1.15); Partial Thromboplastin Time 28.6 SEC (24.5-34.5); Prothrombin Time 10.9 sec (9.3-11.8)
[2024-12-26 15:07] LABS: BUN/Creatinine Ratio 2.9 (10.0-20.0); Blood Urea Nitrogen 10 mg/dL (9-23); Carbon Dioxide 31 mmol/L (20-31); Glucose 87 mg/dL (74-106)
[2024-12-26 15:39] LABS: Total Cells Counted 100.0 (100)
[2024-12-26 16:55] VITALS: BP 149/70; PULSE 77; RESP 18; TEMP 97.9; O2SAT 100
--- NOTE | 2024-12-26 21:04 | DVHPN2 ---
Progress Note - Dictate Date Seen: Dec 26, 2024 Has the PT tested + for MRSA If YES, has PT been informed?: No Medical Necessity Reason Pt with a Central, PICC or Fol: No Subjective Patient was seen and evaluated in follow up. No acute events overnight. No new complaints. Patient is A&Ox3, back to baseline. She was able to pass swallow eval and is now eating and taking PO meds. Awaiting transfer to SNF. vital signs Vital Sign Date Time Temp Pulse Resp B/P (MAP) Pulse Ox O2 Delivery O2 Flow Rate FiO2 12/26/24 16:55 97.9 77 18 149/70 (96) 100 97.9 12/26/24 08:00 Room Air* 0 21 Total Intake and Output 12/25/24 12/25/24 12/26/24 15:00 23:00 07:00 Intake Total 500 ml 800 ml Balance 500 ml 800 ml medications Current Medications Medications Dose Ordered Sig/Duncan Route Start Time Stop Time Status Last Admin Dose Admin Acetaminophen 650 mg Q6HP PRN PO 12/15/24 17:00 12/26/24 16:22 650 MG Diagnostic Test (Pha) 1 strip Q6HR 12/17/24 18:00 12/26/24 11:52 1 STRIP Insulin Human Regular FOLLOW SLIDING SCALE Q6HR SC 12/17/24 18:00 12/19/24 06:03 3 UNITS Heparin Sodium (Porcine) 5,000 units Q12HR SC 12/20/24 10:00 12/26/24 10:12 5,000 UNITS Amiodarone HCl 200 mg Q12HR PO 12/21/24 10:00 12/26/24 10:03 200 MG Isosorbide Dinitrate 10 mg Q8HR PO 12/21/24 14:00 12/26/24 15:13 10 MG Quetiapine Fumarate 25 mg TID PO 12/21/24 14:00 12/26/24 15:13 25 MG Pantoprazole Sodium 40 mg DAILY IV 12/22/24 10:00 12/26/24 10:03 40 MG Al Hydrox/Mg Hydrox/Simethicone 30 ml Q6HR PO 12/22/24 12:00 12/26/24 11:55 30 ML Hydralazine HCl 50 mg Q8HR PO 12/24/24 14:00 12/26/24 15:13 50 MG Labetalol HCl 10 mg Q2HPRN PRN IV 12/24/24 13:15 objective Vitals and nursing notes reviewed General Appearance: In no acute distress. HEENT: Atraumatic,Mucous membr. moist/pink. Respiratory: Clear to auscultation, Normal air movement Cardiovascular: Normal S1, Normal S2, No murmurs Abdominal: Normal bowel sounds, Soft, No tenderness, No hepatospenomegaly Extremities: No clubbing, No cyanosis Skin: No rashes, No breakdown Neuro: A&Ox3. No focal deficits. laboratory and microbiology Laboratory Tests 12/26/24 14:30 Test 12/26/24 14:30 Range/Units Serum Glucose 87 74-106 mg/dL Problem List Metabolic encephalopathy ESRD on HD Hypertension Atrial fibrillation Right hemiparalysis Assessment/Plan DC planning in progress. SNF placement. Cleared for discharge from Nephrology standpoint. Last dialyzed 12/25. Resume outpatient HD with [facility]. Dietary Evaluation Review Comments: Nutrition Recommendation 1) Advance PN/TPN to meet >75% estimated needs 2) If feeding tube is placed. consider nepro carbstaedy @ 35ml/hr x 24hr. water flush 50ml Q6H. TF at goal volum provides 1512 kcal (100% energy needs), 68gm protein (100% protein needs), and free water 811 ml (including flush) 3) Advance to renal standard diet as medically feasible 4) Monitor NPO status, lab values, weight trend, and I/O Expected Outcomes/Goals: Intake to meet >75% estimated needs Lab values to improve Fu 2-3 days Plan discussed with: Patient, Other (RN) TATYANA CHARLES DO Dec 26, 2024 21:04
== END 2024-12-26 18:37 | DRG 70 ==
LOC: TELE-CENTR 16:28 → ICU WEST 12-18 18:34 → TELE-WESTW 12-21 16:21
PROVIDERS: ADMIT Student in an Organized Health Care Education/Training Program; ATTEND Student in an Organized Health Care Education/Training Program
PROC: 5A1D70Z Performance of Urinary Filtration, Intermittent, Less than 6 Hours Per Day (ICD-10-PCS; 2024-12-16)
PROC: 02HV33Z Insertion of Infusion Device into Superior Vena Cava, Percutaneous Approach (ICD-10-PCS; principal; 2024-12-19)
PROC: 5A1D70Z Performance of Urinary Filtration, Intermittent, Less than 6 Hours Per Day (ICD-10-PCS; 2024-12-19)
PROC: 5A1D70Z Performance of Urinary Filtration, Intermittent, Less than 6 Hours Per Day (ICD-10-PCS; 2024-12-21)
PROC: 5A1D70Z Performance of Urinary Filtration, Intermittent, Less than 6 Hours Per Day (ICD-10-PCS; 2024-12-23)
PROC: 5A1D70Z Performance of Urinary Filtration, Intermittent, Less than 6 Hours Per Day (ICD-10-PCS; 2024-12-25)
DX: G93.41 Metabolic encephalopathy (principal); N18.6 End stage renal disease; N39.0 Urinary tract infection, site not specified; I12.0 Hypertensive chronic kidney disease with stage 5 chronic kidney disease or end stage renal disease; I69.351 Hemiplegia and hemiparesis following cerebral infarction affecting right dominant side; I16.0 Hypertensive urgency; G25.3 Myoclonus; E11.22 Type 2 diabetes mellitus with diabetic chronic kidney disease; I48.0 Paroxysmal atrial fibrillation; E78.5 Hyperlipidemia, unspecified; F17.200 Nicotine dependence, unspecified, uncomplicated; R00.1 Bradycardia, unspecified; Z96.653 Presence of artificial knee joint, bilateral; D64.9 Anemia, unspecified; S00.12XA Contusion of left eyelid and periocular area, initial encounter; X58.XXXA Exposure to other specified factors, initial encounter; Z90.11 Acquired absence of right breast and nipple; Z79.01 Long term (current) use of anticoagulants; Z85.038 Personal history of other malignant neoplasm of large intestine; Z85.3 Personal history of malignant neoplasm of breast; Z83.3 Family history of diabetes mellitus; Z82.49 Family history of ischemic heart disease and other diseases of the circulatory system; Z82.3 Family history of stroke; Z81.8 Family history of other mental and behavioral disorders; Z80.0 Family history of malignant neoplasm of digestive organs; Z86.718 Personal history of other venous thrombosis and embolism; Z99.2 Dependence on renal dialysis; Z79.84 Long term (current) use of oral hypoglycemic drugs; Z75.1 Person awaiting admission to adequate facility elsewhere; Y93.89 Activity, other specified; Y92.89 Other specified places as the place of occurrence of the external cause; Y99.8 Other external cause status
CPT/HCPCS: 36415; 36556; 36600; 70450; 70551; 71045; 80048; 80053; 80307; 80320; 82140; 82270; 82805; 82962; 83605; 83735; 84100; 84146; 84478; 85007; 85025; 85027; 85610; 85730; 87081; 87340; 90935; 92610; 93005; 95819; 97110; 97163; G0378; J1815; J1885; J2470; J7060; P9047

== ENCOUNTER 2024-12-30 18:42 | Inpatient (IN) | payer MEDICARE, MEDICAID ==
[~2024-12-30] VITALS: Ht 160 cm; Wt 68.5 kg
[~2024-12-30 18:42] MED LIST changes: +AMIO200T13 PO; -BACL10TA OR; -CELE200C OR; +GICOCKTAIL PO; -HYDR-1421 OR; +HYDR25TA87 PO; +ISOS10TA2 PO; -MET25T PO; +QUET1TAB11 PO; -TRAM50TA2 OR; -TRIA25CA OR; -ZOLP10TA6 OR
[2024-12-30] MEDS: SODIUM CHLORIDE 0.9% 1,000 ML IVB ONE (19:15)
--- NOTE | 2024-12-30 19:59 | DVH ---
CHEST RADIOGRAPH Indication: SOB Technique: Single frontal view of the chest was obtained Comparison: XY CHEST PORTABLE on DOS: 12/19/24, XY CHEST PORTABLE on DOS: 12/19/24, XY CHEST PORTABLE on DOS: 12/19/24 FINDINGS: Lines and Tubes: None Lungs: No focal consolidation. Mild interstitial prominence. Pleura: No effusion. No pneumothorax. Cardiomediastinal contours: Mild cardiomegaly. Bones: No acute osseous abnormality. IMPRESSION: Cardiomegaly with mild pulmonary vascular congestion.
[2024-12-30 20:03] VITALS: PULSE 73; RESP 18; O2SAT 100
--- NOTE | 2024-12-30 20:04 | DVH ---
CT HEAD WITHOUT CONTRAST INDICATION: ALOC COMPARISON: MRI BRAIN HEAD WO CONTRAST on DOS: 12/17/24, CT STROKE CTH on DOS: 12/17/24, MRI BRAIN HE AD WO CONTRAST on DOS: 12/12/24, CT ANGIO HEAD/NECK on DOS: 12/11/24, CT BRAIN on DOS: 12/06/24 TECHNIQUE: CT of the head without intravenous contrast. RADIATION DOSE: CTDIvol: mGy, DLP: mGy*cm FINDINGS: No evidence of intracranial hemorrhage, infarct, extra-axial collection, mass effect, midline shift, herniation or hydrocephalus. Mild chronic white matter microvascular ischemic changes. Mild ventricul ar and sulcal enlargement related to mild cerebral volume loss. Visualized paranasal sinuses and mastoid air cells are clear. Soft tissues and osseous structures are unremarkable. IMPRESSION: No acute intracranial abnormality identified. Mild chronic white matter microvascular ischemic change and cerebral volume loss.
--- NOTE | 2024-12-30 20:08 | ED.PDOC ---
History of Present Illness HPI Comments 74 Female with history afib on Eliquis, HTN, NIDDM, breast cancer and colon cancer, ESRD on HD TTS. Patient resides at the care home facility. Patient discharged here last December 26 for metabolic encephalopathy. Patient was seen to be acting more confused than usual. She is noted to be hypotensive at seen at 83/40 mm Hg, and blood sugar of 124 Chief Complaint: Low Blood Pressure Time Seen by MD: 20:08 Primary Care Provider: aimeo Reviewed Notes: Field Appraiser Notes Allergies: Coded Allergies: NO KNOWN ALLERGIES (Unverified , 09/25/09) Home Meds Active Scripts Alum & Mag Hydrox-Simethicone (Gi Cocktail) 55 Ml Ss, 30 ML PO Q6HR for 30 Days, #1200 ML Prov:CALEB VILLEGAS MD 12/26/24 Quetiapine Fumerate (QUETIAPINE FUMARATE) 25 Mg Tab, 25 MG PO TID for 30 Days, #90 TAB Prov:CALEB VILLEGAS MD 12/26/24 Isosorbide Dinitrate (Isosorbide Dinitrate) 10 Mg Tab, 10 MG PO Q8HR for 30 Days, #90 TAB Prov:CALEB VILLEGAS MD 12/26/24 Hydralazine HCl (Hydralazine HCl) 25 Mg Tab, 50 MG PO Q8HR for 30 Days, #180 TAB Prov:CALEB VILLEGAS MD 12/26/24 Amiodarone HCl (Amiodarone HCl) 200 Mg Tab, 200 MG PO Q12HR for 30 Days, #60 TAB Prov:CALEB VILLEGAS MD 12/26/24 Apixaban Base (ELIQUIS) 2.5 Mg Tab, 2.5 MG PO BIDPC for 30 Days, #60 TAB Prov:CARLITOS CHACON MD 12/13/24 Reported Medications Sertraline Hcl (Sertraline Hcl) 50 Mg Tab, 50 MG OR DAILY 09/25/09 Ezetimibe-Simvastatin (Vytorin) 1 Tab Tab, 1 TAB OR HS 09/25/09 Lansoprazole (Lansoprazole) 30 Mg Cap, 30 MG OR DAILY 09/25/09 Ferrous Sulfate (Ferrous Sulfate) 325 Mg Tab, 325 MG OR DAILY 09/25/09 Information Source: Emergency Med Personnel Mode of Arrival: EMS Severity: Moderate Timing: Hours Duration: Since onset Past Medical History PAST MEDICAL HISTORY: Cancer, ESRD, High Lipids, HTN Surgical History (Other): Dialysis Wednesday SHAREPOINT ANALYST History: No Pertinent SHAREPOINT ANALYST History Family History Family History: Reviewed,noncontributory to illness Social History Smoker: Non-Smoker Alcohol: Occasionally Drugs: Denies Drug Use Lives In: Senior Living Unable to Obtain due to: Altered Mental Status Physical Exam General Appearance: No Apparent Distress, Normal HEENT: Normal ENT Inspection, Pharynx Normal, TMs Normal Neck: Full Range of Motion, Non-Tender, Normal, Normal Inspection Respiratory: Chest Non-Tender, Lungs Clear, No Accessory Muscle Use, No Respiratory Distress, Normal Breath Sounds Cardiovascular: No Edema, No JVD, No Murmur, No Gallop, Normal Peripheral Pulses, Regular Rate/Rhythm Breast Exam: Deferred Gastrointestinal: No Organomegaly, Non Tender, No Pulsatile Mass, Normal Bowel Sounds, Soft Genitalia: Deferred Pelvic: Deferred Rectal: Deferred Extremities: No calf tenderness, Normal capillary refill, Normal inspection, Normal range of motion, Non-tender, No pedal edema Musculoskeletal : Apperance: Normal Neurologic: Alert, vaccine customer representative II-XII nml as Tested, No Motor Deficits, Normal Affect, Normal Mood, No Sensory Deficits Cerebellar Function: Normal Reflexes: Normal Skin: Dry, Normal Color, Warm Lymphatic: No Adenopathy Was a procedure done? Was a procedure done?: Yes Sedation Sedation?: No Informed consent obtained: No Central Line Recorder of insertion practice: Printer'S Assistant Occupation of gis programmer: Attending Physician Indication: Hypotension, Inability to obtain IV Room prepared for procedure: Yes Printer'S Assistant performed hand hygien: Yes Maximal sterile barrier precau: Mask/Eye shield, Sterile gown, Cap, Sterlie gloves, Large sterlie drape Skin Preparation: Chlorhexidine gluconate Skin preparation completely dr: Yes Insertion site: Right Central line catheter type: Pos-swrurwom-eqy dialysis Number of lumens: 3 Central line exchanged over a: No Antiseptic ointment applied to: Yes Post Assessment: Proper placement Informed consent obtained: No Risks/benefits/alt described: No UTO Consent Emergency consent implied, altered mental status Differential Dx Considerations may include: Anemia, electrolyte imbalance, urinary tract infection, encephalopathy, hypotension, sepsis X-Ray, Labs, Meds, VS Vital Signs Date Time Temp Pulse Resp B/P (MAP) Pulse Ox O2 Delivery O2 Flow Rate FiO2 12/30/24 20:03 98.1 74 18 165/67 (99) 98 98.1 12/30/24 20:03 73 18 100 Nasal Cannula* 2 28 12/30/24 19:07 97.1 72 10 103/51 97 97.1 Lab Test 12/30/24 20:02 Range/Units White Blood Count 5.4 4.4-10.8 10^3/uL Red Blood Count 3.55 L 4.0-5.20 10^6/uL Hemoglobin 9.1 #L 12.2-16.2 g/dL Hematocrit 28.2 #L 36.0-46.0 % Mean Corpuscular Volume 79.5 L 80.0-100.0 fL Mean Corpuscular Hemoglobin 25.7 L 28.0-32.0 pg Mean Corpuscular Hemoglobin Concent 32.3 32.0-36.0 g/dL Red Cell Distribution Width 17.4 H 11.8-14.3 % Platelet Count 361 140-450 10^3/uL Mean Platelet Volume 6.4 L 6.9-10.8 fL Neutrophils (%) (Auto) 55.9 37.0-80.0 % Lymphocytes (%) (Auto) 22.8 10.0-50.0 % Monocytes (%) (Auto) 13.9 H 0.0-12.0 % Eosinophils (%) (Auto) 5.7 0.0-7.0 % Basophils (%) (Auto) 1.7 0.0-2.0 % Neutrophils # (Auto) 3.0 1.6-8.6 10 ^3/uL Lymphocytes # (Auto) 1.2 0.4-5.4 10 ^3/uL Monocytes # (Auto) 0.7 0-1.3 10 ^3/uL Eosinophils # (Auto) 0.3 0-0.8 10 ^3/uL Basophils # (Auto) 0.1 0-0.2 10 ^3/uL Nucleated Red Blood Cells 0.2 % Sodium Level 138 136-145 mmol/L Potassium Level 5.4 H 3.5-5.1 mmol/L Chloride Level 97 L 98-107 mmol/L Carbon Dioxide Level 29 20-31 mmol/L Anion Gap 12 5-15 Blood Urea Nitrogen 27 H 9-23 mg/dL Creatinine 5.43 #H 0.550-1.02 mg/dL Glomerular Filtration Rate Calc 8 >90 mL/min BUN/Creatinine Ratio 5.0 L 10.0-20.0 Serum Glucose 88 74-106 mg/dL Lactic Acid Level 1.3 0.4-2.0 mmol/L Calcium Level 9.1 8.7-10.4 mg/dL Magnesium Level 2.3 1.6-2.6 mg/dL Total Bilirubin 0.2 0.2-1.0 mg/dL Aspartate Amino Transferase (AST) 13 13-40 U/L Alanine Aminotransferase (ALT) 13 7-40 U/L Alkaline Phosphatase 98 46-116 U/L Total Protein 6.4 5.7-8.2 g/dL Albumin 3.7 3.2-4.8 g/dL Time of 1ST Reevaluation: 20:05 Reevaluation 1ST: Unchanged Patient Education/Counseling: Other (Altered and confused) Family Education/Counseling: No Family Present SEPSIS Sepsis Screen Date sepsis recognized/suspect: Dec 30, 2024 Time Sepsis recognized/suspect: 1843 Recent Procedure: No On Antibiotic Therapy: No Respiratory Rate >20: No Heart Rate >90: No Temp<36 C (96.8 F) or >38.3 C: No SBP <90 or MAP <65 mmHG: No New Acute Mental Status Change: Yes Is the patient on CPAP, BIPAP,: No Physician Orders Blood Culture (12/30/24 19:15) Chest Portable (12/30/24 19:15) Head Without Contrast (12/30/24 19:15) Vital Signs Date Time Temp Pulse Resp B/P (MAP) Pulse Ox O2 Delivery O2 Flow Rate FiO2 12/30/24 20:03 98.1 74 18 165/67 (99) 98 98.1 12/30/24 20:03 73 18 100 Nasal Cannula* 2 28 12/30/24 19:07 97.1 72 10 103/51 97 97.1 Laboratory Tests Test 12/30/24 20:02 Lactic Acid Level 1.3 mmol/L (0.4-2.0) White Blood Count 5.4 10^3/uL (4.4-10.8) Departure 1 Departure Time of Disposition: 20:46 Impression: Primary Impression: Metabolic encephalopathy Additional Impressions: End stage renal disease on dialysis Hyperkalemia Hypotension Anemia of chronic disease Disposition: ADMITTED INPATIENT Condition: Guarded Discharged With: Self Comments 74-year-old female on dialysis now with diffuse mental status. CT of the head so some degenerative changes. On her lab review she has chronic renal failure with anemia of chronic disease and mild hyperkalemia of 5.4. I placed a femoral central line. Her blood pressure improved. However she is still quite somnolent on re-evaluation. Patient will need admission for supportive care and further workup. Critical Care Note Critical Care Time?: Yes (35 min-critical care time only) Stability Stability form required: No Heart Score Heart Score: Heart Score Response (Comments) Value History Moderate Suspicious 1 EKG Repolarization Disturb 1 Age >65 2 Risk Factors >3 or Hx ASHD 2 Troponin Normal limit 0 Total 6 I personally scribed for ANN MORRISON MD ([email or web address]) on 12/30/24 at 20:08. Electronically submitted by Juan Francisco Ospina ([email or web address]). ANN MORRISON MD Dec 30, 2024 20:08
[2024-12-30 20:17] LABS: Hematocrit 28.2 % (36.0-46.0); Hemoglobin 9.1 g/dL (12.2-16.2); Mean Corpuscular Hemoglobin 25.7 pg (28.0-32.0); Mean Corpuscular Volume 79.5 fL (80.0-100.0); Nucleated Red Blood Cells % 0.2 %
[2024-12-30 20:34] LABS: Alanine Aminotransferase 13 U/L (7-40); Albumin 3.7 g/dL (3.2-4.8); Alkaline Phosphatase 98 U/L (46-116); Anion Gap 12 (5-15); BUN/Creatinine Ratio 5.0 (10.0-20.0); Blood Urea Nitrogen 27 mg/dL (9-23); Calcium 9.1 mg/dL (8.7-10.4); Carbon Dioxide 29 mmol/L (20-31); Chloride 97 mmol/L (98-107); Glucose 88 mg/dL (74-106); Magnesium 2.3 mg/dL (1.6-2.6); Potassium 5.4 mmol/L (3.5-5.1); Sodium 138 mmol/L (136-145); Total Protein 6.4 g/dL (5.7-8.2)
[2024-12-30 20:35] LABS: Bilirubin, Total 0.2 mg/dL (0.2-1.0)
[2024-12-30] MEDS: AZITHROMYCIN 500MG/ 250ML 250 ML IV ONE (21:45)
[2024-12-30] MEDS: CEFEPIME 1GM/50ML 50 ML IV ONE (21:45)
[2024-12-30] MEDS: CEFEPIME 1GM/50ML 50 ML IV SCH (22:00)
--- NOTE | 2024-12-30 22:16 | DVH ---
CHEST RADIOGRAPH Indication: SOB Technique: Single frontal view of the chest was obtained COMPARISON: XY CHEST PORTABLE on DOS: 12/30/24; 19:35 hours FINDINGS: Lines and Tubes: None Lungs: Clear Pleura: No pleural effusion or pneumothorax. Cardiomediastinal contours: Heart size is at the upper limits of normal IMPRESSION: No acute abnormality demonstrated.
[2024-12-30 23:07] LABS: Base Excess 5.3 mmol/L (-2.0-3.0)
[2024-12-30 23:18] LABS: Magnesium 2.3 mg/dL (1.6-2.6); Triglycerides 92.0 mg/dL (< 150)
[2024-12-30 23:20] LABS: Cholesterol 169.0 mg/dL (< 200); INR 1.11 (0.9-1.15); Partial Thromboplastin Time 34.5 SEC (24.5-34.5); Prothrombin Time 11.6 sec (9.3-11.8)
[2024-12-30 23:28] LABS: HDL Cholesterol 87.0 mg/dL (40-59)
[2024-12-30 23:45] LABS: Lipase 23.0 U/L (12-53)
[2024-12-30 23:54] LABS: Urine Protein, UAD 1+ (Negative)
[2024-12-31] VITALS (29 sets, daily range): BP systolic 102–188; BP diastolic 42–120; PULSE 66–89; RESP 8–18; TEMP 97.8–98.4; O2SAT 89–100
--- NOTE | 2024-12-31 00:08 | DVHHPRES ---
History of Present Illness Resident Creating Document: CARMEN BARRETO RESIDENT History of Present Illness Marisa Nunez is a 74-year-old female who presents to the ED via EMS from specialized nursing facility due to progressive altered mental status. EMS noted patient to be hypotensive on site, prompting ER visit. Due to clinical status had to obtain history from EMR. Patient was recently discharged on December 26 for metabolic encephalopathy. Past medical history: Hypertension, diabetes noninsulin dependent, paroxysmal atrial fibrillation (chads Vasc 5) on Eliquis, ESRD on dialysis (Wednesday, and Wednesday, Dr. Wynn), diabetes mellitus, breast and colon cancer. Surgical history: Right knee replacement, colectomy, right mastectomy Family history: Noncontributory Social history: Patient was brought from specialized nursing facility. No history of smoking, alcohol, drug use. Next of kin daughter Allergies: Denies Home medication: Acetaminophen, benazepril, cephalexin, clonidine, Prempro, diphenhydramine, ferrous sulfate, folic acid, gabapentin, hydrochlorothiazide, hydroxychloroquine, ibuprofen, lansoprazole, metoprolol, naproxen, omeprazole, pravastatin, prednisolone, sertraline, trazodone Patient was examined at bedside today. Her [place] score is 14/15, she is alert oriented times 0. She is admitted for further evaluation and management. Past Medical History Per HPI Past Surgical History Per HPI Family History Per HPI Past Social History Per HPI Review of Systems Review of Systems Per HPI Allergies: Coded Allergies: NO KNOWN ALLERGIES (Unverified , 09/25/09) Medications Current Medications Medications Dose Ordered Sig/Duncan Route Start Time Stop Time Status Last Admin Dose Admin Azithromycin 250 ml @ 125 mls/hr HS IV 12/31/24 22:00 Cefepime HCl 50 ml @ 12.5 mls/hr DAILY IV 12/31/24 10:00 UNV Cefepime HCl 50 ml @ 12.5 mls/hr Q24H IV 12/31/24 21:00 Exam Vital Signs Vital Signs Date Time Temp Pulse Resp B/P (MAP) Pulse Ox O2 Delivery O2 Flow Rate FiO2 12/30/24 20:03 98.1 74 18 165/67 (99) 98 98.1 12/30/24 20:03 Nasal Cannula* 2 28 Exam Patient lying in bed, in no acute distress General: Hill, afebrile, mucosae are dry Cardiovascular: Normal S1 and S2. No murmurs, gallops or rubs Respiratory: Normal ventilation mechanics. Clear lung sounds on auscultation Abdomen: Soft, nontender, no organomegaly, normal bowel sounds MSK/skin: Mobilizes 4 limbs. Skin is dry and warm. Av fistula in left arm. Mastectomy of right breast with right upper arm lymphedema Neurological: Oriented in 0 spheres. No motor no sensitive deficits. Pupils are isocoric and reactive Labs/Xrays Labs Test 12/30/24 23:03 12/30/24 22:24 12/30/24 20:02 12/30/24 00:00 Range/Units Blood Gas Specimen Type Arterial Blood Gas Sample Site Left femoral Blood Gas Patient Temperature 37.0 Arterial Blood Date Drawn [id number] Arterial Blood pH 7.496 H 7.350-7.450 Arterial Blood Partial Pressure CO2 38.3 32.0-45.0 mmHg Arterial Blood Partial Pressure O2 90.9 83.0-108.0 mmHg Arterial Blood HCO3 28.9 H 21.0-28.0 mmol/L Arterial Blood Oxygen Saturation 96.8 94.0-98.0 % Arterial Blood Base Excess 5.3 H -2.0-3.0 mmol/L Arterial Blood Oxyhemoglobin 95.1 94.0-98.0 % Arterial Blood Carboxyhemoglobin 1.3 0.5-1.5 % Arterial Blood Methemoglobin 0.5 0.0-1.5 % Manuel Test N/a Blood Gas Total Hemoglobin 8.40 L 12.0-16.0 g/dL Blood Gas Modality Room air FiO2 % 21.0 Specimen Drawn By Evelyn norris Blood Gas Comments Femoral drawn by Prothrombin Time 11.6 9.3-11.8 sec Prothrombin Time INR 1.11 0.9-1.15 Activated Partial Thromboplast Time 34.5 24.5-34.5 SEC Phosphorus Level 4.6 2.4-5.1 mg/dL Magnesium Level 2.3 1.6-2.6 mg/dL Ammonia < 10 L 11-32 umol/L Triglycerides Level 92 < 150 mg/dL Cholesterol Level 169 < 200 mg/dL LDL Cholesterol 52 < 100 mg/dL HDL Cholesterol 87 H 40-59 mg/dL Lipase 23 12-53 U/L Thyroid Stimulating Hormone (TSH) 3.74 0.55-4.78 uIU/mL White Blood Count 5.4 4.4-10.8 10^3/uL Red Blood Count 3.55 L 4.0-5.20 10^6/uL Hemoglobin 9.1 #L 12.2-16.2 g/dL Hematocrit 28.2 #L 36.0-46.0 % Mean Corpuscular Volume 79.5 L 80.0-100.0 fL Mean Corpuscular Hemoglobin 25.7 L 28.0-32.0 pg Mean Corpuscular Hemoglobin Concent 32.3 32.0-36.0 g/dL Red Cell Distribution Width 17.4 H 11.8-14.3 % Platelet Count 361 140-450 10^3/uL Mean Platelet Volume 6.4 L 6.9-10.8 fL Neutrophils (%) (Auto) 55.9 37.0-80.0 % Lymphocytes (%) (Auto) 22.8 10.0-50.0 % Monocytes (%) (Auto) 13.9 H 0.0-12.0 % Eosinophils (%) (Auto) 5.7 0.0-7.0 % Basophils (%) (Auto) 1.7 0.0-2.0 % Neutrophils # (Auto) 3.0 1.6-8.6 10 ^3/uL Lymphocytes # (Auto) 1.2 0.4-5.4 10 ^3/uL Monocytes # (Auto) 0.7 0-1.3 10 ^3/uL Eosinophils # (Auto) 0.3 0-0.8 10 ^3/uL Basophils # (Auto) 0.1 0-0.2 10 ^3/uL Nucleated Red Blood Cells 0.2 % Sodium Level 138 136-145 mmol/L Potassium Level 5.4 H 3.5-5.1 mmol/L Chloride Level 97 L 98-107 mmol/L Carbon Dioxide Level 29 20-31 mmol/L Anion Gap 12 5-15 Blood Urea Nitrogen 27 H 9-23 mg/dL Creatinine 5.43 #H 0.550-1.02 mg/dL Glomerular Filtration Rate Calc 8 >90 mL/min BUN/Creatinine Ratio 5.0 L 10.0-20.0 Serum Glucose 88 74-106 mg/dL Lactic Acid Level 1.3 0.4-2.0 mmol/L Calcium Level 9.1 8.7-10.4 mg/dL Total Bilirubin 0.2 0.2-1.0 mg/dL Aspartate Amino Transferase (AST) 13 13-40 U/L Alanine Aminotransferase (ALT) 13 7-40 U/L Alkaline Phosphatase 98 46-116 U/L Total Protein 6.4 5.7-8.2 g/dL Albumin 3.7 3.2-4.8 g/dL SEPSIS Sepsis Screen Date sepsis recognized/suspect: Dec 30, 2024 Time Sepsis recognized/suspect: 2010 Recent Procedure: No On Antibiotic Therapy: No Respiratory Rate >20: No Heart Rate >90: No Temp<36 C (96.8 F) or >38.3 C: No SBP <90 or MAP <65 mmHG: No New Acute Mental Status Change: No Is the patient on CPAP, BIPAP,: No Physician Orders Blood Culture (12/30/24 19:15) Chest Portable (12/30/24 19:15) Head Without Contrast (12/30/24 19:15) Vitamin D, 25-Hydroxy (12/30/24 21:27) Vitamin B12 (12/30/24 21:27) Urinalysis (12/30/24 21:27) Drug Screen (12/30/24 21:27) Urine Bacterial Culture (12/30/24 21:27) Respiratory Culture W/ Gs (12/30/24 21:27) Chest Xray 1 View (12/30/24 21:27) *Dr. Joan Wynn (12/30/24 21:27) Complete Blood Count (12/31/24 04:00) Basic Metabolic Panel (12/31/24 04:00) Abg W/ Co-Ox (12/30/24 21:39) Azithromycin 500mg/ 250ml (Zithromax 50 (12/31/24 22:00) Electrocardigram (12/30/24 21:39) Insert/Manage Urinary Catheter QSHIFT (12/30/24 23:02) Cefepime 1gm/50ml (Maxipime 1gm/50ml) (12/31/24 21:00) Vital Signs Date Time Temp Pulse Resp B/P (MAP) Pulse Ox O2 Delivery O2 Flow Rate FiO2 12/30/24 20:03 98.1 74 18 165/67 (99) 98 98.1 12/30/24 20:03 73 18 100 Nasal Cannula* 2 28 12/30/24 19:07 97.1 72 10 103/51 97 97.1 Laboratory Tests Test 12/30/24 20:02 Lactic Acid Level 1.3 mmol/L (0.4-2.0) White Blood Count 5.4 10^3/uL (4.4-10.8) Medications Medications Dose Ordered Sig/Duncan Route Start Time Stop Time Status Last Admin Dose Admin Azithromycin 250 ml @ 125 mls/hr ONCE ONCE IV 12/30/24 21:45 12/30/24 23:44 DC 12/30/24 21:45 125 MLS/HR Cefepime HCl 50 ml @ 50 mls/hr ONCE ONCE IV 12/30/24 21:45 12/30/24 22:44 DC 12/30/24 21:45 50 MLS/HR Assessment/Plan Assessment/Plan ASSESSMENT Metabolic encephalopathy probably secondary UTI Probable UTI Transient hypotension probably secondary to infection Ruled out hemorrhagic stroke End-stage renal disease on hemodialysis session (Wednesday, and Wednesday) Paroxysmal atrial fibrillation (chads Vasc 5) - secondary hypercoagulability state Diabetes mellitus type 2 Hypertension Breast cancer - status post right mastectomy Colon cancer - status post colectomy PLAN Admitted the patient to telemetry. Completed head CT which ruled out acute intracranial pathology. Presents ch ronic mild microvascular ischemic changes Consulted nephrology to continue hemodialysis session. Currently under empiric IV antibiotic (cefepime). Obtain nguyen cultures Indicated Galindo placement to obtain urine analysis and urine culture Repeat chest x-ray shows no acute pathology (clinically patient looks dry). We will not indicate IV fluids due to end-stage renal disease Discontinued antihypertensive medication at this time. Recommend avoiding fluid removal during dialysis session until blood pressure is more stable. Switch apixaban to subcutaneous heparin. Goals of care per previous EMR (could not discussed with patient, tried to call [facility] but she did not nut picker): Full code status Discussed plan with Dr. Islas and nurses: Admitted the patient to telemetry. Currently under empiric IV antibiotic (cefepime). Indicated Galindo placement and obtaining urine analysis and urine culture. Plan discussed with: Patient, Daughter (Tried to call [facility], but did not nut picker phone call), Other (nURSES) My Orders Orders - CARMEN BARRETO RESIDENT Procedure Category Date Status Time Vitamin D, 25-Hydroxy LAB 12/30/24 In Process 21:27 Vitamin B12 LAB 12/30/24 In Process 21:27 Urinalysis LAB 12/30/24 In Process 21:27 Drug Screen LAB 12/30/24 In Process 21:27 Urine Bacterial LEXII 12/30/24 In Process Culture 21:27 Respiratory Culture LEXII 12/30/24 Logged W/ Gs 21:27 Chest Xray 1 View XY 12/30/24 Resulted 21:27 *Dr. Joan Wynn CONS 12/30/24 Transmitted 21:27 Complete Blood Count LAB 12/31/24 Logged 04:00 Basic Metabolic Panel LAB 12/31/24 Logged 04:00 Abg W/ Co-Ox RT 12/30/24 Logged 21:39 Azithromycin 500mg/ PHA 12/31/24 In Process 250ml (Zithromax 50 22:00 Electrocardigram EKG 12/30/24 Logged 21:39 Insert/Manage Urinary ALAN 12/30/24 In Process Catheter 23:02 Cefepime 1gm/50ml PHA 12/31/24 In Process (Maxipime 1gm/50ml) 21:00 Date of Service: Dec 31, 2024 Billing Provider: ORIN ISLAS MD Common Visit Codes: [id number] INP/OBS CARE (HIGH) Secondary Visit Codes: [id number] CARE PLAN 30 MINUTES CARMEN BARRETO RESIDENT Dec 31, 2024 00:08
[2024-12-31 00:10] LABS: Opiate Scree,Urine Neg (NEGATIVE)
[2024-12-31 00:15] LABS: Barbiturate Scree,Urine Neg (NEGATIVE)
[2024-12-31] MEDS ORDERED: ONDANSETRON HCL 4 MG/2 ML VIAL IV PRN (00:15)
[2024-12-31 00:16] LABS: Amphetamine Screen, Urine Neg (NEGATIVE); Benzodiazephine Screen, Urine Neg (NEGATIVE); Cannabinoid Screen, Urine Neg (NEGATIVE); Cocaine Screen, Urine Neg (NEGATIVE); Phencyclidine Screen, Urine Neg (NEGATIVE)
[2024-12-31 06:22] LABS: Hemoglobin 8.1 g/dL (12.2-16.2)
[2024-12-31 06:24] LABS: Chloride 98 mmol/L (98-107); Sodium 137 mmol/L (136-145)
[2024-12-31 06:25] LABS: Anion Gap 11 (5-15); Calcium 9.1 mg/dL (8.7-10.4); Carbon Dioxide 28 mmol/L (20-31); Hematocrit 24.9 % (36.0-46.0); Mean Corpuscular Hemoglobin 26.2 pg (28.0-32.0); Mean Corpuscular Volume 80.2 fL (80.0-100.0); Nucleated Red Blood Cells % 0.2 %
[2024-12-31 06:30] LABS: BUN/Creatinine Ratio 4.6 (10.0-20.0)
[2024-12-31 06:35] LABS: Blood Urea Nitrogen 24 mg/dL (9-23); Glucose 73 mg/dL (74-106); Potassium 5.1 mmol/L (3.5-5.1)
[2024-12-31] MEDS ORDERED: CEFEPIME 1GM/50ML 50 ML IV SCH (10:00)
[2024-12-31] MEDS: HEPARIN SODIUM (PORCINE) 5000 UNITS/ML 1ML VIAL SC SCH (11:04)
[2024-12-31 13:38] LABS: Hematocrit 26.9 % (36.0-46.0); Hemoglobin 8.6 g/dL (12.2-16.2)
--- NOTE | 2024-12-31 15:56 | DVHPNRES ---
Progress Note Date Seen: Dec 31, 2024 Resident Creating Document: REYMUNDO MTZ RESIDENT Medical Necessity Reason Pt with a Central, PICC or Fol: Yes Subjective Review of Systems Marisa Nunez is a 74-year-old female who presented to the ED via EMS from specialized nursing facility due to progressive altered mental status. EMS noted patient to be hypotensive on site, prompting ER visit. Patient was recently discharged on December 26 for metabolic encephalopathy. On talking to family at bedside, they mentioned this is not her baseline and she looks more drowsy than normal. Urine analysis,chest Xray and head CT were unremarkable. Patient had active bleeding from femoral line site, for which pressure was applied for 15 minutes, which resolved the bleeding. Past medical history: Hypertension, diabetes noninsulin dependent, paroxysmal atrial fibrillation (chads Vasc 5) on Eliquis, ESRD on dialysis (Wednesday, and Wednesday, Dr. Wynn), diabetes mellitus, breast and colon cancer. Surgical history: Right knee replacement, colectomy, right mastectomy Family history: Noncontributory Social history: Patient was brought from specialized nursing facility. No history of smoking, alcohol, drug use. Next of kin daughter Allergies: Denies Home medication: Acetaminophen, benazepril, cephalexin, clonidine, Prempro, diphenhydramine, ferrous sulfate, folic acid, gabapentin, hydrochlorothiazide, hydroxychloroquine, ibuprofen, lansoprazole, metoprolol, naproxen, omeprazole, pravastatin, prednisolone, sertraline, trazodone Patient seen and examined at bedside. Patient is alert and oriented only to person. Eyes: No Pain, No Vision change, No Conjunctivae inflammation, No Eyelid inflammation,No Redness ENT: No Ear pain, No Ear discharge, No Nose pain, No Nose discharge, No Nose congestion, No Mouth pain, No Mouth swelling, No Throat pain, No Throat swelling Cardiovascular: No Chest Pain, No Palpitations, No Orthopnea, No Paroxysmal No Dyspnea, No Edema, No Lt Headedness Respiratory: No Cough, No Dry, No Shortness of breath, No SOB with exertion, No Wheezing, No Hemoptysis, No Pleuritic Pain, No Sputum Gastrointestinal: No Nausea, No Vomiting, No Abdominal Pain, No Diarrhea, No Constipation, No Melena, No Hematochezia Genitourinary: No Dysuria, No Frequency, No Incontinence, No Hematuria, No Retention Objective vital signs Vital Sign Date Time Temp Pulse Resp B/P (MAP) Pulse Ox O2 Delivery O2 Flow Rate FiO2 12/31/24 13:00 98.4 71 16 176/84 (114) 100 98.4 12/31/24 08:05 Room Air* 0 21 Total Intake and Output 12/30/24 12/30/24 12/31/24 15:00 23:00 07:00 Intake Total 0 ml Balance 0 ml medications Current Medications Medications Dose Ordered Sig/Duncan Route Start Time Stop Time Status Last Admin Dose Admin Cefepime HCl 50 ml @ 12.5 mls/hr DAILY IV 12/31/24 10:00 UNV Cefepime HCl 50 ml @ 12.5 mls/hr Q24H IV 12/31/24 21:00 Acetaminophen 325 mg Q4HP PRN PO 12/31/24 00:15 Ondansetron HCl 4 mg Q4HP PRN IV 12/31/24 00:15 Morphine Sulfate 2 mg Q4HPRN PRN IV 12/31/24 00:15 Heparin Sodium (Porcine) 5,000 units Q12HR SC 12/31/24 10:00 Examination Patient lying in bed, in no acute distress. General: Hill, afebrile, mucosae are dry Cardiovascular: Normal S1 and S2. No murmurs, gallops or rubs Respiratory: Normal ventilation mechanics. Clear lung sounds on auscultation Abdomen: Soft, nontender, no organomegaly, normal bowel sounds MSK/skin: Mobilizes 4 limbs. Skin is dry and warm. Av fistula in left arm with palpable thrill. Mastectomy of right breast with right upper arm lymphedema Neurological: AO x 1. No motor, no sensory deficits. Pupils are isocoric and reactive laboratory and microbiology Laboratory Tests 12/31/24 13:09 12/31/24 05:08 Test 12/31/24 05:08 Range/Units Serum Glucose 73 L 74-106 mg/dL Microbiology Date/Time Source Procedure Growth Status 12/31/24 04:27 Nose MRSA Screen - Final Complete Labs and/or images reviewed: Labs reviewed by me, Image(s) reviewed by me Problem List/Assessment/Plan Problem List/Assessment/Plan #Metabolic encephalopathy probably secondary UTI #Probable UTI #Transient hypotension probably secondary to infection -Completed head CT which ruled out acute intracranial pathology. Presents chronic mild microvascular ischemic changes -started on empiric antibiotic iv Cefipime -Repeat chest x-ray shows no acute pathology -pending urine culture #Ruled out hemorrhagic stroke -Completed head CT which ruled out acute intracranial pathology. Presents chronic mild microvascular ischemic changes #End-stage renal disease on hemodialysis session (Wednesday, and Wednesday) -nephrology on board to continue with hemodialysis -patient scheduled for hemodialysis today #Paroxysmal atrial fibrillation (chads Vasc 5) - secondary hypercoagulability state -Switch apixaban to subcutaneous heparin -patient on heparin, discontinued due to active bleeding from femoral line #Diabetes mellitus type 2 -blood glucose 73 -monitor blood glucose #Hypertension -resumed Hydralazine 50mg po q8 hrs -started amlodipine 10mg po daily #Breast cancer - status post right mastectomy Colon cancer - status post colectomy #CVL on right groin, oozing blood and hematoma. We has tried pressor dressing since this morning Still bleed a lot.? CVL in artery, Will dc the central line. Will give 10 mg of vit K and 1 FFP Continue pressor dressing on the area of CVL US artery to see if any damage to the vessel. DVT prophylaxis: SCDs Goals of care: Full code, discussed for >23 minutes Plan discussed with patient Plan discussed with Dr Mathew Plan discussed with: Patient, Daughter Date of Service: Dec 31, 2024 Billing Provider: NOE MATHEW MD Common Visit Codes: [id number] INP/OBS CARE(HIGH) REYMUNDO MTZ RESIDENT Dec 31, 2024 15:56 NOE MATHEW MD Dec 31, 2024 22:38
[2024-12-31] MEDS: SODIUM CHL 0.9% 1000 ML BAG XX ONE (17:00)
[2024-12-31] MEDS: HYDROcodone-ACET 5/325MG TAB PO PRN (17:32)
--- NOTE | 2024-12-31 18:27 | DVH ---
BILATERAL Lower Extremity Arterial Duplex Date: 12/31/2024 05:41 PM Clinical History: rULE OUT PSEUDOANEURYSM Comparison: None Technique: Duplex Doppler evaluation including color Doppler and spectral/pulsed waveform analysis of the lower extremity arteries was performed. Finding: RIGHT: Peak systolic velocities are as follows: [employer] 186 cm/s biphasic waveform Deep femoral 158 cm/s biphasic waveform SFA proximal 166 cm/s biphasic waveform SFA mid-portion 152 cm/s biphasic waveform SFA distal 130 cm/s biphasic waveform Popliteal Proximal popliteal artery 94 cm/s biphasic waveform Distal popliteal artery: 109 cm/sec ; biphasic waveform Posterior tibial 134 cm/s biphasic waveform Anterior tibial 79 cm/s biphasic waveform Dorsalis pedis 49 cm/s biphasic waveform The waveforms are biphasic waveform throughout. REFERENCE VALUES, [facility]) vascular Imaging Lab Criteria: Peak systolic velocity ranges (in cm/sec) are as follows: <150 cm/s - <20 % stenosis 150-200 cm/s - 20-49% stenosis 200-300 cm/s - 50-75% stenosis >300 cm/s -> 75% stenosis IMPRESSION: 1. There is no evidence for peripheral vascular insufficiency in the right lower extremity.
[2024-12-31 18:42] LABS: Hemoglobin 8.0 g/dL (12.2-16.2)
[2024-12-31 18:44] LABS: Hematocrit 24.2 % (36.0-46.0)
[2024-12-31] MEDS: phytonadione 10 MG in SODIUM CHL 0.9% 50 ML IV ONE (18:53)
[2024-12-31] MEDS: MORPHINE SULFATE INJ 2 MG/ml SYRG IV PRN (18:56)
[2024-12-31 18:58] LABS: INR 1.05 (0.9-1.15); Partial Thromboplastin Time 36.0 SEC (24.5-34.5); Prothrombin Time 11.1 sec (9.3-11.8)
--- NOTE | 2024-12-31 19:54 | DVHINCON2 ---
Date of service: Dec 30, 2024 Referring Physician Erica Mendez. Resident Reason for Consultation ESRD and dialysis management History of Present Illness Marisa Nunez is a 74-year-old female with a Past Medical History pertinent for Hypertension, Paroxysmal A-Fib, Diabetes, Breast and colon cancer and ESRD on HD (//) who presented to the hospital from specialized nursing facility due to progressive altered mental status. Patient was brought to the hospital by ambulance. Patient was found to be hypotensive on site per EMS. She was recently discharged (12/26) following admission for metabolic encephalopathy.Currently A&Ox0. During ED course, CT Head reported no acute intracranial abnormality identified;mild chronic white matter microvascular ischemic change and cerebral volume loss. Patient is under my care outpatient for Nephrology and dialysis standpoint. I was asked to consult. Allergies: Coded Allergies: NO KNOWN ALLERGIES (Unverified , 09/25/09) Home Meds Active Scripts Alum & Mag Hydrox-Simethicone (Gi Cocktail) 55 Ml Ss, 30 ML PO Q6HR for 30 Days, #1200 ML Prov:CALEB VILLEGAS MD 12/26/24 Quetiapine Fumerate (QUETIAPINE FUMARATE) 25 Mg Tab, 25 MG PO TID for 30 Days, #90 TAB Prov:CALEB VILLEGAS MD 12/26/24 Isosorbide Dinitrate (Isosorbide Dinitrate) 10 Mg Tab, 10 MG PO Q8HR for 30 Days, #90 TAB Prov:CALEB VILLEGAS MD 12/26/24 Hydralazine HCl (Hydralazine HCl) 25 Mg Tab, 50 MG PO Q8HR for 30 Days, #180 TAB Prov:CALEB VILLEGAS MD 12/26/24 Amiodarone HCl (Amiodarone HCl) 200 Mg Tab, 200 MG PO Q12HR for 30 Days, #60 TAB Prov:CALEB VILLEGAS MD 12/26/24 Apixaban Base (ELIQUIS) 2.5 Mg Tab, 2.5 MG PO BIDPC for 30 Days, #60 TAB Prov:CARLITOS CHACON MD 12/13/24 Reported Medications Sertraline Hcl (Sertraline Hcl) 50 Mg Tab, 50 MG OR DAILY 09/25/09 Ezetimibe-Simvastatin (Vytorin) 1 Tab Tab, 1 TAB OR HS 09/25/09 Lansoprazole (Lansoprazole) 30 Mg Cap, 30 MG OR DAILY 09/25/09 Ferrous Sulfate (Ferrous Sulfate) 325 Mg Tab, 325 MG OR DAILY 09/25/09 Current Medications Current Medications Medications (Trade) Dose Ordered Sig/Duncan Route PRN Reason Start Time Stop Time Status Last Admin Azithromycin 250 ml @ 125 mls/hr HS IV 12/31/24 22:00 12/31/24 01:32 DC Cefepime HCl 50 ml @ 12.5 mls/hr DAILY IV 12/31/24 10:00 UNV Cefepime HCl 50 ml @ 12.5 mls/hr Q24H IV 12/30/24 22:00 12/30/24 23:57 DC Cefepime HCl 50 ml @ 12.5 mls/hr Q24H IV 12/31/24 21:00 Acetaminophen (Tylenol Tablet) 325 mg Q4HP PRN PO MILD PAIN (1-3 PAIN SCALE) 12/31/24 00:15 Ondansetron HCl (Zofran) 4 mg Q4HP PRN IV NAUSEA / VOMITING 12/31/24 00:15 Morphine Sulfate 2 mg Q4HPRN PRN IV SEVERE PAIN (7-10 PAIN SCALE) 12/31/24 00:15 12/31/24 18:56 Heparin Sodium (Porcine) 5,000 units Q12HR SC 12/31/24 10:00 12/31/24 19:12 DC Hydralazine HCl (Apresoline Tablet) 50 mg Q8HP PO 12/31/24 22:00 Amlodipine Besylate (Norvasc Tablet) 10 mg DAILY PO 01/01/25 10:00 Acetaminophen/ Hydrocodone Bitart ([place] 5/325MG Tab) 1 tab Q6HPRN PRN PO MODERATE PAIN (4-6 PAIN SCALE) 12/31/24 17:30 12/31/24 17:32 Family History: Cancer of colon G8 MOTHER, G8 FATHER, Family history: Depression (situation) G8 MOTHER, G8 FATHER, Family history: Diabetes mellitus G8 MOTHER, G8 FATHER, Family history: Hypertension G8 MOTHER, G8 FATHER, Family history: Thyroid disorder G8 MOTHER, G8 FATHER, Stroke G8 MOTHER, G8 FATHER, Review of Systems Unable to review. AMS H&P Exam Vital Signs/I&O Vital Sign Date Time Temp Pulse Resp B/P (MAP) Pulse Ox O2 Delivery O2 Flow Rate FiO2 12/31/24 18:56 76 16 147/68 12/31/24 18:45 100 12/31/24 18:45 98.2 98.2 12/31/24 08:05 Room Air* 0 21 Intake and Output 12/30/24 12/31/24 19:00 07:00 Intake Total 0 ml Balance 0 ml Intake Oral 0 ml Physical Exam Vitals and nursing notes reviewed. General Appearance: No Apparent Distress, Normal HEENT: Normal ENT Inspection, Pharynx Normal Neck: Full Range of Motion, Non-Tender, Normal, Normal Inspection Respiratory: Lungs Clear, No Accessory Muscle Use, No Respiratory Distress, Normal Breath Sounds Cardiovascular: No Murmur, Regular Rate/Rhythm Gastrointestinal: No Organomegaly, Non Tender, No Pulsatile Mass, Normal Bowel Sounds, Soft Extremities: No calf tenderness, Normal capillary refill, Normal inspection, Normal range of motion, Non-tender, No pedal edema Musculoskeletal: Apperance: Normal. Av fistula in left arm. Mastectomy of right breast with right upper arm lymphedema Neurologic: A&Ox0. No motor no sensitive deficits. Pupils are isocoric and reac tive Skin: Dry, Normal Color, Warm Labs/Diagnostic Data Labs/Diagnostic Data Laboratory Tests Test 12/31/24 18:25 12/31/24 13:09 12/31/24 05:08 12/30/24 23:03 Range/Units Hemoglobin 8.0 L 8.6 L 8.1 L 12.2-16.2 g/dL Hematocrit 24.2 #L 26.9 L 24.9 #L 36.0-46.0 % Prothrombin Time 11.1 9.3-11.8 sec Prothrombin Time INR 1.05 0.9-1.15 Activated Partial Thromboplast Time 36.0 H 24.5-34.5 SEC White Blood Count 5.8 4.4-10.8 10^3/uL Red Blood Count 3.11 L 4.0-5.20 10^6/uL Mean Corpuscular Volume 80.2 80.0-100.0 fL Mean Corpuscular Hemoglobin 26.2 L 28.0-32.0 pg Mean Corpuscular Hemoglobin Concent 32.6 32.0-36.0 g/dL Red Cell Distribution Width 17.2 H 11.8-14.3 % Platelet Count 387 140-450 10^3/uL Mean Platelet Volume 6.7 L 6.9-10.8 fL Neutrophils (%) (Auto) 51.3 37.0-80.0 % Lymphocytes (%) (Auto) 27.2 10.0-50.0 % Monocytes (%) (Auto) 13.1 H 0.0-12.0 % Eosinophils (%) (Auto) 7.1 H 0.0-7.0 % Basophils (%) (Auto) 1.3 0.0-2.0 % Neutrophils # (Auto) 3.0 1.6-8.6 10 ^3/uL Lymphocytes # (Auto) 1.6 0.4-5.4 10 ^3/uL Monocytes # (Auto) 0.8 0-1.3 10 ^3/uL Eosinophils # (Auto) 0.4 0-0.8 10 ^3/uL Basophils # (Auto) 0.1 0-0.2 10 ^3/uL Nucleated Red Blood Cells 0.2 % Sodium Level 137 136-145 mmol/L Potassium Level 5.1 3.5-5.1 mmol/L Chloride Level 98 98-107 mmol/L Carbon Dioxide Level 28 20-31 mmol/L Anion Gap 11 5-15 Blood Urea Nitrogen 24 H 9-23 mg/dL Creatinine 5.27 H 0.550-1.02 mg/dL Glomerular Filtration Rate Calc 8 >90 mL/min BUN/Creatinine Ratio 4.6 L 10.0-20.0 Serum Glucose 73 L 74-106 mg/dL Calcium Level 9.1 8.7-10.4 mg/dL Blood Gas Specimen Type Arterial Blood Gas Sample Site Left femoral Blood Gas Patient Temperature 37.0 Arterial Blood Date Drawn [id number] Arterial Blood pH 7.496 H 7.350-7.450 Arterial Blood Partial Pressure CO2 38.3 32.0-45.0 mmHg Arterial Blood Partial Pressure O2 90.9 83.0-108.0 mmHg Arterial Blood HCO3 28.9 H 21.0-28.0 mmol/L Arterial Blood Oxygen Saturation 96.8 94.0-98.0 % Arterial Blood Base Excess 5.3 H -2.0-3.0 mmol/L Arterial Blood Oxyhemoglobin 95.1 94.0-98.0 % Arterial Blood Carboxyhemoglobin 1.3 0.5-1.5 % Arterial Blood Methemoglobin 0.5 0.0-1.5 % Manuel Test N/a Blood Gas Total Hemoglobin 8.40 L 12.0-16.0 g/dL Blood Gas Modality Room air FiO2 % 21.0 Specimen Drawn By Evelyn norris Blood Gas Comments Femoral drawn by md James 12/30/24 22:24 12/30/24 20:02 12/30/24 00:00 Range/Units Prothrombin Time 11.6 9.3-11.8 sec Prothrombin Time INR 1.11 0.9-1.15 Activated Partial Thromboplast Time 34.5 24.5-34.5 SEC Phosphorus Level 4.6 2.4-5.1 mg/dL Magnesium Level 2.3 2.3 1.6-2.6 mg/dL Ammonia < 10 L 11-32 umol/L Triglycerides Level 92 < 150 mg/dL Cholesterol Level 169 < 200 mg/dL LDL Cholesterol 52 < 100 mg/dL HDL Cholesterol 87 H 40-59 mg/dL Lipase 23 12-53 U/L Thyroid Stimulating Hormone (TSH) 3.74 0.55-4.78 uIU/mL White Blood Count 5.4 4.4-10.8 10^3/uL Red Blood Count 3.55 L 4.0-5.20 10^6/uL Hemoglobin 9.1 #L 12.2-16.2 g/dL Hematocrit 28.2 #L 36.0-46.0 % Mean Corpuscular Volume 79.5 L 80.0-100.0 fL Mean Corpuscular Hemoglobin 25.7 L 28.0-32.0 pg Mean Corpuscular Hemoglobin Concent 32.3 32.0-36.0 g/dL Red Cell Distribution Width 17.4 H 11.8-14.3 % Platelet Count 361 140-450 10^3/uL Mean Platelet Volume 6.4 L 6.9-10.8 fL Neutrophils (%) (Auto) 55.9 37.0-80.0 % Lymphocytes (%) (Auto) 22.8 10.0-50.0 % Monocytes (%) (Auto) 13.9 H 0.0-12.0 % Eosinophils (%) (Auto) 5.7 0.0-7.0 % Basophils (%) (Auto) 1.7 0.0-2.0 % Neutrophils # (Auto) 3.0 1.6-8.6 10 ^3/uL Lymphocytes # (Auto) 1.2 0.4-5.4 10 ^3/uL Monocytes # (Auto) 0.7 0-1.3 10 ^3/uL Eosinophils # (Auto) 0.3 0-0.8 10 ^3/uL Basophils # (Auto) 0.1 0-0.2 10 ^3/uL Nucleated Red Blood Cells 0.2 % Sodium Level 138 136-145 mmol/L Potassium Level 5.4 H 3.5-5.1 mmol/L Chloride Level 97 L 98-107 mmol/L Carbon Dioxide Level 29 20-31 mmol/L Anion Gap 12 5-15 Blood Urea Nitrogen 27 H 9-23 mg/dL Creatinine 5.43 #H 0.550-1.02 mg/dL Glomerular Filtration Rate Calc 8 >90 mL/min BUN/Creatinine Ratio 5.0 L 10.0-20.0 Serum Glucose 88 74-106 mg/dL Lactic Acid Level 1.3 0.4-2.0 mmol/L Calcium Level 9.1 8.7-10.4 mg/dL Total Bilirubin 0.2 0.2-1.0 mg/dL Aspartate Amino Transferase (AST) 13 13-40 U/L Alanine Aminotransferase (ALT) 13 7-40 U/L Alkaline Phosphatase 98 46-116 U/L Total Protein 6.4 5.7-8.2 g/dL Albumin 3.7 3.2-4.8 g/dL Urine Color Light-yellow Yellow Urine Clarity Clear Clear Urine pH 8.5 5.0-9.0 Urine Specific [place] 1.008 1.001-1.035 Urine Protein 1+ H Negative Urine Ketones Negative Negative Urine Blood Negative Negative /uL Urine Nitrite Negative Negative Urine Bilirubin Negative Negative Urine Urobilinogen Normal Negative mg/dL Urine Leukocyte Esterase Negative Negative /uL Urine RBC None seen 0 - 4 /hpf Urine Microscopic WBC 1 0-5 /HPF Urine Squamous Epithelial Cells Few <5 /hpf Urine Bacteria None seen None Seen /hpf Urine Glucose Normal Normal mg/dL Urine Opiates Screen Neg NEGATIVE Urine Fentanyl Screen Neg NEGATIVE Urine Barbiturates Screen Neg NEGATIVE Urine Phencyclidine Screen Neg NEGATIVE Urine Amphetamines Screen Neg NEGATIVE Urine Benzodiazepines Screen Neg NEGATIVE Urine Cocaine Screen Neg NEGATIVE Urine Cannabinoids Screen Neg NEGATIVE Microbiology Date/Time Source Procedure Growth Status 12/31/24 04:27 Nose MRSA Screen - Final Complete Assessment Metabolic encephalopathy Probable UTI Transient hypotension probably secondary to infection Ruled out hemorrhagic stroke End-stage renal disease on hemodialysis session (Wednesday, and Wednesday) Paroxysmal atrial fibrillation (chads Vasc 5) - secondary hypercoagulability state Diabetes mellitus type 2 Hypertension Breast cancer - status post right mastectomy Colon cancer - status post colectomy Plan/Recommendation Agreement with your ongoing assessment and plan of care. Schedule HD 12/31. Empiric IV antibiotics. F/u cultures. Strict Intake/Output with Galindo. F/u UA with cultures. Home BP meds held. Additional plan as per the hospital course. Plan discussed with: Patient, Other (RN) TATYANA CHARLES DO Dec 31, 2024 19:54
--- NOTE | 2024-12-31 19:56 | DVHPN2 ---
Progress Note - Dictate Date Seen: Dec 31, 2024 Medical Necessity Reason Pt with a Central, PICC or Fol: Yes Subjective Patient was seen and evaluated in follow up. No acute events overnight. Patient is A&Ox1. No pain or distress. S/p dialysis. vital signs Vital Sign Date Time Temp Pulse Resp B/P (MAP) Pulse Ox O2 Delivery O2 Flow Rate FiO2 12/31/24 18:56 76 16 147/68 12/31/24 18:45 100 12/31/24 18:45 98.2 98.2 12/31/24 08:05 Room Air* 0 21 Total Intake and Output 12/30/24 12/30/24 12/31/24 15:00 23:00 07:00 Intake Total 0 ml Balance 0 ml medications Current Medications Medications Dose Ordered Sig/Duncan Route Start Time Stop Time Status Last Admin Dose Admin Cefepime HCl 50 ml @ 12.5 mls/hr DAILY IV 12/31/24 10:00 UNV Cefepime HCl 50 ml @ 12.5 mls/hr Q24H IV 12/31/24 21:00 Acetaminophen 325 mg Q4HP PRN PO 12/31/24 00:15 Ondansetron HCl 4 mg Q4HP PRN IV 12/31/24 00:15 Morphine Sulfate 2 mg Q4HPRN PRN IV 12/31/24 00:15 12/31/24 18:56 2 MG Hydralazine HCl 50 mg Q8HP PO 12/31/24 22:00 Amlodipine Besylate 10 mg DAILY PO 01/01/25 10:00 Acetaminophen/ Hydrocodone Bitart 1 tab Q6HPRN PRN PO 12/31/24 17:30 12/31/24 17:32 1 TAB objective Vitals and nursing notes reviewed. General Appearance: No Apparent Distress, Normal HEENT: Normal ENT Inspection, Pharynx Normal. PERRL. EOMI Neck: Full Range of Motion, Non-Tender, Normal, Normal Inspection Respiratory: Lungs Clear, No Accessory Muscle Use, No Respiratory Distress, Normal Breath Sounds Cardiovascular: No Murmur, Regular Rate/Rhythm Gastrointestinal: No Organomegaly, Non Tender, No Pulsatile Mass, Normal Bowel Sounds, Soft Extremities: No calf tenderness, Normal capillary refill, Normal inspection, Normal range of motion, Non-tender, No pedal edema Musculoskeletal: Apperance: Normal. Av fistula in left arm. Mastectomy of right breast with right upper arm lymphedema Neurologic: A&Ox1. No motor no sensitive deficits. Skin: Dry, Normal Color, Warm laboratory and microbiology Laboratory Tests 12/31/24 18:25 12/31/24 05:08 Test 12/31/24 05:08 Range/Units Serum Glucose 73 L 74-106 mg/dL Problem List Metabolic encephalopathy Probable UTI Transient hypotension probably secondary to infection Ruled out hemorrhagic stroke End-stage renal disease on hemodialysis session (Wednesday, and Wednesday) Paroxysmal atrial fibrillation (chads Vasc 5) - secondary hypercoagulability state Diabetes mellitus type 2 Hypertension Breast cancer - status post right mastectomy Colon cancer - status post colectomy Assessment/Plan Agree with current supportive medical care. HD- 12/31- UF 1.5L. Dialysis was stopped due to swelling noted at the dialysis access site concerning for hematoma. Primary nurse and hospitalist were notified for further assessment. Epogen 10,000 u x once. Empiric IV antibiotics with Cefepime. F/u urine and blood cultures. Strict Intake/Output with Galindo. Resumed Hydralazine 50 mg o q8h. Started on Amlodipine 10 mg po daily. Additional plan as per the hospital course. Plan discussed with: Patient, Other (RN) TATYANA CHARLES DO Dec 31, 2024 19:56
[2024-12-31] MEDS: EPOETIN ALFA-EPBX 10,000 UNIT/1ML VIAL SC ONE (21:54)
[2024-12-31] MEDS ORDERED: AZITHROMYCIN 500MG/ 250ML 250 ML IV SCH (22:00)
[2024-12-31] MEDS: CEFEPIME 1GM/50ML 50 ML IV SCH (23:05)
[2025-01-01] VITALS (31 sets, daily range): BP systolic 120–171; BP diastolic 48–78; PULSE 72–94; RESP 10–24; TEMP 97–99.1; O2SAT 94–100
[2025-01-01 01:05] LABS: Hematocrit 22.3 % (36.0-46.0)
[2025-01-01 01:07] LABS: Hemoglobin 7.1 g/dL (12.2-16.2)
[2025-01-01 07:26] LABS: Hemoglobin 7.2 g/dL (12.2-16.2)
[2025-01-01 07:29] LABS: Hematocrit 21.6 % (36.0-46.0); Mean Corpuscular Hemoglobin 26.6 pg (28.0-32.0); Mean Corpuscular Volume 80.3 fL (80.0-100.0); Nucleated Red Blood Cells % 0.3 %
[2025-01-01 07:48] LABS: Anion Gap 14 (5-15); Carbon Dioxide 27 mmol/L (20-31); Chloride 99 mmol/L (98-107); Potassium 4.9 mmol/L (3.5-5.1); Sodium 140 mmol/L (136-145)
[2025-01-01 07:49] LABS: Calcium 8.7 mg/dL (8.7-10.4)
[2025-01-01 07:54] LABS: BUN/Creatinine Ratio 5.4 (10.0-20.0)
[2025-01-01 07:55] LABS: Blood Urea Nitrogen 26 mg/dL (9-23); Glucose 69 mg/dL (74-106)
[2025-01-01 12:49] LABS: Hematocrit 26.1 % (36.0-46.0); Hemoglobin 8.5 g/dL (12.2-16.2)
--- NOTE | 2025-01-01 13:51 | DVHCONRES ---
Date Seen: Jan 01, 2025 Resident Creating Document: MUKUND AVALOS Jr., MD Referring Physician Dr. Quiñonez Reason for Consultation right groin hematoma History of Present Illness 74-year-old female who presents to the ED via EMS from specialized nursing facility due to progressive altered mental status. EMS noted patient to be hypotensive on site, prompting ER visit. Due to clinical status had to obtain history from EMR. Patient was recently discharged on December 26 for metabolic encephalopathy. The patient had a right femoral line placed. It was found to be in the artery and subsequently was removed. However it was removed pressure was held for a period of time. Patient developed a hematoma ultrasound was performed last evening which demonstrated a large pseudoaneurysm 5.4 cm in size. Past Medical History Hypertension, diabetes noninsulin dependent, paroxysmal atrial fibrillation (chads Vasc 5) on Eliquis, ESRD on dialysis (Wednesday, and Wednesday, Dr. Wynn), diabetes mellitus, breast and colon cancer. Past Surgical History Right knee replacement, colectomy, right mastectomy Family History: Cancer of colon G8 MOTHER, G8 FATHER, Family history: Depression (situation) G8 MOTHER, G8 FATHER, Family history: Diabetes mellitus G8 MOTHER, G8 FATHER, Family history: Hypertension G8 MOTHER, G8 FATHER, Family history: Thyroid disorder G8 MOTHER, G8 FATHER, Stroke G8 MOTHER, G8 FATHER, Social History non smoker or drinker Allergies: Coded Allergies: NO KNOWN ALLERGIES (Unverified , 09/25/09) Home Meds Active Scripts Alum & Mag Hydrox-Simethicone (Gi Cocktail) 55 Ml Ss, 30 ML PO Q6HR for 30 Days, #1200 ML Prov:CALEB VILLEGAS MD 12/26/24 Quetiapine Fumerate (QUETIAPINE FUMARATE) 25 Mg Tab, 25 MG PO TID for 30 Days, #90 TAB Prov:CALEB VILLEGAS MD 12/26/24 Isosorbide Dinitrate (Isosorbide Dinitrate) 10 Mg Tab, 10 MG PO Q8HR for 30 Days, #90 TAB Prov:CALEB VILLEGAS MD 12/26/24 Hydralazine HCl (Hydralazine HCl) 25 Mg Tab, 50 MG PO Q8HR for 30 Days, #180 TAB Prov:CALEB VILLEGAS MD 12/26/24 Amiodarone HCl (Amiodarone HCl) 200 Mg Tab, 200 MG PO Q12HR for 30 Days, #60 TAB Prov:CALEB VILLEGAS MD 12/26/24 Apixaban Base (ELIQUIS) 2.5 Mg Tab, 2.5 MG PO BIDPC for 30 Days, #60 TAB Prov:CARLITOS CHACON MD 12/13/24 Reported Medications Sertraline Hcl (Sertraline Hcl) 50 Mg Tab, 50 MG OR DAILY 09/25/09 Ezetimibe-Simvastatin (Vytorin) 1 Tab Tab, 1 TAB OR HS 09/25/09 Lansoprazole (Lansoprazole) 30 Mg Cap, 30 MG OR DAILY 09/25/09 Ferrous Sulfate (Ferrous Sulfate) 325 Mg Tab, 325 MG OR DAILY 09/25/09 Current Medications Current Medications Medications (Trade) Dose Ordered Sig/Duncan Route PRN Reason Start Time Stop Time Status Last Admin Azithromycin 250 ml @ 125 mls/hr HS IV 12/31/24 22:00 12/31/24 01:32 DC Cefepime HCl 50 ml @ 12.5 mls/hr Q24H IV 12/31/24 21:00 12/31/24 23:05 Hydralazine HCl (Apresoline Tablet) 50 mg Q8HP PO 12/31/24 22:00 01/01/25 13:30 Amlodipine Besylate (Norvasc Tablet) 10 mg DAILY PO 01/01/25 10:00 01/01/25 11:07 Acetaminophen/ Hydrocodone Bitart (Mobile 5/325MG Tab) 1 tab Q6HPRN PRN PO MODERATE PAIN (4-6 PAIN SCALE) 12/31/24 17:30 12/31/24 17:32 Review of Systems All systems reviewed otherwise negative other once in HPI. Vital Signs Vital Signs Date Time Temp Pulse Resp B/P (MAP) Pulse Ox O2 Delivery O2 Flow Rate FiO2 01/01/25 13:30 171/78 01/01/25 11:45 98.2 72 20 98.2 01/01/25 10:13 Room Air* 0 21 01/01/25 08:00 100 Physical Exam Head eyes ears nose and throat exam eyes are nonicteric conjunctiva is pink neck was supple no JVD no lymphadenopathy no carotid bruits lungs are clear to auscultation heart was regular rate and rhythm abdomen was soft nontender with no pulsatile abdominal masses or bruits lower extremity she has a palpable femoral pulse bilaterally with a pulsatile right groin hematoma. She has pa lpable pedal pulses. Labs/Diagnostic Data Labs Test 01/01/25 12:17 01/01/25 06:18 12/31/24 18:25 12/30/24 23:03 Range/Units Hemoglobin 8.5 #L 12.2-16.2 g/dL Hematocrit 26.1 #L 36.0-46.0 % White Blood Count 5.8 4.4-10.8 10^3/uL Red Blood Count 2.70 L 4.0-5.20 10^6/uL Mean Corpuscular Volume 80.3 80.0-100.0 fL Mean Corpuscular Hemoglobin 26.6 L 28.0-32.0 pg Mean Corpuscular Hemoglobin Concent 33.1 32.0-36.0 g/dL Red Cell Distribution Width 17.5 H 11.8-14.3 % Platelet Count 323 140-450 10^3/uL Mean Platelet Volume 6.6 L 6.9-10.8 fL Neutrophils (%) (Auto) 66.0 37.0-80.0 % Lymphocytes (%) (Auto) 16.8 10.0-50.0 % Monocytes (%) (Auto) 13.2 H 0.0-12.0 % Eosinophils (%) (Auto) 2.5 0.0-7.0 % Basophils (%) (Auto) 1.5 0.0-2.0 % Neutrophils # (Auto) 3.8 1.6-8.6 10 ^3/uL Lymphocytes # (Auto) 1.0 0.4-5.4 10 ^3/uL Monocytes # (Auto) 0.8 0-1.3 10 ^3/uL Eosinophils # (Auto) 0.1 0-0.8 10 ^3/uL Basophils # (Auto) 0.1 0-0.2 10 ^3/uL Nucleated Red Blood Cells 0.3 % Sodium Level 140 136-145 mmol/L Potassium Level 4.9 3.5-5.1 mmol/L Chloride Level 99 98-107 mmol/L Carbon Dioxide Level 27 20-31 mmol/L Anion Gap 14 5-15 Blood Urea Nitrogen 26 H 9-23 mg/dL Creatinine 4.79 H 0.550-1.02 mg/dL Glomerular Filtration Rate Calc 9 >90 mL/min BUN/Creatinine Ratio 5.4 L 10.0-20.0 Serum Glucose 69 L 74-106 mg/dL Calcium Level 8.7 8.7-10.4 mg/dL Prothrombin Time 11.1 9.3-11.8 sec Prothrombin Time INR 1.05 0.9-1.15 Activated Partial Thromboplast Time 36.0 H 24.5-34.5 SEC Blood Gas Specimen Type Arterial Blood Gas Sample Site Left femoral Blood Gas Patient Temperature 37.0 Arterial Blood Date Drawn [id number] Arterial Blood pH 7.496 H 7.350-7.450 Arterial Blood Partial Pressure CO2 38.3 32.0-45.0 mmHg Arterial Blood Partial Pressure O2 90.9 83.0-108.0 mmHg Arterial Blood HCO3 28.9 H 21.0-28.0 mmol/L Arterial Blood Oxygen Saturation 96.8 94.0-98.0 % Arterial Blood Base Excess 5.3 H -2.0-3.0 mmol/L Arterial Blood Oxyhemoglobin 95.1 94.0-98.0 % Arterial Blood Carboxyhemoglobin 1.3 0.5-1.5 % Arterial Blood Methemoglobin 0.5 0.0-1.5 % Manuel Test N/a Blood Gas Total Hemoglobin 8.40 L 12.0-16.0 g/dL Blood Gas Modality Room air FiO2 % 21.0 Specimen Drawn By Evelyn norris Blood Gas Comments Femoral drawn by md James 12/30/24 22:24 12/30/24 20:02 12/30/24 00:00 Range/Units Phosphorus Level 4.6 2.4-5.1 mg/dL Magnesium Level 2.3 1.6-2.6 mg/dL Ammonia < 10 L 11-32 umol/L Triglycerides Level 92 < 150 mg/dL Cholesterol Level 169 < 200 mg/dL LDL Cholesterol 52 < 100 mg/dL HDL Cholesterol 87 H 40-59 mg/dL Lipase 23 12-53 U/L Vitamin B12 Level 579 211-911 pg/mL Thyroid Stimulating Hormone (TSH) 3.74 0.55-4.78 uIU/mL Lactic Acid Level 1.3 0.4-2.0 mmol/L Total Bilirubin 0.2 0.2-1.0 mg/dL Aspartate Amino Transferase (AST) 13 13-40 U/L Alanine Aminotransferase (ALT) 13 7-40 U/L Alkaline Phosphatase 98 46-116 U/L Total Protein 6.4 5.7-8.2 g/dL Albumin 3.7 3.2-4.8 g/dL Urine Color Light-yellow Yellow Urine Clarity Clear Clear Urine pH 8.5 5.0-9.0 Urine Specific Reeves 1.008 1.001-1.035 Urine Protein 1+ H Negative Urine Ketones Negative Negative Urine Blood Negative Negative /uL Urine Nitrite Negative Negative Urine Bilirubin Negative Negative Urine Urobilinogen Normal Negative mg/dL Urine Leukocyte Esterase Negative Negative /uL Urine RBC None seen 0 - 4 /hpf Urine Microscopic WBC 1 0-5 /HPF Urine Squamous Epithelial Cells Few <5 /hpf Urine Bacteria None seen None Seen /hpf Urine Glucose Normal Normal mg/dL Urine Opiates Screen Neg NEGATIVE Urine Fentanyl Screen Neg NEGATIVE Urine Barbiturates Screen Neg NEGATIVE Urine Phencyclidine Screen Neg NEGATIVE Urine Amphetamines Screen Neg NEGATIVE Urine Benzodiazepines Screen Neg NEGATIVE Urine Cocaine Screen Neg NEGATIVE Urine Cannabinoids Screen Neg NEGATIVE Microbiology Date/Time Source Procedure Growth Status 12/31/24 04:27 Nose MRSA Screen - Final Complete 12/30/24 21:25 Blood Blood Culture - Preliminary NO GROWTH AFTER 24 HOURS OF INCUBATION. Resulted 12/30/24 00:00 Voided Urine Urine Culture - Preliminary Resulted Questionable pseudoaneurysms seen in the right inguinal area. Measures greater than 5.[address] Barker was notified at 1751. ORIGINAL REPORT BILATERAL Lower Extremity Arterial Duplex Date: 12/31/2024 05:41 PM Clinical History: rULE OUT PSEUDOANEURYSM Comparison: None Technique: Duplex Doppler evaluation including color Doppler and spectral/pulsed waveform analysis of the lower extremity arteries was performed. Finding: RIGHT: Peak systolic velocities are as follows: CAR HOSTLER 186 cm/s biphasic waveform Deep femoral 158 cm/s biphasic waveform SFA proximal 166 cm/s biphasic waveform SFA mid-portion 152 cm/s biphasic waveform SFA distal 130 cm/s biphasic waveform Popliteal Proximal popliteal artery 94 cm/s biphasic waveform Distal popliteal artery: 109 cm/sec ; biphasic waveform Posterior tibial 134 cm/s biphasic waveform Anterior tibial 79 cm/s biphasic waveform Dorsalis pedis 49 cm/s biphasic waveform The waveforms are biphasic waveform throughout. REFERENCE VALUES, [facility]) vascular Imaging Lab Criteria: Peak systolic velocity ranges (in cm/sec) are as follows: <150 cm/s - <20 % stenosis 150-200 cm/s - 20-49% stenosis 200-300 cm/s - 50-75% stenosis >300 cm/s -> 75% stenosis IMPRESSION: 1. There is no evidence for peripheral vascular insufficiency in the right lower extremity. ATED BY: EVANS ELDRIDGE Jr., DO DICTATED DATE/TIME: 12/31/241846 SIGNED BY: EVANS ELDRIDGE Jr., DO SIGNED DATE/TIME: 12/31/241846 CC: BILATERAL Lower Extremity Arterial Duplex Date: 12/31/2024 05:41 PM Clinical History: rULE OUT PSEUDOANEURYSM Comparison: None Technique: Duplex Doppler evaluation including color Doppler and spectral/pulsed waveform analysis of the lower extremity arteries was performed. Finding: RIGHT: Peak systolic velocities are as follows: CAR HOSTLER 186 cm/s biphasic waveform Deep femoral 158 cm/s biphasic waveform SFA proximal 166 cm/s biphasic waveform SFA mid-portion 152 cm/s biphasic waveform SFA distal 130 cm/s biphasic waveform Popliteal Proximal popliteal artery 94 cm/s biphasic waveform Distal popliteal artery: 109 cm/sec ; biphasic waveform Posterior tibial 134 cm/s biphasic waveform Anterior tibial 79 cm/s biphasic waveform Dorsalis pedis 49 cm/s biphasic waveform The waveforms are biphasic waveform throughout. REFERENCE VALUES, [facility]) vascular Imaging Lab Criteria: Peak systolic velocity ranges (in cm/sec) are as follows: <150 cm/s - <20 % stenosis 150-200 cm/s - 20-49% stenosis 200-300 cm/s - 50-75% stenosis >300 cm/s -> 75% stenosis IMPRESSION: 1. There is no evidence for peripheral vascular insufficiency in the right lower extremity. Assessment A 5.4 cm right femoral pseudoaneurysm status post a femoral line placement which was inadvertently placed in the femoral artery. Recommend reversing all anticoagulation. A strict normalization of blood pressure Repeat the arterial duplex tomorrow morning to follow the evolution of the hematoma. If pseudoaneurysm does not thrombosed were it becomes larger in size patient may require surgical exploration of the right groin with femoral artery repair tomorrow. Plan/Recommendation A 5.4 cm right femoral pseudoaneurysm status post a femoral line placement which was inadvertently placed in the femoral artery. Recommend reversing all anticoagulation. A strict normalization of blood pressure Repeat the arterial duplex tomorrow morning to follow the evolution of the hematoma. If pseudoaneurysm does not thrombosed were it becomes larger in size patient may require surgical exploration of the right groin with femoral artery repair tomorrow. Plan discussed with: Patient, Other (nurse and primary md) MUKUND AVALOS Jr., MD Jan 01, 2025 13:51
--- NOTE | 2025-01-01 15:47 | DVHPNRES ---
Progress Note Date Seen: Jan 01, 2025 Resident Creating Document: REYMUNDO MTZ RESIDENT Medical Necessity Reason Pt with a Central, PICC or Fol: Yes Subjective Review of Systems Marisa Nunez is a 74-year-old female who presented to the ED via EMS from specialized nursing facility due to progressive altered mental status. EMS noted patient to be hypotensive on site, prompting ER visit. Patient was recently discharged on December 26 for metabolic encephalopathy. On talking to family at bedside, they mentioned this is not her baseline and she looks more drowsy than normal. Urine analysis,chest Xray and head CT were unremarkable. Patient had active bleeding from femoral line site, for which pressure was applied for 15 minutes, which resolved the bleeding. Past medical history: Hypertension, diabetes noninsulin dependent, paroxysmal atrial fibrillation (chads Vasc 5) on Eliquis, ESRD on dialysis (Wednesday, and Wednesday, Dr. Wynn), diabetes mellitus, breast and colon cancer. Surgical history: Right knee replacement, colectomy, right mastectomy Family history: Noncontributory Social history: Patient was brought from specialized nursing facility. No history of smoking, alcohol, drug use. Next of kin daughter Allergies: Denies Home medication: Acetaminophen, benazepril, cephalexin, clonidine, Prempro, diphenhydramine, ferrous sulfate, folic acid, gabapentin, hydrochlorothiazide, hydroxychloroquine, ibuprofen, lansoprazole, metoprolol, naproxen, omeprazole, pravastatin, prednisolone, sertraline, trazodone Patient seen and examined at bedside. Patient is alert and oriented only to person. Patient complains of pain in the right groin area. Eyes: No Pain, No Vision change, No Conjunctivae inflammation, No Eyelid inflammation,No Redness ENT: No Ear pain, No Ear discharge, No Nose pain, No Nose discharge, No Nose congestion, No Mouth pain, No Mouth swelling, No Throat pain, No Throat swelling Cardiovascular: No Chest Pain, No Palpitations, No Orthopnea, No Paroxysmal No Dyspnea, No Edema, No Lt Headedness Respiratory: No Cough, No Dry, No Shortness of breath, No SOB with exertion, No Wheezing, No Hemoptysis, No Pleuritic Pain, No Sputum Gastrointestinal: No Nausea, No Vomiting, No Abdominal Pain, No Diarrhea, No Constipation, No Melena, No Hematochezia Genitourinary: No Dysuria, No Frequency, No Incontinence, No Hematuria, No Retention 01/01/25- patient was seen at bedside today. The hematoma in the right groin area has reduced in size since yesterday. We will continue with the pressure dressing with a sandbag. Her hemoglobin this morning was 7.1 . PRBC was given, repeat hemoglobin was 8.5. Vascular surgery saw the patient and recommended a repeat arterial duplex tomorrow morning to steady the evolution of the hematoma. Carvedilol 3.125 mg po bid was added to the regimen for blood pressure control. Objective vital signs Vital Sign Date Time Temp Pulse Resp B/P (MAP) Pulse Ox O2 Delivery O2 Flow Rate FiO2 01/01/25 15:00 73 11 163/70 (101) 98 01/01/25 14:00 Room Air* 0 21 01/01/25 12:00 98.1 98.1 Total Intake and Output 12/31/24 12/31/24 01/01/25 15:00 23:00 07:00 Intake Total 638 ml 50 ml Output Total 175 ml Balance 638 ml -125 ml medications Current Medications Medications Dose Ordered Sig/Duncan Route Start Time Stop Time Status Last Admin Dose Admin Cefepime HCl 50 ml @ 12.5 mls/hr DAILY IV 12/31/24 10:00 UNV Cefepime HCl 50 ml @ 12.5 mls/hr Q24H IV 12/31/24 21:00 12/31/24 23:05 12.5 MLS/HR Acetaminophen 325 mg Q4HP PRN PO 12/31/24 00:15 Ondansetron HCl 4 mg Q4HP PRN IV 12/31/24 00:15 Morphine Sulfate 2 mg Q4HPRN PRN IV 12/31/24 00:15 01/01/25 08:46 2 MG Hydralazine HCl 50 mg Q8HP PO 12/31/24 22:00 01/01/25 13:30 50 MG Amlodipine Besylate 10 mg DAILY PO 01/01/25 10:00 01/01/25 11:07 10 MG Acetaminophen/ Hydrocodone Bitart 1 tab Q6HPRN PRN PO 12/31/24 17:30 12/31/24 17:32 1 TAB Examination Patient lying in bed, in no acute distress. Patient has a hematoma in right groin area around 6 cm with no active bleeding. General: Hill, afebrile, mucosae are dry Cardiovascular: Normal S1 and S2. No murmurs, gallops or rubs Respiratory: Normal ventilation mechanics. Clear lung sounds on auscultation Abdomen: Soft, nontender, no organomegaly, normal bowel sounds MSK/skin: Mobilizes 4 limbs. Skin is dry and warm. Av fistula in left arm with palpable thrill. Mastectomy of right breast with right upper arm lymphedema Neurological: AO x 1. No motor, no sensory deficits. Pupils are isocoric and reactive laboratory and microbiology Laboratory Tests 01/01/25 12:17 01/01/25 06:18 Test 01/01/25 06:18 Range/Units Serum Glucose 69 L 74-106 mg/dL Microbiology Date/Time Source Procedure Growth Status 12/31/24 04:27 Nose MRSA Screen - Final Complete 12/30/24 21:25 Blood Blood Culture - Preliminary NO GROWTH AFTER 24 HOURS OF INCUBATION. Resulted 12/30/24 00:00 Voided Urine Urine Culture - Preliminary Resulted Labs and/or images reviewed: Labs reviewed by me, Image(s) reviewed by me Problem List/Assessment/Plan Problem List/Assessment/Plan #Metabolic encephalopathy, probably secondary to UTI #Probable UTI #Transient hypotension probably secondary to infection -Completed head CT which ruled out acute intracranial pathology. Presents chronic mild microvascular ischemic changes -started on empiric antibiotic iv Cefipime -Repeat chest x-ray shows no acute pathology -pending urine culture -Neurology consult placed, pending evaluation #Ruled out hemorrhagic stroke -Completed head CT which ruled out acute intracranial pathology. Presents chronic mild microvascular ischemic changes #End-stage renal disease on hemodialysis session (Wednesday, and Wednesday) -nephrology on board to continue with hemodialysis -patient went for dialysis on 12/31/24 ,1.5 L was removed, but it had to be stopped due to swelling noted at the dialysis access site concerning for hematoma -patient due for dialysis today -strict I&Os #Paroxysmal atrial fibrillation (chads Vasc 5) - secondary hypercoagulability state -Switch apixaban to subcutaneous heparin -patient on heparin, discontinued due to active bleeding from femoral line #Diabetes mellitus type 2, without hyperglycemia -blood glucose 73 -monitor blood glucose #Hypertension,controlled -resumed Hydralazine 50mg po q8 hrs -started amlodipine 10mg po daily -Started on carvedilol 3.125 mg po bid #Breast cancer - status post right mastectomy Colon cancer - status post colectomy #CVL on right groin, oozing blood and hematoma, - pressure dressing done all day on 12/31/24, still continued oozing blood -? CVL in artery, Will dc the central line. -given 10 mg of vit K and 1 FFP -Continue pressor dressing on the area of CVL with sand bag -given 1 prbc this morning, repeat Hgb is 8.5 -Arterial duplex study- Questionable pseudoaneurysm seen in the right inguinal area. Measures greater than 5.4 cm. -vascular surgery consulted- recommended repeat arterial duplex tomorrow morning to follow the evolution of the hematoma DVT prophylaxis: SCDs Goals of care: Full code, discussed for >23 minutes Plan discussed with patient Plan discussed with Dr Quñionez Plan discussed with: Patient My Orders My Orders Orders - REYMUNDO MTZ Procedure Category Date Status Time Hydralazine Hcl PHA 12/31/24 In Process Tablet (Apresoline 22:00 Amlodipine Tablet PHA 01/01/25 In Process (Norvasc Tablet) 10:00 Date of Service: Jan 01, 2025 Billing Provider: ELVIN BROOKS MD Common Visit Codes: [id number] INP/OBS CARE(HIGH) REYMUNDO MTZ RESIDENT Jan 01, 2025 15:47
[2025-01-01 18:45] LABS: Hematocrit 26.6 % (36.0-46.0); Hemoglobin 8.9 g/dL (12.2-16.2)
--- NOTE | 2025-01-01 20:39 | DVHPN2 ---
Progress Note - Dictate Date Seen: Jan 01, 2025 Medical Necessity Reason Pt with a Central, PICC or Fol: Yes Subjective Patient was seen and evaluated in follow up. No acute events overnight. Patient is A&Ox1. No pain or distress. Hematoma in the right groin area has reduced in size since yesterday. Received 1 unit PRBC for Hgb of 7.1. vital signs Vital Sign Date Time Temp Pulse Resp B/P (MAP) Pulse Ox O2 Delivery O2 Flow Rate FiO2 01/01/25 20:00 13 98 Room Air* 0 21 01/01/25 18:00 76 01/01/25 18:00 149/66 (93) 01/01/25 16:00 97.6 97.6 Total Intake and Output 12/31/24 12/31/24 01/01/25 15:00 23:00 07:00 Intake Total 638 ml 50 ml Output Total 175 ml Balance 638 ml -125 ml medications Current Medications Medications Dose Ordered Sig/Duncan Route Start Time Stop Time Status Last Admin Dose Admin Cefepime HCl 50 ml @ 12.5 mls/hr DAILY IV 12/31/24 10:00 UNV Cefepime HCl 50 ml @ 12.5 mls/hr Q24H IV 12/31/24 21:00 12/31/24 23:05 12.5 MLS/HR Acetaminophen 325 mg Q4HP PRN PO 12/31/24 00:15 Ondansetron HCl 4 mg Q4HP PRN IV 12/31/24 00:15 Morphine Sulfate 2 mg Q4HPRN PRN IV 12/31/24 00:15 01/01/25 08:46 2 MG Hydralazine HCl 50 mg Q8HP PO 12/31/24 22:00 01/01/25 13:30 50 MG Amlodipine Besylate 10 mg DAILY PO 01/01/25 10:00 01/01/25 11:07 10 MG Acetaminophen/ Hydrocodone Bitart 1 tab Q6HPRN PRN PO 12/31/24 17:30 12/31/24 17:32 1 TAB Carvedilol 3.125 mg Q12HR PO 01/01/25 22:00 objective Vitals and nursing notes reviewed. General Appearance: No Apparent Distress, Normal HEENT: Normal ENT Inspection, Pharynx Normal. PERRL. EOMI Neck: Full Range of Motion, Non-Tender, Normal, Normal Inspection Respiratory: Lungs Clear, No Accessory Muscle Use, No Respiratory Distress, Normal Breath Sounds Cardiovascular: No Murmur, Regular Rate/Rhythm Gastrointestinal: No Organomegaly, Non Tender, No Pulsatile Mass, Normal Bowel Sounds, Soft Extremities: No calf tenderness, Normal capillary refill, Normal inspection, Normal range of motion, Non-tender, No pedal edema Musculoskeletal: Apperance: Normal. Av fistula in left arm. Mastectomy of right breast with right upper arm lymphedema Neurologic: A&Ox1. No motor no sensitive deficits. Skin: Dry, Normal Color, Warm laboratory and microbiology Laboratory Tests 01/01/25 18:26 01/01/25 06:18 Test 01/01/25 06:18 Range/Units Serum Glucose 69 L 74-106 mg/dL Problem List Metabolic encephalopathy Probable UTI Transient hypotension probably secondary to infection Ruled out hemorrhagic stroke End-stage renal disease on hemodialysis session (Wednesday, and Wednesday) Paroxysmal atrial fibrillation (chads Vasc 5) - secondary hypercoagulability state Diabetes mellitus type 2 Hypertension Breast cancer - status post right mastectomy Colon cancer - status post colectomy Assessment/Plan Agree with current supportive medical care. Planned for repeat arterial duplex tomorrow morning for further evaluation of hematoma. HD- 01/01. UF 1.5 L as tolerated. Epogen 10,000 u x once. Empiric IV antibiotics with Cefepime. Strict Intake/Output with Galindo. Hydralazine 50 mg q8h. Amlodipine 10 mg po daily. Also started on Carvedilol 3.125 mg po bid for blood pressure control. Additional plan as per the hospital course. Plan discussed with: Patient, Other (RN) TATYANA CHARLES DO Jan 01, 2025 20:39
[2025-01-01] MEDS: EPOETIN ALFA-EPBX 10,000 UNIT/1ML VIAL SC ONE (21:36)
--- NOTE | 2025-01-01 21:38 | DVHINCON2 ---
Date of service: Jan 01, [address] Mccarthy Reason for Consultation Altered level of consciousness, no apparent etiology History of Present Illness Ms. Nunez is a 74 years old right-handed female with a history of hypertension, diabetes, AFib on Eliquis 2.5 mg b.i.d., ESRD on hemodialysis, breast cancer, colon cancer, she was brought to the [facility] on 12/30/2024 with a chief complaint of low blood pressure. At that time, she is awake, oriented to person, place, she knows year, he said this is November. She claimed that she remembered my face I saw her on 12/11/2024 for ALOC (She also had right myoclonus jerk, she was mentally better on discharge), 12/17/24 for intermittent confusion Because of altered mental status, confusion in her nursing facility, hypotension (83/40), he was brought [facility] on 01/01/2025. She was of her baseline health status until she developed confusion, and whole- body jerking movement, confusion, nonresponsive to her surroundings on 12/06/24, she was seen in the [facility] ER on 12/07/24, but was discharged hours later with a diagnosis of sciatic. Because she did not improving, the family sent her to the [facility] soon after she was discharged from the [facility]. She was said to have seizure and stroke, and transferred to [facility] late afternoon on 12/07/24. In the [facility], per my observation, she was oriented x2, confused, she had myoclonic jerks in the right extremities with the leg more affected, she also had weakness in the right leg. With appropriate treatment, her mental status improved, he was able to talk properly, making phone call, and follow verbal commands, she was oriented to person, place, and she knew year, her myoclonus was better but persisted. She was discharged on 12/13/2024 On 12/14/2024, she was admitted to the [facility] by Dr. Fiordaliza Wynn because she needed hemodialysis. On 12/15/2024, she was transferred to [facility]. After he was transferred to the [facility], the patient was able to communicate, she kn ew her name, date of , she followed verbal commands, able to enjoy TV. But since 12/17/2024, she became very sleepy, she was nonresponsive to her family on waking up, she also developed generalized clonic like activity and was transferred to the ICU. With appropriate treatment, the patient has a lot of improvement, before she was discharged on 12/27/2024, he was oriented to person, place, she knew year and the month, socially appropriate, was able to maintain good conversation Her daughter related since [id number], she occasionally has mild confused mildly, but without muscle jerking/twitching previously UDS, 12/30/2024: Negative Urinalysis, 12/30/2024: Unremarkable WBC/HB/PLT/MCV, 12/11/2024: 5.8/9.4/235/84.8, 12/17/2024: 5.1/8.6/233/83.5, 01/01/2025: 5.8/7.2/323/80.3 BUN/CR, 12/08/2024: 30/6.66, 12/17/2024: 13/4.38, 01/01/2025: 26/4.79 GFR, 12/08/24: 6, 01/01/2025: 9 HGB A1c, 12/07/2024: 3.8 Liver function tests, 12/30/24: Unremarkable NH3 12/17/2024: < 10 ammonia, 12/18/2024: <10 12/30/2024: <10 TG/HDL/LDL/HDL, 12/07/2024: 83/156/51/91. 12/30/2024: 92/169/52/87 Vitamin B12, 12/07/2024: 855, 12/30/2024: 579 TSH, 12/07/24: 4.73 EEG, 12/18/2024: A remarkably abnormal EEG, with frequent triphasic waveforms EEG, 12/19/2024: A moderately abnormal EEG with her face waveforms. compared to the EEG obtained on 12/18/2024, this is a better EEG with less triphasic waveforms TTE, 12/09/2024: EF: 70% Chest x-ray, 01/19/2025: No acute abnormality demonstrated. CT head, 12/11/2024: There is no evidence for acute intracranial hemorrhage, acute ischemic changes, mass, mass effect, or extra-axial fluid collection. There is no hydrocephalus or midline shift. There is no effacement of the cerebral sulci and basal subarachnoid cisterns. The calle-white matter differentiation is well maintained. CT head, 12/30/2024: No acute intracranial abnormality identified. Mild chronic white matter microvascular ischemic change and cerebral volume loss CTA neck, head, 12/11/2024: Evaluation quantification of carotid narrowing slight difficult on this exam due to significant calcifications. Extensive right carotid bulb plaque resulting in severe luminal narrowing with near complete occlusion. Extensive left carotid bulb plaque resulting in grossly 50% luminal narrowing per NASCET criteria. Short segment of fibromuscular dysplasia involving the proximal/mid left extracranial internal carotid artery. Please note the accurate quantification of stenosis is difficult with CTA. If accurate assessment is warranted, catheter angiography is suggested MRI head, 12/12/2024: No acute intracranial abnormality seen. No evidence for acute infarct. Mild brain volume loss and chronic small vessel ischemic change. Small left inferior frontal scalp soft tissue swelling/hematoma formation MRI head, 12/17/2024: No acute MRI findings of the brain Past Medical History Hypertension, diabetes, end-stage renal failure on hemodialysis, A Fib, breast cancer, colon cancer. She has no history of stroke, seizure Past Surgical History Breast cancer removal, closer resection, right knee replacement, tubal ligation Family History: Cancer of colon G8 MOTHER, G8 FATHER, Family history: Depression (situation) G8 MOTHER, G8 FATHER, Family history: Diabetes mellitus G8 MOTHER, G8 FATHER, Family history: Hypertension G8 MOTHER, G8 FATHER, Family history: Thyroid disorder G8 MOTHER, G8 FATHER, Stroke G8 MOTHER, G8 FATHER, Family History Hypertension, diabetes, stroke, mother had brain aneurysm, depression, thyroid disorder, cancer Social History She smokes, he drinks three tall cans of beer daily, denies a history of drug abuse Allergies: Coded Allergies: NO KNOWN ALLERGIES (Unverified , 09/25/09) Home Meds Active Scripts Alum & Mag Hydrox-Simethicone (Gi Cocktail) 55 Ml Ss, 30 ML PO Q6HR for 30 Days, #1200 ML Prov:CALEB VILLEGAS MD 12/26/24 Quetiapine Fumerate (QUETIAPINE FUMARATE) 25 Mg Tab, 25 MG PO TID for 30 Days, #90 TAB Prov:CALEB VILLEGAS MD 12/26/24 Isosorbide Dinitrate (Isosorbide Dinitrate) 10 Mg Tab, 10 MG PO Q8HR for 30 Days, #90 TAB Prov:CALEB VILLEGAS MD 12/26/24 Hydralazine HCl (Hydralazine HCl) 25 Mg Tab, 50 MG PO Q8HR for 30 Days, #180 TAB Prov:CALEB VILLEGAS MD 12/26/24 Amiodarone HCl (Amiodarone HCl) 200 Mg Tab, 200 MG PO Q12HR for 30 Days, #60 TAB Prov:CALEB VILLGEAS MD 12/26/24 Apixaban Base (ELIQUIS) 2.5 Mg Tab, 2.5 MG PO BIDPC for 30 Days, #60 TAB Prov:CARLITOS CHACON MD 12/13/24 Reported Medications Sertraline Hcl (Sertraline Hcl) 50 Mg Tab, 50 MG OR DAILY 09/25/09 Ezetimibe-Simvastatin (Vytorin) 1 Tab Tab, 1 TAB OR HS 09/25/09 Lansoprazole (Lansoprazole) 30 Mg Cap, 30 MG OR DAILY 09/25/09 Ferrous Sulfate (Ferrous Sulfate) 325 Mg Tab, 325 MG OR DAILY 09/25/09 Current Medications Current Medications Medications (Trade) Dose Ordered Sig/Duncan Route PRN Reason Start Time Stop Time Status Last Admin Azithromycin 250 ml @ 125 mls/hr HS IV 12/31/24 22:00 12/31/24 01:32 DC Hydralazine HCl (Apresoline Tablet) 50 mg Q8HP PO 12/31/24 22:00 01/01/25 13:30 Amlodipine Besylate (Norvasc Tablet) 10 mg DAILY PO 01/01/25 10:00 01/01/25 11:07 Carvedilol (Coreg Tablet) 3.125 mg Q12HR PO 01/01/25 22:00 Review of Systems As above, the other systems are negative Vital Signs Vital Signs Date Time Temp Pulse Resp B/P (MAP) Pulse Ox O2 Delivery O2 Flow Rate FiO2 01/01/25 21:10 82 18 150/56 01/01/25 20:00 99.1 99 99.1 01/01/25 20:00 Room Air* 0 21 Physical Exam GENERAL EXAM: General: the patient is well developed and nourished. No acute distress. HEENT: Normocephalic, neck is supple, no carotid bruits. No mass RESPIRATORY: Normal respiratory effort with symmetrical lung expansion. Lungs clear to auscultation. CARDIOVASCULAR: Regular rate and rhythm with no murmurs. S1, S2. ABDOMEN: Soft, nontender, normal bowel sound NEUROLOGICAL: MENTAL STATUS: HPI SPEECH, LANGUAGE, HIGHER CORTICAL FUNCTION: no aphasia or dysathria. CRANIAL NERVES: #2: Intact visual de la o to confrontation. The optic discs were sharp. #3,4,6: Pupils are equal, round and reactive. EOMs full and conjugate. No ny stagmus. #5: Facial sensation intact in all three divisions bilaterally. Mandibular strength intact. #7: Facial muscles symmetrical and strength intact. #8: Hearing grossly normal to voice. #9,10: Uvula and soft palate rise in the midline. Swallow and voice are normal. #11: Trapezius and sternomastoid strength intact bilaterally. #12: Tongue midline. No fasciculations or atrophy. SENSATION: Sensation to touch and pinprick is fine MOTOR: Normal tone in the upper and lower extremity. Normal muscle bulk. No fasciculations. No abnormal movements or posturing. He moves the arms and legs, possibly less in the left arm and the right leg REFLEXES: Deep tendon reflexes are symmetrical. No pathological reflexes. CEREBELLAR/COORDINATION: Deferred GAIT/STATION: deferred. Labs/Diagnostic Data Labs Test 01/01/25 18:26 01/01/25 18:20 01/01/25 06:18 12/31/24 18:25 Range/Units Hemoglobin 8.9 L 12.2-16.2 g/dL Hematocrit 26.6 L 36.0-46.0 % POC Glucose 102 70-106 mg/dl White Blood Count 5.8 4.4-10.8 10^3/uL Red Blood Count 2.70 L 4.0-5.20 10^6/uL Mean Corpuscular Volume 80.3 80.0-100.0 fL Mean Corpuscular Hemoglobin 26.6 L 28.0-32.0 pg Mean Corpuscular Hemoglobin Concent 33.1 32.0-36.0 g/dL Red Cell Distribution Width 17.5 H 11.8-14.3 % Platelet Count 323 140-450 10^3/uL Mean Platelet Volume 6.6 L 6.9-10.8 fL Neutrophils (%) (Auto) 66.0 37.0-80.0 % Lymphocytes (%) (Auto) 16.8 10.0-50.0 % Monocytes (%) (Auto) 13.2 H 0.0-12.0 % Eosinophils (%) (Auto) 2.5 0.0-7.0 % Basophils (%) (Auto) 1.5 0.0-2.0 % Neutrophils # (Auto) 3.8 1.6-8.6 10 ^3/uL Lymphocytes # (Auto) 1.0 0.4-5.4 10 ^3/uL Monocytes # (Auto) 0.8 0-1.3 10 ^3/uL Eosinophils # (Auto) 0.1 0-0.8 10 ^3/uL Basophils # (Auto) 0.1 0-0.2 10 ^3/uL Nucleated Red Blood Cells 0.3 % Sodium Level 140 136-145 mmol/L Potassium Level 4.9 3.5-5.1 mmol/L Chloride Level 99 98-107 mmol/L Carbon Dioxide Level 27 20-31 mmol/L Anion Gap 14 5-15 Blood Urea Nitrogen 26 H 9-23 mg/dL Creatinine 4.79 H 0.550-1.02 mg/dL Glomerular Filtration Rate Calc 9 >90 mL/min BUN/Creatinine Ratio 5.4 L 10.0-20.0 Serum Glucose 69 L 74-106 mg/dL Calcium Level 8.7 8.7-10.4 mg/dL Prothrombin Time 11.1 9.3-11.8 sec Prothrombin Time INR 1.05 0.9-1.15 Activated Partial Thromboplast Time 36.0 H 24.5-34.5 SEC Test 12/30/24 23:03 12/30/24 22:24 12/30/24 20:02 12/30/24 00:00 Range/Units Blood Gas Specimen Type Arterial Blood Gas Sample Site Left femoral Blood Gas Patient Temperature 37.0 Arterial Blood Date Drawn [id number] Arterial Blood pH 7.496 H 7.350-7.450 Arterial Blood Partial Pressure CO2 38.3 32.0-45.0 mmHg Arterial Blood Partial Pressure O2 90.9 83.0-108.0 mmHg Arterial Blood HCO3 28.9 H 21.0-28.0 mmol/L Arterial Blood Oxygen Saturation 96.8 94.0-98.0 % Arterial Blood Base Excess 5.3 H -2.0-3.0 mmol/L Arterial Blood Oxyhemoglobin 95.1 94.0-98.0 % Arterial Blood Carboxyhemoglobin 1.3 0.5-1.5 % Arterial Blood Methemoglobin 0.5 0.0-1.5 % Manuel Test N/a Blood Gas Total Hemoglobin 8.40 L 12.0-16.0 g/dL Blood Gas Modality Room air FiO2 % 21.0 Specimen Drawn By Evelyn norris Blood Gas Comments Femoral drawn by Phosphorus Level 4.6 2.4-5.1 mg/dL Magnesium Level 2.3 1.6-2.6 mg/dL Ammonia < 10 L 11-32 umol/L Triglycerides Level 92 < 150 mg/dL Cholesterol Level 169 < 200 mg/dL LDL Cholesterol 52 < 100 mg/dL HDL Cholesterol 87 H 40-59 mg/dL Lipase 23 12-53 U/L Vitamin B12 Level 579 211-911 pg/mL Vitamin D 25-Hydroxy 67.9 30.0-100 ng/mL Thyroid Stimulating Hormone (TSH) 3.74 0.55-4.78 uIU/mL Lactic Acid Level 1.3 0.4-2.0 mmol/L Total Bilirubin 0.2 0.2-1.0 mg/dL Aspartate Amino Transferase (AST) 13 13-40 U/L Alanine Aminotransferase (ALT) 13 7-40 U/L Alkaline Phosphatase 98 46-116 U/L Total Protein 6.4 5.7-8.2 g/dL Albumin 3.7 3.2-4.8 g/dL Urine Color Light-yellow Yellow Urine Clarity Clear Clear Urine pH 8.5 5.0-9.0 Urine Specific [place] 1.008 1.001-1.035 Urine Protein 1+ H Negative Urine Ketones Negative Negative Urine Blood Negative Negative /uL Urine Nitrite Negative Negative Urine Bilirubin Negative Negative Urine Urobilinogen Normal Negative mg/dL Urine Leukocyte Esterase Negative Negative /uL Urine RBC None seen 0 - 4 /hpf Urine Microscopic WBC 1 0-5 /HPF Urine Squamous Epithelial Cells Few <5 /hpf Urine Bacteria None seen None Seen /hpf Urine Glucose Normal Normal mg/dL Urine Opiates Screen Neg NEGATIVE Urine Fentanyl Screen Neg NEGATIVE Urine Barbiturates Screen Neg NEGATIVE Urine Phencyclidine Screen Neg NEGATIVE Urine Amphetamines Screen Neg NEGATIVE Urine Benzodiazepines Screen Neg NEGATIVE Urine Cocaine Screen Neg NEGATIVE Urine Cannabinoids Screen Neg NEGATIVE Microbiology Date/Time Source Procedure Growth Status 12/31/24 04:27 Nose MRSA Screen - Final Complete 12/30/24 21:25 Blood Blood Culture - Preliminary NO GROWTH AFTER 24 HOURS OF INCUBATION. Resulted 12/30/24 00:00 Voided Urine Urine Culture - Preliminary Resulted Assessment Altered mental status, abnormal movement Likely metabolic encephalopathy with myoclonus Seizure, less likely Metabolic encephalopathy secondary to chronic kidney failure Chronic kidney failure on hemodialysis A fib Plan/Recommendation Monitoring Supportive treatment Follow-up labs EEG MARIE care Lovenox 50 mg subQ daily if okay with Dr. Fiordaliza Wynn DVT prophylaxis/SCD for now GI prophylaxis/Protonix Up to chair Physical therapy Nephrology/hemodialysis More recommendation per clinical course This medical document was created using an electronic medical record system with Simple computerized dictation system. Although this document has been carefully reviewed, there may still be some phonetic and typographical errors. These areas are purely typographical due to imperfections of the software programs, and do not reflect any compromise in the patient's medical care. Plan discussed with: Other LOULOU PAGE MD Jan 01, 2025 21:37
[2025-01-01] MEDS: CARVEDILOL 3.125 MG TAB PO SCH (22:17)
[2025-01-02] VITALS (26 sets, daily range): BP systolic 111–158; BP diastolic 44–64; PULSE 65–84; RESP 12–23; TEMP 97.9–99.5; O2SAT 95–100
[2025-01-02 01:18] LABS: Hemoglobin 7.6 g/dL (12.2-16.2)
[2025-01-02 01:20] LABS: Hematocrit 23.2 % (36.0-46.0)
[2025-01-02 07:20] LABS: Hematocrit 24.0 % (36.0-46.0); Hemoglobin 8.2 g/dL (12.2-16.2); Mean Corpuscular Hemoglobin 27.3 pg (28.0-32.0); Mean Corpuscular Volume 80.4 fL (80.0-100.0); Nucleated Red Blood Cells % 0.3 %
[2025-01-02 07:33] LABS: Anion Gap 11 (5-15); Calcium 8.8 mg/dL (8.7-10.4); Carbon Dioxide 30 mmol/L (20-31); Potassium 3.5 mmol/L (3.5-5.1)
[2025-01-02 07:36] LABS: Chloride 94 mmol/L (98-107); Sodium 135 mmol/L (136-145)
[2025-01-02 07:39] LABS: BUN/Creatinine Ratio 3.5 (10.0-20.0); Blood Urea Nitrogen 11 mg/dL (9-23); Glucose 79 mg/dL (74-106)
--- NOTE | 2025-01-02 09:07 | DVHPN2 ---
Progress Note - Dictate Date Seen: Jan 02, 2025 Medical Necessity Reason Pt with a Central, PICC or Fol: Yes Subjective Ms. Nunez is a 74 years old right-handed female with a history of hypertension, diabetes, AFib on Eliquis 2.5 mg b.i.d., ESRD on hemodialysis, breast cancer, colon cancer, she was brought to the [facility] on 12/30/2024 with a chief complaint of low blood pressure. I saw her on 12/11/2024 for ALOC (She also had right myoclonus jerk, she was mentally better on discharge), 12/17/24 for intermittent confusion I have seen and examined the patient along with her nurse, he is doing better, awake, oriented to person, place, she knows the year, she says November, she follows verbal commands, she claimed that she has been remembered me Pain in the right groin is better The right foot is warm, no signs of poor circulation, the questionable dorsalis pedis artery pulse Karla talked to etiology and the while give us addendum about her arterial Doppler reports UDS, 12/30/2024: Negative Urinalysis, 12/30/2024: Unremarkable WBC/HB/PLT/MCV, 12/11/2024: 5.8/9.4/235/84.8, 12/17/2024: 5.1/8.6/233/83.5, 01/01/2025: 5.8/7.2/323/80.3, 01/02/2025: 7/8.2/244/80.4 BUN/CR, 12/08/2024: 30/6.66, 12/17/2024: 13/4.38, 01/01/2025: 26/4.79 GFR, 12/08/24: 6, 01/01/2025: 9 HGB A1c, 12/07/2024: 3.8 Liver function tests, 12/30/24: Unremarkable NH3 12/17/2024: < 10 ammonia, 12/18/2024: <10 12/30/2024: <10 TG/HDL/LDL/HDL, 12/07/2024: 83/156/51/91. 12/30/2024: 92/169/52/87 Vitamin B12, 12/07/2024: 855, 12/30/2024: 579 TSH, 12/07/24: 4.73 EEG, 12/18/2024: A remarkably abnormal EEG, with frequent triphasic waveforms EEG, 12/19/2024: A moderately abnormal EEG with her face waveforms. compared to the EEG obtained on 12/18/2024, this is a better EEG with less triphasic waveforms TTE, 12/09/2024: EF: 70% Arterial Doppler, 12/31/2024: There is no evidence for peripheral vascular insufficiency in the right lower extremity. Chest x-ray, 01/19/2025: No acute abnormality demonstrated. CT head, 12/11/2024: There is no evidence for acute intracranial hemorrhage, acute ischemic changes, mass, mass effect, or extra-axial fluid collection. There is no hydrocephalus or midline shift. There is no effacement of the cerebral sulci and basal subarachnoid cisterns. The calle-white matter differentiation is well maintained. CT head, 12/30/2024: No acute intracranial abnormality identified. Mild chronic white matter microvascular ischemic change and cerebral volume loss CTA neck, head, 12/11/2024: Evaluation quantification of carotid narrowing slight difficult on this exam due to significant calcifications. Extensive right carotid bulb plaque resulting in severe luminal narrowing with near complete occlusion. Extensive left carotid bulb plaque resulting in grossly 50% luminal narrowing per NASCET criteria. Short segment of fibromuscular dysplasia involving the proximal/mid left extracranial internal carotid artery. Please note the accurate quantification of stenosis is difficult with CTA. If accurate assessment is warranted, catheter angiography is suggested MRI head, 12/12/2024: No acute intracranial abnormality seen. No evidence for acute infarct. Mild brain volume loss and chronic small vessel ischemic change. Small left inferior frontal scalp soft tissue swelling/hematoma formation MRI head, 12/17/2024: No acute MRI findings of the brain vital signs Vital Sign Date Time Temp Pulse Resp B/P (MAP) Pulse Ox O2 Delivery O2 Flow Rate FiO2 01/02/25 06:10 140/49 01/02/25 06:00 75 13 95 01/02/25 05:55 Room Air* 0 21 01/02/25 04:00 97.9 97.9 Total Intake and Output 01/01/25 01/01/25 01/02/25 15:00 23:00 07:00 Intake Total 1000 ml 1150 ml 650 ml Output Total 1550 ml 50 ml Balance 1000 ml -400 ml 600 ml medications Current Medications Medications Dose Ordered Sig/Duncan Route Start Time Stop Time Status Last Admin Dose Admin Cefepime HCl 50 ml @ 12.5 mls/hr DAILY IV 12/31/24 10:00 UNV Cefepime HCl 50 ml @ 12.5 mls/hr Q24H IV 12/31/24 21:00 01/01/25 21:36 12.5 MLS/HR Acetaminophen 325 mg Q4HP PRN PO 12/31/24 00:15 Ondansetron HCl 4 mg Q4HP PRN IV 12/31/24 00:15 Morphine Sulfate 2 mg Q4HPRN PRN IV 12/31/24 00:15 01/01/25 21:10 2 MG Hydralazine HCl 50 mg Q8HP PO 12/31/24 22:00 01/02/25 06:10 50 MG Amlodipine Besylate 10 mg DAILY PO 01/01/25 10:00 01/01/25 11:07 10 MG Acetaminophen/ Hydrocodone Bitart 1 tab Q6HPRN PRN PO 12/31/24 17:30 12/31/24 17:32 1 TAB Carvedilol 3.125 mg Q12HR PO 01/01/25 22:00 01/01/25 22:17 3.125 MG objective General: the patient is well developed and nourished. No acute distress. MENTAL STATUS: Subjective SPEECH, LANGUAGE, HIGHER CORTICAL FUNCTION: no aphasia or dysathria. CRANIAL NERVES: Pupils are equal, round and reactive. EOMs full and conjugate. No nystagmus. Facial sensation intact in all three divisions bilaterally. Mandibular strength intact. Facial muscles symmetrical and strength intact. Tongue midline. No fasciculations or atrophy. SENSATION: Sensation to touch and pinprick is fine MOTOR: Normal tone in the upper and lower extremity. Normal muscle bulk. No fasciculations. No abnormal movements or posturing. He moves the arms and legs, ? weaker in the right arm than leg REFLEXES: Deep tendon reflexes are symmetrical. No pathological reflexes. CEREBELLAR/COORDINATION: Deferred GAIT/STATION: deferred. laboratory and microbiology Laboratory Tests 01/02/25 05:05 Test 01/02/25 05:05 Range/Units Serum Glucose 79 74-106 mg/dL Problem List Altered mental status, abnormal movement Likely metabolic encephalopathy with myoclonus Seizure, less likely Metabolic encephalopathy secondary to chronic kidney failure Chronic kidney failure on hemodialysis A fib Right groin hematoma/ femoral pseudoaneurysm Assessment/Plan Monitoring Supportive treatment Follow-up labs EEG MARIE care Lovenox 50 mg subQ daily if okay with Dr. Fiordaliza Wynn (acute groin hematoma) DVT prophylaxis/SCD for now GI prophylaxis/Protonix Up to chair Physical therapy Vascular surgery on case Nephrology/hemodialysis More recommendation per clinical course This medical document was created using an electronic medical record system with [employer] dictation system. Although this document has been carefully reviewed, there may still be some phonetic and typographical errors. These areas are purely typographical due to imperfections of the software programs, and do not reflect any compromise in the patient's medical care. Prognosis poor Plan discussed with: Other Total Time (mins): 35 LOULOU PAGE MD Jan 02, 2025 09:07
--- NOTE | 2025-01-02 09:28 | DVH ---
RIGHT Lower Extremity Arterial Duplex Date: 01/02/2025 08:20 AM Clinical History: Questionable pseudoaneurysm of rt groin follow up Comparison: US RT LOW EXT ART DUPLEX on DOS: 12/31/24 Technique: Duplex Doppler evaluation including color Doppler and spectral/pulsed waveform analysis of theRIGHT lower extremity arteries was performed. Finding: RIGHT: Peak systolic velocities are as follows: GASATERIA ATTENDANT 197 cm/s Deep femoral 247 cm/s SFA proximal 240 cm/s SFA mid-portion 187 cm/s SFA distal 167 cm/s Popliteal 130 cm/s Posterior tibial 108 cm/s Anterior tibial 63 cm/s Dorsalis pedis 24 cm/s The waveforms are monophasic in the right dorsalis pedis artery. Otherwise waveforms are within.. REFERENCE VALUES, [facility] ([facility]) vascular Imaging Lab Criteria: Peak systolic velocity ranges (in cm/sec) are as follows: <150 cm/s - <20 % stenosis 150-200 cm/s - 20-49% stenosis 200-300 cm/s - 50-75% stenosis >300 cm/s -> 75% stenosis IMPRESSION: Approximately 20-49% of the right common femoral artery, right mid and distal superficial femoral artery. Approximately 50-75% stenosis of the right mid superficial femoral artery and femoral artery.
--- NOTE | 2025-01-02 11:55 | DVHPN2 ---
Progress Note Date Seen: Jan 02, 2025 Has the PT tested + for MRSA If YES, has PT been informed?: No Medical Necessity Reason Pt with a Central, PICC or Fol: Yes Subjective Patient reports: Other (right groin pain) Review of Systems: HEENT:Normal, CVS:Normal, RESPIRATORY:Normal, GI:Normal, :Normal, MSK:Normal, NEURO:Normal Objective vital signs Vital Sign Date Time Temp Pulse Resp B/P (MAP) Pulse Ox O2 Delivery O2 Flow Rate FiO2 01/02/25 09:00 73 16 141/47 (78) 98 01/02/25 08:00 Room Air* 0 21 01/02/25 08:00 98.4 98.4 Total Intake and Output 01/01/25 01/01/25 01/02/25 15:00 23:00 07:00 Intake Total 1000 ml 1150 ml 650 ml Output Total 1550 ml 50 ml Balance 1000 ml -400 ml 600 ml medications Current Medications Medications Dose Ordered Sig/Duncan Route Start Time Stop Time Status Last Admin Dose Admin Cefepime HCl 50 ml @ 12.5 mls/hr DAILY IV 12/31/24 10:00 UNV Acetaminophen 325 mg Q4HP PRN PO 12/31/24 00:15 Ondansetron HCl 4 mg Q4HP PRN IV 12/31/24 00:15 Hydralazine HCl 50 mg Q8HP PO 12/31/24 22:00 01/02/25 06:10 50 MG Amlodipine Besylate 10 mg DAILY PO 01/01/25 10:00 01/01/25 11:07 10 MG Acetaminophen/ Hydrocodone Bitart 1 tab Q6HPRN PRN PO 12/31/24 17:30 12/31/24 17:32 1 TAB Carvedilol 3.125 mg Q12HR PO 01/01/25 22:00 01/01/25 22:17 3.125 MG laboratory and microbiology Laboratory Tests 01/02/25 05:05 Test 01/02/25 05:05 Range/Units Serum Glucose 79 74-106 mg/dL Microbiology Date/Time Source Procedure Growth Status 12/31/24 04:27 Nose MRSA Screen - Final Complete 12/30/24 21:25 Blood Blood Culture - Preliminary NO GROWTH AFTER 48 HOURS OF INCUBATION. Resulted 12/30/24 00:00 Voided Urine Urine Culture - Final Complete ADDENDUM # 1 Complex fluid collection in the right groin measuring 10.5 x 7.1 x 3.3 cm suggestive of a hematoma with focal pulsating area demonstrating flow in a Mary Hartman appearance suggestive of a pseudo aneurysm. ORIGINAL REPORT RIGHT Lower Extremity Arterial Duplex Date: 01/02/2025 08:20 AM Clinical History: Questionable pseudoaneurysm of rt groin follow up Comparison: US RT LOW EXT ART DUPLEX on DOS: 12/31/24 Technique: Duplex Doppler evaluation including color Doppler and spectral/pulsed waveform analysis of theRIGHT lower extremity arteries was performed. Finding: RIGHT: Peak systolic velocities are as follows: BLOCK HAND 197 cm/s Deep femoral 247 cm/s SFA proximal 240 cm/s SFA mid-portion 187 cm/s SFA distal 167 cm/s Popliteal 130 cm/s Posterior tibial 108 cm/s Anterior tibial 63 cm/s Dorsalis pedis 24 cm/s The waveforms are monophasic in the right dorsalis pedis artery. Otherwise waveforms are within.. REFERENCE VALUES, [facility] ([facility]) vascular Imaging Lab Criteria: Peak systolic velocity ranges (in cm/sec) are as follows: <150 cm/s - <20 % stenosis 150-200 cm/s - 20-49% stenosis 200-300 cm/s - 50-75% stenosis >300 cm/s -> 75% stenosis IMPRESSION: Approximately 20-49% of the right common femoral artery, right mid and distal superficial femoral artery. Approximately 50-75% stenosis of the right mid superficial femoral artery and femoral artery. Problem List/Assessment/Plan Problem List/Assessment/Plan right femoral artery pseudoaneyrsm appears to have partially but not completely with a small 6mm neck Will try ultrasound guided compression possible thrombin injection to avoid open surgical repair. Plan discussed with: Other (rn) My Orders My Orders Orders - MUKUND AVALOS Jr., MD Procedure Category Date Status Time Rt Low Ext Art Duplex US 11/4/25 Verified 11:48 MUKUND AVALOS Jr., MD Jan 02, 2025 11:55
[2025-01-02 13:37] LABS: Hematocrit 25.5 % (36.0-46.0); Hemoglobin 8.4 g/dL (12.2-16.2)
--- NOTE | 2025-01-02 14:26 | DVH ---
US Rt Low Ext Art Duplex COMPARISON: US RT LOW EXT ART DUPLEX on DOS: 01/02/25, US RT LOW EXT ART DUPLEX on DOS: 12/31/24 HISTORY: pseudoaneurysm compression TECHNIQUE: Transverse and longitudinal images were obtained of the groin with ultrasound, color doppler . FINDINGS/IMPRESSION: The groin shows a large hematoma with a pulsatile pseudoaneurysm and a narrow neck. US guided compression was used for 20 minutes. The pseudoaneurysm was no longer visualized after compression. Follow up US in 24 hours can be considered.
[2025-01-02] MEDS: fentaNYL CITRATE 100 MCG/2 ML VL ONE (14:32)
--- NOTE | 2025-01-02 15:23 | DVHPNRES ---
Progress Note Date Seen: Jan 02, 2025 Resident Creating Document: REYMUNDO MTZ RESIDENT Has the PT tested + for MRSA If YES, has PT been informed?: No Medical Necessity Reason Pt with a Central, PICC or Fol: Yes Subjective Review of Systems Marisa Nunez is a 74-year-old female who presented to the ED via EMS from specialized nursing facility due to progressive altered mental status. EMS noted patient to be hypotensive on site, prompting ER visit. Patient was recently discharged on December 26 for metabolic encephalopathy. On talking to family at bedside, they mentioned this is not her baseline and she looks more drowsy than normal. Urine analysis,chest Xray and head CT were unremarkable. Patient had active bleeding from femoral line site, for which pressure was applied for 15 minutes, which resolved the bleeding. Past medical history: Hypertension, diabetes noninsulin dependent, paroxysmal atrial fibrillation (chads Vasc 5) on Eliquis, ESRD on dialysis (Wednesday, and Wednesday, Dr. Wynn), diabetes mellitus, breast and colon cancer. Surgical history: Right knee replacement, colectomy, right mastectomy Family history: Noncontributory Social history: Patient was brought from specialized nursing facility. No history of smoking, alcohol, drug use. Next of kin daughter Allergies: Denies Home medication: Acetaminophen, benazepril, cephalexin, clonidine, Prempro, diphenhydramine, ferrous sulfate, folic acid, gabapentin, hydrochlorothiazide, hydroxychloroquine, ibuprofen, lansoprazole, metoprolol, naproxen, omeprazole, pravastatin, prednisolone, sertraline, trazodone Patient seen and examined at bedside. Patient is alert and oriented only to person. Patient complains of pain in the right groin area. Eyes: No Pain, No Vision change, No Conjunctivae inflammation, No Eyelid inflammation,No Redness ENT: No Ear pain, No Ear discharge, No Nose pain, No Nose discharge, No Nose congestion, No Mouth pain, No Mouth swelling, No Throat pain, No Throat swelling Cardiovascular: No Chest Pain, No Palpitations, No Orthopnea, No Paroxysmal No Dyspnea, No Edema, No Lt Headedness Respiratory: No Cough, No Dry, No Shortness of breath, No SOB with exertion, No Wheezing, No Hemoptysis, No Pleuritic Pain, No Sputum Gastrointestinal: No Nausea, No Vomiting, No Abdominal Pain, No Diarrhea, No Constipation, No Melena, No Hematochezia Genitourinary: No Dysuria, No Frequency, No Incontinence, No Hematuria, No Retention 01/01/25- patient was seen at bedside today. The hematoma in the right groin area has reduced in size since yesterday. We will continue with the pressure dressing with a sandbag. Her hemoglobin this morning was 7.1 . PRBC was given, repeat hemoglobin was 8.5. Vascular surgery saw the patient and recommended a repeat arterial duplex tomorrow morning to steady the evolution of the hematoma. Carvedilol 3.125 mg po bid was added to the regimen for blood pressure control. 01/02/25- The patient was seen at bedside today. Her hemoglobin today is 8.2. She underwent hemodialysis yesterday and 1.5L was removed. Repeat arterial study showed complex fluid collection in the right groin measuring 10.5 x 7.1 x 3.3 cm suggestive of a hematoma with focal pulsating area demonstrating flow in a Mary Hartman appearance suggestive of a pseudo aneurysm. Vascular surgery evaluated the patient and recommended ultrasound guided compression possible thrombin injection to avoid open surgical repair.. Morphine and Cefepime were discontinued. Objective vital signs Vital Sign Date Time Temp Pulse Resp B/P (MAP) Pulse Ox O2 Delivery O2 Flow Rate FiO2 01/02/25 15:00 65 14 129/55 (79) 98 01/02/25 14:00 Room Air* 0 21 01/02/25 13:00 98.1 98.1 Total Intake and Output 01/01/25 01/01/25 01/02/25 15:00 23:00 07:00 Intake Total 1000 ml 1150 ml 650 ml Output Total 1550 ml 50 ml Balance 1000 ml -400 ml 600 ml medications Current Medications Medications Dose Ordered Sig/Duncan Route Start Time Stop Time Status Last Admin Dose Admin Cefepime HCl 50 ml @ 12.5 mls/hr DAILY IV 12/31/24 10:00 UNV Acetaminophen 325 mg Q4HP PRN PO 12/31/24 00:15 Ondansetron HCl 4 mg Q4HP PRN IV 12/31/24 00:15 Hydralazine HCl 50 mg Q8HP PO 12/31/24 22:00 01/02/25 06:10 50 MG Amlodipine Besylate 10 mg DAILY PO 01/01/25 10:00 01/02/25 10:00 10 MG Acetaminophen/ Hydrocodone Bitart 1 tab Q6HPRN PRN PO 12/31/24 17:30 12/31/24 17:32 1 TAB Carvedilol 3.125 mg Q12HR PO 01/01/25 22:00 01/02/25 10:00 3.125 MG Examination Patient lying in bed, in no acute distress. Patient has a hematoma in right groin area around 6 cm, hard on palpation with no active bleeding. General: Hill, afebrile, mucosae are dry Cardiovascular: Normal S1 and S2. No murmurs, gallops or rubs Respiratory: Normal ventilation mechanics. Clear lung sounds on auscultation Abdomen: Soft, nontender, no organomegaly, normal bowel sounds MSK/skin: Mobilizes 4 limbs. Skin is dry and warm. Av fistula in left arm with palpable thrill. Mastectomy of right breast with right upper arm lymphedema Neurological: AO x 1. No motor, no sensory deficits. Pupils are isocoric and reactive laboratory and microbiology Laboratory Tests 01/02/25 13:19 01/02/25 05:05 Test 01/02/25 05:05 Range/Units Serum Glucose 79 74-106 mg/dL Microbiology Date/Time Source Procedure Growth Status 12/31/24 04:27 Nose MRSA Screen - Final Complete 12/30/24 21:25 Blood Blood Culture - Preliminary NO GROWTH AFTER 48 HOURS OF INCUBATION. Resulted 12/30/24 00:00 Voided Urine Urine Culture - Final Complete Labs and/or images reviewed: Labs reviewed by me, Image(s) reviewed by me Problem List/Assessment/Plan Problem List/Assessment/Plan #Metabolic encephalopathy, probably secondary to UTI #Probable UTI #Transient hypotension probably secondary to infection -Completed head CT which ruled out acute intracranial pathology. Presents chronic mild microvascular ischemic changes -started on empiric antibiotic iv Cefipime -Repeat chest x-ray shows no acute pathology -Neurology consult,recommended EEG #Ruled out hemorrhagic stroke -Completed head CT which ruled out acute intracranial pathology. Presents chronic mild microvascular ischemic changes #End-stage renal disease on hemodialysis session (Wednesday, and Wednesday) -nephrology on board to continue with hemodialysis -patient went for dialysis on 12/31/24 ,1.5 L was removed, but it had to be stopped due to swelling noted at the dialysis access site concerning for hematoma -dialysis on 01/01/25 -1.5L removed -strict I&Os #Paroxysmal atrial fibrillation (chads Vasc 5) - secondary hypercoagulability state -Switch apixaban to subcutaneous heparin -patient on heparin, discontinued due to active bleeding from femoral line #Diabetes mellitus type 2, without hyperglycemia -blood glucose 73 -monitor blood glucose #Hypertension,controlled -resumed Hydralazine 50mg po q8 hrs -started amlodipine 10mg po daily -Started on carvedilol 3.125 mg po bid #Breast cancer - status post right mastectomy Colon cancer - status post colectomy #Possible pseudoaneurysm in right groin -given 10 mg of vit K and 1 FFP -Continue pressue dressing on the area of CVL with sand bag -Arterial duplex study- Questionable pseudoaneurysm seen in the right inguinal area. Measures greater than 5.4 cm., repeat on 01/02/25- Complex fluid collection in the right groin measuring 10.5 x 7.1 x 3.3 cm suggestive of a hematoma with focal pulsating area demonstrating flow in a Mary Hartman appearance suggestive of a pseudo aneurysm -vascular surgery consulted- recommended ultrasound guided compression possible thrombin injection to avoid open surgical repair DVT prophylaxis: SCDs Goals of care: Full code, discussed for >23 minutes Plan discussed with patient Plan discussed with Dr Quiñonez Plan discussed with: Patient My Orders My Orders Orders - REYMUNDO MTZ Procedure Category Date Status Time Carvedilol Tablet PHA 01/01/25 In Process (Coreg Tablet) 22:00 Strict I & O ALAN 01/01/25 In Process 16:13 Date of Service: Jan 02, 2025 Billing Provider: REYMUNDO MTZ Common Visit Codes: [id number] INP/OBS CARE(HIGH) REYMUNDO MTZ Jan 02, 2025 15:23
[2025-01-02 18:40] LABS: Hemoglobin 8.0 g/dL (12.2-16.2)
[2025-01-02 18:41] LABS: Hematocrit 24.4 % (36.0-46.0)
--- NOTE | 2025-01-02 18:52 | DVH ---
Bilateral lower extremity venous duplex Clinical History: To rule out DVT Comparison: US RT LOW EXT ART DUPLEX on DOS: 01/02/25, US RT LOW EXT ART DUPLEX on DOS: 01/02/25, US RT LOW EXT ART DUPLEX on DOS: 12/31/24, CV VENOUS DOPPLER UP EXT LT on DOS: 07/22/21, CV VENOUS DOPPLER LOW EXT LT on DOS: 12/24/19 Technique: Duplex Doppler evaluation of the deep venous systems of both lower extremities from the common femoral veins to the popliteal veins including color Doppler and spectral/pulsed waveform analysis was performed. Findings: RIGHT SIDE: The common femoral vein demonstrates appropriate compressibility and waveform variability. There is compressibility/patency of the great saphenous vein at the proximal thigh. The femoral vein demonstrates appropriate compressibility and waveform variability. The deep femoral vein demonstrates appropriate compressibility and waveform variability. The popliteal vein demonstrates appropriate compressibility and waveform variability. There is normal compressibility at the tibioperoneal trunk. LEFT SIDE: The common femoral vein demonstrates appropriate compressibility and waveform variability. There is compressibility/patency of the great saphenous vein at the proximal thigh. The femoral vein demonstrates appropriate compressibility and waveform variability. The deep femoral vein demonstrates appropriate compressibility and waveform variability. The popliteal vein demonstrates appropriate compressibility and waveform variability. There is normal compressibility at the tibioperoneal trunk. Impression: No right or left femoropopliteal venous thrombosis.
--- NOTE | 2025-01-02 19:41 | DVHPN2 ---
Progress Note - Dictate Date Seen: Jan 02, 2025 Has the PT tested + for MRSA If YES, has PT been informed?: No Medical Necessity Reason Pt with a Central, PICC or Fol: Yes Subjective Patient was seen and evaluated in follow up. No acute events overnight. Patient is awake, oriented to person, place and year. She is able to follow verbal commands. Pain in the right groin is improved. Bilateral lower extremity venous duplex reported no right or left femoropopliteal venous thrombosis. vital signs Vital Sign Date Time Temp Pulse Resp B/P (MAP) Pulse Ox O2 Delivery O2 Flow Rate FiO2 01/02/25 18:00 73 01/02/25 18:00 16 98 Room Air* 0 21 01/02/25 17:00 127/58 (81) 01/02/25 13:00 98.1 98.1 Total Intake and Output 01/01/25 01/01/25 01/02/25 15:00 23:00 07:00 Intake Total 1000 ml 1150 ml 650 ml Output Total 1550 ml 50 ml Balance 1000 ml -400 ml 600 ml medications Current Medications Medications Dose Ordered Sig/Duncan Route Start Time Stop Time Status Last Admin Dose Admin Cefepime HCl 50 ml @ 12.5 mls/hr DAILY IV 12/31/24 10:00 UNV Acetaminophen 325 mg Q4HP PRN PO 12/31/24 00:15 Ondansetron HCl 4 mg Q4HP PRN IV 12/31/24 00:15 Hydralazine HCl 50 mg Q8HP PO 12/31/24 22:00 01/02/25 14:00 50 MG Amlodipine Besylate 10 mg DAILY PO 01/01/25 10:00 01/02/25 10:00 10 MG Acetaminophen/ Hydrocodone Bitart 1 tab Q6HPRN PRN PO 12/31/24 17:30 12/31/24 17:32 1 TAB Carvedilol 3.125 mg Q12HR PO 01/01/25 22:00 01/02/25 10:00 3.125 MG objective Vitals and nursing notes reviewed. General Appearance: No Apparent Distress, Normal HEENT: Normal ENT Inspection, Pharynx Normal. PERRL. EOMI Neck: Full Range of Motion, Non-Tender, Normal, Normal Inspection Respiratory: Lungs Clear, No Accessory Muscle Use, No Respiratory Distress, Normal Breath Sounds Cardiovascular: No Murmur, Regular Rate/Rhythm Gastrointestinal: No Organomegaly, Non Tender, No Pulsatile Mass, Normal Bowel Sounds, Soft Extremities: No calf tenderness, Normal capillary refill, Normal inspection, Normal range of motion, Non-tender, No pedal edema Musculoskeletal: Apperance: Normal. Av fistula in left arm. Mastectomy of right breast with right upper arm lymphedema Neurologic: A&Ox3. No motor no sensitive deficits. Skin: Dry, Normal Color, Warm laboratory and microbiology Laboratory Tests 01/02/25 18:30 01/02/25 05:05 Test 01/02/25 05:05 Range/Units Serum Glucose 79 74-106 mg/dL Problem List Metabolic encephalopathy Probable UTI Transient hypotension probably secondary to infection Ruled out hemorrhagic stroke End-stage renal disease on hemodialysis session (Wednesday, and Wednesday) Paroxysmal atrial fibrillation (chads Vasc 5) - secondary hypercoagulability state Diabetes mellitus type 2 Hypertension Breast cancer - status post right mastectomy Colon cancer - status post colectomy Assessment/Plan Agree with current supportive medical care. Vascular Surgery consulted. Planned for ultrasound guided compression, possible thrombin injection. Dialyzed yesterday. No HD today. Strict Intake/Output with Galindo. Hydralazine 50 mg q8h. Carvedilol 3.125 mg po q12h. Amlodipine 10 mg po daily. Pain management prn. Antiemetics with Zofran. Additional plan as per the hospital course. Plan discussed with: Patient, Other (RN) TATYANA CHARLES DO Jan 02, 2025 19:40
--- NOTE | 2025-01-02 23:12 | DVHEEG2 ---
Neurology EEG Procedural Note Procedural Note EXAM DATE: 01/02/2025 REFERRING DOCTOR: DR. PAGE TECHNIQUE: Eighteen channels of EEG, 2 channels of EOG, and 1 channel of EKG were recorded using the [employer] 10/20 system. CLINICAL DATA: The patient was referred for an EEG evaluation for the evidence of seizure disorder. MEDICATIONS: See the chart BACKGROUND ACTIVITY: While the patient was awake, the background activity consisted of poor regulated 8-9 Hz rhythmic waveforms, symmetrically distributed over both posterior quadrants and was reactive to external stimuli ACTIVATION: Hyperventilation: Not a down Photic Stimulation: No photic convulsive response Sleep: Noticed, during asleep, meeting high-amplitude sharply contoured waveform were seen in the left paracentral region IMPRESSION: This is an abnormal EEG. The sharply contoured waveform in the left hemispheres are considered epileptiform in nature, please correlate clinically The EKG channel showed a regular heart rate of 66 per minute[place] [address]. LOULOU PAGE MD Jan 02, 2025 23:11
[2025-01-03] VITALS (23 sets, daily range): BP systolic 106–151; BP diastolic 41–67; PULSE 61–83; RESP 11–18; TEMP 97.7–98.9; O2SAT 96–100
[2025-01-03 05:21] LABS: Potassium 4.0 mmol/L (3.5-5.1)
[2025-01-03 05:22] LABS: Anion Gap 10 (5-15); Calcium 8.8 mg/dL (8.7-10.4); Carbon Dioxide 29 mmol/L (20-31)
[2025-01-03 05:27] LABS: BUN/Creatinine Ratio 3.7 (10.0-20.0); Blood Urea Nitrogen 17 mg/dL (9-23); Chloride 94 mmol/L (98-107); Glucose 93 mg/dL (74-106); Sodium 133 mmol/L (136-145)
[2025-01-03 05:33] LABS: Hematocrit 22.3 % (36.0-46.0); Hemoglobin 7.4 g/dL (12.2-16.2); Mean Corpuscular Hemoglobin 27.1 pg (28.0-32.0); Mean Corpuscular Volume 81.4 fL (80.0-100.0); Nucleated Red Blood Cells % 0.0 %
[2025-01-03] MEDS: ACETAMINOPHEN 325 MG TAB PO PRN (08:32)
--- NOTE | 2025-01-03 10:01 | DVHPN2 ---
Progress Note - Dictate Date Seen: Jan 03, 2025 Has the PT tested + for MRSA If YES, has PT been informed?: No Medical Necessity Reason Pt with a Central, PICC or Fol: Yes Subjective Ms. Nunez is a 74 years old right-handed female with a history of hypertension, diabetes, AFib on Eliquis 2.5 mg b.i.d., ESRD on hemodialysis, breast cancer, colon cancer, she was brought to the [facility] on 12/30/2024 with a chief complaint of low blood pressure. I saw her on 12/11/2024 for ALOC (She also had right myoclonus jerk, she was mentally better on discharge), 12/17/24 for intermittent confusion I have seen and examined the patient along with her nurse, proving, awake, oriented x3, follows verbal commands, the pain in the right groin airway is better, still persist The right foot is warm, no some poor circulation, reasonably good dorsalis pedis artery pulse UDS, 12/30/2024: Negative Urinalysis, 12/30/2024: Unremarkable WBC/HB/PLT/MCV, 12/11/2024: 5.8/9.4/235/84.8, 12/17/2024: 5.1/8.6/233/83.5, 01/01/2025: 5.8/7.2/323/80.3, 01/02/2025: 7/8.2/244/80.4 BUN/CR, 12/08/2024: 30/6.66, 12/17/2024: 13/4.38, 01/01/2025: 26/4.79 GFR, 12/08/24: 6, 01/01/2025: 9 HGB A1c, 12/07/2024: 3.8 Liver function tests, 12/30/24: Unremarkable NH3 12/17/2024: < 10 ammonia, 12/18/2024: <10 12/30/2024: <10 TG/HDL/LDL/HDL, 12/07/2024: 83/156/51/91. 12/30/2024: 92/169/52/87 Vitamin B12, 12/07/2024: 855, 12/30/2024: 579 TSH, 12/07/24: 4.73 EEG, 12/18/2024: A remarkably abnormal EEG, with frequent triphasic waveforms EEG, 12/19/2024: A moderately abnormal EEG with her face waveforms. compared to the EEG obtained on 12/18/2024, this is a better EEG with less triphasic waveforms EEG, 01/02/25: Abnormal EEG with epileptiform features in the left paracentral region TTE, 12/09/2024: EF: 70% Arterial Doppler, 12/31/2024: There is no evidence for peripheral vascular insufficiency in the right lower extremity.(addendum:Questionable pseudoaneurysms seen in the right inguinal area. Measures greater than 5.4 cm) Arterial Doppler, 01/02/25: The groin shows a large hematoma with a pulsatile pseudoaneurysm and a narrow neck. US guided compression was used for 20 minutes. The pseudoaneurysm was no longer visualized after compression. Follow up US in 24 hours can be considered. Chest x-ray, 01/19/2025: No acute abnormality demonstrated. CT head, 12/11/2024: There is no evidence for acute intracranial hemorrhage, acute ischemic changes, mass, mass effect, or extra-axial fluid collection. There is no hydrocephalus or midline shift. There is no effacement of the cerebral sulci and basal subarachnoid cisterns. The calle-white matter differentiation is well maintained. CT head, 12/30/2024: No acute intracranial abnormality identified. Mild chronic white matter microvascular ischemic change and cerebral volume loss CTA neck, head, 12/11/2024: Evaluation quantification of carotid narrowing slight difficult on this exam due to significant calcifications. Extensive right carotid bulb plaque resulting in severe luminal narrowing with near complete occlusion. Extensive left carotid bulb plaque resulting in grossly 50% luminal narrowing per NASCET criteria. Short segment of fibromuscular dysplasia involving the proximal/mid left extracranial internal carotid artery. Please note the accurate quantification of stenosis is difficult with CTA. If accurate assessment is warranted, catheter angiography is suggested MRI head, 12/12/2024: No acute intracranial abnormality seen. No evidence for acute infarct. Mild brain volume loss and chronic small vessel ischemic change. Small left inferior frontal scalp soft tissue swelling/hematoma formation MRI head, 12/17/2024: No acute MRI findings of the brain vital signs Vital Sign Date Time Temp Pulse Resp B/P (MAP) Pulse Ox O2 Delivery O2 Flow Rate FiO2 01/03/25 09:00 68 17 118/54 (75) 99 01/03/25 08:00 Room Air* 0 21 01/03/25 08:00 98.0 98.0 Total Intake and Output 01/02/25 01/02/25 01/03/25 15:00 23:00 07:00 Intake Total 1100 ml 200 ml Output Total 50 ml 50 ml Balance 1050 ml 150 ml medications Current Medications Medications Dose Ordered Sig/Duncan Route Start Time Stop Time Status Last Admin Dose Admin Cefepime HCl 50 ml @ 12.5 mls/hr DAILY IV 12/31/24 10:00 UNV Acetaminophen 325 mg Q4HP PRN PO 12/31/24 00:15 01/03/25 08:32 325 MG Ondansetron HCl 4 mg Q4HP PRN IV 12/31/24 00:15 Hydralazine HCl 50 mg Q8HP PO 12/31/24 22:00 01/03/25 06:29 50 MG Amlodipine Besylate 10 mg DAILY PO 01/01/25 10:00 01/02/25 10:00 10 MG Acetaminophen/ Hydrocodone Bitart 1 tab Q6HPRN PRN PO 12/31/24 17:30 12/31/24 17:32 1 TAB Carvedilol 3.125 mg Q12HR PO 01/01/25 22:00 01/02/25 21:58 3.125 MG objective General: the patient is well developed and nourished. No acute distress. MENTAL STATUS: Subjective SPEECH, LANGUAGE, HIGHER CORTICAL FUNCTION: no aphasia or dysathria. CRANIAL NERVES: Pupils are equal, round and reactive. EOMs full and conjugate. No nystagmus. Facial sensation intact in all three divisions bilaterally. Mandibular strength intact. Facial muscles symmetrical and strength intact. Tongue midline. No fasciculations or atrophy. SENSATION: Sensation to touch and pinprick is fine MOTOR: Normal tone in the upper and lower extremity. Normal muscle bulk. No fasciculations. No abnormal movements or posturing. He moves the arms and legs, ? weaker in the right arm and leg REFLEXES: Deep tendon reflexes are symmetrical. No pathological reflexes. CEREBELLAR/COORDINATION: Deferred GAIT/STATION: deferred. laboratory and microbiology Laboratory Tests 01/03/25 04:51 Test 01/03/25 04:51 Range/Units Serum Glucose 93 74-106 mg/dL Problem List Altered mental status, abnormal movement Likely metabolic encephalopathy with myoclonus Seizure, less likely Metabolic encephalopathy secondary to chronic kidney failure Chronic kidney failure on hemodialysis A fib Right groin hematoma/ femoral pseudoaneurysm Abnormal EEG with epileptiform discharge on 01/02/2025, clinically no convincing evidence of seizure activity Assessment/Plan Monitoring Supportive treatment Follow-up labs Follow up EEG MARIE care Lovenox 50 mg subQ daily if okay with Dr. Fiordaliza Wynn (acute groin hematoma) No antiepileptic treatment is recommended at this time DVT prophylaxis/SCD for now GI prophylaxis/Protonix Up to chair Physical therapy Vascular surgery on case Nephrology/hemodialysis More recommendation per clinical course This medical document was created using an electronic medical record system with [employer] dictation system. Although this document has been carefully reviewed, there may still be some phonetic and typographical errors. These areas are purely typographical due to imperfections of the software programs, and do not reflect any compromise in the patient's medical care. Prognosis poor Dietary Evaluation Review Comments: Nutrition Recommendation: 1) Consider Nepro Carbsteady 240ml daily if PO intake <50% 2) Nephro-cecy 1 tab daily 3) Monitor PO intake, lab values, weight trend, and I/O Expected Outcomes/Goals: Lab values to improve FU 3-5 days Plan discussed with: Patient, Other Critical Care Time(min): 38 LOULOU PAGE MD Jan 03, 2025 10:01
[2025-01-03 12:03] LABS: Iron 20.0 ug/dL (50-170)
[2025-01-03 12:06] LABS: Total Iron Binding Capacity 170.0 ug/dL (250-425)
[2025-01-03 12:50] LABS: Hematocrit 23.1 % (36.0-46.0); Hemoglobin 7.7 g/dL (12.2-16.2)
--- NOTE | 2025-01-03 13:56 | DVH ---
Right lower extremity venous duplex Clinical History: pseudoaneursym of right groin 24 HOUR F/U Comparison: US BILAT LOWER DVT on DOS: 01/02/25, US RT LOW EXT ART DUPLEX on DOS: 01/02/25, US RT LOW EXT ART DUPLEX on DOS: 01/02/25, US RT LOW EXT ART DUPLEX on DOS: 12/31/24 Findings/impression US guided compression was used for 24 hours The pseudoaneurysm was no longer visualized after compression.
--- NOTE | 2025-01-03 17:32 | DVHPNRES ---
Progress Note Date Seen: Jan 03, 2025 Resident Creating Document: REYMUDNO MTZ RESIDENT Has the PT tested + for MRSA If YES, has PT been informed?: No Medical Necessity Reason Pt with a Central, PICC or Fol: Yes Subjective Review of Systems Marisa Nunez is a 74-year-old female who presented to the ED via EMS from specialized nursing facility due to progressive altered mental status. EMS noted patient to be hypotensive on site, prompting ER visit. Patient was recently discharged on December 26 for metabolic encephalopathy. On talking to family at bedside, they mentioned this is not her baseline and she looks more drowsy than normal. Urine analysis,chest Xray and head CT were unremarkable. Patient had active bleeding from femoral line site, for which pressure was applied for 15 minutes, which resolved the bleeding. Past medical history: Hypertension, diabetes noninsulin dependent, paroxysmal atrial fibrillation (chads Vasc 5) on Eliquis, ESRD on dialysis (Wednesday, and Wednesday, Dr. Wynn), diabetes mellitus, breast and colon cancer. Surgical history: Right knee replacement, colectomy, right mastectomy Family history: Noncontributory Social history: Patient was brought from specialized nursing facility. No history of smoking, alcohol, drug use. Next of kin daughter Allergies: Denies Home medication: Acetaminophen, benazepril, cephalexin, clonidine, Prempro, diphenhydramine, ferrous sulfate, folic acid, gabapentin, hydrochlorothiazide, hydroxychloroquine, ibuprofen, lansoprazole, metoprolol, naproxen, omeprazole, pravastatin, prednisolone, sertraline, trazodone Patient seen and examined at bedside. Patient is alert and oriented only to person. Patient complains of pain in the right groin area. Eyes: No Pain, No Vision change, No Conjunctivae inflammation, No Eyelid inflammation,No Redness ENT: No Ear pain, No Ear discharge, No Nose pain, No Nose discharge, No Nose congestion, No Mouth pain, No Mouth swelling, No Throat pain, No Throat swelling Cardiovascular: No Chest Pain, No Palpitations, No Orthopnea, No Paroxysmal No Dyspnea, No Edema, No Lt Headedness Respiratory: No Cough, No Dry, No Shortness of breath, No SOB with exertion, No Wheezing, No Hemoptysis, No Pleuritic Pain, No Sputum Gastrointestinal: No Nausea, No Vomiting, No Abdominal Pain, No Diarrhea, No Constipation, No Melena, No Hematochezia Genitourinary: No Dysuria, No Frequency, No Incontinence, No Hematuria, No Retention 01/01/25- patient was seen at bedside today. The hematoma in the right groin area has reduced in size since yesterday. We will continue with the pressure dressing with a sandbag. Her hemoglobin this morning was 7.1 . PRBC was given, repeat hemoglobin was 8.5. Vascular surgery saw the patient and recommended a repeat arterial duplex tomorrow morning to steady the evolution of the hematoma. Carvedilol 3.125 mg po bid was added to the regimen for blood pressure control. 01/02/25- The patient was seen at bedside today. Her hemoglobin today is 8.2. She underwent hemodialysis yesterday and 1.5L was removed. Repeat arterial study showed complex fluid collection in the right groin measuring 10.5 x 7.1 x 3.3 cm suggestive of a hematoma with focal pulsating area demonstrating flow in a Mary Hartman appearance suggestive of a pseudo aneurysm. Vascular surgery evaluated the patient and recommended ultrasound guided compression possible thrombin injection to avoid open surgical repair.. Morphine and Cefepime were discontinued. 01/03/25- The patient was seen at bedside. Hemoglobin was 7.7. Repeat arterial study showed the pseudoaneurysm was no longer visualized after compression for 24 minutes. EEG showed sharply contoured waveform in the left hemispheres are considered epileptiform in nature. Neurology mentioned no antiepileptic treatment is recommended at this time. Patient was started on iron transfusion as iron level is 20. Objective vital signs Vital Sign Date Time Temp Pulse Resp B/P (MAP) Pulse Ox O2 Delivery O2 Flow Rate FiO2 01/03/25 15:00 63 12 125/42 (69) 99 01/03/25 14:00 Room Air* 0 21 01/03/25 12:00 98.9 98.9 Total Intake and Output 01/02/25 01/02/25 01/03/25 15:00 23:00 07:00 Intake Total 1100 ml 200 ml Output Total 50 ml 50 ml Balance 1050 ml 150 ml medications Current Medications Medications Dose Ordered Sig/Duncan Route Start Time Stop Time Status Last Admin Dose Admin Cefepime HCl 50 ml @ 12.5 mls/hr DAILY IV 12/31/24 10:00 UNV Acetaminophen 325 mg Q4HP PRN PO 12/31/24 00:15 01/03/25 08:32 325 MG Ondansetron HCl 4 mg Q4HP PRN IV 12/31/24 00:15 Hydralazine HCl 50 mg Q8HP PO 12/31/24 22:00 01/03/25 06:29 50 MG Amlodipine Besylate 10 mg DAILY PO 01/01/25 10:00 01/03/25 10:32 10 MG Acetaminophen/ Hydrocodone Bitart 1 tab Q6HPRN PRN PO 12/31/24 17:30 01/03/25 15:37 1 TAB Carvedilol 3.125 mg Q12HR PO 01/01/25 22:00 01/03/25 10:32 3.125 MG Iron Sucrose 110 ml @ 110 mls/hr DAILY@1200 IV 01/04/25 12:00 01/08/25 12:59 Examination Patient lying in bed, in no acute distress. Patient has a hematoma in right groin area around 6 cm, hard on palpation with no active bleeding. General: Hill, afebrile, mucosae are dry Cardiovascular: Normal S1 and S2. No murmurs, gallops or rubs Respiratory: Normal ventilation mechanics. Clear lung sounds on auscultation Abdomen: Soft, nontender, no organomegaly, normal bowel sounds MSK/skin: Mobilizes 4 limbs. Skin is dry and warm. Av fistula in left arm with palpable thrill. Mastectomy of right breast with right upper arm lymphedema Neurological: AO x 1. No motor, no sensory deficits. Pupils are isocoric and reactive laboratory and microbiology Laboratory Tests 01/03/25 11:55 01/03/25 04:51 Test 01/03/25 04:51 Range/Units Serum Glucose 93 74-106 mg/dL Microbiology Date/Time Source Procedure Growth Status 12/31/24 04:27 Nose MRSA Screen - Final Complete 12/30/24 21:25 Blood Blood Culture - Preliminary NO GROWTH AFTER 72 HOURS OF INCUBATION. Resulted 12/30/24 00:00 Voided Urine Urine Culture - Final Complete Labs and/or images reviewed: Labs reviewed by me, Image(s) reviewed by me Problem List/Assessment/Plan Problem List/Assessment/Plan #Metabolic encephalopathy, probably secondary to UTI #Ruled out UTI #Transient hypotension probably secondary to infection -Completed head CT which ruled out acute intracranial pathology. Presents chronic mild microvascular ischemic changes -Repeat chest x-ray shows no acute pathology -Neurology consult,recommended EEG sharply contoured waveform in the left hemispheres are considered epileptiform in nature-requires no anti epileptic medication #Ruled out hemorrhagic stroke -Completed head CT which ruled out acute intracranial pathology. Presents chronic mild microvascular ischemic changes #End-stage renal disease on hemodialysis session (Wednesday, and Wednesday) #Normocytic anemia -nephrology on board to continue with hemodialysis -patient went for dialysis on 12/31/24 ,1.5 L was removed, but it had to be stopped due to swelling noted at the dialysis access site concerning for hematoma -dialysis on 01/01/25 -1.5L removed -strict I&Os -started iron infusion, iron level is 20 #Paroxysmal atrial fibrillation (chads Vasc 5) - secondary hypercoagulability state -Switch apixaban to subcutaneous heparin -patient on heparin, discontinued due to active bleeding from femoral line #Diabetes mellitus type 2, without hyperglycemia -blood glucose 73, Hb A1c is 3.8 on 12/07/24 -monitor blood glucose #Hypertensive heart disease -resumed Hydralazine 50mg po q8 hrs -started amlodipine 10mg po daily -Started on carvedilol 3.125 mg po bid #Breast cancer - status post right mastectomy Colon cancer - status post colectomy #Possible pseudoaneurysm in right groin -given 10 mg of vit K and 1 FFP -Continue pressue dressing on the area of CVL with sand bag -Arterial duplex study- Questionable pseudoaneurysm seen in the right inguinal area. Measures greater than 5.4 cm., repeat on 01/02/25- Complex fluid collection in the right groin measuring 10.5 x 7.1 x 3.3 cm suggestive of a hematoma with focal pulsating area demonstrating flow in a Mary Hartman appearance suggestive of a pseudo aneurysm -vascular surgery consulted- recommended ultrasound guided compression possible thrombin injection to avoid open surgical repair -repeat arterial study on 01/03/25- The pseudoaneurysm was no longer visualized after compression. DVT prophylaxis: SCDs Goals of care: Full code, discussed for >23 minutes Plan discussed with patient Plan discussed with Dr Islas Plan discussed with: Patient, Daughter My Orders My Orders Orders - REYMUNDO MTZ RESIDENT Procedure Category Date Status Time Right Lower Extremity US 01/03/25 Resulted Ultrasou 11:53 Dietary Evaluation Review Comments: Nutrition Recommendation: 1) Consider Nepro Carbsteady 240ml daily if PO intake <50% 2) Nephro-cecy 1 tab daily 3) Monitor PO intake, lab values, weight trend, and I/O Expected Outcomes/Goals: Lab values to improve FU 3-5 days Date of Service: Jan 03, 2025 Billing Provider: ORIN ISLAS MD Common Visit Codes: [id number] INP/OBS CARE(HIGH) REYMUNDO MTZ RESIDENT Jan 03, 2025 17:31
[2025-01-03] MEDS: SODIUM CHL 0.9% 1000 ML BAG XX ONE (17:34)
--- NOTE | 2025-01-03 19:09 | DVHPN2 ---
Progress Note - Dictate Date Seen: Jan 03, 2025 Has the PT tested + for MRSA If YES, has PT been informed?: No Medical Necessity Reason Pt with a Central, PICC or Fol: Yes Subjective Patient was seen and evaluated in follow up. No acute events overnight. Patient is awake, oriented x3. Patient complains of persistent pain in the right groin area, slightly improved. Dialysis scheduled. vital signs Vital Sign Date Time Temp Pulse Resp B/P (MAP) Pulse Ox O2 Delivery O2 Flow Rate FiO2 01/03/25 18:18 137/50 01/03/25 18:00 73 13 100 01/03/25 18:00 Room Air* 0 21 01/03/25 16:00 97.7 97.7 Total Intake and Output 01/02/25 01/02/25 01/03/25 15:00 23:00 07:00 Intake Total 1100 ml 200 ml Output Total 50 ml 50 ml Balance 1050 ml 150 ml medications Current Medications Medications Dose Ordered Sig/Duncan Route Start Time Stop Time Status Last Admin Dose Admin Cefepime HCl 50 ml @ 12.5 mls/hr DAILY IV 12/31/24 10:00 UNV Acetaminophen 325 mg Q4HP PRN PO 12/31/24 00:15 01/03/25 08:32 325 MG Ondansetron HCl 4 mg Q4HP PRN IV 12/31/24 00:15 Hydralazine HCl 50 mg Q8HP PO 12/31/24 22:00 01/03/25 18:18 50 MG Amlodipine Besylate 10 mg DAILY PO 01/01/25 10:00 01/03/25 10:32 10 MG Acetaminophen/ Hydrocodone Bitart 1 tab Q6HPRN PRN PO 12/31/24 17:30 01/03/25 15:37 1 TAB Carvedilol 3.125 mg Q12HR PO 01/01/25 22:00 01/03/25 10:32 3.125 MG Iron Sucrose 110 ml @ 110 mls/hr DAILY@1200 IV 01/04/25 12:00 01/08/25 12:59 objective Vitals and nursing notes reviewed. General Appearance: No Apparent Distress, Normal HEENT: Normal ENT Inspection, Pharynx Normal. PERRL. EOMI Neck: Full Range of Motion, Non-Tender, Normal, Normal Inspection Respiratory: Lungs Clear, No Accessory Muscle Use, No Respiratory Distress, Normal Breath Sounds Cardiovascular: No Murmur, Regular Rate/Rhythm Gastrointestinal: No Organomegaly, Non Tender, No Pulsatile Mass, Normal Bowel Sounds, Soft Extremities: No calf tenderness, Normal capillary refill, Normal inspection, Normal range of motion, Non-tender, No pedal edema Musculoskeletal: Apperance: Normal. Av fistula in left arm. Mastectomy of right breast with right upper arm lymphedema Neurologic: A&Ox3. No motor no sensitive deficits. Skin: Dry, Normal Color, Warm laboratory and microbiology Laboratory Tests 01/03/25 11:55 01/03/25 04:51 Test 01/03/25 04:51 Range/Units Serum Glucose 93 74-106 mg/dL Problem List Metabolic encephalopathy Probable UTI Transient hypotension probably secondary to infection Ruled out hemorrhagic stroke End-stage renal disease on hemodialysis session (Wednesday, and Wednesday) Paroxysmal atrial fibrillation (chads Vasc 5) - secondary hypercoagulability state Diabetes mellitus type 2 Hypertension Breast cancer - status post right mastectomy Colon cancer - status post colectomy Assessment/Plan Agree with current supportive medical care. Vascular Surgery consulted. HD- 01/03. Epogen 10,000 u x once. Strict Intake/Output with Galindo. Hydralazine 50 mg q8h. Carvedilol 3.125 mg po q12h. Amlodipine 10 mg po daily. Pain management prn. Additional plan as per the hospital course. Dietary Evaluation Review Comments: Nutrition Recommendation: 1) Consider Nepro Carbsteady 240ml daily if PO intake <50% 2) Nephro-cecy 1 tab daily 3) Monitor PO intake, lab values, weight trend, and I/O Expected Outcomes/Goals: Lab values to improve FU 3-5 days Plan discussed with: Patient, Other (RN) TATYANA CHARLES DO Jan 03, 2025 19:09
[2025-01-03] MEDS: MELATONIN 5 MG TAB PO SCH (21:01)
[2025-01-03] MEDS: EPOETIN ALFA-EPBX 10,000 UNIT/1ML VIAL SC ONE (21:02)
[2025-01-04] VITALS (8 sets, daily range): BP systolic 107–150; BP diastolic 53–82; PULSE 70–93; RESP 17–20; TEMP 97.7–98.6; O2SAT 96–100
[2025-01-04 06:39] LABS: Hematocrit 22.0 % (36.0-46.0); Hemoglobin 7.3 g/dL (12.2-16.2); Mean Corpuscular Hemoglobin 26.7 pg (28.0-32.0); Mean Corpuscular Volume 80.6 fL (80.0-100.0); Nucleated Red Blood Cells % 0.3 %
[2025-01-04 06:47] LABS: Chloride 100 mmol/L (98-107); Potassium 4.0 mmol/L (3.5-5.1); Sodium 140 mmol/L (136-145)
[2025-01-04 06:48] LABS: Anion Gap 9 (5-15); Carbon Dioxide 31 mmol/L (20-31)
[2025-01-04 06:51] LABS: Calcium 8.6 mg/dL (8.7-10.4)
[2025-01-04 06:53] LABS: BUN/Creatinine Ratio 3.4 (10.0-20.0); Blood Urea Nitrogen 11 mg/dL (9-23); Glucose 89 mg/dL (74-106)
--- NOTE | 2025-01-04 10:30 | DVHPNRES ---
Progress Note Date Seen: Jan 04, 2025 Resident Creating Document: REYMUNDO MTZ RESIDENT Has the PT tested + for MRSA If YES, has PT been informed?: No Medical Necessity Reason Pt with a Central, PICC or Fol: Yes Subjective Review of Systems Marisa Nunez is a 74-year-old female who presented to the ED via EMS from specialized nursing facility due to progressive altered mental status. EMS noted patient to be hypotensive on site, prompting ER visit. Patient was recently discharged on December 26 for metabolic encephalopathy. On talking to family at bedside, they mentioned this is not her baseline and she looks more drowsy than normal. Urine analysis,chest Xray and head CT were unremarkable. Patient had active bleeding from femoral line site, for which pressure was applied for 15 minutes, which resolved the bleeding. Past medical history: Hypertension, diabetes noninsulin dependent, paroxysmal atrial fibrillation (chads Vasc 5) on Eliquis, ESRD on dialysis (Wednesday, and Wednesday, Dr. Wynn), diabetes mellitus, breast and colon cancer. Surgical history: Right knee replacement, colectomy, right mastectomy Family history: Noncontributory Social history: Patient was brought from specialized nursing facility. No history of smoking, alcohol, drug use. Next of kin daughter Allergies: Denies Home medication: Acetaminophen, benazepril, cephalexin, clonidine, Prempro, diphenhydramine, ferrous sulfate, folic acid, gabapentin, hydrochlorothiazide, hydroxychloroquine, ibuprofen, lansoprazole, metoprolol, naproxen, omeprazole, pravastatin, prednisolone, sertraline, trazodone Patient seen and examined at bedside. Patient is alert and oriented only to person. Patient complains of pain in the right groin area. Eyes: No Pain, No Vision change, No Conjunctivae inflammation, No Eyelid inflammation,No Redness ENT: No Ear pain, No Ear discharge, No Nose pain, No Nose discharge, No Nose congestion, No Mouth pain, No Mouth swelling, No Throat pain, No Throat swelling Cardiovascular: No Chest Pain, No Palpitations, No Orthopnea, No Paroxysmal No Dyspnea, No Edema, No Lt Headedness Respiratory: No Cough, No Dry, No Shortness of breath, No SOB with exertion, No Wheezing, No Hemoptysis, No Pleuritic Pain, No Sputum Gastrointestinal: No Nausea, No Vomiting, No Abdominal Pain, No Diarrhea, No Constipation, No Melena, No Hematochezia Genitourinary: No Dysuria, No Frequency, No Incontinence, No Hematuria, No Retention 01/01/25- patient was seen at bedside today. The hematoma in the right groin area has reduced in size since yesterday. We will continue with the pressure dressing with a sandbag. Her hemoglobin this morning was 7.1 . PRBC was given, repeat hemoglobin was 8.5. Vascular surgery saw the patient and recommended a repeat arterial duplex tomorrow morning to steady the evolution of the hematoma. Carvedilol 3.125 mg po bid was added to the regimen for blood pressure control. 01/02/25- The patient was seen at bedside today. Her hemoglobin today is 8.2. She underwent hemodialysis yesterday and 1.5L was removed. Repeat arterial study showed complex fluid collection in the right groin measuring 10.5 x 7.1 x 3.3 cm suggestive of a hematoma with focal pulsating area demonstrating flow in a Mary Hartman appearance suggestive of a pseudo aneurysm. Vascular surgery evaluated the patient and recommended ultrasound guided compression possible thrombin injection to avoid open surgical repair.. Morphine and Cefepime were discontinued. 01/03/25- The patient was seen at bedside. Hemoglobin was 7.7. Repeat arterial study showed the pseudoaneurysm was no longer visualized after compression for 24 minutes. EEG showed sharply contoured waveform in the left hemispheres are considered epileptiform in nature. Neurology mentioned no antiepileptic treatment is recommended at this time. Patient was started on iron transfusion as iron level is 20. 01/04/25- The patient was seen at bedside today with daughter present bedside. HB today is 7.3. Patient walked 20 feet with a front wheel walker. Possible discharge for tomorrow to [facility] was discussed with the patient and family. Objective vital signs Vital Sign Date Time Temp Pulse Resp B/P (MAP) Pulse Ox O2 Delivery O2 Flow Rate FiO2 01/04/25 09:03 74 107/53 01/04/25 08:31 98.6 20 100 98.6 01/03/25 20:00 Room Air* 0 21 Total Intake and Output 01/03/25 01/03/25 01/04/25 15:00 23:00 07:00 Intake Total 360 ml 440 ml 450 ml Output Total 85 ml 50 ml Balance 360 ml 355 ml 400 ml medications Current Medications Medications Dose Ordered Sig/Duncan Route Start Time Stop Time Status Last Admin Dose Admin Cefepime HCl 50 ml @ 12.5 mls/hr DAILY IV 12/31/24 10:00 UNV Acetaminophen 325 mg Q4HP PRN PO 12/31/24 00:15 01/04/25 09:03 325 MG Ondansetron HCl 4 mg Q4HP PRN IV 12/31/24 00:15 Hydralazine HCl 50 mg Q8HP PO 12/31/24 22:00 01/04/25 05:08 50 MG Amlodipine Besylate 10 mg DAILY PO 01/01/25 10:00 01/03/25 10:32 10 MG Acetaminophen/ Hydrocodone Bitart 1 tab Q6HPRN PRN PO 12/31/24 17:30 01/04/25 04:32 1 TAB Carvedilol 3.125 mg Q12HR PO 01/01/25 22:00 01/04/25 09:03 3.125 MG Iron Sucrose 110 ml @ 110 mls/hr DAILY@1200 IV 01/04/25 12:00 01/08/25 12:59 Melatonin 10 mg HS PO 01/03/25 22:00 01/03/25 21:01 10 MG Examination Patient lying in bed, in no acute distress. Patient has a hematoma in right groin area around 6 cm, hard on palpation with no active bleeding. General: Hill, afebrile, mucosae are dry Cardiovascular: Normal S1 and S2. No murmurs, gallops or rubs Respiratory: Normal ventilation mechanics. Clear lung sounds on auscultation Abdomen: Soft, nontender, no organomegaly, normal bowel sounds MSK/skin: Mobilizes 4 limbs. Skin is dry and warm. Av fistula in left arm with palpable thrill. Mastectomy of right breast with right upper arm lymphedema Neurological: AO x 1. No motor, no sensory deficits. Pupils are isocoric and reactive WILLARD: no external hemorrhoids visible, sphincter tone is normal, empty rectal vault, no active bleeding Nurse Mir was present as plastics nurse during the examination. laboratory and microbiology Laboratory Tests 01/04/25 05:36 Test 01/04/25 05:36 Range/Units Serum Glucose 89 74-106 mg/dL Microbiology Date/Time Source Procedure Growth Status 12/31/24 04:27 Nose MRSA Screen - Final Complete 12/30/24 21:25 Blood Blood Culture - Preliminary NO GROWTH AFTER 72 HOURS OF INCUBATION. Resulted 12/30/24 00:00 Voided Urine Urine Culture - Final Complete Labs and/or images reviewed: Labs reviewed by me, Image(s) reviewed by me Problem List/Assessment/Plan Problem List/Assessment/Plan Assessment/Plan #Acute Metabolic encephalopathy, likely in the setting of Uremia #Ruled out UTI - head CT without contrast ruled out acute intracranial pathology. Presents chronic mild microvascular ischemic changes -Repeat chest x-ray shows no acute pathology -Neurology consult,recommended EEG which showed sharply contoured waveform in the left hemispheres are considered epileptiform in nature-requires no anti epileptic medication #Ruled out stroke -Completed head CT which ruled out acute intracranial pathology. Presents chronic mild microvascular ischemic changes #End-stage renal disease on hemodialysis session (Wednesday, and Wednesday) #Normocytic normochromic anemia -nephrology on board to continue with hemodialysis -patient went for dialysis on 12/31/24 ,1.5 L was removed, but it had to be stopped due to swelling noted at the dialysis access site concerning for hematoma -dialysis on 01/01/25 -1.5L removed -strict I&Os -Continue IV iron -Performed rectal exam -stool occult blood positive on 12/21/24 #Paroxysmal atrial fibrillation (chads Vasc 5) - secondary hypercoagulable state -Patient was taking apixaban at home. Discontinued anticoagulants due to bleedinig concerns -Hold anticoagulation at this time #Diabetes mellitus type 2, without hyperglycemia -blood glucose 73, Hb A1c is 3.8 on 12/07/24 -monitor blood glucose #Hypertensive heart disease with diastolic heart failure -resumed Hydralazine 50mg po q8 hrs -continue amlodipine 10mg po daily -Continue on carvedilol 3.125 mg po bid #Breast cancer - status post right mastectomy Colon cancer - status post colectomy #Possible pseudoaneurysm in right groin -given 10 mg of vit K and 1 FFP -Continue pressue dressing on the right inguinal area with sand bag. -Arterial duplex study- Questionable pseudoaneurysm seen in the right inguinal area. Measures greater than 5.4 cm., repeat on 01/02/25- Complex fluid collection in the right groin measuring 10.5 x 7.1 x 3.3 cm suggestive of a hematoma with focal pulsating area demonstrating flow in a Mary Hartman appearance suggestive of a pseudo aneurysm -vascular surgery consulted- recommended ultrasound guided compression possible thrombin injection to avoid open surgical repair -repeat arterial study on 01/03/25- The pseudoaneurysm was no longer visualized after compression. DVT prophylaxis: SCDs Goals of care: Full code, discussed for >23 minutes Plan discussed with patient Plan discussed with Dr Islas Plan discussed with: Patient My Orders My Orders Orders - REYMUNDO MTZ RESIDENT Procedure Category Date Status Time Right Lower Extremity US 01/03/25 Resulted Ultrasou 11:53 Dietary Evaluation Review Comments: Nutrition Recommendation: 1) Consider Nepro Carbsteady 240ml daily if PO intake <50% 2) Nephro-cecy 1 tab daily 3) Monitor PO intake, lab values, weight trend, and I/O Expected Outcomes/Goals: Lab values to improve FU 3-5 days Date of Service: Jan 04, 2025 Billing Provider: ORIN ISLAS MD Common Visit Codes: [id number] INP/OBS CARE(MOD) REYMUNDO MTZ RESIDENT Jan 04, 2025 10:30 MAY DEVLIN RESIDENT Jan 04, 2025 20:57 ORIN ISLAS MD Jan 05, 2025 11:24
[2025-01-04] MEDS: IRON SUCROSE COMPLEX 110 ML IV SCH (12:00)
--- NOTE | 2025-01-04 20:24 | DVHPN2 ---
Progress Note - Dictate Date Seen: Jan 04, 2025 Has the PT tested + for MRSA If YES, has PT been informed?: No Medical Necessity Reason Pt with a Central, PICC or Fol: Yes Subjective Patient was seen and evaluated in follow up. No acute events overnight. Patient is awake and alert. Patient complains of some pain in the right groin area. Repeat arterial study on 01/03/25 reported the pseudoaneurysm was no longer visualized after compression. vital signs Vital Sign Date Time Temp Pulse Resp B/P (MAP) Pulse Ox O2 Delivery O2 Flow Rate FiO2 01/04/25 17:17 98.4 78 20 134/82 (99) 99 98.4 01/04/25 08:00 Room Air* 0 21 Total Intake and Output 01/03/25 01/03/25 01/04/25 15:00 23:00 07:00 Intake Total 360 ml 440 ml 450 ml Output Total 85 ml 50 ml Balance 360 ml 355 ml 400 ml medications Current Medications Medications Dose Ordered Sig/Duncan Route Start Time Stop Time Status Last Admin Dose Admin Cefepime HCl 50 ml @ 12.5 mls/hr DAILY IV 12/31/24 10:00 UNV Acetaminophen 325 mg Q4HP PRN PO 12/31/24 00:15 01/04/25 09:03 325 MG Ondansetron HCl 4 mg Q4HP PRN IV 12/31/24 00:15 Hydralazine HCl 50 mg Q8HP PO 12/31/24 22:00 01/04/25 13:37 50 MG Amlodipine Besylate 10 mg DAILY PO 01/01/25 10:00 01/04/25 10:00 10 MG Acetaminophen/ Hydrocodone Bitart 1 tab Q6HPRN PRN PO 12/31/24 17:30 01/04/25 17:15 1 TAB Carvedilol 3.125 mg Q12HR PO 01/01/25 22:00 01/04/25 09:03 3.125 MG Iron Sucrose 110 ml @ 110 mls/hr DAILY@1200 IV 01/04/25 12:00 01/08/25 12:59 01/04/25 12:00 110 MLS/HR Melatonin 10 mg HS PO 01/03/25 22:00 01/03/25 21:01 10 MG objective Vitals and nursing notes reviewed. General Appearance: No Apparent Distress, Normal HEENT: Normal ENT Inspection, Pharynx Normal. PERRL. EOMI Neck: Full Range of Motion, Non-Tender, Normal, Normal Inspection Respiratory: Lungs Clear, No Accessory Muscle Use, No Respiratory Distress, Normal Breath Sounds Cardiovascular: No Murmur, Regular Rate/Rhythm Gastrointestinal: No Organomegaly, Non Tender, No Pulsatile Mass, Normal Bowel Sounds, Soft Extremities: No calf tenderness, Normal capillary refill, Normal inspection, Normal range of motion, Non-tender, No pedal edema Musculoskeletal: Apperance: Normal. Av fistula in left arm. Mastectomy of right breast with right upper arm lymphedema Neurologic: A&Ox3. No motor no sensitive deficits. Skin: Dry, Normal Color, Warm laboratory and microbiology Laboratory Tests 01/04/25 05:36 Test 01/04/25 05:36 Range/Units Serum Glucose 89 74-106 mg/dL Problem List Metabolic encephalopathy Probable UTI Transient hypotension probably secondary to infection Ruled out hemorrhagic stroke End-stage renal disease on hemodialysis session (Wednesday, and Wednesday) Paroxysmal atrial fibrillation (chads Vasc 5) - secondary hypercoagulability state Diabetes mellitus type 2 Hypertension Breast cancer - status post right mastectomy Colon cancer - status post colectomy Assessment/Plan Agree with current supportive medical care. Dialyzed yesterday. No HD today. Strict Intake/Output with Galindo. Hydralazine 50 mg q8h. Carvedilol 3.125 mg po q12h. Amlodipine 10 mg po daily. Pain management prn. Additional plan as per the hospital course. Dietary Evaluation Review Comments: Nutrition Recommendation: 1) Consider Nepro Carbsteady 240ml daily if PO intake <50% 2) Nephro-cecy 1 tab daily 3) Monitor PO intake, lab values, weight trend, and I/O Expected Outcomes/Goals: Lab values to improve FU 3-5 days Plan discussed with: Patient, Other (RN) TATYANA CHARLES DO Jan 04, 2025 20:24
--- NOTE | 2025-01-04 21:04 | DVHPN2 ---
Progress Note - Dictate Date Seen: Jan 04, 2025 Has the PT tested + for MRSA If YES, has PT been informed?: No Medical Necessity Reason Pt with a Central, PICC or Fol: Yes Subjective Ms. Nunez is a 74 years old right-handed female with a history of hypertension, diabetes, AFib on Eliquis 2.5 mg b.i.d., ESRD on hemodialysis, breast cancer, colon cancer, she was brought to the [facility] on 12/30/2024 with a chief complaint of low blood pressure. I saw her on 12/11/2024 for ALOC (She also had right myoclonus jerk, she was mentally better on discharge), 12/17/24 for intermittent confusion I have seen and examined the patient along with her nurse, she is awake, oriented x3, follows verbal commands, the pain in the right groin airway is better, still persist The right foot is warm, no signs of poor circulation, dorsalis pedis artery pulse is palpable UDS, 12/30/2024: Negative Urinalysis, 12/30/2024: Unremarkable WBC/HB/PLT/MCV, 12/11/2024: 5.8/9.4/235/84.8, 12/17/2024: 5.1/8.6/233/83.5, 01/01/2025: 5.8/7.2/323/80.3, 01/02/2025: 7/8.2/244/80.4 BUN/CR, 12/08/2024: 30/6.66, 12/17/2024: 13/4.38, 01/01/2025: 26/4.79 GFR, 12/08/24: 6, 01/01/2025: 9 HGB A1c, 12/07/2024: 3.8 Liver function tests, 12/30/24: Unremarkable NH3 12/17/2024: < 10 ammonia, 12/18/2024: <10 12/30/2024: <10 TG/HDL/LDL/HDL, 12/07/2024: 83/156/51/91. 12/30/2024: 92/169/52/87 Vitamin B12, 12/07/2024: 855, 12/30/2024: 579 TSH, 12/07/24: 4.73 EEG, 12/18/2024: A remarkably abnormal EEG, with frequent triphasic waveforms EEG, 12/19/2024: A moderately abnormal EEG with her face waveforms. compared to the EEG obtained on 12/18/2024, this is a better EEG with less triphasic waveforms EEG, 01/02/25: Abnormal EEG with epileptiform features in the left paracentral region TTE, 12/09/2024: EF: 70% Arterial Doppler, 12/31/2024: There is no evidence for peripheral vascular insufficiency in the right lower extremity.(addendum:Questionable pseudoaneurysms seen in the right inguinal area. Measures greater than 5.4 cm) Arterial Doppler, 01/02/25: The groin shows a large hematoma with a pulsatile pseudoaneurysm and a narrow neck. US guided compression was used for 20 minutes. The pseudoaneurysm was no longer visualized after compression. Follow up US in 24 hours can be considered. Chest x-ray, 01/19/2025: No acute abnormality demonstrated. CT head, 12/11/2024: There is no evidence for acute intracranial hemorrhage, acute ischemic changes, mass, mass effect, or extra-axial fluid collection. There is no hydrocephalus or midline shift. There is no effacement of the cerebral sulci and basal subarachnoid cisterns. The calle-white matter differentiation is well maintained. CT head, 12/30/2024: No acute intracranial abnormality identified. Mild chronic white matter microvascular ischemic change and cerebral volume loss CTA neck, head, 12/11/2024: Evaluation quantification of carotid narrowing slight difficult on this exam due to significant calcifications. Extensive right carotid bulb plaque resulting in severe luminal narrowing with near complete occlusion. Extensive left carotid bulb plaque resulting in grossly 50% luminal narrowing per NASCET criteria. Short segment of fibromuscular dysplasia involving the proximal/mid left extracranial internal carotid artery. Please note the accurate quantification of stenosis is difficult with CTA. If accurate assessment is warranted, catheter angiography is suggested MRI head, 12/12/2024: No acute intracranial abnormality seen. No evidence for acute infarct. Mild brain volume loss and chronic small vessel ischemic change. Small left inferior frontal scalp soft tissue swelling/hematoma formation MRI head, 12/17/2024: No acute MRI findings of the brain vital signs Vital Sign Date Time Temp Pulse Resp B/P (MAP) Pulse Ox O2 Delivery O2 Flow Rate FiO2 01/04/25 17:17 98.4 78 20 134/82 (99) 99 98.4 01/04/25 08:00 Room Air* 0 21 Total Intake and Output 01/03/25 01/03/25 01/04/25 15:00 23:00 07:00 Intake Total 360 ml 440 ml 450 ml Output Total 85 ml 50 ml Balance 360 ml 355 ml 400 ml medications Current Medications Medications Dose Ordered Sig/Duncan Route Start Time Stop Time Status Last Admin Dose Admin Cefepime HCl 50 ml @ 12.5 mls/hr DAILY IV 12/31/24 10:00 UNV Acetaminophen 325 mg Q4HP PRN PO 12/31/24 00:15 01/04/25 09:03 325 MG Ondansetron HCl 4 mg Q4HP PRN IV 12/31/24 00:15 Hydralazine HCl 50 mg Q8HP PO 12/31/24 22:00 01/04/25 13:37 50 MG Amlodipine Besylate 10 mg DAILY PO 01/01/25 10:00 01/04/25 10:00 10 MG Acetaminophen/ Hydrocodone Bitart 1 tab Q6HPRN PRN PO 12/31/24 17:30 01/04/25 17:15 1 TAB Carvedilol 3.125 mg Q12HR PO 01/01/25 22:00 01/04/25 09:03 3.125 MG Iron Sucrose 110 ml @ 110 mls/hr DAILY@1200 IV 01/04/25 12:00 01/08/25 12:59 01/04/25 12:00 110 MLS/HR Melatonin 10 mg HS PO 01/03/25 22:00 01/03/25 21:01 10 MG objective General: the patient is well developed and nourished. No acute distress. MENTAL STATUS: Subjective SPEECH, LANGUAGE, HIGHER CORTICAL FUNCTION: no aphasia or dysathria. CRANIAL NERVES: Pupils are equal, round and reactive. EOMs full and conjugate. No nystagmus. Facial sensation intact in all three divisions bilaterally. Mandibular strength intact. Facial muscles symmetrical and strength intact. Tongue midline. No fasciculations or atrophy. SENSATION: Sensation to touch and pinprick is fine MOTOR: Normal tone in the upper and lower extremity. Normal muscle bulk. No fasciculations. No abnormal movements or posturing. He moves the arms and legs, ? weaker in the right arm and leg REFLEXES: Deep tendon reflexes are symmetrical. No pathological reflexes. CEREBELLAR/COORDINATION: Deferred GAIT/STATION: deferred. laboratory and microbiology Laboratory Tests 01/04/25 05:36 Test 01/04/25 05:36 Range/Units Serum Glucose 89 74-106 mg/dL Problem List Altered mental status, abnormal movement Likely metabolic encephalopathy with myoclonus Seizure, less likely Metabolic encephalopathy secondary to chronic kidney failure Chronic kidney failure on hemodialysis A fib Right groin hematoma/ femoral pseudoaneurysm Abnormal EEG with epileptiform discharge on 01/02/2025, clinically no convincing evidence of seizure activity Assessment/Plan Monitoring Supportive treatment Follow-up labs Follow up EEG Telemetry Lovenox 50 mg subQ daily if okay with Dr. Fiordaliza Wynn and vascular surgeon (acute groin hematoma) No antiepileptic treatment is recommended at this time DVT prophylaxis/SCD for now GI prophylaxis/Protonix Up to chair Physical therapy Vascular surgery on case Nephrology/hemodialysis More recommendation per clinical course This medical document was created using an electronic medical record system with [employer] computerized dictation system. Although this document has been carefully reviewed, there may still be some phonetic and typographical errors. These areas are purely typographical due to imperfections of the software programs, and do not reflect any compromise in the patient's medical care. Prognosis poor Dietary Evaluation Review Comments: Nutrition Recommendation: 1) Consider Nepro Carbsteady 240ml daily if PO intake <50% 2) Nephro-cecy 1 tab daily 3) Monitor PO intake, lab values, weight trend, and I/O Expected Outcomes/Goals: Lab values to improve FU 3-5 days Plan discussed with: Patient, Other Total Time (mins): 35 LOULOU PAGE MD Jan 04, 2025 21:04
--- NOTE | 2025-01-05 00:05 | DVHEEG2 ---
Neurology EEG Procedural Note Procedural Note EXAM DATE: 01/03/2025 REFERRING DOCTOR: DR. PAGE TECHNIQUE: Eighteen channels of EEG, 2 channels of EOG, and 1 channel of EKG were recorded using the International 10/20 system. CLINICAL DATA: The patient was referred for an EEG evaluation for the evidence of seizure disorder. MEDICATIONS: See the chart BACKGROUND ACTIVITY: While the patient was awake, the background activity consisted of poor regulated 8 Hz rhythmic waveforms, symmetrically distributed over both posterior quadrants and was reactive to external stimuli ACTIVATION: Hyperventilation: Not a down Photic Stimulation: No photic convulsive response Sleep: Noticed, during asleep, meeting high-amplitude sharply contoured waveform were seen in the bilateral hemispheres IMPRESSION: This is an abnormal EEG. The sharply contoured waveform in the bilateral hemispheres are considered epileptiform in nature, please correlate clinically The EKG channel showed a regular heart rate of 66 per minute[place] [address]. LOULOU PAGE MD Jan 05, 2025 00:05
[2025-01-05 01:00] VITALS: BP 116/61; PULSE 106; RESP 17; TEMP 98.9; O2SAT 97
[2025-01-05 05:00] VITALS: BP 149/76; PULSE 77; RESP 17; TEMP 97; O2SAT 98
[2025-01-05 07:17] LABS: Hemoglobin 7.5 g/dL (12.2-16.2)
[2025-01-05 07:19] LABS: Hematocrit 23.1 % (36.0-46.0)
[2025-01-05 07:24] LABS: Chloride 100 mmol/L (98-107); Potassium 4.2 mmol/L (3.5-5.1); Sodium 137 mmol/L (136-145)
[2025-01-05 07:25] LABS: Anion Gap 10 (5-15); Calcium 8.7 mg/dL (8.7-10.4); Carbon Dioxide 27 mmol/L (20-31)
[2025-01-05 07:31] LABS: BUN/Creatinine Ratio 3.2 (10.0-20.0); Blood Urea Nitrogen 14 mg/dL (9-23); Glucose 82 mg/dL (74-106)
[2025-01-05 08:00] VITALS: PULSE 72
[2025-01-05 09:05] VITALS: BP 135/76; PULSE 74; RESP 74; TEMP 98.3; O2SAT 99
[2025-01-05 13:22] VITALS: BP 132/77; PULSE 81; RESP 18; TEMP 98.2; O2SAT 97
[2025-01-05 16:29] VITALS: BP 134/79; PULSE 80; RESP 18; TEMP 98.3; O2SAT 98
--- NOTE | 2025-01-05 17:30 | DVHDSRES ---
Discharge Summary Date of Admission Resident Creating Document: REYMUNDO MTZ RESIDENT Dec 31, 2024 at 00:07 Date of Discharge: Jan 05, 2025 Admitting Diagnosis Acute metabolic encephalopathy Labs/Diagnostic Data: Laboratory Results Test 01/05/25 05:54 01/04/25 05:36 01/03/25 04:51 01/01/25 18:20 Hemoglobin 7.5 g/dL (12.2-16.2) Hematocrit 23.1 % (36.0-46.0) Sodium Level 137 mmol/L (136-145) Potassium Level 4.2 mmol/L (3.5-5.1) Chloride Level 100 mmol/L (98-107) Carbon Dioxide Level 27 mmol/L (20-31) Anion Gap 10 (5-15) Blood Urea Nitrogen 14 mg/dL (9-23) Creatinine 4.40 mg/dL (0.550-1.02) Glomerular Filtration Rate Calc 10 mL/min (>90) BUN/Creatinine Ratio 3.2 (10.0-20.0) Serum Glucose 82 mg/dL (74-106) Calcium Level 8.7 mg/dL (8.7-10.4) White Blood Count 5.8 10^3/uL (4.4-10.8) Red Blood Count 2.73 10^6/uL (4.0-5.20) Mean Corpuscular Volume 80.6 fL (80.0-100.0) Mean Corpuscular Hemoglobin 26.7 pg (28.0-32.0) Mean Corpuscular Hemoglobin Concent 33.1 g/dL (32.0-36.0) Red Cell Distribution Width 17.7 % (11.8-14.3) Platelet Count 249 10^3/uL (140-450) Mean Platelet Volume 7.3 fL (6.9-10.8) Neutrophils (%) (Auto) 52.4 % (37.0-80.0) Lymphocytes (%) (Auto) 27.9 % (10.0-50.0) Monocytes (%) (Auto) 14.5 % (0.0-12.0) Eosinophils (%) (Auto) 4.3 % (0.0-7.0) Basophils (%) (Auto) 0.9 % (0.0-2.0) Neutrophils # (Auto) 3.0 10 ^3/uL (1.6-8.6) Lymphocytes # (Auto) 1.6 10 ^3/uL (0.4-5.4) Monocytes # (Auto) 0.8 10 ^3/uL (0-1.3) Eosinophils # (Auto) 0.3 10 ^3/uL (0-0.8) Basophils # (Auto) 0.1 10 ^3/uL (0-0.2) Nucleated Red Blood Cells 0.3 % Iron Level 20 ug/dL (50-170) Total Iron Binding Capacity 170 ug/dL (250-425) Percent Iron Saturation 11.8 % (15-50) POC Glucose 102 mg/dl (70-106) Test 12/31/24 18:25 12/30/24 23:03 12/30/24 22:24 12/30/24 20:02 Prothrombin Time 11.1 sec (9.3-11.8) Prothrombin Time INR 1.05 (0.9-1.15) Activated Partial Thromboplast Time 36.0 SEC (24.5-34.5) Blood Gas Specimen Type Arterial Blood Gas Sample Site Left femoral Blood Gas Patient Temperature 37.0 Arterial Blood Date Drawn [id number] Arterial Blood pH 7.496 (7.350-7.450) Arterial Blood Partial Pressure CO2 38.3 mmHg (32.0-45.0) Arterial Blood Partial Pressure O2 90.9 mmHg (83.0-108.0) Arterial Blood HCO3 28.9 mmol/L (21.0-28.0) Arterial Blood Oxygen Saturation 96.8 % (94.0-98.0) Arterial Blood Base Excess 5.3 mmol/L (-2.0-3.0) Arterial Blood Oxyhemoglobin 95.1 % (94.0-98.0) Arterial Blood Carboxyhemoglobin 1.3 % (0.5-1.5) Arterial Blood Methemoglobin 0.5 % (0.0-1.5) Manuel Test N/a Blood Gas Total Hemoglobin 8.40 g/dL (12.0-16.0) Blood Gas Modality Room air FiO2 % 21.0 Specimen Drawn By Evelyn norris Blood Gas Comments Femoral drawn by Phosphorus Level 4.6 mg/dL (2.4-5.1) Magnesium Level 2.3 mg/dL (1.6-2.6) Ammonia < 10 umol/L (11-32) Triglycerides Level 92 mg/dL (< 150) Cholesterol Level 169 mg/dL (< 200) LDL Cholesterol 52 mg/dL (< 100) HDL Cholesterol 87 mg/dL (40-59) Lipase 23 U/L (12-53) Vitamin B12 Level 579 pg/mL (211-911) Vitamin D 25-Hydroxy 67.9 ng/mL (30.0-100) Thyroid Stimulating Hormone (TSH) 3.74 uIU/mL (0.55-4.78) Lactic Acid Level 1.3 mmol/L (0.4-2.0) Total Bilirubin 0.2 mg/dL (0.2-1.0) Aspartate Amino Transferase (AST) 13 U/L (13-40) Alanine Aminotransferase (ALT) 13 U/L (7-40) Alkaline Phosphatase 98 U/L (46-116) Total Protein 6.4 g/dL (5.7-8.2) Albumin 3.7 g/dL (3.2-4.8) Test 12/30/24 00:00 Urine Color Light-yellow (Yellow) Urine Clarity Clear (Clear) Urine pH 8.5 (5.0-9.0) Urine Specific [place] 1.008 (1.001-1.035) Urine Protein 1+ (Negative) Urine Ketones Negative (Negative) Urine Blood Negative /uL (Negative) Urine Nitrite Negative (Negative) Urine Bilirubin Negative (Negative) Urine Urobilinogen Normal mg/dL (Negative) Urine Leukocyte Esterase Negative /uL (Negative) Urine RBC None seen /hpf (0 - 4) Urine Microscopic WBC 1 /HPF (0-5) Urine Squamous Epithelial Cells Few /hpf (<5) Urine Bacteria None seen /hpf (None Seen) Urine Glucose Normal mg/dL (Normal) Urine Opiates Screen Neg (NEGATIVE) Urine Fentanyl Screen Neg (NEGATIVE) Urine Barbiturates Screen Neg (NEGATIVE) Urine Phencyclidine Screen Neg (NEGATIVE) Urine Amphetamines Screen Neg (NEGATIVE) Urine Benzodiazepines Screen Neg (NEGATIVE) Urine Cocaine Screen Neg (NEGATIVE) Urine Cannabinoids Screen Neg (NEGATIVE) Other Laboratory Tests 01/05/25 05:54 01/04/25 05:36 Brief Hx & Hospital Course: Marisa Nunez is a 74-year-old female who presented to the ED via EMS from specialized nursing facility due to progressive altered mental status. EMS noted patient to be hypotensive on site, prompting ER visit. Patient was recently discharged on November for metabolic encephalopathy. On talking to family at bedside, they mentioned this is not her baseline and she looks more drowsy than normal. Urine analysis,chest Xray and head CT were unremarkable. Her mentation improved over the next 2 days. She developed a hematoma in the right groin area, vascular surgery was consulted. The hematoma gradually reduced in size over the next 1-2 days. Repeat arterial study showed it was no longer visualized after compression for 24 minutes. Her dialysis sessions were continued in the hospital. EEG showed sharply contoured waveform in the left hemispheres, considered epileptiform in nature, but Neurology recommended no antiepileptic medication at this time. The patient was given an iron transfusion as iron level was 20. Patient gradually started getting out of bed and walked 20 ft with a front wheel walker with physical therapy. Patient was discharged to the SNF in a stable condition. All medications and recommendations were thoroughly explained to the patient and she demonstrated understanding of the same. She was recommended to follow up with PCP in 1-2 weeks. Past medical history: Hypertension, diabetes noninsulin dependent, paroxysmal atrial fibrillation (chads Vasc 5) on Eliquis, ESRD on dialysis (Wednesday, and Wednesday, Dr. Wynn), diabetes mellitus, breast and colon cancer. Surgical history: Right knee replacement, colectomy, right mastectomy Family history: Noncontributory Social history: Patient was brought from specialized nursing facility. No history of smoking, alcohol, drug use. Next of kin daughter Allergies: Denies Home medication: Acetaminophen, benazepril, cephalexin, clonidine, Prempro, diphenhydramine, ferrous sulfate, folic acid, gabapentin, hydrochlorothiazide, hydroxychloroquine, ibuprofen, lansoprazole, metoprolol, naproxen, omeprazole, pravastatin, prednisolone, sertraline, trazodone Patient lying in bed, in no acute distress. Patient has a hematoma in right groin area around 6 cm, hard on palpation with no active bleeding. General: Hill, afebrile, mucosae are dry Cardiovascular: Normal S1 and S2. No murmurs, gallops or rubs Respiratory: Normal ventilation mechanics. Clear lung sounds on auscultation Abdomen: Soft, nontender, no organomegaly, normal bowel sounds MSK/skin: Mobilizes 4 limbs. Skin is dry and warm. Av fistula in left arm with palpable thrill. Mastectomy of right breast with right upper arm lymphedema Neurological: AO x 1. No motor, no sensory deficits. Pupils are isocoric and reactive WILLARD: no external hemorrhoids visible, sphincter tone is normal, empty rectal vault, no active bleeding Nurse Mir was present as hydrogen treater during the examination. Operations or Procedures 1.PROCEDURE(s): CXRP - CHEST PORTABLE REASON: SOB ORDER NUMBER(s): [id number], ACCESSION NUMBER(s): [id number] CHEST RADIOGRAPH Indication: SOB Technique: Single frontal view of the chest was obtained Comparison: XY CHEST PORTABLE on DOS: 12/19/24, XY CHEST PORTABLE on DOS: 12/19/24, XY CHEST PORTABLE on DOS: 12/19/24 FINDINGS: Lines and Tubes: None Lungs: No focal consolidation. Mild interstitial prominence. Pleura: No effusion. No pneumothorax. Cardiomediastinal contours: Mild cardiomegaly. Bones: No acute osseous abnormality. IMPRESSION: Cardiomegaly with mild pulmonary vascular congestion. 2.PROCEDURE(s): HWOCT - HEAD WITHOUT CONTRAST REASON: ALOC ORDER NUMBER(s): [id number], ACCESSION NUMBER(s): [id number] CT HEAD WITHOUT CONTRAST INDICATION: ALOC COMPARISON: MRI BRAIN HEAD WO CONTRAST on DOS: 12/17/24, CT STROKE CTH on DOS: 12/17/24, MRI BRAIN HEAD WO CONTRAST on DOS: 12/12/24, CT ANGIO HEAD/NECK on DOS: 12/11/24, CT BRAIN on DOS: 12/06/24 TECHNIQUE: CT of the head without intravenous contrast. RADIATION DOSE: CTDIvol: mGy, DLP: mGy*cm FINDINGS: No evidence of intracranial hemorrhage, infarct, extra-axial collection, mass effect, midline shift, herniation or hydrocephalus. Mild chronic white matter microvascular ischemic changes. Mild ventricular and sulcal enlargement related to mild cerebral volume loss. Visualized paranasal sinuses and mastoid air cells are clear. Soft tissues and osseous structures are unremarkable. IMPRESSION: No acute intracranial abnormality identified. Mild chronic white matter microvascular ischemic change and cerebral volume loss. 3.PROCEDURE(s): CXR1 - CHEST XRAY 1 VIEW REASON: SOB ORDER NUMBER(s): [id number], ACCESSION NUMBER(s): [id number] CHEST RADIOGRAPH Indication: SOB Technique: Single frontal view of the chest was obtained COMPARISON: XY CHEST PORTABLE on DOS: 12/30/24; 19:35 hours FINDINGS: Lines and Tubes: None Lungs: Clear Pleura: No pleural effusion or pneumothorax. Cardiomediastinal contours: Heart size is at the upper limits of normal IMPRESSION: No acute abnormality demonstrated. 4.PROCEDURE(s): RLEAD - Rt Low Ext Art Duplex REASON: rULE OUT PSEUDOANEURYSM ORDER NUMBER(s): [id number], ACCESSION NUMBER(s): [id number] ADDENDUM ADDENDUM # 1 Questionable pseudoaneurysms seen in the right inguinal area. Measures greater than 5.[address] Barker was notified at 1751. ORIGINAL REPORT BILATERAL Lower Extremity Arterial Duplex Date: 12/31/2024 05:41 PM Clinical History: rULE OUT PSEUDOANEURYSM Comparison: None Technique: Duplex Doppler evaluation including color Doppler and spectral/pulsed waveform analysis of the lower extremity arteries was performed. Finding: RIGHT: Peak systolic velocities are as follows: [employer] PROFESSOR 186 cm/s biphasic waveform Deep femoral 158 cm/s biphasic waveform SFA proximal 166 cm/s biphasic waveform SFA mid-portion 152 cm/s biphasic waveform SFA distal 130 cm/s biphasic waveform Popliteal Proximal popliteal artery 94 cm/s biphasic waveform Distal popliteal artery: 109 cm/sec ; biphasic waveform Posterior tibial 134 cm/s biphasic waveform Anterior tibial 79 cm/s biphasic waveform Dorsalis pedis 49 cm/s biphasic waveform The waveforms are biphasic waveform throughout. REFERENCE VALUES, [facility] ([facility]) vascular Imaging Lab Criteria: Peak systolic velocity ranges (in cm/sec) are as follows: <150 cm/s - <20 % stenosis 150-200 cm/s - 20-49% stenosis 200-300 cm/s - 50-75% stenosis >300 cm/s -> 75% stenosis IMPRESSION: 1. There is no evidence for peripheral vascular insufficiency in the right lower extremity. ATED BY: EVANS ELDRIDGE Jr., DO DICTATED DATE/TIME: 12/31/241846 SIGNED BY: EVANS ELDRIDGE Jr., DO SIGNED DATE/TIME: 12/31/241846 CC: BILATERAL Lower Extremity Arterial Duplex Date: 12/31/2024 05:41 PM Clinical History: rULE OUT PSEUDOANEURYSM Comparison: None Technique: Duplex Doppler evaluation including color Doppler and spectral/pulsed waveform analysis of the lower extremity arteries was performed. Finding: RIGHT: Peak systolic velocities are as follows: [employer] PROFESSOR 186 cm/s biphasic waveform Deep femoral 158 cm/s biphasic waveform SFA proximal 166 cm/s biphasic waveform SFA mid-portion 152 cm/s biphasic waveform SFA distal 130 cm/s biphasic waveform Popliteal Proximal popliteal artery 94 cm/s biphasic waveform Distal popliteal artery: 109 cm/sec ; biphasic waveform Posterior tibial 134 cm/s biphasic waveform Anterior tibial 79 cm/s biphasic waveform Dorsalis pedis 49 cm/s biphasic waveform The waveforms are biphasic waveform throughout. REFERENCE VALUES, [facility] ([facility]) vascular Imaging Lab Criteria: Peak systolic velocity ranges (in cm/sec) are as follows: <150 cm/s - <20 % stenosis 150-200 cm/s - 20-49% stenosis 200-300 cm/s - 50-75% stenosis >300 cm/s -> 75% stenosis IMPRESSION: 1. There is no evidence for peripheral vascular insufficiency in the right lower extremity. 5.PROCEDURE(s): RLEAD - Rt Low Ext Art Duplex REASON: Questionable pseudoaneurysm of rt groin follow up ORDER NUMBER(s): [id number], ACCESSION NUMBER(s): [id number] ADDENDUM ADDENDUM # 1 Complex fluid collection in the right groin measuring 10.5 x 7.1 x 3.3 cm suggestive of a hematoma with focal pulsating area demonstrating flow in a Mary Hartman appearance suggestive of a pseudo aneurysm. ORIGINAL REPORT RIGHT Lower Extremity Arterial Duplex Date: 01/02/2025 08:20 AM Clinical History: Questionable pseudoaneurysm of rt groin follow up Comparison: US RT LOW EXT ART DUPLEX on DOS: 12/31/24 Technique: Duplex Doppler evaluation including color Doppler and spectral/pulsed waveform analysis of theRIGHT lower extremity arteries was performed. Finding: RIGHT: Peak systolic velocities are as follows: [employer]ATIONS PROFESSOR 197 cm/s Deep femoral 247 cm/s SFA proximal 240 cm/s SFA mid-portion 187 cm/s SFA distal 167 cm/s Popliteal 130 cm/s Posterior tibial 108 cm/s Anterior tibial 63 cm/s Dorsalis pedis 24 cm/s The waveforms are monophasic in the right dorsalis pedis artery. Otherwise waveforms are within.. REFERENCE VALUES, [facility] ([facility]) vascular Imaging Lab Criteria: Peak systolic velocity ranges (in cm/sec) are as follows: <150 cm/s - <20 % stenosis 150-200 cm/s - 20-49% stenosis 200-300 cm/s - 50-75% stenosis >300 cm/s -> 75% stenosis IMPRESSION: Approximately 20-49% of the right common femoral artery, right mid and distal superficial femoral artery. Approximately 50-75% stenosis of the right mid superficial femoral artery and femoral artery. ATED BY: BELGICA TAVAREZ MD DICTATED DATE/TIME: 01/02/25 1012 SIGNED BY: BELGICA TAVAREZ MD SIGNED DATE/TIME: 01/02/25 1012 CC: RIGHT Lower Extremity Arterial Duplex Date: 01/02/2025 08:20 AM Clinical History: Questionable pseudoaneurysm of rt groin follow up Comparison: US RT LOW EXT ART DUPLEX on DOS: 12/31/24 Technique: Duplex Doppler evaluation including color Doppler and spectral/pulsed waveform analysis of theRIGHT lower extremity arteries was performed. Finding: RIGHT: Peak systolic velocities are as follows: [employer]ATIONS PROFESSOR 197 cm/s Deep femoral 247 cm/s SFA proximal 240 cm/s SFA mid-portion 187 cm/s SFA distal 167 cm/s Popliteal 130 cm/s Posterior tibial 108 cm/s Anterior tibial 63 cm/s Dorsalis pedis 24 cm/s The waveforms are monophasic in the right dorsalis pedis artery. Otherwise waveforms are within.. REFERENCE VALUES, [facility]) vascular Imaging Lab Criteria: Peak systolic velocity ranges (in cm/sec) are as follows: <150 cm/s - <20 % stenosis 150-200 cm/s - 20-49% stenosis 200-300 cm/s - 50-75% stenosis >300 cm/s -> 75% stenosis IMPRESSION: Approximately 20-49% of the right common femoral artery, right mid and distal superficial femoral artery. Approximately 50-75% stenosis of the right mid superficial femoral artery and femoral artery. 6.PROCEDURE(s): RLEAD - Rt Low Ext Art Duplex REASON: pseudoaneurysm compression ORDER NUMBER(s): [id number], ACCESSION NUMBER(s): [id number] US Rt Low Ext Art Duplex COMPARISON: US RT LOW EXT ART DUPLEX on DOS: 01/02/25, US RT LOW EXT ART DUPLEX on DOS: 12/31/24 HISTORY: pseudoaneurysm compression TECHNIQUE: Transverse and longitudinal images were obtained of the groin with ultrasound, color doppler . FINDINGS/IMPRESSION: The groin shows a large hematoma with a pulsatile pseudoaneurysm and a narrow neck. US guided compression was used for 20 minutes. The pseudoaneurysm was no longer visualized after compression. Follow up US in 24 hours can be considered. 7.PROCEDURE(s): BLDVT - BiLat Lower DVT REASON: To rule out DVT ORDER NUMBER(s): [id number], ACCESSION NUMBER(s): [id number] Bilateral lower extremity venous duplex Clinical History: To rule out DVT Comparison: US RT LOW EXT ART DUPLEX on DOS: 01/02/25, US RT LOW EXT ART DUPLEX on DOS: 01/02/25, US RT LOW EXT ART DUPLEX on DOS: 12/31/24, CV VENOUS DOPPLER UP EXT LT on DOS: 07/22/21, CV VENOUS DOPPLER LOW EXT LT on DOS: 12/24/19 Technique: Duplex Doppler evaluation of the deep venous systems of both lower extremities from the common femoral veins to the popliteal veins including color Doppler and spectral/pulsed waveform analysis was performed. Findings: RIGHT SIDE: The common femoral vein demonstrates appropriate compressibility and waveform variability. There is compressibility/patency of the great saphenous vein at the proximal thigh. The femoral vein demonstrates appropriate compressibility and waveform variability. The deep femoral vein demonstrates appropriate compressibility and waveform variability. The popliteal vein demonstrates appropriate compressibility and waveform variability. There is normal compressibility at the tibioperoneal trunk. LEFT SIDE: The common femoral vein demonstrates appropriate compressibility and waveform variability. There is compressibility/patency of the great saphenous vein at the proximal thigh. The femoral vein demonstrates appropriate compressibility and waveform variability. The deep femoral vein demonstrates appropriate compressibility and waveform variability. The popliteal vein demonstrates appropriate compressibility and waveform variability. There is normal compressibility at the tibioperoneal trunk. Impression: No right or left femoropopliteal venous thrombosis. 8.PROCEDURE(s): RLEXT - RIGHT LOWER EXTREMITY ULTRASOU REASON: pseudoaneursym of right groin 24 HOUR F/U ORDER NUMBER(s): [id number], ACCESSION NUMBER(s): [id number] Right lower extremity venous duplex Clinical History: pseudoaneursym of right groin 24 HOUR F/U Comparison: US BILAT LOWER DVT on DOS: 01/02/25, US RT LOW EXT ART DUPLEX on DOS: 01/02/25, US RT LOW EXT ART DUPLEX on DOS: 01/02/25, US RT LOW EXT ART DUPLEX on DOS: 12/31/24 Findings/impression US guided compression was used for 24 hours The pseudoaneurysm was no longer visualized after compression. Condition at Discharge: Fair Final Diagnosis/Problems List Acute Metabolic encephalopathy, likely in the setting of Uremia Ruled out UTI Ruled out stroke End-stage renal disease on hemodialysis session (Wednesday, and Wednesday) Normocytic normochromic anemia Paroxysmal atrial fibrillation (chads Vasc 5) - secondary hypercoagulable state Diabetes mellitus type 2, without hyperglycemia Hypertensive heart disease with diastolic heart failure Breast cancer - status post right mastectomy Hematoma in right groin Discharge Disposition: [facility] Facility Discharge Instruct/Medications Diet: Renal Activity: No Restrictions, As Tolerated Scheduled Alum & Mag Hydrox-Simethicone (Gi Cocktail), 30 ML PO Q6HR Amiodarone HCl (Amiodarone HCl), 200 MG PO Q12HR Apixaban Base (Eliquis), 2.5 MG PO BIDPC Ezetimibe-Simvastatin (Vytorin), 1 TAB OR HS, (Reported) Ferrous Sulfate (Ferrous Sulfate), 325 MG OR DAILY, (Reported) Hydralazine HCl (Hydralazine HCl), 50 MG PO Q8HR Isosorbide Dinitrate (Isosorbide Dinitrate), 10 MG PO Q8HR Lansoprazole (Lansoprazole), 30 MG OR DAILY, (Reported) Quetiapine Fumerate (Quetiapine Fumarate), 25 MG PO TID Sertraline Hcl (Sertraline Hcl), 50 MG OR DAILY, (Reported) Discharge Statement: "Patient was advised to return to the ER or call 911 if any headaches, dizziness, shortness of breath, chest pain, abdominal pain, bleeding, fevers, or worsening of medical condition. Patient was counseled about treatment plan, medications, possible side effects, patientverbalized understanding. All questions were answered to the best of my ability. This discharge took greater then 30 minutes in planning, reviewing documentation, counseling the patient, and discussing with other team members." ASSESSMENT ASSESSMENT Assessment Metabolic encephalopathy Date of Service: Jan 05, 2025 Billing Provider: ORIN ROUSSEAU MD Common Visit Codes: [id number] INP/OBS CARE(HIGH) REYMUNDO MTZ RESIDENT Jan 05, 2025 17:30
--- NOTE | 2025-01-05 20:47 | DVHPN2 ---
Progress Note - Dictate Date Seen: Jan 05, 2025 Has the PT tested + for MRSA If YES, has PT been informed?: No Medical Necessity Reason Pt with a Central, PICC or Fol: Yes Subjective Patient was seen and evaluated in follow up. No acute events overnight. No new complaints. EEG showed sharply contoured waveform in the left hemispheres, considered epileptiform in nature. Patient has started getting out of bed and walked 20 ft with a front wheel walker with physical therapy. Planned for transfer today to SNF after dialysis. vital signs Vital Sign Date Time Temp Pulse Resp B/P (MAP) Pulse Ox O2 Delivery O2 Flow Rate FiO2 01/05/25 16:29 98.3 80 18 134/79 (97) 98 98.3 01/05/25 08:00 Room Air* 0 21 Total Intake and Output 01/04/25 01/04/25 01/05/25 15:00 23:00 07:00 Intake Total 110 ml 1200 ml 495 ml Output Total 900 ml 125 ml Balance 110 ml 300 ml 370 ml medications Current Medications Medications Dose Ordered Sig/Duncan Route Start Time Stop Time Status Last Admin Dose Admin Cefepime HCl 50 ml @ 12.5 mls/hr DAILY IV 12/31/24 10:00 UNV objective Vitals and nursing notes reviewed. General Appearance: No Apparent Distress, Normal HEENT: Normal ENT Inspection, Pharynx Normal. PERRL. EOMI Neck: Full Range of Motion, Non-Tender, Normal, Normal Inspection Respiratory: Lungs Clear, No Accessory Muscle Use, No Respiratory Distress, Normal Breath Sounds Cardiovascular: No Murmur, Regular Rate/Rhythm Gastrointestinal: No Organomegaly, Non Tender, No Pulsatile Mass, Normal Bowel Sounds, Soft Extremities: No calf tenderness, Normal capillary refill, Normal inspection, Normal range of motion, Non-tender, No pedal edema Musculoskeletal: Apperance: Normal. Av fistula in left arm. Mastectomy of right breast with right upper arm lymphedema Neurologic: A&Ox3. No motor no sensitive deficits. Skin: Dry, Normal Color, Warm laboratory and microbiology Laboratory Tests 01/05/25 05:54 01/04/25 05:36 Test 01/05/25 05:54 Range/Units Serum Glucose 82 74-106 mg/dL Problem List Metabolic encephalopathy Probable UTI Transient hypotension probably secondary to infection Ruled out hemorrhagic stroke End-stage renal disease on hemodialysis session (Wednesday, and Wednesday) Paroxysmal atrial fibrillation (chads Vasc 5) - secondary hypercoagulability state Diabetes mellitus type 2 Hypertension Breast cancer - status post right mastectomy Colon cancer - status post colectomy Assessment/Plan Agree with current supportive medical care. Neurologist has recommended no antiepileptic medication at this time. HD- 01/05- UF 2.5 L as tolerated. Epogen 10,000 u x once. Cleared for discharge to SNF from Nephrology standpoint. Resume outpatient hemodialysis with [facility]. Dietary Evaluation Review Comments: Nutrition Recommendation: 1) Consider Nepro Carbsteady 240ml daily if PO intake <50% 2) Nephro-cecy 1 tab daily 3) Monitor PO intake, lab values, weight trend, and I/O Expected Outcomes/Goals: Lab values to improve FU 3-5 days Plan discussed with: Patient, Other (RN) TATYANA CHARLES DO Jan 05, 2025 20:47
[2025-01-05] MEDS ORDERED: EPOETIN ALFA-EPBX 10,000 UNIT/1ML VIAL SC ONE (21:00)
== END 2025-01-05 20:14 | DRG 70 ==
LOC: EDBD 18:42 → ER 18:42 → OVERFLOW 12-31 00:07 → TELE-WESTW 12-31 01:20 → DOU 12-31 19:25 → TELE-WESTW 01-03 21:15
PROVIDERS: ADMIT Internal Medicine; ATTEND Internal Medicine
PROC: 06HY33Z Insertion of Infusion Device into Lower Vein, Percutaneous Approach (ICD-10-PCS; principal; 2024-12-31)
PROC: 30233K1 Transfusion of Nonautologous Frozen Plasma into Peripheral Vein, Percutaneous Approach (ICD-10-PCS; 2024-12-31)
PROC: 5A1D70Z Performance of Urinary Filtration, Intermittent, Less than 6 Hours Per Day (ICD-10-PCS; 2024-12-31)
PROC: 30233N1 Transfusion of Nonautologous Red Blood Cells into Peripheral Vein, Percutaneous Approach (ICD-10-PCS; 2025-01-01)
PROC: 5A1D70Z Performance of Urinary Filtration, Intermittent, Less than 6 Hours Per Day (ICD-10-PCS; 2025-01-01)
PROC: 5A1D70Z Performance of Urinary Filtration, Intermittent, Less than 6 Hours Per Day (ICD-10-PCS; 2025-01-03)
DX: G93.41 Metabolic encephalopathy (principal); N18.6 End stage renal disease; I13.2 Hypertensive heart and chronic kidney disease with heart failure and with stage 5 chronic kidney disease, or end stage renal disease; D68.59 Other primary thrombophilia; D63.8 Anemia in other chronic diseases classified elsewhere; Z99.2 Dependence on renal dialysis; E11.22 Type 2 diabetes mellitus with diabetic chronic kidney disease; I50.32 Chronic diastolic (congestive) heart failure; G25.3 Myoclonus; I48.0 Paroxysmal atrial fibrillation; E87.5 Hyperkalemia; S30.12XA Contusion of groin, initial encounter; Z96.651 Presence of right artificial knee joint; F17.200 Nicotine dependence, unspecified, uncomplicated; Z79.01 Long term (current) use of anticoagulants; Z90.49 Acquired absence of other specified parts of digestive tract; Z90.11 Acquired absence of right breast and nipple; Z82.49 Family history of ischemic heart disease and other diseases of the circulatory system; Z82.3 Family history of stroke; Z83.3 Family history of diabetes mellitus; Z81.8 Family history of other mental and behavioral disorders; Z80.0 Family history of malignant neoplasm of digestive organs; Z79.899 Other long term (current) drug therapy; Z79.84 Long term (current) use of oral hypoglycemic drugs; Z85.038 Personal history of other malignant neoplasm of large intestine; Z85.3 Personal history of malignant neoplasm of breast; Z86.73 Personal history of transient ischemic attack (TIA), and cerebral infarction without residual deficits; Y93.89 Activity, other specified; Y92.89 Other specified places as the place of occurrence of the external cause; Y99.8 Other external cause status; X58.XXXA Exposure to other specified factors, initial encounter
CPT/HCPCS: 36415; 36556; 36600; 70450; 71045; 76881; 80048; 80053; 80061; 80307; 81001; 82140; 82306; 82607; 82805; 82962; 83540; 83550; 83605; 83690; 83735; 84100; 84443; 85014; 85018; 85025; 85610; 85730; 86850; 86900; 86901; 86920; 87040; 87081; 87086; 90935; 93926; 93970; 95819; 97110; 97116; 97163; 97530; 99291; G0378; J1756; J3430

== ENCOUNTER 2025-01-06 22:25 | Emergency (ER) | payer MEDICARE, MEDICAID ==
[~2025-01-06] VITALS: Ht 162.6 cm; Wt 63.5 kg
--- NOTE | 2025-01-07 02:25 | ED.PDOC ---
Musculoskeletal HPI Comments HPI: Patient discharged last January 05, 2025 diagnosed with Acute Metabolic encephalopathy, likely in the setting of Uremia Ruled out UTI Ruled out stroke End-stage renal disease on hemodialysis session (Wednesday, and Wednesday) Normocytic normochromic anemia Paroxysmal atrial fibrillation (chads Vasc 5) - secondary hypercoagulable state Diabetes mellitus type 2, without hyperglycemia Hypertensive heart disease with diastolic heart failure Breast cancer - status post right mastectomy Hematoma in right groin Patient was sent home to a long term facility, where she fell off her bed landing on her left side. Patient complaining of left forearm pain. Denies any head or neck pain. Patient has chronic right hip pain unchanged. Past Medical History: Hypertension, diabetes, cancer, end-stage renal disease, chronic right hip pain secondary to fall Surgical History: Dialysis Family History: Denies Personal and Social History: Resides at the long term facility HPI: Poor Historian. REVIEW OF SYSTEMS: CONSTITUTIONAL: Denies acute: fever, diaphoresis, chills, generalized weakness. HEAD: Denies acute: headache, photophobia Eyes: Denies acute: Double vision, vision loss, eye pain, eye discharge. EARS: Denies acute: tinnitus, hearing loss, ear discharge, ear pain, THROAT: Denies acute: sore throat, swelling, difficulty swallowing , pain with swallowing, change in voice. NECK: Denies acute: neck pain, neck swelling, stiff neck. HEART: Denies acute : chest pain, palpitations, LUNGS: Denies acute: SOB, wheezing, cough, hemoptysis ABDOMEN: Denies acute: abdominal pain, Nausea, Vomiting, diarrhea, melena , hematemesis, hematochezia SKIN: Denies acute: rash, redness, lesions, itchiness. EXTREMITIES: Denies acute: calf pain, numbness, tingling, weakness, denies pain in extremity. Denies acute: Low back pain. Neuro: Denies acute: focal neurological deficit, motor or sensory focal neurological deficit, tremors, seizure like activity, confusion, dizziness, change in mental status, loss of bowel or bladder function, cauda equina like symptoms. : Denies acute: dysuria, hematuria, flank pain, increase in urinary frequency. PSYCH: Denies acute: hallucination, suicidal ideation, homicidal ideation. FEMALE: Denies acute: abnormal vaginal bleeding, foul odor, unusual discharge. PHYSICAL EXAM: General: ---no-----acute distress, awake and alert. Head: normocephalic, atraumatic. No raccoon's eyes, no burton sign. Neck: supple, trachea is midline, no swelling. Throat: Normal phonation. Eyes:, no erythema, no purulent discharge, no proptosis, no icterus. Heart: regular rate, regular rhythm, no significant murmur appreciated. Lungs: no apparent respiratory distress, Able to speak in full sentences. No wheezing, no rhonchi, no crackles. No stridors Clear to auscultation bilaterally. Abdomen: non tender to palpation, non distended, soft, no guarding, no rebound, + bowel sounds. Neuro: Awake, Alert, oriented to name, self, situation, follows commands GCS=15. Speech is normal. Evaluation of the area of complaint: Left upper extremity patient points to her left distal forearm. There is minimal swelling. No apparent deformity or eryt sarah. Patient is neurovascularly intact in the affected extremity. Sensory and motor are present. Radial pulses palpable. Denies any acute pain in her shoulder. Denies any head or neck injury. Denies any back injury. Skin: no petechia, no purpura, no cyanosis, non-pale, not jaundice. Lower extremities: --trace bilateral - Pitting edema no deformity, no focal swelling, no calf TTP. Makes eye contact. Face: no apparent facial droop. ED COURSE: DISCLAIMER: This medical document was created using an electronic medical record system with voice recognition software and computerized dictation system. Although this document has been carefully reviewed, there might still be some phonetic and typographical errors. Occasional wrong-word or "sound-alike" substitutions may have occurred due to the inherent limitations of voice recognition software. These areas are purely typographical due to imperfections of the software programs and do not reflect any compromise in the patient's medical care. Please read the chart carefully and recognize, using context, where these substitutions have occurred. Chief Complaint: Fall Injury Time Seen by MD: 02:24 Primary Care Provider: [email or web address] Reviewed Notes: Nurses Notes, Allergies Allergies: Coded Allergies: NO KNOWN ALLERGIES (Unverified , 09/25/09) Home Meds Active Scripts Alum & Mag Hydrox-Simethicone (Gi Cocktail) 55 Ml Ss, 30 ML PO Q6HR for 30 Days, #1200 ML Prov:CALEB VILLEGAS MD 12/26/24 Quetiapine Fumerate (QUETIAPINE FUMARATE) 25 Mg Tab, 25 MG PO TID for 30 Days, #90 TAB Prov:CALEB VILLEGAS MD 12/26/24 Isosorbide Dinitrate (Isosorbide Dinitrate) 10 Mg Tab, 10 MG PO Q8HR for 30 Days, #90 TAB Prov:CALEB VILLEGAS MD 12/26/24 Hydralazine HCl (Hydralazine HCl) 25 Mg Tab, 50 MG PO Q8HR for 30 Days, #180 TAB Prov:CALEB VILLEGAS MD 12/26/24 Amiodarone HCl (Amiodarone HCl) 200 Mg Tab, 200 MG PO Q12HR for 30 Days, #60 TAB Prov:CALEB VILLEGAS MD 12/26/24 Apixaban Base (ELIQUIS) 2.5 Mg Tab, 2.5 MG PO BIDPC for 30 Days, #60 TAB Prov:CARLITOS CHACON MD 12/13/24 Reported Medications Sertraline Hcl (Sertraline Hcl) 50 Mg Tab, 50 MG OR DAILY 09/25/09 Ezetimibe-Simvastatin (Vytorin) 1 Tab Tab, 1 TAB OR HS 09/25/09 Lansoprazole (Lansoprazole) 30 Mg Cap, 30 MG OR DAILY 09/25/09 Ferrous Sulfate (Ferrous Sulfate) 325 Mg Tab, 325 MG OR DAILY 09/25/09 Information Source: Patient Mode of Arrival: EMS Past Medical History PAST MEDICAL HISTORY: Cancer, ESRD, High Lipids, HTN 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 Was a procedure done?: No X-Ray, Labs, Meds, VS Vital Signs Date Time Temp Pulse Resp B/P (MAP) Pulse Ox O2 Delivery O2 Flow Rate FiO2 01/06/25 22:56 97.6 80 14 155/[address] - [address] Ph: [phone] DIAGNOSTIC IMAGING Diagnostic Imaging Report : [id number] Signed PATIENT: RON PATTERSON ACCT: [id number] UNIT: [id number] : 1950 LOC: ER ROOM / BED: / AGE / SEX: 74 / F ADM STATUS: REG ER SERVICE 9 ORDERING PHYSICIAN: TASHA DIAL DO PROCEDURE(s): LFOR - L FOREARM XRAY REASON: fall, pain ORDER NUMBER(s): [id number], ACCESSION NUMBER(s): [id number] CLINICAL INDICATION: fall, pain TECHNIQUE: XY L FOREARM XRAY Comparison: None FINDINGS/IMPRESSION: : There is no evidence of acute fracture or dislocation. Suspected postsurgical change status post possible 1st carpometacarpal arthroplasty. Soft tissues are unremarkable. ATED BY: MICH WOLFE MD DICTATED DATE/TIME: 01/07/25314 SIGNED BY: MICH WOLFE MD SIGNED DATE/TIME: 01/07/25314 CC: [place] [address] Ph: [phone] DIAGNOSTIC IMAGING Diagnostic Imaging Report : [id number] Signed PATIENT: RON PATTERSON ACCT: [id number] UNIT: [id number] : 1950 LOC: ER ROOM / BED: / AGE / SEX: 74 / F ADM STATUS: REG ER SERVICE 1 ORDERING PHYSICIAN: TASHA DIAL DO PROCEDURE(s): RHIP - R HIP COMPLETE XRAY REASON: fall ORDER NUMBER(s): [id number], ACCESSION NUMBER(s): [id number] CLINICAL INDICATION: fall TECHNIQUE: XY R HIP COMPLETE XRAY Comparison: CT CT R HIP WITH OUT CONTRAST on DOS: 12/13/24, CT CT R FEMUR WO CONTRAST on DOS: 12/12/24, CR HIP RIGHT 2-3 VIEW on DOS: 04/07/24 FINDINGS/IMPRESSION: : Mild diffuse generalized osseous demineralization. There is no evidence of acute fracture or dislocation. Soft tissues are unremarkable. ATED BY: MICH WOLFE MD DICTATED DATE/TIME: 01/07/25314 SIGNED BY: MICH WOLFE MD SIGNED DATE/TIME: 01/07/25314 CC: [place] [address] Ph: [phone] DIAGNOSTIC IMAGING Diagnostic Imaging Report : [id number] Signed PATIENT: RON PATTERSON ACCT: [id number] UNIT: [id number] : 1950 LOC: ER ROOM / BED: / AGE / SEX: 74 / F ADM STATUS: REG ER SERVICE 1 ORDERING PHYSICIAN: TASHA DIAL DO PROCEDURE(s): LHIP - L HIP COMPLETE XRAY REASON: fall ORDER NUMBER(s): [id number], ACCESSION NUMBER(s): [id number] CLINICAL INDICATION: fall TECHNIQUE: XY L HIP COMPLETE XRAY Comparison: XY R HIP COMPLETE XRAY on DOS: 01/07/25, CT CT R HIP WITH OUT CONTRAST on DOS: 12/13/24, CR HIP RIGHT 2-3 VIEW on DOS: 04/07/24 FINDINGS/IMPRESSION: : Mild diffuse generalized osseous demineralization. There is no evidence of acute fracture or dislocation. Soft tissues are unremarkable. ATED BY: MICH WOLFE MD DICTATED DATE/TIME: 01/07/25315 SIGNED BY: MICH WOLFE MD SIGNED DATE/TIME: 01/07/25315 CC: Time of 1ST Reevaluation: 02:22 Reevaluation 1ST: Unchanged Patient Education/Counseling: Diagnosis, Treatment Family Education/Counseling: No Family Present Departure 1 Departure Time of Disposition: 03:33 Impression: Primary Impression: Fall Additional Impression: Contusion of forearm, left Disposition: 01 HOME / SELF CARE / HOMELESS Condition: Stable Additional Instructions: Additional instructions: Please read all instructions provided in this packet carefully. You MUST follow-up with your primary care/family doctor in 1 to 2 days. If you are unable to see your primary care/family doctor, please return to our emergency room for re-assessment and re-evaluation in 1 to 2 days. Return to the emergency room here in our facility or to the nearest ER [facility] if your symptoms change or worsen. CONSULTATIONS: you MUST Follow-up for consultation as soon as possible with: --orthopedic doctor in 1-2 days. Please call for appointment. You MUST call the consultants office yourself to make an appointment. You may need to arrange that through your insurance and/or your primary/family doctor. If you are unable to see the claims consultant in 1 to 2 days, you must return to our emergency room (or any other ER of your choice) for re-assessment and re- evaluation. Adequate fluid hydration. Although you have been discharged from the Emergency Department, this does not mean that you have a "clean bill of health". No definitive diagnosis for your symptoms has been made today. It is possible that you are in the process of developing a serious illness. This is why you must return to the ED without fail if any new or worsening symptoms develop. Fall precautions. Below is a copy of your radiological report for follow up: [place] [address] Ph: [phone] DIAGNOSTIC IMAGING Diagnostic Imaging Report : [id number] Signed PATIENT: RON PATTERSON ACCT: [id number] UNIT: [id number] : 1950 LOC: ER ROOM / BED: / AGE / SEX: 74 / F ADM STATUS: REG ER SERVICE 9 ORDERING PHYSICIAN: TASHA DIAL DO PROCEDURE(s): LFOR - L FOREARM XRAY REASON: fall, pain ORDER NUMBER(s): [id number], ACCESSION NUMBER(s): [id number] CLINICAL INDICATION: fall, pain TECHNIQUE: XY L FOREARM XRAY Comparison: None FINDINGS/IMPRESSION: : There is no evidence of acute fracture or dislocation. Suspected postsurgical change status post possible 1st carpometacarpal arthroplasty. Soft tissues are unremarkable. ATED BY: MICH WOLFE MD DICTATED DATE/TIME: 01/07/25314 SIGNED BY: MICH WOLFE MD SIGNED DATE/TIME: 01/07/25314 CC: [address] [address] Ph: [phone] DIAGNOSTIC IMAGING Diagnostic Imaging Report : [id number] Signed PATIENT: RON PATTERSON ACCT: [id number] UNIT: [id number] : 1950 LOC: ER ROOM / BED: / AGE / SEX: 74 / F ADM STATUS: REG ER SERVICE 1 ORDERING PHYSICIAN: TASHA DIAL DO PROCEDURE(s): RHIP - R HIP COMPLETE XRAY REASON: fall ORDER NUMBER(s): [id number], ACCESSION NUMBER(s): [id number] CLINICAL INDICATION: fall TECHNIQUE: XY R HIP COMPLETE XRAY Comparison: CT CT R HIP WITH OUT CONTRAST on DOS: 12/13/24, CT CT R FEMUR WO CONTRAST on DOS: 12/12/24, CR HIP RIGHT 2-3 VIEW on DOS: 04/07/24 FINDINGS/IMPRESSION: : Mild diffuse generalized osseous demineralization. There is no evidence of acute fracture or dislocation. Soft tissues are unremarkable. ATED BY: MICH WOLFE MD DICTATED DATE/TIME: 01/07/25314 SIGNED BY: MICH WOLFE MD SIGNED DATE/TIME: 01/07/25314 CC: [address] [address] Ph: [phone] DIAGNOSTIC IMAGING Diagnostic Imaging Report : [id number] Signed PATIENT: RON PATTERSON ACCT: [id number] UNIT: [id number] : 1950 LOC: ER ROOM / BED: / AGE / SEX: 74 / F ADM STATUS: REG ER SERVICE 1 ORDERING PHYSICIAN: TASHA DIAL DO PROCEDURE(s): LHIP - L HIP COMPLETE XRAY REASON: fall ORDER NUMBER(s): [id number], ACCESSION NUMBER(s): [id number] CLINICAL INDICATION: fall TECHNIQUE: XY L HIP COMPLETE XRAY Comparison: XY R HIP COMPLETE XRAY on DOS: 01/07/25, CT CT R HIP WITH OUT CONTRAST on DOS: 12/13/24, CR HIP RIGHT 2-3 VIEW on DOS: 04/07/24 FINDINGS/IMPRESSION: : Mild diffuse generalized osseous demineralization. There is no evidence of acute fracture or dislocation. Soft tissues are unremarkable. ATED BY: MICH WOLFE MD DICTATED DATE/TIME: 01/07/25315 SIGNED BY: MICH WOLFE MD SIGNED DATE/TIME: 01/07/25315 CC: Discharged With: Self Critical Care Note Critical Care Time?: No I personally scribed for TASHA DIAL DO ([email or web address]) on 01/07/25 at 02:25. Electronically submitted by Juan Francisco Ospina ([facility]). I personally scribed for TASHA DIAL DO ([email or web address]) on 01/07/25 at 03:24. Electronically submitted by Juan Francisco Ospina ([facility]). I personally scribed for TASHA DIAL DO ([email or web address]) on 01/07/25 at 03:35. Electronically submitted by Juan Francisco Ospina ([facility]). TASHA DIAL DO Jan 07, 2025 02:25
--- NOTE | 2025-01-07 03:17 | DVH ---
CLINICAL INDICATION: fall TECHNIQUE: XY R HIP COMPLETE XRAY Comparison: CT CT R HIP WITH OUT CONTRAST on DOS: 12/13/24, CT CT R FEMUR WO CONTRAST on DOS: 12/12/24, CR HIP RIGHT 2-3 VIEW on DOS: 04/07/24 FINDINGS/IMPRESSION: : Mild diffuse generalized osseous demineralization. There is no evidence of acute fracture or dislocation. Soft tissues are unremarkable.
--- NOTE | 2025-01-07 03:18 | DVH ---
CLINICAL INDICATION: fall, pain TECHNIQUE: XY L FOREARM XRAY Comparison: None FINDINGS/IMPRESSION: : There is no evidence of acute fracture or dislocation. Suspected postsurgical change status post possible 1st carpometacarpal arthroplasty. Soft tissues are unremarkable.
--- NOTE | 2025-01-07 03:18 | DVH ---
CLINICAL INDICATION: fall TECHNIQUE: XY L HIP COMPLETE XRAY Comparison: XY R HIP COMPLETE XRAY on DOS: 01/07/25, CT CT R HIP WITH OUT CONTRAST on DOS: 12/13/24, CR HIP RIGHT 2-3 VIEW on DOS: 04/07/24 FINDINGS/IMPRESSION: : Mild diffuse generalized osseous demineralization. There is no evidence of acute fracture or dislocation. Soft tissues are unremarkable.
[2025-01-07] MEDS: HYDROcodone-ACET 5/325MG TAB PO ONE (07:59)
[2025-01-07 08:39] VITALS: BP 147/66; PULSE 77; RESP 18; TEMP 99; O2SAT 100
== END 2025-01-07 03:35 | disposition home or self-care (01) ==
LOC: ER 22:25 → EDUNIT# 22:25 → EDBD 22:25 → ER 01-07 03:35
DX: S50.12XA Contusion of left forearm, initial encounter (principal); I12.0 Hypertensive chronic kidney disease with stage 5 chronic kidney disease or end stage renal disease; E11.22 Type 2 diabetes mellitus with diabetic chronic kidney disease; N18.6 End stage renal disease; E78.5 Hyperlipidemia, unspecified; F10.90 Alcohol use, unspecified, uncomplicated; Z79.899 Other long term (current) drug therapy; Z90.11 Acquired absence of right breast and nipple; Z99.2 Dependence on renal dialysis; W06.XXXA Fall from bed, initial encounter; Y93.89 Activity, other specified; Y92.89 Other specified places as the place of occurrence of the external cause; Y99.8 Other external cause status
CPT/HCPCS: 73090; 73502